=== PATIENT | female | born 1980 | race Caucasian/White ===

== ENCOUNTER 2018-07-13 12:00 | Outpatient (CLI) | payer BC, SELFPAY ==
[2018-07-13 13:45] LABS: ALT 19 U/L (12-78); AST 10 U/L (15-37); Albumin 3.5 g/dL (3.4-5.0); Alkaline Phosphatase 123 U/L (46-116); Anion Gap 9.1 mmol/L (3-11); BUN 11 mg/dL (7-18); Bilirubin, Total 0.2 mg/dL (0.2-1.0); CO2 29.9 mmol/L (21.0-32.0); CREATININE 0.74 mg/dL (0.55-1.02); Calcium 9.4 mg/dL (8.5-10.1); Chloride 100 mmol/L (98-107); Cholesterol 244 mg/dL (50-200); Glucose 80 mg/dL (70-100); HDL Cholesterol 55 mg/dL (40-60); LDL CHOLESTEROL 154 mg/dL (<100); Potassium 4.4 mmol/L (3.5-5.1); Sodium 139 mmol/L (136-145); TSH (W/Ref FT4) 0.97 uIU/mL (0.358-3.74); Total Protein 7.2 g/dL (6.4-8.2); Triglyceride 210 mg/dL (30-150)
[2018-07-13 18:47] LABS: C-Reactive Protein 2.32 mg/dL (0.0-0.3)
[2018-07-16 13:22] LABS: Albumin 54.8 % (55.8-66.1); Total Protein 6.9 g/dl (6.3-8.2)
[2018-07-16 13:46] LABS: C3 Complement 207 mg/dL (81-157); C4 Complement 32 mg/dL (13-39)
[2018-07-16 14:04] LABS: ANA Interpretation Positive (NEGAT); ANA Titer Pattern 1:80 Speckled
[2018-07-17 12:35] LABS: dsDNA Ab, IgG <12.3 IU/mL (<30)
== END 2018-07-13 12:20 ==
PROVIDERS: PCP Student in an Organized Health Care Education/Training Program; Visit Provider Student in an Organized Health Care Education/Training Program
DX: M32.9 Systemic lupus erythematosus, unspecified (principal); E78.5 Hyperlipidemia, unspecified; F32.9 Major depressive disorder, single episode, unspecified; F41.9 Anxiety disorder, unspecified
CPT/HCPCS: 36415; 80053; 80061; 83721; 84165; 84443; 86038; 86140; 86160; 86225

== ENCOUNTER 2019-10-17 14:03 | Emergency (ER) | payer MEDICAID, SELFPAY ==
[2019-10-17 14:12] VITALS: PULSE 88; RESP 16; TEMP 36.1; O2SAT 96
--- NOTE | 2019-10-17 14:23 | ED.GENADUL_ITS ---
Discharge Plan Disposition Patient Disposition: HOME Condition: Stable Discharge Details Chief Complaint: Urinary Clinical Impression: Pyelonephritis Primary Care Provider: Rebecca Lewis ED Provider: Staci Taylor Home Meds and New Rx's Prescriptions: No Action fluticasone propionate 50 mcg/actuation spray,suspension 2 spray ZACHERY DAILY Qty: 16 RF: 0 doxycycline hyclate 100 mg capsule 100 mg PO BID Qty: 20 RF: 0 hydroxychloroquine [Plaquenil] 200 mg tablet 200 mg PO DAILY Qty: 30 RF: 1 cevimeline [Evoxac] 30 MG capsule 30 mg PO BID RF: 0 loratadine [Claritin] 10 MG tablet 10 mg PO DAILY RF: 0 multivitamin [Daily Multi-Vitamin] 1 EACH tablet 1 ea PO DAILY RF: 0 (DME) Space Chamber Plus 1 EACH spacer 1 ea Miscellaneous PRN Qty: 1 RF: 0 epinephrine 0.3 MG/0.3 ML auto-injector 0.3 mg IM ONCE Qty: 2 RF: 0 ondansetron HCl [Zofran] 4 mg tablet 4 mg PO Q6H PRNRF: 0 pantoprazole 40 mg tablet,delayed release (DR/EC) 40 mg PO BID Qty: 180 RF: 3 bupropion HCl [Wellbutrin XL] 150 mg tablet extended release 24 hr 150 mg PO DAILY Qty: 90 RF: 3 escitalopram oxalate 10 mg tablet 10 mg PO DAILY Qty: 90 RF: 3 albuterol sulfate [ProAir HFA] 90 mcg/actuation HFA aerosol inhaler 2 puff Inhalation Q4-6H PRN Qty: 2 RF: 1 pregabalin [Lyrica] 150 mg capsule 150 mg PO DAILY Qty: 90 RF: 1 paroxetine HCl 40 mg tablet 40 mg PO DAILY Qty: 90 RF: 3 prednisone 20 mg tablet 40 mg PO DAILY 5 Days Qty: 10 RF: 0 ciprofloxacin HCl 500 mg tablet 500 mg PO BID Qty: 14 RF: 0 diclofenac sodium 75 MG tablet,delayed release (DR/EC) 1 tab DAILY PRNRF: 0 cholecalciferol (vitamin D3) [Vitamin D3] 2,000 UNIT capsule 1 tab DAILY RF: 0 Discharge Instructions Instructions: Urinary Tract Infection in Women (ED) Additional Instructions: Please continue your Cipro as previously prescribed Please drink plenty of fluids as discussed. Rest activities as tolerated. Expect improvement in the next 1 to 2 days with use of antibiotics as discussed. If not improving in the next 1 to 2 days please have prompt reevaluation with PCP or in the emergency room. Return to the emergency room for any worsening, concerns or alarming symptoms. Specifically observe for any fevers, difficulty eating or drinking, inability to hold down your medication. Urine culture pending. Please have Covid testing in the tent tomorrow as scheduled Recheck with PCP this week. Discharge Data Discharge Date/Time-TO BE ENTERED AT DEPARTURE: 10/17/19 17:50 Medical Decision Making <ERICA Workman - Last Filed: 10/18/19 08:07> 39-year-old female presents to the ER at the request of her primary care provider having not had any improvements of her symptoms after being treated with Cipro presumptively for UTI over the past 24 hours. She currently appears well, nontoxic. She is afebrile. She does have right-sided back-CVA discomfort. Will obtain routine laboratory values including urinalysis. Differential includes but not excluded to UTI, pyelonephritis, renal stone, infected renal stone, URI, COVID. At this time her lungs are clear to auscultation O2 sats are 96%, no clear indication for emergent chest x-ray. She can have COVID testing through the tent system tomorrow. Patient given 1 L IV fluid. Initial laboratory values reveal a WBC of 11.99 hemoglobin 13.3 hematocrit 41.9 platelet count 520. Absolute neutrophils 7.75. Sodium 135, chloride 97, creatinine 0.79. Urinalysis reveals large blood, trace leukoesterase. 20-50 red cells, 5-10 white cells. She is partially treated for potential UTI over the past 24 hours with 2 doses of Cipro. The hematuria could certainly be related to a hemorrhagic cystitis or pyelonephritis however certainly cannot rule out the potential for renal stone or infected renal stone. Will obtain a CT of abdomen pelvis without contrast for renal colic. This plan was made aware to patient. She has no additional questions or concerns. She is resting comfortably. <ERICA Zambrano - Last Filed: 10/19/19 08:13> Is a 39-year-old patient presenting to the emergency room for right flank pain complaining of mild dysuria began on Cipro yesterday. Has been compliant with 1 day of Cipro presenting to the emergency room for complaints of increase in ill feeling today described as malaise. Patient denies nausea, vomiting or abdominal pain. Patient is urinating normal amounts. Patient is also complaining of mild chest discomfort and cough. Was to have a Covid test in the drive-through today but missed her appointment. PCP was concerned requesting Covid testing. Patient spoke with PCP today who recommended ER evaluation. Patient reports no difficulty breathing. Patient does have an inhaler which she has been using with relief. Patient denies headache or dizziness. Patient signed out by previous provider pending CT imaging to rule out complicated UTI or pyelonephritis specifically renal stone, infected renal stone or hydroneph rosis to indicate obstruction. Also having chest x-ray to be sure there is no sign of pneumonia. Patient is nontoxic-appearing, speaking in full sentences, resting comfortably at the bedside. Patients CT FINDINGS: ABDOMEN: Lung Bases: Normal where visualized. Liver: Normal density. No measurable mass. Gallbladder and biliary tract: Status post cholecystectomy. No biliary dilation. Pancreas: Normal density, no abnormal calcifications or inflammatory process. Spleen: Normal. Kidneys: Normal size and location. No radiodense stones or obstructive uropathy. No masses seen. No perinephric collection or edema. Adrenal glands: No masses seen. Abdominal Aorta: Abdominal portion non-dilated. PELVIS: Bladder: Nearly empty. No gross wall thickening. Bowel: No obstruction or bowel wall thickening. Normal appendix. Moderate quantity of stool. Peritoneal cavity: No ascites, collection or mesenteric inflammatory response. Bones: Within normal limits. Reproductive: Unremarkable uterus and ovaries. IMPRESSION: No evidence of urinary tract calculi, hydronephrosis or other acute abnormality.. Patient's checks x-ray reveals no acute abnormality. Review of patient's labs Patient has a mild leukocytosis. Patient's urinalysis reveals large blood, nitrate negative, trace leukocyte esterase, red cells 20- 50. White cells 5-10, moderate bacteria negative for casts, few epithelial cells. Urine culture is pending. Patient is partially treated with 24 hours of Cipro which may have somewhat altered urinalysis results. Patient does have complaints of persistent flank pain but again appears nontoxic, vital signs are stable, leukocytosis is likely associated to urinary tract infection. Patient did receive 1 L of IV fluid in the ER today. These results were discussed with the patient. She feels comfortable discharge home at this time. We did discuss her chest pain which she reports is very vague she does not have concern with cardiac etiology at this time. Patient does have a history of Sjogren's as well as lupus and reports her flares are typically associated with joint pain, this would be atypical of a lupus flare for her. She is not concerned and is very familiar with her symptoms. Patient encouraged to continue her Cipro orally and we discussed very strict expectations of improvement in the next 1 to 2 days if not improving recommended prompt reevaluation with PCP or return to the ER for any alarming symptoms. Patient agrees with this plan of care. Plan of care does include [place] testing in the time tomorrow as scheduled HPI <ERICA Workman - Last Filed: 10/18/19 08:07> General Mode of arrival: ambulatory . Date/Time Provider Initiated Documentation: 10/17/19 14:21 . Limitations to Documentation: no limitations . Information obtained by: patient . HPI Narrative: This is a 39-year-old female with history of anxiety, hypertension, lupus, depression, Sjogren's syndrome, sleep apnea, vitamin D deficiency, migraines, GERD, fibromyalgia, history of pyelonephritis, presenting with right flank pain, subjective fevers and dysuria over the past 4 or 5 days. She discussed the case with her primary care provider yesterday and was placed on Cipro, symptoms not improving, sent to the ER for further evaluation. Patient has taken a total of 2 doses of Cipro. She reports a headache earlier in the week but none now. Denies neck pain, abdominal pain, vomiting, diarrhea, constipation. Of note she reports dealing with a viral respiratory infection intermittently over the past month, improving, and is scheduled as an outpatient for COVID testing. Related Data Home Medications Medication Instructions Recorded Confirmed cholecalciferol (vitamin D3) 1 tab DAILY 01/21/15 10/17/19 [Vitamin D] diclofenac sodium 1 tab DAILY PRN 01/21/15 10/17/19 cevimeline [Evoxac] 30 mg PO BID tab-cap 03/30/15 10/17/19 loratadine [Claritin] 10 mg PO DAILY tab-cap 10/26/15 10/17/19 multivitamin [Multi-Vitamin Daily] 1 ea PO DAILY 02/25/16 10/17/19 inhalational spacing device [Space #1 09/26/16 10/17/19 Chamber Plus] epinephrine 0.3 mg IM ONCE #2 pen 01/15/18 10/17/19 fluticasone propionate 50 2 spray ZACHERY DAILY #16 gm 06/27/18 10/17/19 mcg/actuation nasal spray,suspension hydroxychloroquine 200 mg tablet 200 mg PO DAILY #30 tab 07/13/18 10/17/19 ondansetron HCl 4 mg tablet 4 mg PO Q6H PRN tab 07/27/18 10/17/19 pantoprazole 40 mg tablet,delayed 40 mg PO BID #180 tab-cap 11/21/18 10/17/19 release bupropion HCl 150 mg 24 hr tablet, 150 mg PO DAILY #90 tab-cap 11/22/18 10/17/19 extended release escitalopram oxalate 10 mg tablet 10 mg PO DAILY #90 tab-cap 01/15/19 10/17/19 doxycycline hyclate 100 mg capsule 100 mg PO BID #20 cap 03/04/19 10/17/19 albuterol sulfate 90 mcg/actuation 2 puff INHALATION Q4-6H PRN #2 inh 09/12/19 10/17/19 aerosol inhaler pregabalin 150 mg capsule 150 mg PO DAILY #90 cap 09/27/19 10/17/19 paroxetine HCl 40 mg tablet 40 mg PO DAILY #90 tab 10/08/19 10/17/19 prednisone 20 mg tablet 40 mg PO DAILY 5 Days #10 tab 10/15/19 10/17/19 ciprofloxacin HCl 500 mg tablet 500 mg PO BID #14 tab 10/16/19 10/17/19 Previous Rx's Medication Instructions Recorded epinephrine 0.3 mg IM ONCE #2 pen 01/15/18 fluticasone propionate 50 2 spray ZACHERY DAILY #16 gm 06/27/18 mcg/actuation nasal spray,suspension hydroxychloroquine 200 mg tablet 200 mg PO DAILY #30 tab 07/13/18 pantoprazole 40 mg tablet,delayed 40 mg PO BID #180 tab-cap 11/21/18 release bupropion HCl 150 mg 24 hr tablet, 150 mg PO DAILY #90 tab-cap 11/22/18 extended release escitalopram oxalate 10 mg tablet 10 mg PO DAILY #90 tab-cap 01/15/19 doxycycline hyclate 100 mg capsule 100 mg PO BID #20 cap 03/04/19 albuterol sulfate 90 mcg/actuation 2 puff INHALATION Q4-6H PRN #2 inh 09/12/19 aerosol inhaler pregabalin 150 mg capsule 150 mg PO DAILY #90 cap 09/27/19 paroxetine HCl 40 mg tablet 40 mg PO DAILY #90 tab 10/08/19 prednisone 20 mg tablet 40 mg PO DAILY 5 Days #10 tab 10/15/19 ciprofloxacin HCl 500 mg tablet 500 mg PO BID #14 tab 10/16/19 Allergies Allergy/AdvReac Type Severity Reaction Status Date / Time latex Allergy Severe Verified 10/17/19 14:22 aspirin Allergy Mild Verified 10/17/19 14:22 amoxicillin Allergy Verified 10/17/19 14:22 bee venom protein (honey bee) Allergy Verified 10/17/19 14:22 gluten Allergy Verified 10/17/19 14:22 pertussis vaccine,adsorbed Allergy Verified 10/17/19 14:22 walnut Allergy Verified 10/17/19 14:22 egg AdvReac Intermediate stomach Verified 10/17/19 14:22 upset when eating eggs. Flu vaccine not problematic General Stated Complaint: Urinary LIU: 2 Review of Systems <ERICA Workman - Last Filed: 10/18/19 08:07> Constitutional Constitutional: Reports fatigue, Reports fever(s) and Reports headache(s) Eyes Eyes: Denies change in vision ENT Ears, Nose, Mouth, and Throat: Reports headache(s) and Denies sore throat Cardiovascular Cardiovascular: Denies chest pain and Denies dyspnea Respiratory Respiratory: Reports cough and Denies dyspnea Gastrointestinal Gastrointestinal: Reports abdominal pain, Denies diarrhea, Reports nausea and Denies vomiting Genitourinary Genitourinary: Reports hematuria and Reports dysuria Musculoskeletal Musculoskeletal: Reports back pain and Denies myalgias Integumentary/Breasts Skin/Breast: Reports rash (She reports a faint rash to both of her hands, resolved) Neurologic Neurologic: Reports headache(s) Psychiatric Psychiatric: Reports anxiety Endocrine Endocrine: Reports fatigue PFSH <ERICA Workman - Last Filed: 10/18/19 08:07> Medical History Abnormal uterine bleeding (AUB) 12/2017. Heavy flow, eval at [facility]. Anxiety and depression BMI 39.0-39.9,adult Fibromyalgia gerd lupus Migraine Nodule of esophagus Found on 2009 EGD -- negative/benign biopsy -- no f/u EGD recommended Respiratory illness (Acute) Resp illness, asthma exacerbation x 2+ weeks since home from [place]. Possible COVID19 exposure 2' travel, but did not feel testing needed as completely isolating and I agreed until 10/17/19 ED recommendation for possible Pyelo. sjordjens syndrome Surgical History Cholecystectomy (06/12/12) [place] tooth extraction Family History Mother Essential hypertension Spinal stenosis Asthma Father , CT, stroke at age 73. Prostate cancer Diabetes Essential hypertension Heart disease Stroke Brother No problems noted. Brother No problems noted. Grandmother , Colon CA at age 60. Ovarian cancer Personal history of malignant neoplasm Colon CA Social History Smoking/Tobacco Use Status: Never Alcohol Intake: current Alcohol Intake frequency: holidays/special occasions only Drug use: Never Do you feel safe at home: Yes Do you feel safe in your relationship?: Yes Exam <ERICA Workman - Last Filed: 10/18/19 08:07> Const General: cooperative, healthy appearing, comfortable and no acute distress Orientation: alert, awake and oriented x3 HENMT Head: normal to inspection, normocephalic and atraumatic General nose exam: external nose normal Face and sinus: normal facial exam Mouth: moist mucous membranes Throat: posterior oropharynx normal Eyes Conjunctivae: conjunctivae normal Neck Neck: normal visual inspection, full ROM, no meningeal signs, trachea midline and supple Resp Effort & Inspection: normal respiratory effort and able to speak in complete sentences Auscultation: clear to auscultation bilaterally Cardio Rate: regular rate Rhythm: regular rhythm GI Inspection: normal to inspection Palpation: soft, not firm, no guarding, not rigid and nontender Auscultation: normal bowel sounds Back/Spine/Pelvis Back: CVA tenderness (Right-sided), No erythema, No warmth, No ecchymosis and back tenderness Skin General skin exam: no rashes or lesions noted Neuro General: patient alert, patient awake, patient oriented x3, moves all extremities and no focal motor deficits Motor: muscle tone normal throughout Sensory Exam: no sensory deficits noted Extrem General: normal to inspection and full ROM Psych Appearance: grossly normal Mental Status: mental status grossly normal Course <ERICA Workman - Last Filed: 10/18/19 08:07> Vital Signs Vital signs: Vital Signs Temperature 36.1 C L 10/17/19 14:12 Pulse 88 10/17/19 14:12 Respiratory Rate 16 10/17/19 14:12 Pulse Oximetry 96 10/17/19 14:12 Temperature 36.1 C L 10/17/19 14:12 Temperature Source Temporal Artery Scan 10/17/19 14:12 Pulse 88 10/17/19 14:12 Respiratory Rate 16 10/17/19 14:12 Respiratory Effort Non-Labored 10/17/19 14:21 Blood Pressure Position Sitting 10/17/19 14:12 Pulse Oximetry 96 10/17/19 14:12 Oxygen Delivery Method Room Air 10/17/19 14:12 Oxygen Flow Rate 0 10/17/19 14:12 Pain Level 8 10/17/19 14:12 Comment 10/17/19 14:12 Sign Out <ERICA Workman - Last Filed: 10/18/19 08:07> Sign Out Data: Sign Out Comment: At signout awaiting CT abdomen and pelvis. Will add on 2 view chest x-ray given her URI-like symptoms over the past month and that she will be tested for COVID tomorrow. As my note states, patient has been on Cipro for the past 24 hours, a total of 2 doses. Last updated by Nate Bhakta PA at 10/17/19 16:10
[2019-10-17] MEDS: Normal Saline 1,000 ML 1000 ML IV (14:45)
[2019-10-17 15:02] LABS: Abs Immature Grans 0.02 k/cumm (0.0-0.09); Absolute Basophil Count 0.06 k/cumm (0.0-0.2); Absolute Eosinophil Count 0.28 k/cumm (0.0-0.7); Absolute Monocyte Count 0.84 k/cumm (0.11-0.7); Absolute Neutrophil Count 7.75 k/cumm (1.2-6.7); Basophils % 0.5; Eosinophils % 2.3; HCT 41.9 % (36.0-46.0); HGB 13.3 g/dL (12.0-15.5); Immature Grans % 0.2 %; Lymphocytes % 25.4; Mean Corp. HGB Concentration 31.7 g/dL (32.0-36.0); Mean Corpuscular Volume 78.9 fL (80-95); Mean Platelet Volume 9.2 fL (8.0-11.0); Neutrophils % 64.6; Platelet Count 520 x1000/uL (130-400); RBC 5.31 m/cumm (4.00-5.20); RBC Distribution Width 17.8 % (11.7-14.6); White Blood Cell Count 11.99 k/cumm (4.4-10.8)
[2019-10-17 15:04] LABS: Absolute Lymphocyte Count 3.05 k/cumm (1.2-3.4)
[2019-10-17 15:06] LABS: ALT 24 U/L (14-59); AST 8 U/L (15-37); Albumin 3.7 g/dL (3.4-5.0); Alkaline Phosphatase 118 U/L (46-116); Anion Gap 6.1 mmol/L (3-11); BUN 11 mg/dL (7-18); Bilirubin, Total 0.2 mg/dL (0.2-1.0); CO2 31.9 mmol/L (21.0-32.0); CREATININE 0.79 mg/dL (0.55-1.02); Calcium 9.2 mg/dL (8.5-10.1); Chloride 97 mmol/L (98-107); Glucose 79 mg/dL (74-106); Potassium 3.5 mmol/L (3.5-5.1); Sodium 135 mmol/L (136-145)
[2019-10-17 15:21] LABS: Bilirubin Negative (Negative); Blood Large (Negative); Clarity Sl Cloudy (Clear); Glucose Negative (Negative); Ketones Negative (Negative); Leukocyte Esterase Trace (Negative); Nitrite Negative (Negative); Urobilinogen 0.2 EU/dL (Up TO 0.2)
[2019-10-17 15:25] VITALS: BP 141/70; PULSE 77; RESP 16; O2SAT 98
[2019-10-17 15:30] LABS: Bacteria Moderate HPF (Negative); C & S Indicated? Yes; Casts Negative LPF (Negative); Crystals Negative HPF (Negative); Epithelial Cells Few HPF (Negative); Mucus Moderate (Negative); Other Cells Negative (Negative); RBC 20-50 HPF (0-2)
--- NOTE | 2019-10-17 16:00 | DI.RAD_ITS ---
EXAM: XR CHEST 2V PA LATERAL CLINICAL HISTORY: Cough, to be tested for COVID tomorrow TECHNIQUE: 2D digital imaging was performed. COMPARISON: No exams were available for comparison FINDINGS: MEDIASTINUM: Normal. HEART: Normal. PULMONARY VASCULATURE: Normal. LUNGS: Clear. PLEURAL SPACE: No pleural effusion or pneumothorax. BONE:No compression fracture of the thoracic spine. Question mild scoliosis.. IMPRESSION: No acute pulmonary findings. DATA REPOSITORY: RADIATION DOSE DELIVERED:
--- NOTE | 2019-10-17 16:18 | DI.CT_ITS ---
EXAM: CT RENAL COLIC WO CLINICAL HISTORY: Right flank pain, hematuria, 5-10 WBCs in urine. TECHNIQUE: Imaging Protocol: Axial computed tomography images with coronal and sagittal reformatted images were created and reviewed. CONTRAST MATERIAL: Without IV contrast. Without oral contrast. COMPARISON: No exams were available for comparison FINDINGS: ABDOMEN: Lung Bases: Normal where visualized. Liver: Normal density. No measurable mass. Gallbladder and biliary tract: Status post cholecystectomy. No biliary dilation. Pancreas: Normal density, no abnormal calcifications or inflammatory process. Spleen: Normal. Kidneys: Normal size and location. No radiodense stones or obstructive uropathy. No masses seen. No perinephric collection or edema. Adrenal glands: No masses seen. Abdominal Aorta: Abdominal portion non-dilated. PELVIS: Bladder: Nearly empty. No gross wall thickening. Bowel: No obstruction or bowel wall thickening. Normal appendix. Moderate quantity of stool. Peritoneal cavity: No ascites, collection or mesenteric inflammatory response. Bones: Within normal limits. Reproductive: Unremarkable uterus and ovaries. IMPRESSION: No evidence of urinary tract calculi, hydronephrosis or other acute abnormality.. RADIATION DOSE DELIVERED: Total DLP DATA REPOSITORY: All CT scans at this facility are submitted to the National Radiology Data Registry (NRDR) Dose Index Registry (DIR) with the [employer] (ACR). RADIATION OPTIMIZATION: All CT scans at this facility use at least one of these dose optimization te chniques: automated exposure control; mA and/or kV adjustment per patient size (includes targeted exa ms where dose is matched to clinical indication); or iterative reconstruction.
[2019-10-17 16:30] VITALS: BP 137/63; PULSE 87; RESP 16; O2SAT 100
--- NOTE | 2019-10-17 16:34 | DI.VRAD_ITS ---
PROCEDURE INFORMATION: Exam: CT Abdomen And Pelvis Without Contrast Exam date and time: 10/17/2019 4:16 PM Age: 39 years old Clinical indication: Abdominal pain; Right; Patient HX: RT flank pain, hematuria TECHNIQUE: Imaging protocol: Computed tomography of the abdomen and pelvis without contrast. Radiation optimization: All CT scans at this facility use at least one of these dose optimization techniques: automated exposure control; mA and/or kV adjustment per patient size (includes targeted exams where dose is matched to clinical indication); or iterative reconstruction. COMPARISON: No relevant prior studies available. FINDINGS: Liver: Normal. No mass. Gallbladder and bile ducts: Status post cholecystectomy . Pancreas: Normal. No ductal dilation. Spleen: Normal. No splenomegaly. Adrenals: Normal. No mass. Kidneys and ureters: Normal. No hydronephrosis. Stomach and bowel: The upper abdomen was not entirely imaged. The portions of the liver spleen stomach and colon or located cephalad to the uppermost image submitted. The visualized portion of the stomach shows no abnormality. No dilatation of the small bowel. Large fecal burden throughout the visualized colon without surrounding inflammation. Appendix: No evidence of appendicitis. Intraperitoneal space: Unremarkable. No free air. No significant fluid collection. Vasculature: Multiple phleboliths in the pelvis. Lymph nodes: Unremarkable. No enlarged lymph nodes. Bladder: Urinary bladder is fairly collapsed. Reproductive: Unremarkable as visualized. Bones/joints: Unremarkable. No acute fracture. Soft tissues: Unremarkable. IMPRESSION: 1. No evidence of urinary tract calculi nor acute appendicitis. The urinary bladder is somewhat collapsed. 2. Note uppermost portion of the abdomen was not included on the study Dictated and Authenticated by: Vincent Partida MD. Ordering:ANDRAE Sullivan MD
--- NOTE | 2019-10-17 16:46 | DI.VRAD_ITS ---
PROCEDURE INFORMATION: Exam: XR Chest, 2 Views Exam date and time: 10/17/2019 4:19 PM Age: 39 years old Clinical indication: Other: Cough, testing tomorrow for covid TECHNIQUE: Imaging protocol: XR of the chest Views: 2 views. COMPARISON: No relevant prior studies available. FINDINGS: Lungs: Unremarkable. No consolidation. Pleural space: Unremarkable. No pleural effusion. No pneumothorax. Heart/Mediastinum: Unremarkable. No cardiomegaly. Bones/joints: Mild the rotary scoliosis of the mid and upper thoracic spine. The IMPRESSION: No acute cardiopulmonary process. Dictated and Authenticated by: Vincent Partida MD. Ordering:ANDRAE Sullivan MD
[2019-10-17 17:49] VITALS: BP 137/63; PULSE 87; RESP 16; O2SAT 100
== END 2019-10-17 17:50 | disposition home or self-care (01) ==
PROVIDERS: Physician Assistant; Emergency Provider Physician Assistant; PCP Student in an Organized Health Care Education/Training Program
DX: N12 Tubulo-interstitial nephritis, not specified as acute or chronic (principal); I10 Essential (primary) hypertension
CPT/HCPCS: 80053; 99284; 71046; 74176; 81003; 81015; 85025; 87086

== ENCOUNTER 2019-10-18 08:39 | Outpatient (CLI) | payer MEDICAID, SELFPAY ==
[2019-10-19 14:05] LABS: COVID-19 RT-PCR UVMMC Result Negative (Negative)
== END 2019-10-18 08:59 ==
PROVIDERS: PCP Student in an Organized Health Care Education/Training Program; Visit Provider Student in an Organized Health Care Education/Training Program
DX: J98.9 Respiratory disorder, unspecified (principal)
CPT/HCPCS: U0003

== ENCOUNTER 2020-03-18 01:09 | Outpatient (CLI) | payer MEDICAID, SELFPAY ==
--- NOTE | 2020-03-18 07:00 | DI.US_ITS ---
EXAM: US RENAL CLINICAL HISTORY: LT FLANK PAIN,CHRONIC,HYDRONEPHROSIS,H/O PYELONEPHRITIS. TECHNIQUE: Quintanilla scale, color and spectral Doppler were used. COMPARISON: CT CT RENAL COLIC WO from 10/17/2019 FINDINGS: Renal size in cm: Right: 11.2. Left: 13.6. Echogenicity: Normal. Hydronephrosis: No. Cyst or mass: No. Nephrolithiasis: 0.6 cm echogenic focus in the lower pole of the left kidney which may represent a no nobstructing stone. Other findings: There are findings suggestive of a duplex left renal collecting system. Bladder:Normal. Ureteral jets: Right: Visualized and unremarkable. Left: Visualized and unremarkable. Prevoid vol:165 cc Postvoid vol:0 cc Renal color flow: Symmetric and within normal limits. IMPRESSION: 1. 0.6 cm echogenic focus in the lower pole of the left kidney which may represent a nonobstructing s tone. 2. No evidence of hydronephrosis. 3. 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 DATA REPOSITORY:
== END 2020-03-18 01:29 ==
PROVIDERS: PCP Student in an Organized Health Care Education/Training Program; Visit Provider Student in an Organized Health Care Education/Training Program
DX: G89.29 Other chronic pain (principal); R10.9 Unspecified abdominal pain; Z87.448 Personal history of other diseases of urinary system
CPT/HCPCS: 76770

== ENCOUNTER 2020-05-14 00:43 | Outpatient (CLI) | payer MEDICAID, SELFPAY ==
--- NOTE | 2020-05-14 06:45 | DI.RAD_ITS ---
EXAM: XR CHEST 2V PA LATERAL CLINICAL HISTORY: r/o pathology of RT lower chest wall,CHEST PAIN,R07.9 TECHNIQUE: 2D digital imaging was performed. COMPARISON: CR,XR XR CHEST 2V PA LATERAL from 10/17/2019 FINDINGS: MEDIASTINUM: Normal. HEART: Normal. PULMONARY VASCULATURE: Normal. LUNGS: Clear. PLEURAL SPACE: No pleural effusion or pneumothorax. BONE:Within normal limits for the patient's age. OTHER FINDINGS:Normal. IMPRESSION: No acute pulmonary findings. DATA REPOSITORY: RADIATION DOSE DELIVERED:
== END 2020-05-14 01:03 ==
PROVIDERS: PCP Student in an Organized Health Care Education/Training Program; Visit Provider Student in an Organized Health Care Education/Training Program
DX: R07.9 Chest pain, unspecified (principal); R10.9 Unspecified abdominal pain
CPT/HCPCS: 71046

== ENCOUNTER 2021-02-03 16:44 | Outpatient (REF) | payer MEDICAID, SELFPAY ==
--- NOTE | 2021-02-03 14:00 | PAPFT_PTH ---
PATIENT: Dilia Martinez LOC: [facility] U#:[id number] AGE/SX: 41/F ROOM: RE02/03/[address]: Flora Hudson : 1980 BED: DIS: 02/03/2021 SPEC #: [id number] RECD: 02/03/21 17:55 STATUS: ASYA RESon #: [id number] VONNIE: 02/03/21 14:[address]: Flora Hudson DEPT: [facility] Cytology RECD BY: Amy Arambula ENTERED: 02/03/21 17:55 SP TYPE: PAPFT JOEL DR: Rebecca Lewis DO Tissues: 1 - CX/ENDOCX FOR PAP SMEARS Procedures: PAP THIN PREP/UVM Screening HPV DNA PROBE Comments: [id number]
== END 2021-02-03 16:45 | disposition home or self-care (01) ==
LOC: LBN 16:44
PROVIDERS: PCP Student in an Organized Health Care Education/Training Program; Visit Provider Obstetrics & Gynecology Gynecology
DX: Z12.4 Encounter for screening for malignant neoplasm of cervix (principal); Z87.42 Personal history of other diseases of the female genital tract; Z11.51 Encounter for screening for human papillomavirus (HPV)
CPT/HCPCS: 88142; 87624

== ENCOUNTER 2021-03-08 14:31 | Outpatient (REF) | payer MEDICAID, SELFPAY ==
[2021-03-08 20:47] LABS: Bilirubin Negative (Negative); Blood Negative (Negative); Clarity Clear (Clear); Glucose Negative (Negative); Ketones Negative (Negative); Leukocyte Esterase Negative (Negative); Nitrite Negative (Negative); Urobilinogen 0.2 EU/dL (Up TO 0.2)
== END 2021-03-08 14:32 | disposition home or self-care (01) ==
LOC: LBN 14:31
PROVIDERS: PCP Student in an Organized Health Care Education/Training Program; Visit Provider Nurse Practitioner Adult Health
DX: R10.9 Unspecified abdominal pain (principal); R35.0 Frequency of micturition
CPT/HCPCS: 81003

== ENCOUNTER 2021-03-09 01:08 | Outpatient (CLI) | payer MEDICAID, SELFPAY ==
[2021-03-09 12:29] LABS: HCT 40.6 % (36.0-46.0); HGB 12.5 g/dL (11.2-15.7); MCH 24.5 pg (27.0-33.0); MCHC 30.8 % (32.0-36.0); MCV 79.5 fL (80-95); MPV 9.3 fL (8.0-11.0); Platelet Count 464 10^3/uL (130-400); RBC 5.11 10^6/uL (3.93-5.22); RDW-SD 45.7 fL; WBC 8.23 10^3/uL (4.4-10.8)
[2021-03-09 12:41] LABS: Magnesium 1.9 mg/dL (1.8-2.4)
[2021-03-09 12:44] LABS: ALT 22 U/L (14-59); AST 7 U/L (15-37); Albumin 3.7 g/dL (3.4-5.0); Alkaline Phosphatase 128 U/L (46-116); Anion Gap 8.9 mmol/L (3-11); BUN 10 mg/dL (7-18); Bilirubin, Total 0.2 mg/dL (0.2-1.0); CO2 29.1 mmol/L (21.0-32.0); CREATININE 0.8 mg/dL (0.55-1.02); Calcium 9.1 mg/dL (8.5-10.1); Calculated LDL 144 mg/dL (<100); Chloride 105 mmol/L (98-107); Cholesterol 240 mg/dL (<200); Glucose 103 mg/dL (74-106); HDL Cholesterol 60 mg/dL (40-60); Potassium 4.8 mmol/L (3.5-5.1); Sodium 143 mmol/L (136-145); Total Protein 7.2 g/dL (6.4-8.2); Triglyceride 181 mg/dL (<150)
[2021-03-11 00:57] LABS: Vitamin D 25 Total 24.4 ng/mL (30-100)
== END 2021-03-09 01:09 | disposition home or self-care (01) ==
LOC: LOS 01:09
PROVIDERS: PCP Student in an Organized Health Care Education/Training Program; Visit Provider Student in an Organized Health Care Education/Training Program
DX: I10 Essential (primary) hypertension (principal); K21.9 Gastro-esophageal reflux disease without esophagitis; E86.0 Dehydration; R10.9 Unspecified abdominal pain; E55.9 Vitamin D deficiency, unspecified; M32.9 Systemic lupus erythematosus, unspecified; M79.7 Fibromyalgia; N93.9 Abnormal uterine and vaginal bleeding, unspecified
CPT/HCPCS: 36415; 80053; 80061; 82306; 85027; 83735; 86140

== ENCOUNTER 2023-09-13 05:19 | Outpatient (CLI) | payer BC, SELFPAY ==
[2023-09-13 10:28] LABS: Anion Gap 8.1 mmol/L (3-11); BUN 8 mg/dL (7-18); CO2 30.9 mmol/L (21.0-32.0); CREATININE 0.7 mg/dL (0.55-1.02); Calcium 8.6 mg/dL (8.5-10.1); Calculated LDL 110 mg/dL (<100); Chloride 104 mmol/L (98-107); Cholesterol 208 mg/dL (<200); Estimated GFR 108.62 (mL/min/1.73m2); Glucose 98 mg/dL (74-106); HDL Cholesterol 62 mg/dL (40-60); Potassium 3.8 mmol/L (3.5-5.1); Sodium 143 mmol/L (136-145); TSH (W/Ref FT4) 1.31 uIU/mL (0.36-3.74); Triglyceride 180 mg/dL (<150); Vitamin B12 1537 pg/mL (193-986)
[2023-09-13 10:47] LABS: Folate 11.2 ng/mL (8.6-20.0)
== END 2023-09-13 05:20 | disposition home or self-care (01) ==
PROVIDERS: PCP Student in an Organized Health Care Education/Training Program; Visit Provider Student in an Organized Health Care Education/Training Program
DX: I10 Essential (primary) hypertension (principal); E78.5 Hyperlipidemia, unspecified; E34.8 Other specified endocrine disorders; K90.9 Intestinal malabsorption, unspecified; E55.9 Vitamin D deficiency, unspecified; K21.9 Gastro-esophageal reflux disease without esophagitis; Z79.899 Other long term (current) drug therapy
CPT/HCPCS: 36415; 80048; 80061; 82306; 82607; 82746; 84443

== ENCOUNTER → 2024-01-30 15:53 | Outpatient (CLI) | payer BC, SELFPAY ==
--- NOTE | 2024-01-30 12:15 | DI.RAD_ITS ---
Exam(s) XR ANKLE RT COMPLETE EXAM: XR ANKLE RT COMPLETE CLINICAL HISTORY: M84.371A Possible stress fracture, talus and 5th metatarsal. TECHNIQUE: 2D digital imaging was performed. COMPARISON: No exams were available for comparison FINDINGS: 3 views No evidence of fracture nor widening the ankle mortise. Talar dome unremarkable. Bone density moises l. No osseous lesions. No erosions. No osseous tarsal coalition evident. Mild soft tissue swellin g medially noted. No radiopaque foreign body. IMPRESSION: No acute osseous findings in the ankle. DATA REPOSITORY: RADIATION DOSE DELIVERED:
--- OUTSIDE RECORDS SUMMARY | 2024-01-30 15:58 | XMS_ITS | Continuity of Care Document ---
Author Organization [facility] Address [address] [address] Assessment No assessment recorded. Plan of Treatment Reminders Order Date Submit Date Provider Last Modified By Organization Details Last Modified Time Details Appointments None recorded. Lab None recorded. Referral None recorded. Procedures None recorded. Surgeries None recorded. Imaging None recorded. Medication Orders doxycycline hyclate 100 mg capsule 2023 024 [facility], [address] [facility] [facility], [address], [place], [address], 4 10:28:09 benzonatate 100 mg capsule 2023 024 [facility], [address], [address], [place], [address], 4 10:28:40 Patient TargetsNo targets recorded. Patient InstructionsNo instructions recorded. Reason for Referral None Reported. Medical Equipment None Reported. Allergies Allergen ID Allergen Name Allergen Category Reaction Reaction Severity Criticality Documentation Date Start Date Code Code System Note Provider Name and Address Organization Details Recorded Time 28892 amoxicill in medicatio n angioedem a mild low 12/07/2023 723 RxNorm Dilia Ness null, [facility] 4 10:05:52 33080 pertussis vaccine medicatio n seizure severe high 12/07/2023 8080 RxNorm Dilia Ness null, [facility] 4 10:06:20 Medications Name Sig Start Date Stop Date Status Note LastModified by Organization Details LastModified Time doxycycline hyclate 100 mg capsule Take 1 capsule twice a day by oral route for 10 days. active Not Available Not Available Not Avai lable Plaquenil 200 mg tablet Take 1 tablet twice a day by oral route. active Not Available Not Available No t Available Protonix 20 mg tablet,delaye d release Take 1 tablet every day by oral route. active Not Available Not Available No t Available Wellbutrin SR 150 mg tablet, 12 hr sustained-rel ease Take 1 tablet every day by oral route. active Not Available Not Available No t Available Evoxac 30 mg capsule Take 1 capsule twice a day by oral route. active Not Available Not Available No t Available Paxil 40 mg tablet Take 1 tablet every day by oral route. active Not Available Not Available No t Available benzonatate 100 mg capsule Take 1 capsule 3 times a day by oral route for 7 days. active Not Available Not Available Not Avai lable Lexapro 10 mg tablet Take 1 tablet every day by oral route. active Not Available Not Available No t Available Lyrica 150 mg capsule Take 1 capsule every day by oral route. active Not Available Not Available No t Available amlodipine 1 twice a day active Not Available Not Available No t Available Vitals Date Recorded Body height Body mass index (BMI) Body weight Body temperature Oxygen saturation Oxygen saturation in Arterial blood by Pulse oximetry Heart rate Respiratory rate Systolic blood pressure Diastolic blood pressure Provider Name and Address Organization Details Last Updated DateTime 4 177.8 cm 38.5 kg/m2 527179. 76 g 97.4 [degF] 97 % 97 % 86 /min 17 /min 142 mm[Hg] 78 mm[Hg] Dilia Ness [facility] 10:04:51 Social History Question Answer Notes LastModified by Organizat ion Details LastModified Time Tobacco Smoking Status Never Smoker Dilia Ness null, [facility] 12/07/2023 10:10:06 What Was The Date Of Your Most Recent Tobacco Screening? 12/07/2023 Information not available 12/07/2023 Has Tobacco Cessation Counseling Been Provided? No Information not available 12/07/2023 Do You Or Have You Ever Used Any Other Forms Of Tobacco Or Nicotine? No Information not available 12/07/2023 Sex: Unknown Functional Status None recorded. Mental Status None recorded. Family History Nothing Reported. Medical History No medical history recorded. Gynecological HistoryNo gynecological history recorded. Obstetrics History GPAL:G 0 P 0 0 0 0 Past Encounters Encounter ID Performer Location Encounter Start Date Encounter Closed Date Diagnosis/Indication Diagnosis SNOMED-CT Code [id number] Padmini Romano PA-C [facility] [address] [address] 12/07/2023 09:15:16 12/07/2023 10:27:58 Bronchitis [id number] Health Concerns Section Related Observation LastModified by Organization Detai ls LastModified Time None Recorded Concern Status LastModified by Organization Details LastModified Time None Recorded Payers Encounter Date Sequence Insurance Name Policy Number Policy Eddy Covered Member ID Eddy Member ID Guarantor Name 12/07/2023 1 [place]: [facility] Dilia Carrolluch [id number] Dilia Martinez Notes Date Note Type Note Provider Name and Address Organization Details Recorded Time 12/07/2023 text/html HPI Notes: Pt is a 43 y/o F with hx of SLE here for worsening cough, SOB, purulent sputum, low grade fever ,LAD for 7-8 days. She states she had sore throat and runny nose but hs worsened with cough + fever, chills, myalgia and SOB when walking up stairs. She has tried APAP, ibuprofen, mucinex, albuterol w/o relief. pt is immuno suppressed. She denies chest pain, hemoptysis, ear pain, headache, dizziness. [address], [place], [address], [facility]. 12/07/2023 12:09:01 OBGyn Episode No OBEpisode recorded.
--- OUTSIDE RECORDS SUMMARY | 2024-01-30 15:58 | XMS_ITS | Data Portability ---
Author Organization [facility] Address [place] [address] Assessment No assessment recorded. Plan of Treatment Reminders Order Date Submit Date Provider Last Modified By Organization Details Last Modified Time Details Appointments None recorded. Lab None recorded. Referral None recorded. Procedures None recorded. Surgeries None recorded. Imaging None recorded. Medication Orders doxycycline hyclate 100 mg capsule 2023 024 [facility], [address] [facility], [address], [place], [address], 4 10:28:09 benzonatate 100 mg capsule 2023 024 [facility], [address] [facility], [address], [place], [address], 4 10:28:40 Patient TargetsNo targets recorded. Patient InstructionsNo instructions recorded. Reason for Referral None Reported. Medical Equipment None Reported. Allergies Allergen ID Allergen Name Allergen Category Reaction Reaction Severity Criticality Documentation Date Start Date Code Code System Note Provider Name and Address Organization Details Recorded Time 09055 amoxicill in medicatio n angioedem a mild low 12/07/2023 723 RxNorm Dilia whitman, [facility] 4 10:05:52 93815 pertussis vaccine medicatio n seizure severe high 12/07/2023 8080 RxNorm Dilia Ness [facility], [facility] 4 10:06:20 Medications Name Sig Start Date [...] Updated DateTime 4 177.8 cm 38.5 kg/m2 427454. 76 g 97.4 [degF] 97 % 97 % 86 /min 17 /min 142 mm[Hg] 78 mm[Hg] Dilia Ness [facility] 10:04:51 Social History Question Answer Notes LastModified by Organizat ion Details LastModified Time Tobacco Smoking Status Never Smoker Dilia Ness null, [facility] 12/07/2023 10:10:06 What Was The Date Of [...] Encounter Closed Date Diagnosis/Indication Diagnosis SNOMED-CT Code [id number] Padmini Romano PA-C [facility] [address] [address] 12/07/2023 09:15:16 12/07/2023 10:27:58 Bronchitis [id number] Health Concerns Section Related Observation LastModified by Organization Detai ls LastModified Time None Recorded Concern Status LastModified by Organization Details LastModified Time None Recorded Advance Directives Directive None Recorded Payers Encounter Date Sequence Insurance Name Policy Number Policy Eddy Covered Member ID Eddy Member ID Guarantor Name 12/07/2023 1 [facility] Dilia Carrolluch [id number] Dilia Martinez Notes Date Note Type Note [...] ear pain, headache, dizziness. [address], [place], [address], [facility]. 12/07/2023 12:09:01 OBGyn Episode No OBEpisode recorded.
--- OUTSIDE RECORDS SUMMARY | 2024-01-30 15:58 | XMS_ITS | Clinical Summary ---
Author Organization [facility] Address [facility] [place] [address] Care Team Providers Care As400 Analyst Name Role Phone Debbie Rbeeccabreanna Carranza DO Primary Care Provider [phone] Allergies Active Allergy Reactions Criticality Noted Date Comments Amoxicillin 08/18/2011 Bee Venom Protein (Honey Bee) 2019 Lactose-Reduced Food 08/18/2011 Pertussis Vaccines 05/12/2020 [place] 03/06/2020 Medications Medication Sig Dispensed Refills Start Date End Date Status PARoxetine (PAXIL) 30 mg tablet Take 30 mg by mouth nightly. Active loratadine (CLARITIN) 10 mg tablet Take 10 mg by mouth daily as needed. Active PROAIR HFA 90 mcg/actuation HFA Aerosol Inhaler as needed. 10/03/2014 Active buPROPion (WELLBUTRIN XL) 150 mg Tablet Extended Release 24 hr Take 150 mg by mouth every morning. Active escitalopram (LEXAPRO) 10 mg Tablet Take 10 mg by mouth daily. 10/25/2017 Active fluticasone (FLONASE) 50 mcg/actuation [place], Suspension Daily 08/21/2015 Active ondansetron (ZOFRAN) 4 mg Tablet Every 6 hours, as needed 10/18/2016 Active pantoprazole (PROTONIX) 40 mg Tablet, Delayed Release (E.C.) Take 40 mg by mouth daily. 03/30/2015 Active econazole nitrate 1 % Cream Apply topically to the right foot twice daily until skin appears clear, then an additional 2 weeks. 85 g 04/13/2020 Active amLODIPine (Norvasc) 2.5 mg Tablet TAKE 1 TABLET BY MOUTH ONCE DAILY 03/08/2020 Active multivitamin (THERAGRAN) Tablet Take 1 tablet by mouth daily. HAS VITAMIN D3 2000 IU Active cholecalciferol, Vitamin D3, 1,250 mcg (50,000 unit) Capsule TAKE 1 CAPSULE BY MOUTH ONCE A WEEK FOR 10 WEEKS 03/31/2021 Active EPINEPHrine 0.3 mg/0.3 mL Auto-Injector Inject into the muscle. 01/15/2018 Active TURMERIC ORAL Take by mouth. Active MILK THISTLE ORAL Take by mouth. Act elizabeth UNABLE TO FIND Gallbladder enzymes Active UNABLE TO FIND Cbd gummies Active acetaminophen (Tylenol) 500 mg tablet Take 2 tablets by mouth every 6 hours as needed for Pain. 06/09/2023 Active ibuprofen (Advil) 600 mg tablet Take 1 tablet by mouth every 6 hours as needed for Pain. 06/09/2023 Active cevimeline (Evoxac) 30 mg capsuleIndications: Lupus,Sjogren syndrome, unspecified Take 1 capsule by mouth 3 times daily. 90 capsule 4 10/04/2023 Active hydrOXYchloroQUINE (Plaquenil) 200 mg tabletIndications:L upus TAKE TWO TABLETS BY MOUTH EVERY DAY 60 tablet 5 01/19/2024 Active pregabalin (Lyrica) 150 mg capsuleIndications: Lupus TAKE ONE CAPSULE BY MOUTH EVERY DAY 90 capsule 01/26/2024 Active Active Problems Problem Noted Date Diagnosed Date Microscopic hematuria 05/13/2020 Right flank pain 05/13/2020 Urinary frequency 05/13/2020 Hypertension 01/23/2018 Overview (01/23/2018): Patient reports while on Amira in past. Avoid ESTROGEN containing SAMMIE's Body mass index (BMI) of 39.0 to 39.9 in adult 1 Migraine without status migrainosus, not intract able 04/13/2016 Insomnia 09/18/2015 Obstructive sleep apnea syndrome 04/30/2015 Anxiety 03/30/2015 Fibromyalgia 03/30/2015 Gastroesophageal reflux disease 03/30/2015 Sjogren's syndrome 03/30/2015 Systemic lupus erythematosus 03/30/2015 Encounters Date Type Department Care Team Description 01/26/2024 [place] [address] Candace Vance MD Lupus 01/18/2024 [place] [address] Candace Vance MD Lupus 11/06/2023 [place] [address] Candcae Vance MD Lupus from Last 3 Months Immunizations Name Administration Dates Next Due Influenza Quadrivalent, Pres ervative Free 02/14/2020,05/06/2019,03/04/2018,2015 Moderna Covid-19 Monovalent 12Yr+ (Rn Acls 100mcg) 10/13/2020,09/15/2020 Td Adult, Absorbed, Preservative Free 11/10/2013 Family History Medical History Relation Comments Crohn Disease Brother Cerebrovascular Accident Father Diabetes Father type 2 diet cont rolled Hyperlipidemia Father Hypertension Father Myocardial Infarction Father Myocardial Infarction Maternal Grandfather Colorectal Cancer Maternal Grandmother Ovarian Cancer Maternal Grandmother Asthma Mother Hypertension Mother Myocardial Infarction Paternal Grandfather Breast Cancer Neg Hx Uterine Cancer Neg Hx Relation Status Comments Brother Alive Father Maternal Grandfather Maternal Grandmother Mother Alive Paternal Grandfather Paternal Grandmother Social History Tobacco Use Types Packs/Day Years Used Date Smoking Tobacco: Never Smokeless Tobacco: Never Tobacco Cessation:Counseling Given: Not Answered Alcohol Use Standard Drinks/Week Comments Yes 0 (1 standard drink = 0.6 oz pur e alcohol) very rarely IPV Inpatient Questions Answer Date Recorded Does Anyone Try to Keep You From Having Contact with Others or Doing Things Outside Your Home? no 06/09/2023 Feels Threatened by Someone no 05/26 Feels Unsafe at Home or Work/School no 06/09/2023 Physical Signs of Abuse Present no 06/09/2023 Sex and Gender Information Value Date Recorded Sex Assigned at Not on file Gender Identity Not on file Sexual Orientation Not on file Last Filed Vital Signs Vital Sign Reading Time Taken Comments Blood Pressure 127/82 08/15/2023 3:37 PM EST Pulse 88 08/15/2023 3:37 PM EST Temperature 36.9 ??C (98.5 ??F) 08/15/2023 3:37 PM ES T Respiratory Rate 18 06/09/2023 1:50 PM EST Oxygen Saturation 98% 08/15/2023 3:37 PM EST Inhaled Oxygen Concentration - - Weight 121.6 kg (268 lb) 08/15/2023 3:37 PM EST Height 177.8 cm (5' 10) 07/17/2023 3:33 PM EST reported Body Mass Index 38.45 07/17/2023 3:33 PM EST Plan of Treatment Upcoming Encounters Date Type Department Care Team (Late st Contact Info) Description 02/13/2024 3:30 PM EDT Office Visit Rheumatology at [facility] [place] [address] Candace Vance MD [facility] [place] [address] Health Maintenance Due Date Last Done Comments CT Colonography 1978 Colonoscopy 1978 Colorectal Cancer Screening 1978 FIT DNA 1978 FIT 1978 Sigmoidoscopy (10 year) with FIT yearly 1978 Sigmoidoscopy 1978 HIV screen 01/07/1996 Hepatitis C Screening 01/07/1996 Lipid Screening 01/07/1996 Hepatitis B vaccine (0-59 yrs) (1) 1997 Tdap adult 1997 HPV test 01/07/2008 PAP Smear 01/07/2008 Breast Cancer Share Decision Needed 2018 Breast Cancer screening 08/01/2020 08/01/2018 Covid-19 Vaccine (3 - 2022-2 4 season) 2023 10/13/2020, 09/15/2020 Tetanus vaccine 11/11/2023 11/10/2013 Influenza (Flu) vaccine (1 o f 1 - Influenza standard series) 02/25/2024 02/14/2020, 05/06/2019, 03/04/2018, Additional history exists Diabetes Screening (HgbA1C o r Glucose) 08/15/2026 08/15/2023, 04/04/2023, 03/06/2023, Additional history exists Procedures Procedure Name Priority Date/Time Associated Diagnosis Comments COMPREHENSIVE METABOLIC PANEL Routine 08/15/2023 4:14 PM EST Sjogren syndrome, unspecified MAMMO DIAGNOSTIC CAD AND YANIV BILATERAL Routine 08/01/2018 8:28 AM EST Pain in axilla, left from Last 3 Months or Most Recently Relevant to Health Maintenance Results * (ABNORMAL) Comprehensive metabolic panel (non-fasting) (08/15/2023 4:14 PM EST) Glucose 91 65 - 199 mg/dL [facility] Comment:Diabetes: >=200 mg/d L plus symptoms Blood Urea Nitrogen 14 8 - 18 mg/dL [facility] Creatinine 0.66(L) 0.70 - 1.20 mg/dL [facility] Sodium 139 135 - 145 mmol/L [facility] Potassium 3.9 3.5 - 5.0 mmol/L [facility] Comment: Please note: ??Patients with WBC >100,000 may have falsely elevated Potassium levels. ??For accurate Potassium quantification in these patients send serum separator tube (gold top) for subsequent determinations. ??Contact the Clinical Chemistry Laboratory if there are any questions. Chloride 103 98 - 107 mmol/L [facility] Carbon Dioxide 29 22 - 31 mmol/L [facility] Anion Gap 7 5 - 15 mmol/L [facility] Calcium 9.5 8.5 - 10.5 mg/dL [facility] Protein, Total 6.9 6.1 - 8.0 g/dL [facility] Albumin 4.2 3.2 - 5.2 g/dL [facility] Aspartate Aminotransferase 9 0 - 30 unit/L [facility] Alanine Aminotransferase 12 0 - 30 unit/L [facility] Alkaline Phosphatase 97 35 - 105 unit/L [facility] Bilirubin, Total <0.2(L) 0.2 - 1.3 mg/dL [facility] Est Glomerular Filtration Rate 110 >=60 mL/min/1. 73 m?? [facility] Comment: This patient's estimated GFR was calculated using the 2020 CKD-EPI equation. The estimated GFR can vary from the measured GFR by up to 30% in the absence of rapidly changing kidney function. Assessment of the estimated GFR is not appropriate when creatinine concentrations are rapidly changing. For clinical situations in which a more precise estimate of GFR is necessary, consider alternative methods of GFR estimation such as a 24-hour urine creatinine clearance. Assignment of CKD stage 1-5 for patients with an eGFR near the transition point between stages may be based on clinical assessment of muscle mass and symptoms in addition to eGFR. Blood 08/15/2023 4:14 PM EST 08/15/2023 4:34 PM EST Narrative Resulting Agency Comment Spec In Lab Candace Vance MD CHEMISTRY ORDERABLE S [facility] [place] [address] * Mammo Diagnostic CAD and Yaniv Bilateral (08/01/2018 8:28 AM EST) Anatomical Region Laterality Modality Breast Bilateral Mammography Impressions 08/01/2018 9:07 AM EST No mammographic or directed ultrasound evidence of malignancy with physiologic lymph node identified in the left axilla at area of tenderness. Advise clinical follow-up. Recommend annual mammographic screening. BI-RADS Category 1: Negative * ??Medical organizations agree that annual screening mammography beginning at age 40 saves the most lives. * ??The risks of screening are negligible compared to dying from breast cancer or suffering from more aggressive treatment required when detected at a later stage. * ??No woman is at low risk for breast cancer. * ??Some women, because of their family history, a genetic tendency, or certain other factors, should be screened with breast MRI along with mammograms. (The number of women who fall into this category is very small). The patient and health care provider should discuss the patient history and decide if earlier screening and breast MRI are appropriate. * ??Screening should continue as long as a woman is in good health and is expected to live 10 years or longer. * ??Screening mammography may not detect 10-15% of breast cancers. * ??Women should report any breast changes to a health care provider right away. Thank you for letting us participate in the care of this patient. For questions regarding this report, please contact the number below. ? Narrative 08/01/2018 9:07 AM EST EXAMINATION: MAMMO US AXILLA LEFT, MAMMO DIAGNOSTIC CAD AND YANIV BILATERAL CLINICAL HISTORY: Patient with pain in left axilla, tender to palpate- Evaluate for mass. cyst/ LN. TECHNIQUE: 2-D direct digital capture, 3-D tomosynthesis and computer aided detection (CAD) were used. Directed ultrasound was performed of the left axilla COMPARISON: None, baseline FINDINGS: There are scattered areas of fibroglandular density. There are no suspicious masses, suspicious microcalcifications, or areas of architectural distortion. Left axillary ultrasound: Ultrasound of the left axilla was performed. There is no evidence of axillary adenopathy, suspicious solid mass or cyst. At the area of tenderness there is a sonographically morphologically benign axillary lymph node with a thin smooth cortex. This lymph node is oval and measures 2.3 cm in length. Claire Gordillo MD IMG MAMMO ORDERABLES from Last 3 Months or Most Recently Relevant to Health Maintenance Advance Directives * Attempt Cardiopulmonary Resuscitation - Inpatient (Latest Code Status on File) Date Activated Date Inactivated Comments 06/09/2023 11:51 AM 06/09/2023 5:10 PM Question Answer Comments Code Status decision made by: Patient Care Teams As400 Analyst Relationship Specialty Start Date End Date Rebecca Lewis DO [address] [place] [address] PCP - General Family Medicine 06/02/21
--- OUTSIDE RECORDS SUMMARY | 2024-01-30 15:59 | XMS_ITS | Encounter Summary ---
Author Organization [facility] [place] [address] Care Team Providers Care Air Quality Consultant Name Role Phone NatyRebecca weinberg Dillon DURAN Primary Care Provider [phone]- [phone] Reason for Visit * Auth/Cert (Routine) Specialty Diagnoses / Procedures Referred By Lay t Referred To Contact Diagnoses Symptomatic Varicose Veins Procedures PRO ENDOVENOUS RF, 1ST VEIN PRO PHLEB VEINS - EXTREM 20+ ENDOVENOUS ABLATION THERAPY OF INCOMPETENT VEIN, EXTREMITY, FIRST VEIN (WRVU 5.3) STAB PHLEBECTOMY ADORE VEINS 1 EXTREMITY MORE 20 INCISIONS (WRVU 6) Catherine Quesada MD [facility] [place] [address] [facility] Referral ID Status Reason Start Date Expiration Date Visits Re quested Visits Authorized [id number] 1 1 Encounter Details Date Type Department Care Team (Late st Contact Info) Description 06/09/2023 11:57 AM EST Anesthesia Event [place] [id number] Ismael Phillips MD [facility] [place] [address] Anesthesia Record Procedure Summary Procedure Name Responsible Anesthesiologist Anesthesia Start Time Anesthesia Stop Time ENDOVENOUS ABLATION THERAPY OF INCOMPETENT VEIN, EXTREMITY, FIRST VEIN (WRVU 5.3) (Right) Sites, Ismael Crawford MD 06/09/23 1157 06/09/23 1348 Events Date Time Event Comment 06/09/2023 1123 1157 AN Verify 1157 Start 1157 An Start Data 1203 An Induction 1205 An Intubation 1207 Anesthesia Ready 1220 Procedure Start 1339 Procedure Stop 1341 Extubation/LMA Out 1342 an stop data 1348 Recovery or ICU Handoff Roznia ent care was transferred to the destination unit staff after review of the patient's medical history, current anesthetic/surgical status and plan, according to the Provider Handoff Checklist. 1348 Stop Meds Name Total Midazolam 2 mg fentaNYL 50 mcg IV Lidocaine 100 mg Propofol 230 mg Propofol INF 494.87 mg Dexmedetomidine 12 mcg Dexamethasone 8 mg Ondansetron 8 mg Ketorolac 30 mg clindamycin (Cleocin) 900 mg in dextrose 5% 50 mL infusion 900 mg lactated ringers 700 mL * Agents Name O2 Sevoflurane (et) * Blood No blood administrations on file. Lines, Drains, and Airways Type Details Placement Removal Incision 06/09/23; 1224; Righ t, medial; leg; s/p saphenous ablation, small incision x 1 06/09/23 1224 by Meri Hoskins RN Incision 06/09/23; 1224; Righ t, lower; leg; s/p stab ligations, 21 stab sites 06/09/23 1224 by Meri Hoskins RN PIV 06/09/23; 1049; kecn-oic-yusgfe catheter system; 20 gauge; metacarpal vein (top of hand), left; E CE Perales; 06/09/23; 1508 06/09/23 1049 by Shaila Perales RN 06/09/23 1508 by Negrita Parker RN Supraglottic Mask Ventilation: No t Attempted (0); LMA Type: iGel; LMA Size: 4; Inserted by: Krystin Coleman CRNA; Removal Date: 06/09/23; Removal Time: 1341 06/09/23 1205 by Krystin Coleman CRNA 06/09/23 1341 by Krystin Coleman CRNA documented in this encounter Social History Tobacco Use Types Packs/Day Years Used Date Smoking Tobacco: Never Smokeless Tobacco: Never Alcohol Use Standard Drinks/Week Comments Yes 0 (1 standard drink = 0.6 oz pur e alcohol) very rarely DH IPV Inpatient Questions Answer Date Recorded Does [...] on file Sexual Orientation Not on file documented as of this encounter OR Notes * Anesthesia Postprocedure Evaluation - Ismael Phillips MD - 06/09/2023 1:51 PM EST Department of Anesthesiology Post-procedure Note Patient: Dilia Martinez Procedure Summary Date: 06/09/23 Room / Location: [facility] [address] [place] [address] Anesthesia Start: 1157 Anesthesia Stop: 1348 Procedures: ENDOVENOUS ABLATION THERAPY OF INCOMPETENT VEIN, EXTREMITY, FIRST VEIN (WRVU 5.3) (Right) STAB PHLEBECTOMY ADORE VEINS 1 EXTREMITY MORE 20 INCISIONS (WRVU 6) (Right) Diagnosis: Varicose veins of both lower extremities with pain Pre-op testing (Symptomatic Varicose Veins) Surgeons: Catherine Quesada MD Responsible Provider: Ismael Phillips MD Anesthesia Type: general ASA Status: 3 All Anesthesia Providers: Anesthesiologist: Ismael Phillips MD PYROTECHNIC ASSEMBLER: Krystin Coleman CRNA Vitals Value Taken Time BP Temp 36.6 ??C (97.9 ??F) 06/09/23 1350 Pulse 80 06/09/23 1350 Resp SpO2 100 % 06/09/23 1350 Pain Level Vitals shown include unfiled device data. Patient Location: PACU/[facility] Level of Consciousness: Awake and Alert Pain Management: PONV: None Cardiovascular Status: At Baseline Respiratory Status: Supplemental O2 (NC or FM) Postoperative Fluid Status: Intravascular EUvolemia Possible Anesthetic Complications: NONE apparent at time of evaluation Final Primary Anesthesia Type: General (The anesthetic type performed was the same as planned.) Comments: * Anesthesia Preprocedure Evaluation - Ismael Phillips MD - 06/09/2023 11:22 AM EST Pre-Anesthesia Evaluation for: Dilia Martinez a 43 y.o. female. Procedure(s): ENDOVENOUS ABLATION THERAPY OF INCOMPETENT VEIN, EXTREMITY, FIRST VEIN (WRVU 5.3) STAB PHLEBECTOMY ADORE VEINS 1 EXTREMITY MORE 20 INCISIONS (WRVU 6) Patient Active Problem List Diagnosis Date Noted ??? Microscopic hematuria 05/13/2020 ??? Right flank pain 05/13/2020 ??? Urinary frequency 05/13/2020 ??? Hypertension 01/23/2018 ??? Body mass index (BMI) of 39.0 to 39.9 in adult 04/13/2016 ??? Migraine without status migrainosus, not intractable 04/13/2016 ??? Insomnia 09/18/2015 ??? Obstructive sleep apnea syndrome 04/30/2015 ??? Anxiety 03/30/2015 ??? Fibromyalgia 03/30/2015 ??? Gastroesophageal reflux disease 03/30/2015 ??? Sjogren's syndrome 03/30/2015 ??? Systemic lupus erythematosus 03/30/2015 Past Medical History: Diagnosis Date ??? Hypertension 01/23/2018 ??? Sjogren's syndrome 03/30/2015 Past Surgical History: Procedure Laterality Date ??? GALLBLADDER SURGERY 2011 ??? WISDOM TOOTH EXTRACTION 06/25/1996 Social History Tobacco Use ??? Smoking status: Never ??? Smokeless tobacco: Never Substance Use Topics ??? Alcohol use: Yes Comment: very rarely Social History Substance and Sexual Activity Drug Use No Allergies Allergen Reactions ??? Amoxicillin ??? Bee Venom Protein (Honey Bee) ??? Lactose-Reduced Food ??? Pertussis Vaccines ??? Buckeye Medications: MAR and/or home medications have been reviewed. Physical Exam: Preprocedure Vitals Current as of 06/09/23 1122 BP: 129/81 Pulse: 82 Resp: 16 SpO2: 96 Temp: 36.4 ??C (97.5 ??F) Height: 177.8 cm (5' 10) (06/09/23) Weight: 120.7 kg (266 lb) (06/09/23) BMI: 38.16 IBW: 68.5 kg (151 lb 0.2 oz) Last edited 06/09/23 1028 by EC Airway Assessment: Mallampati: II TM distance: >3 FB Neck ROM: full Cardiovascular Assessment: Rhythm: regular Rate: normal Pulmonary Assessment: breath sounds clear to auscultation Dental Assessment: Misc Assessment: IV access: Peripheral line Last Filed Perioperative Cognitive Screening None Anesthesia Plan: ASA 3 general, with a(n) intravenous induction I have seen and examined the patient. I have reviewed the medical record and pertinent laboratory information. I have noted the major medical issues as outlined in the problem list. Patient is appropriately NPO and denies active GERD. She denies any cardiac or pulmonary pathology. I have reviewed risks from minor to major as outlined in the anesthesia consent form. I have highlighted risks related to airway management and perioperative opioid therapy. She is aware that our care model is based on a team and I will be working with either a PYROTECHNIC ASSEMBLER or resident physician. A resident physician means a physician who is in training to be an anesthesiologist. The patient acknowledged these risks and would like to proceed with the anesthesia plan. Balanced GA. Informed Consent: Anesthetic plan and risks discussed with patient. Plan discussed with PYROTECHNIC ASSEMBLER. Anesthesia Screening documented in this encounter Plan of Treatment Upcoming Encounters Date Type Department Care Team (Late st Contact Info) Description 02/13/2024 3:30 PM EDT Office [place] [address] Candace Vance MD [facility] [place] [address] documented as of this encounter Visit Diagnoses Not on filedocumented in this encounter Administered Medications Inactive Administered Medications - up to 3 most recent administrations Medication Order MAR Action Action Date Dose Rate Site clindamycin (Cleocin) 900 mg in dextrose 5% 50 mL infusion 900 mg, Intravenous, AIR BRAKE MAN TO O.R., 1 dose, On Mon06/09/23 at 1045, Administer over 30 Minutes, Do not exceed 30 mg/minute. Redose after 4 hours., Day of Surgery (Day of Procedure), Indication for (Active or Suspected): Prophylaxis Given 06/09/2023 12:07 PM EST 900 mg dexAMETHasone (Decadron) injection Intravenous, PRN, Starting on Mon06/09/23 at 1207, Until Mon06/09/23 at 1348, Anesthesia Intra-op, Routine Given 06/09/2023 12:07 PM EST 8 mg dexmedeTOMIDine (Precedex) (4 mcg/mL) bolus injection (Anesthsia) Intravenous, PRN, Starting on Mon06/09/23 at 1307, Until Mon06/09/23 at 1348, Anesthesia Intra-op, Routine Given 06/09/2023 1:44 PM EST 8 mcg Given 06/09/2023 1:07 PM EST 4 mcg fentaNYL (pf) (50 mcg/mL) multi-dose injection Intravenous, PRN, Starting on Mon06/09/23 at 1216, Until Mon06/09/23 at 1348, Anesthesia Intra-op, Routine Given 06/09/2023 12:54 PM EST 25 mcg Given 06/09/2023 12:16 PM EST 25 mcg ketorolac (Toradol) (30 mg/mL) injection Intravenous, PRN, Starting on Mon06/09/23 at 1339, Until Mon06/09/23 at 1348, Anesthesia Intra-op, Routine Given 06/09/2023 1:39 PM EST 30 mg lactated ringers infusion Intravenous, CONTINUOUS PRN, Starting on Mon06/09/23 at 1157, Until Mon06/09/23 at 1348, Anesthesia Intra-op New Bag 06/09/2023 11:57 AM EST lidocaine (pf) (Xylocaine) (20 mg/mL) 2% injection syringe Intravenous, PRN, Starting on Mon06/09/23 at 1203, Until Mon06/09/23 at 1348, Anesthesia Intra-op, Routine Given 06/09/2023 12:03 PM EST 100 mg midazolam (pf) (Versed) (1 mg/mL) multi-dose injection Intravenous, PRN, Starting on Mon06/09/23 at 1157, Until Mon06/09/23 at 1348, Anesthesia Intra-op, Routine Given 06/09/2023 11:57 AM EST 2 mg ondansetron (pf) (Zofran) (2 mg/mL) injection Intravenous, PRN, Starting on Mon06/09/23 at 1207, Until Mon06/09/23 at 1348, Anesthesia Intra-op, Routine Given 06/09/2023 1:26 PM EST 4 mg Given 06/09/2023 12:07 PM EST 4 mg propofoL (Diprivan) (10 mg/mL) infusion Intravenous, CONTINUOUS PRN, Starting on Mon06/09/23 at 1204, Until Mon06/09/23 at 1348, Anesthesia Intra-op, Routine New Bag 06/09/2023 12:04 PM EST 50 mcg/kg/min 36.21 mL/hr propofoL (Diprivan) 10 mg/mL bolus injection (Anesthesia) Intravenous, PRN, Starting on Mon06/09/23 at 1203, Until Mon06/09/23 at 1348, Anesthesia Intra-op Given 06/09/2023 1:07 PM EST 30 mg Given 06/09/2023 12:03 PM EST 200 mg documented in this encounter Care Teams Air Quality Consultant Relationship Specialty Start Date End Date Rebecca Lewis DO [address] [place] [address] PCP - General Family Medicine 06/02/21 documented as of this encounter
--- OUTSIDE RECORDS SUMMARY | 2024-01-30 15:59 | XMS_ITS | Encounter Summary ---
Author Organization [facility] [place] [address] Care Team Providers Care Special Ed Assistant Name Role Phone Rebecca Lewis DO Primary Care Provider [phone]- [phone] Reason for Visit * Diagnostic Test (Routine) - Closed Specialty Diagnoses / Procedures Referred By Lay jose Referred To Contact Diagnoses Varicose veins of both lower extremities with pain Procedures Venous Valvular Incomp, Bilat Legs Stacie Garza, [facility] [place] [address] [facility] [address] [address] Referral ID Status Reason Start Date Expiration Date V isits Requested Visits Authorized [id number] Closed Specialty Service Requested 02/20/2023 02/20/2024 1 1 Encounter Details Date Type Department Care Team (Late st Contact Info) Description 04/27/2023 9:30 AM EDT Tech Visit [place] [address] Clayton Garrett Varicose veins of both lower extremities with pain Social History Tobacco Use Types Packs/Day Years Used Date Smoking Tobacco: Never Smokeless Tobacco: Never Alcohol Use Standard Drinks/Week Comments Yes 0 (1 standard drink = 0.6 oz pur e alcohol) very rarely Sex and Gender Information Value Date Recorded Sex Assigned at Not on file Gender Identity Not on file Sexual Orientation Not on file documented as of this encounter Plan of Treatment Upcoming Encounters Date Type Department Care Team (Late st Contact Info) Description 02/13/2024 3:30 PM EDT [facility] [place] [address] [facility] [place] [address] documented as of this encounter Procedures Procedure Name Priority Date/Time Associated Diagnosis Comments VENOUS VALVULAR INCOMP, BILAT LEGS Routine 04/27/2023 9:34 AM EDT Varicose veins of both lower extremities with pain documented in this encounter Results * Venous Valvular Incomp, Bilat Legs (04/27/2023 9:34 AM EDT) VB Text Report Department: Vascular Surgery Lab Patient: [id number] (DILIA MARTINEZ) CPT: 86528 Referring Physician: STACIE GARZA ?? Phone: Indications: Varicose vein, symptomatic ? Venous insufficiency Patient Positioning: ??Reverse Trendelenburg Findings: Right ?Reflux?Diameter (mm) ??Depth (mm) ?? Common Femoral Vein ??Reflux ? Femoral Vein ? Competent ? Popliteal ?Competent ? GSV, Near SFJ ?Reflux ? 6.1 ?25.2 ?? GSV, Proximal Thigh ??Reflux ? 5.8 ?14.4 ?? GSV, Mid Thigh ? Reflux ? 3.6 ?19.2 ?? GSV, Distal Thigh ?Reflux ? 4.9 ?17.5 ?? GSV, ??Knee ? Competent ?3.6 ?13.3 ?? GSV Prox Calf ?Competent ?2.4 ? 6.0 ?? GSV, Mid Calf ?Competent ?1.9 ?11.5 ?? GSV, Distal Calf ? Competent ?2.7 ?10.0 ?? SSV ?Competent ? Prox ASV ? Competent ?5.6 ?16.5 ?? Mid ASV ?Competent ?4.8 ? 8.8 ?? Left ? Reflux?Diameter (mm) ??Depth (mm) ?? Common Femoral Vein ??Reflux ? Femoral Vein ? Competent ? Popliteal ?Competent ? GSV, Near SFJ ?Competent ?7.8 ?26.8 ?? GSV, Proximal Thigh ??Competent ?4.1 ?20.2 ?? GSV, Mid Thigh ? Competent ?4.6 ?21.2 ?? GSV, Distal Thigh ?Competent ?3.4 ?26.6 ?? GSV, ??Knee ? Competent ?3.4 ?18.5 ?? GSV Prox Calf ?Competent ?2.6 ?15.6 ?? GSV, Mid Calf ?Competent ?2.9 ?10.8 ?? GSV, Distal Calf ? Competent ?3.1 ? 9.8 ?? SSV ?Competent ? Prox ASV ? Reflux ? 3.1 ?20.2 ?? Mid ASV ?Reflux ? 4.8 ?17.8 ?? Interpretation: Right: Findings consistent with superficial venous valvular incompetence at the saphenofemoral junction and great saphenous vein from the proximal thigh to distal thigh (reflux time >4.5 seconds). The great saphenous vein is continuous from the saphenofemoral junction to the proximal calf. In the mid to distal thigh the great saphenous vein leaves the fascia. Varicosities arise from the great saphenous vein in the distal thigh and course medial towards the calf. Findings consistent with deep venous valvular incompetence at the common femoral vein (reflux time >1.5 seconds). No significant reflux noted in the femoral vein in the thigh, popliteal or the small saphenous vein. No evidence of common femoral, femoral, popliteal deep vein thrombus. No evidence of great saphenous or small saphenous superficial venous thrombus. Left: Findings consistent with superficial venous valvular incompetence isolated at the anterior accessory saphenous vein from the proximal thigh to mid thigh (reflux time >0.5 seconds). At mid thigh level the anterior accessory vein leaves the fascia and becomes several smaller tributary veins. Findings consistent with deep venous valvular incompetence at the common femoral vein (reflux time >1.5 seconds). No significant reflux noted in the femoral vein in the thigh, popliteal, great saphenous vein or the small saphenous vein. No evidence of common femoral, femoral, popliteal deep vein thrombus. No evidence of great saphenous or small saphenous superficial venous thrombus. Comparison: ??No previous study in our vascular lab database from comparison. Electronically Signed by: ASH LITTLE MD on 2023-05-03 06:53:50 AM [facility] VB Text Report End of Report [facility] 04/27/2023 9:34 AM EDT Stacie Garza APRN VASCULAR ORDERABLES [facility] documented in this encounter Visit Diagnoses Diagnosis Varicose veins of both lower extremities with pain Varicose veins of lower extremities with other complications documented in this encounter Care Teams Special Ed Assistant Relationship Specialty Start Date End Date Rebecca Lewis DO [address] [place] [address] PCP - General Family Medicine 06/02/21 documented as of this encounter
--- OUTSIDE RECORDS SUMMARY | 2024-01-30 15:59 | XMS_ITS | Encounter Summary ---
Author Organization Formerly [facility] [place] [address] Care Team Providers Care Sketch Liner Name Role Phone OctaviaRebecca navarro Dillon DURAN Primary Care Provider +1- [phone] Encounter Details Date Type Department Care Team (Late st Contact Info) Description 04/04/2023 11:30 AM EDT Office [place] [address] Candace Vance MD [facility] [place] [address] Sjogren syndrome, unspecified Social History Tobacco Use Types Packs/Day Years Used Date Smoking Tobacco: Never Smokeless Tobacco: Never Alcohol Use Standard Drinks/Week Comments Yes 0 (1 standard drink = 0.6 oz pur e alcohol) very rarely Sex and Gender Information Value Date Recorded Sex Assigned at Not on file Gender Identity Not on file Sexual Orientation Not on file documented as of this encounter Last Filed Vital Signs Vital Sign Reading Time Taken Comments Blood Pressure 143/88 04/04/2023 11:43 AM EDT Pulse 87 04/04/2023 11:43 AM EDT Temperature 36.3 ??C (97.3 ??F) 04/04/2023 11:43 AM E DT Respiratory Rate 18 04/04/2023 11:43 AM EDT Oxygen Saturation 98% 04/04/2023 11:43 AM EDT Inhaled Oxygen Concentration - - Weight 123.8 kg (273 lb) 04/04/2023 11:43 AM EDT Height 177.8 cm (5' 10) 04/04/2023 11:43 AM EDT Body Mass Index 39.17 04/04/2023 11:43 AM EDT documented in this encounter Progress Notes * Candace Vance MD - 04/04/2023 11:30 AM EDT Rheumatology Outpatient Urgent Follow Up Note PCP: DO Dilia Alonso Agnes Martinez is a 43 y.o. female who we are seeing for the continuing management of lupus. Rheum History: #Sjogren's disease and Lupus - diagnosed 2011 at [place] w/ Sicca, joint pain, peripheral neuropathy - TYRONE 1:640 speckled, negative Ro and La - No lip biopsy done - Well controlled on plaquenil, lyrica, diclofenac and evoxac - Per notes, weaned off HCQ in August 2018, given very well controlled symptoms and mild GI side effects - May 2019, b/l MCP pain/swelling and worsening fatigue - Resumed on HCQ by PCP given elevated inflammatory markers last fall - Using cevimeline for dry mouth, Biotene mouthwash, and daily eyedrops - September 2019: UA showed blood in urine but no protein, did not show UTI (she had received two dosesof Antibiotics by then), and per report Renal CT did not show Renal stones. #Fibromyalgia -Controlled on Lyrica 150 mg daily Interval History: Patient reports not feeling well. She had onset of a rash on her upper chest area a few weeks ago and she has been feeling very tired. She reports rash to be not itchy and she does not recall having any bug bites or using any chemicals. She has tried to reach out to dermatology but has not heard from them yet. She does not report any prolonged morning stiffness, oral/mucosal ulcerations, shortness of breath, fever or muscle weakness. ROS (positives in bold): Gen: No fevers, no chills, no night sweats Pulm: No SOB and no cough CV: No chest pain Abd: No abd pain, no nausea, no vomiting, no diarrhea MSK: See HPI Physical exam: BP 143/88 Pulse 87 Temp 36.3 ??C (97.3 ??F) (Temporal) Resp 18 Ht 177.8 cm (5' 10) Wt 123.8 kg (273 lb) SpO2 98% BMI 39.17 kg/m?? Gen: Well appearing, alert and oriented x 3, NAD Heart: Regular rate, no murmurs, rubs or gallops Lungs: Clear to auscultation b/l Abd: Soft, NT/ND, bowel sounds + Skin: Warm and dry, scattered nonblanchable erythematous papules and plaques on the upper chest andthe neck area. Joints: Shoulders: FROM, non-tender to palpation Elbows:FROM Wrists: FROM, no swelling, non-tender Hands: No synovitis, no MCP compression tenderness, full claw and fist Hips: No tenderness Labs/Studies: Previous labs reviewed Current Immunizations Name Date INFLUENZA 02/14/2020 , 05/06/2019 , 03/04/2018 , 04/06/2016 Moderna Shoe Ironer 10/13/2020 , 09/15/2020 TD 11/10/2013 Assessment: Dilia Martinez is a 43 y.o. female with the PMH of Sjogren's (on evoxac, biotene and eye drops) andlupus on HCQ 400 mg/d who is presenting for follow-up. Patient reports not feeling well. She had onset of a rash on her upper chest area a few weeks ago and she has been feeling very tired. She reports rash to be not itchy and she does not recall having any bug bites or using any chemicals. She has tried to reach out to dermatology but has not heard from them yet. She does not report any prolonged morning stiffness, oral/mucosal ulcerations, shortness of breath, fever or muscle weakness. Sicca symptoms are better on the 3 times daily dosing of cevimeline. Physical examination today shows erythematous and nonblanchable papules and plaques on the upper chest and the neck areas. No synovitis or skin thickness noted. No clear etiology for her rash. This does not look vasculitic or urticarial. Her ESR and CRP have been mildly elevated chronically but this seems higher than usual on this visit. Her UA shows large number of leukocytes but she reports having any UTI symptoms. Ideally it would have been better if you saw dermatology but if she were not able to get him, I offered to give her a brief prednisone taper.however, patient would wait to see dermatology first and if her symptoms were to get worse, she would contact me. Plan: -Check CBC, CMP, ESR, CRP, complements -Continue hydroxychloroquine 200 mg twice daily. -Continue cevimeline 3 times daily. -Await appointment with dermatology. -Await sleep study. -Annual follow-up with ophthalmology for hydroxychloroquine toxicity monitoring and dry eyes issue. Follow-up in 3 months. Total time spent on counseling and coordination of care was 40 minutes. Candace Vance MD documented in this encounter Plan of Treatment Upcoming Encounters Date Type Department Care Team (Late st Contact Info) Description 02/13/2024 3:30 PM EDT Office [place] [address] Candace Vance MD [facility] [place] [address] documented as of this encounter Procedures Procedure Name Priority Date/Time Associated Diagnosis Comments URINALYSIS MICROSCOPIC EXAM Routine 04/04/2023 12:32 PM EDT PROTEIN/CREATININE RATIO, URINE Routine 04/04/2023 12:32 PM EDT Sjogren syndrome, unspecified URINALYSIS WITH REFLEX CULTURE Routine 04/04/2023 12:32 PM EDT Sjogren syndrome, unspecified URINE CULTURE Routine 04/04/2023 12:32 PM EDT CRP, ACUTE INFLAMMATION Routine 04/04/2023 12:29 PM EDT Sjogren syndrome, unspecified HEMOGRAM Routine 04/04/2023 12:29 PM EDT Sjogren syndrome, unspecified DIFFERENTIAL, AUTOMATED Routine 04/04/2023 12:29 PM EDT Sjogren syndrome, unspecified SEDIMENTATION RATE Routine 04/04/2023 12 :29 PM EDT Sjogren syndrome, unspecified CBC (WITH DIFF) Routine 04/04/2023 12:29 PM EDT Sjogren syndrome, unspecified C3 COMPLEMENT Routine 04/04/2023 12:29 PM EDT Sjogren syndrome, unspecified C4 COMPLEMENT Routine 04/04/2023 12:29 PM EDT Sjogren syndrome, unspecified CK Routine 04/04/2023 12:29 PM EDT COMPREHENSIVE METABOLIC PANEL Routine 04/04/2023 12:29 PM EDT Sjogren syndrome, unspecified documented in this encounter Results * (ABNORMAL) Urine culture (04/04/2023 12:32 PM EDT) Urine Culture Greater than 100,000 cfu/ml Beta Hemolytic Streptococci, Group B Susceptibilit y testing not routinely performed for Coagulase Negative Staphylococcu s species and other Gram Positive organisms from urine. (A) [facility] Organism Beta Hemolytic Streptococci, Group B(A) [facility] Urine NS 04/04/2023 12:3 2 PM EDT 04/04/2023 1:15 PM EDT Narrative Resulting Agency Comment Spec In Lab Candace Vance MD MICROBIOLOGY - [facility] ORDERABLES [facility] [place] [address] * (ABNORMAL) Urinalysis Microscopic Exam (04/04/2023 12:32 PM EDT) RBC, Urine 11(H) 0 - 4 /HPF [facility] WBC, Urine 34(H) 0 - 5 /HPF [facility] Squamous Epithelial Cells Raw Data, Urine 5(H) <=4 /HPF [facility] Urine NS 04/04/2023 12:3 2 PM EDT 04/04/2023 12:46 PM EDT Narrative Resulting Agency Comment Spec In Lab Candace Vance MD URINE ORDERABLES Performing Organization Address City/[facility]/ZIP Co de Phone Number [facility] [place] [address] * Protein/Creatinine Ratio, urine (04/04/2023 12:32 PM EDT) Creatinine, Urine 88 mg/dL [facility] Protein, Urine 9 0 - 12 mg/dL [facility] Protein / Creatinine Ratio, Urine 0.1 ratio [facility] Urine 04/04/2023 12:3 2 PM EDT 04/04/2023 12:46 PM EDT Narrative Resulting Agency Comment Spec In Lab Candace Vance MD URINE ORDERABLES Performing Organization Address [facility] Co de Phone Number [facility] [place] [address] * (ABNORMAL) Urinalysis with reflex Culture (04/04/2023 12:32 PM EDT) Glucose, Urine Dipstick Negative Negative mg/dL [facility] Protein, Urine Dipstick Negative Negative mg/dL [facility] Bilirubin, Urine Dipstick Negative Negative mg/dL [facility] Comment: Clinical correlation required for positive Urine Bilirubin results as false positive may occur with some drugs and drug related products. If a false positive is suspected a serum total bilirubin should be considered if clinically indicated. Urobilinogen, Urine Dipstick Normal Normal mg/dL [facility] pH, Urn (dipstick) 6.0 5.0 - 8.0 [facility] Blood, Urine Dipstick Trace(A) Negative mg/dL [facility] Ketone, Urine Dipstick Negative Negative mg/dL [facility] Nitrite, Urine Dipstick Negative Negative [facility] Leukocytes, Urine Dipstick Large(A) Negative [facility] Appearance, Urine Dipstick Cloudy(A) Clear [facility] Specific [place] Urine Automated 1.019 1.005 - 1.030 [facility] Color, Urine Dipstick Yellow Yellow [facility] Reflex to Culture Yes [facility] Urine NS 04/04/2023 12:3 2 PM EDT 04/04/2023 12:46 PM EDT Narrative Resulting Agency Comment Spec In Lab Candace Vance MD URINE ORDERABLES Performing Organization Address City/[facility] Co de Phone Number [facility] [place] [address] * CK (04/04/2023 12:29 PM EDT) Creatine Kinase 49 0 - 160 unit/L [facility] Blood Venous Draw / Unknown 04/04/2023 12:29 PM EDT 04/04/2023 12:52 PM EDT Narrative Resulting Agency Comment Spec In Lab Candace Vance MD CHEMISTRY ORDERABLE S Performing Organization Address [facility] de Phone Number [facility] [place] [address] * (ABNORMAL) Differential, Automated (04/04/2023 12:29 PM EDT) Neutrophil % 61.3 % [facility] Neutrophil Absolute 5.09 1.70 - 6.10 x10(3)/mc L [facility] Lymph % 24.2 % [facility] Lymphocytes Abs 2.0 0.9 - 3.2 x10(3)/mc L [facility] Monocyte % 6.4 % [facility] Monocyte Abs 0.5 0.3 - 0.9 x10(3)/mc L [facility] Eos % 6.9 % [facility] Eosinophils Abs 0.6(H) 0.0 - 0.4 x10(3)/mc L [facility] Basophil % 1.0 % [facility] Baso Absolute 0.1 0.0 - 0.1 x10(3)/mc L [facility] Immature Gran % 0.20 % [facility] Comment: Immature granulocytes(IG's)percentage and absolute count will include metamyelocytes, myelocytes, and promyelocytes. Blood smears from CBCs yielding IG's will be scanned manually for concordance. If this scan disagrees with the automated IG or if promyelocytes are noted, a manual differential will be performed. Immature Gran Absolute 0.02 0.00 - 0.04 x10(3)/mc L [facility] Blood 04/04/2023 12:2 9 PM EDT 04/04/2023 12:38 PM EDT Narrative Resulting Agency Comment Spec In Lab Candace Vance MD HEMATOLOGY ORDERABL ES [facility] [place] [address] * (ABNORMAL) Hemogram (04/04/2023 12:29 PM EDT) White Blood Cell 8.3 4.0 - 9.5 x10(3)/mc L [facility] Red Blood Cell 5.29(H) 4.00 - 5.21 x10(6)/mc L [facility] Hemoglobin 13.7 11.7 - 15.5 g/dL [facility] Hematocrit 43.3 35.7 - 45.8 % [facility] Mean Cell Volume 81.9(L) 82.6 - 94.4 fL [facility] Mean Cell Hemoglobin 25.9(L) 27.1 - 32.0 pg [facility] Mean Cell Hemoglobin Concentration 31.6(L) 31.7 - 35.0 g/dL [facility] Platelet 352 145 - 357 x10(3)/mc L [facility] RDW Standard Deviation 40.8 37.0 - 46.0 fL [facility] RDW coefficient of variation 13.8 11.5 - 14.1 % [facility] Mean Platelet Volume 9.5 7.6 - 12.9 fL [facility] NRBC% auto 0.0 % [facility] NRBC Absolute 0.000 0.000 - 0.000 x10(3)/mc L [facility] Blood 04/04/2023 12:2 9 PM EDT 04/04/2023 12:38 PM EDT Narrative Resulting Agency Comment Spec In Lab Candace Vance MD HEMATOLOGY ORDERABL ES [facility] [place] [address] * C4 Complement (04/04/2023 12:29 PM EDT) Complement C4 23 10 - 40 mg/dL [facility] Blood 04/04/2023 12:2 9 PM EDT 04/04/2023 12:37 PM EDT Narrative Resulting Agency Comment Spec In Lab Candace Vance MD CHEMISTRY ORDERABLE S Performing Organization Address City/[facility]/ZIP Co de Phone Number [facility] [place] [address] * C3 Complement (04/04/2023 12:29 PM EDT) Complement C3 159 90 - 180 mg/dL [facility] Blood 04/04/2023 12:2 9 PM EDT 04/04/2023 12:37 PM EDT Narrative Resulting Agency Comment Spec In Lab Cadnace Vance MD CHEMISTRY ORDERABLE S Performing Organization Address City/[facility]/ZIP Co de Phone Number [facility] [place] [address] * (ABNORMAL) CRP, acute inflammation (04/04/2023 12:29 PM EDT) C-Reactive Protein 20.0(H) <=4.9 mg/L [facility] Blood 04/04/2023 12:2 9 PM EDT 04/04/2023 12:38 PM EDT Narrative Resulting Agency Comment Spec In Lab Candace Vance MD CHEMISTRY ORDERABLE S Performing Organization Address City/[facility]/ZIP Co de Phone Number [facility] [place] [address] * (ABNORMAL) Sedimentation rate (04/04/2023 12:29 PM EDT) Sedimentation Rate Automated 63(H) 2 - 37 mm/hr [facility] Comment: Effective June 05, 2019 new capillary photometric technology has resulted in a change in reference ranges. It is recommended that each ESR result be reviewed with its own age appropriate reference range. Blood 04/04/2023 12:2 9 PM EDT 04/04/2023 12:38 PM EDT Narrative Resulting Agency Comment Spec In Lab Candace Vance MD HEMATOLOGY ORDERABL ES [facility] [place] [address] * (ABNORMAL) Comprehensive metabolic panel (non-fasting) (04/04/2023 12:29 PM EDT) Glucose 116 65 - 199 mg/dL [facility] Comment:Diabetes: >=200 mg/d L plus symptoms Blood Urea Nitrogen 12 8 - 18 mg/dL [facility] Creatinine 0.60(L) 0.70 - 1.20 mg/dL [facility] Sodium 139 135 - 145 mmol/L [facility] Potassium 4.1 3.5 - 5.0 mmol/L [facility] Comment: Please note: ??Patients with WBC >100,000 may have falsely elevated Potassium levels. ??For accurate Potassium quantification in these patients send serum separator tube (gold top) for subsequent determinations. ??Contact the Clinical Chemistry Laboratory if there are any questions. Chloride 101 98 - 107 mmol/L [facility] Carbon Dioxide 28 22 - 31 mmol/L [facility] Anion Gap 10 5 - 15 mmol/L [facility] Calcium 9.1 8.5 - 10.5 mg/dL [facility] Protein, Total 7.0 6.1 - 8.0 g/dL [facility] Albumin 4.1 3.2 - 5.2 g/dL [facility] Aspartate Aminotransferase 9 0 - 30 unit/L [facility] Alanine Aminotransferase 14 0 - 30 unit/L [facility] Alkaline Phosphatase 101 35 - 105 unit/L [facility] Bilirubin, Total <0.2(L) 0.2 - 1.3 mg/dL [facility] Est Glomerular Filtration Rate 113 >=60 mL/min/1. 73 m?? [facility] Comment: This patient's estimated GFR was [...] and symptoms in addition to eGFR. Blood 04/04/2023 12:2 9 PM EDT 04/04/2023 12:38 PM EDT Narrative Resulting Agency Comment Spec In Lab Candace Vance MD CHEMISTRY ORDERABLE S [facility] [place] [address] documented in this encounter Visit Diagnoses Diagnosis Sjogren syndrome, unspecified documented in this encounter Care Teams Sketch Liner Relationship Specialty Start Date End Date Rebecca Lewis DO [address] [place] [address] PCP - General Family Medicine 06/02/21 documented as of this encounter
--- OUTSIDE RECORDS SUMMARY | 2024-01-30 15:59 | XMS_ITS | Encounter Summary ---
Author Organization [facility] [place] [address] Care Team Providers Care Vehicle Assembler Name Role Phone DebbieRebecca Dillon DURAN Primary Care Provider +1- [phone] Encounter Details Date Type Department Care Team (Late st Contact Info) Description 08/12/2022 [place] [address] Kayla Charlton OD [facility] [place] [address] Social History Tobacco Use Types Packs/Day Years Used Date Smoking Tobacco: Never Smokeless Tobacco: Never Alcohol Use Standard Drinks/Week Comments Yes 0 (1 standard drink = 0.6 oz pur e alcohol) very rarely Sex and Gender Information Value Date Recorded Sex Assigned at Not on file Gender Identity Not on file Sexual Orientation Not on file documented as of this encounter Miscellaneous Notes * Telephone Encounter - Alejandro Gracia - 08/12/2022 11:10 AM EST Confirmed per DB * Telephone Encounter - Moris Mancilla - 08/12/2022 11:01 AM EST Made 1st call to patient. Left Message. Will contact in one week. RTC 8/14/23 for HVF 10-2 (stand alone). Same day as other appt at documented in this encounter Plan of Treatment Upcoming Encounters Date Type Department Care Team (Late st Contact Info) Description 02/13/2024 3:30 PM EDT [place] [address] Candace Vance MD [facility] [place] [address] documented as of this encounter Visit Diagnoses Not on filedocumented in this encounter Care Teams Vehicle Assembler Relationship Specialty Start Date End Date Rebecca Lewis DO [address] [place] [address] PCP - General Family Medicine 06/02/21 documented as of this encounter
--- OUTSIDE RECORDS SUMMARY | 2024-01-30 15:59 | XMS_ITS | Encounter Summary ---
Author Organization [facility] [place] [address] Care Team Providers Care Quality Assurance Name Role Phone Rebecca Lewis Primary Care Provider +1- [phone] Reason for Visit * Reason Comments Procedure Stand alone HVF OU f or SS Encounter Details Date Type Department Care Team (Latest Contact Info) Description 08/09/2022 4:00 PM EST Procedure visit [place] [address] Kayla Charlton OD [facility] [place] [address] Encounter for eye exam due to high risk medication Social History Tobacco Use Types Packs/Day Years Used Date Smoking Tobacco: Never Smokeless Tobacco: Never Alcohol Use Standard Drinks/Week Comments Yes 0 (1 standard drink = 0.6 oz pur e alcohol) very rarely Sex and Gender Information Value Date Recorded Sex Assigned at Not on file Gender Identity Not on file Sexual Orientation Not on file documented as of this encounter Progress Notes * Kayla Charlton OD - 08/09/2022 4:00 PM EST Encounter Diagnosis Name Primary? Encounter for eye exam due to high risk medication Dilia Martinez is a 42 y.o. with the following ophthalmic problems: Assessment and Plan: 07/2022: VF 24-2 done instead of 10-2 Plaquenil use x since 2012. No maculopathy OU on dilated ocular assessment, confirmed with OCT-macula & documented with fundus photos. - RTC 4 weeks for HVF 10-2 (stand alone). - RTC for CEE and OCT Macula in 1 year. - Pt ed to self monitor vision with [employer] & RTC STAT w/ abrupt vision changes. - Findings and concerns discussed with Dilia and she expressed understanding. -Upon Return - RTC 4 weeks for HVF 10-2 (stand alone). - RTC for CEE and OCT Macula in 1 year. documented in this encounter Miscellaneous Notes * Addendum Note - Kayla Charlton, OD - 08/09/2022 4:00 PM ESTAddended by: KAYLA CHARLTON on: 08/11/2022 01:41 PM Modules accepted: Level of Service documented in this encounter Plan of Treatment Upcoming Encounters Date Type Department Care Team (Late st Contact Info) Description 02/13/2024 3:30 PM EDT Office Visit [place] [address] Candace Vance MD [facility] [place] [address] documented as of this encounter Procedures Procedure Name Priority Date/Time Associated Diagnosis Comments AUTOMATED VISUAL FIELD - EXTENDED - OU- BOTH EYES Routine 08/11/2022 11:41 AM EST Encounter for eye exam due to high risk medication documented in this encounter Results * Automated Visual Field - Extended - OU - Both Eyes (08/11/2022 11:41 AM EST) Anatomical Region Laterality Modality Other Narrative 08/11/2022 11:41 AM EST Right Eye Threshold was 24-2. Reliability was good. Foveal threshold was normal. Findings include normal observations. Left Eye Threshold was 24-2. Reliability was good. Foveal threshold was normal. Findings include normal observations. Kayla Charlton OD O[facility]THALMOLOGY SERVIC [facility] ORDERABLES documented in this encounter Visit Diagnoses Diagnosis Encounter for eye exam due to high risk medication Examination of eyes and vision documented in this encounter Care Teams Quality Assurance Relationship Specialty Start Date End Date Rebecca Lewis DO [address] [place] [address] PCP - General Family Medicine 06/02/21 documented as of this encounter
--- OUTSIDE RECORDS SUMMARY | 2024-01-30 15:59 | XMS_ITS | Encounter Summary ---
Author Organization [facility] [place] [address] Care Team Providers Care Manager Cardiovascular Name Role Phone Rebecca Lewis DO Primary Care Provider +1- [phone] Encounter Details Date Type Department Care Team (Latest Contact Info) Description 02/27/2023 Travel Social History Tobacco Use Types Packs/Day Years [...] 3:30 PM EDT Office [place] [address] Candace Vance MD [facility] [address] documented as of this encounter Visit Diagnoses Not on filedocumented in this encounter Care Teams Manager Cardiovascular Relationship Specialty Start Date End Date Rebecca Lewis DO [address] [place] [address] PCP - General Family Medicine 06/02/21 documented as of this encounter
--- OUTSIDE RECORDS SUMMARY | 2024-01-30 15:59 | XMS_ITS | Encounter Summary ---
Author Organization Formerly [facility] [place] [address] Care Team Providers Care Evaluator Transfer Students Name Role Phone Rebecca Lewis Primary Care Provider +1- [phone] Reason for Visit * Reason Onset Date Comments Medication Refill 01/26/2024 Encounter Details Date Type Department Care Team (Late st Contact Info) Description 01/26/2024 [place] [address] Candace Vance MD [facility] [place] [address] Lupus Social History Tobacco Use Types Packs/Day Years Used Date Smoking Tobacco: Never Smokeless Tobacco: Never Alcohol Use Standard Drinks/Week Comments Yes 0 (1 standard drink = 0.6 oz pur e alcohol) very rarely [facility] Inpatient Questions Answer Date Recorded Does Anyone [...] 3:30 PM EDT Office [place] [address] Candace Vance MD [facility] [place] [address] documented as of this encounter Visit Diagnoses Diagnosis Lupus Systemic lupus erythematosus documented in this encounter Care Teams Evaluator Transfer Students Relationship Specialty Start Date End Date Rebecca Lewis DO [address] [place] [address] PCP - General Family Medicine 06/02/21 documented as of this encounter
--- OUTSIDE RECORDS SUMMARY | 2024-01-30 15:59 | XMS_ITS | Encounter Summary ---
Author Organization [facility] [place] [address] Care Team Providers Care Sales Support Manager Name Role Phone Rebecca Lewis [place] Primary Care Provider +1- [phone] Encounter Details Date Type Department Care Team (Latest Contact Info) Description 08/11/2023 Travel Social History Tobacco Use Types Packs/Day [...] 3:30 PM EDT Office [place] [address] Candace Vance MD [facility] [place] [address] documented as of this encounter Visit Diagnoses Not on filedocumented in this encounter Care Teams Sales Support Manager Relationship Specialty Start Date End Date Rebecca Lewis DO [address] [address] PCP - General Family Medicine 06/02/21 documented as of this encounter
--- OUTSIDE RECORDS SUMMARY | 2024-01-30 15:59 | XMS_ITS | Encounter Summary ---
Author Organization [facility] [place] [address] Care Team Providers Care Strap Making Machine Operator Name Role Phone Rebecca Lewis Primary Care Provider +1- [phone] Reason for Visit * Reason Onset Date Comments Medication Refill 11/06/2023 Encounter Details Date Type Department Care Team (Late st Contact Info) Description 11/06/2023 [place] [address] Candace Vance MD [facility] [place] [address] Lupus Social History Tobacco Use Types Packs/Day Years Used Date Smoking Tobacco: Never Smokeless Tobacco: Never Alcohol Use Standard Drinks/Week Comments Yes 0 (1 standard drink = 0.6 oz pur e alcohol) very rarely [facility] Inpatient Questions Answer Date Recorded Does Anyone [...] 3:30 PM EDT Office [place] [address] Candace Vance MD [facility] [place] [address] documented as of this encounter Visit Diagnoses Diagnosis Lupus Systemic lupus erythematosus documented in this encounter Care Teams Strap Making Machine Operator Relationship Specialty Start Date End Date Rebecca Lewis DO [address] [place] [address] PCP - General Family Medicine 06/02/21 documented as of this encounter
--- OUTSIDE RECORDS SUMMARY | 2024-01-30 15:59 | XMS_ITS | Encounter Summary ---
Author Organization [facility] [place] [address] Care Team Providers Care Power Sweeper Operator Name Role Phone OctaviaRebecca navarro [place] Primary Care Provider +1- [phone] Reason for Visit * Reason Comments Medication Refill Encounter Details Date Type Department Care Team (Late st Contact Info) Description 11/25/2022 Ref[place] [address] Candace Vance MD [facility] [place] [address] Lupus; Sjogren syndrome, unspecified Social History Tobacco Use [...] 3:30 PM EDT Office [place] [address] [facility] [place] [address] documented as of this encounter Visit Diagnoses Diagnosis Lupus Systemic lupus erythematosus Sjogren syndrome, unspecified documented in this encounter Care Teams Power Sweeper Operator Relationship Specialty Start Date End Date Rebecca Lewis DO [address] [place] [address] PCP - General Family Medicine 06/02/21 documented as of this encounter
--- OUTSIDE RECORDS SUMMARY | 2024-01-30 15:59 | XMS_ITS | Encounter Summary ---
Author Organization [facility] [place] [address] Care Team Providers Care Entry Driver Operator Name Role Phone OctaviaRebecca navarro [place] Primary Care Provider +1- [phone] Reason for Visit * Reason Comments Medication Refill Encounter Details Date Type Department Care Team (Late st Contact Info) Description 04/25/2023 Ref[place] [address] Candace Vance MD [facility] [place] [address] Lupus; Sjogren syndrome, unspecified Social History Tobacco [...] 3:30 PM EDT Office [place] [address] Candace Vance MD [facility] [address] documented as of this encounter Visit Diagnoses Diagnosis Lupus Systemic lupus erythematosus Sjogren syndrome, unspecified documented in this encounter Care Teams Entry Driver Operator Relationship Specialty Start Date End Date Rebecca Lewis DO [address] [place] [address] PCP - General Family Medicine 06/02/21 documented as of this encounter
--- OUTSIDE RECORDS SUMMARY | 2024-01-30 15:59 | XMS_ITS | Encounter Summary ---
Author Organization [facility] [place] [address] Care Team Providers Care Hand Sander Name Role Phone Rebecca Lewis Primary Care Provider +1- [phone] Reason for Visit * Reason Comments Medication Refill Encounter Details Date Type Department Care Team (Late st Contact Info) Description 10/03/2023 [place] [address] Candace Vance MD [facility] [place] [address] Lupus; Sjogren syndrome, unspecified Social History Tobacco Use Types Packs/Day Years Used Date Smoking Tobacco: Never Smokeless Tobacco: Never Alcohol Use Standard Drinks/Week Comments Yes 0 (1 standard drink = 0.6 oz pur e alcohol) very rarely [facility] Inpatient Questions Answer Date Recorded Does Anyone [...] 3:30 PM EDT [place] [address] Candace Vance MD [facility] [place] [address] documented as of this encounter Visit Diagnoses Diagnosis Lupus Systemic lupus erythematosus Sjogren syndrome, unspecified documented in this encounter Care Teams Hand Sander Relationship Specialty Start Date End Date Rebecca Lewis DO [address] [place] [address] PCP - General Family Medicine 06/02/21 documented as of this encounter
--- OUTSIDE RECORDS SUMMARY | 2024-01-30 15:59 | XMS_ITS | Encounter Summary ---
Author Organization [facility] [address] Care Team Providers Care Mold Filler And Drainer Name Role Phone Rebecca Lewis Primary Care Provider +1- [phone] Encounter Details Date Type Department Care Team (Late st Contact Info) Description 05/23/2023 Orders Only [place] [phone] Maegan Lopez RN Varicose veins of both lower extremities with pain; Pre-op testing Social History Tobacco Use Types Packs/Day Years [...] 3:30 PM EDT Office [place] [address] Candace Vance MD [facility] [place] [address] documented as of this encounter Visit Diagnoses Diagnosis Varicose veins of both lower extremities with pain Varicose veins of lower extremities with other complications Pre-op testing Preoperative examination, unspecified documented in this encounter Care Teams Mold Filler And Drainer Relationship Specialty Start Date End Date Rebecca Lewis DO [address] [place] [address] PCP - General Family Medicine 06/02/21 documented as of this encounter
--- OUTSIDE RECORDS SUMMARY | 2024-01-30 15:59 | XMS_ITS | Encounter Summary ---
Author Organization [facility] [place] [address] Care Team Providers Care Auto Dealership Porter Name Role Phone OctaviaRebecca navarro Primary Care Provider +1- [phone] Encounter Details Date Type Department Care Team (Late st Contact Info) Description 08/15/2022 [place] [address] Kayla Charlton OD [facility] [place] [place] [address] Social History Tobacco Use Types Packs/Day Years [...] * Telephone Encounter - Alejandro Gracia - 08/15/2022 9:09 AM EST Scheduled stand alone HVF 02/06 to coincide w/other appt at . Called pt. Left vm. Asked for callback to confirm. documented in this encounter Plan of Treatment Upcoming Encounters Date Type Department Care Team (Late st Contact Info) Description 02/13/2024 3:30 PM EDT [place] [address] Candace Vance MD [facility] [place] [address] documented as of this encounter Visit Diagnoses Not on filedocumented in this encounter Care Teams Auto Dealership Porter Relationship Specialty Start Date End Date Rebecca Lewis DO [address] [place] [address] PCP - General Family Medicine 06/02/21 documented as of this encounter
--- OUTSIDE RECORDS SUMMARY | 2024-01-30 15:59 | XMS_ITS | Encounter Summary ---
Author Organization [facility] [place] [address] Care Team Providers Care Vacuum Caster Name Role Phone OctaviaRebecca navarro [place] Primary Care Provider +1- [phone] Reason for Visit * Reason Comments Medication Refill Encounter Details Date Type Department Care Team (Late st Contact Info) Description 01/24/2023 [place] [address] Candace Vance MD [facility] [place] [address] Lupus Social History Tobacco Use Types Packs/Day [...] 3:30 PM EDT Office [place] [address] Candace Vance MD [facility] [place] [address] documented as of this encounter Visit Diagnoses Diagnosis Lupus Systemic lupus erythematosus documented in this encounter Care Teams Vacuum Caster Relationship Specialty Start Date End Date Rebecca Lewis DO [address] [place] [address] PCP - General Family Medicine 06/02/21 documented as of this encounter
--- OUTSIDE RECORDS SUMMARY | 2024-01-30 15:59 | XMS_ITS | Encounter Summary ---
Author Organization [facility]ly [facility] [place] [address] Care Team Providers Care Cnc Milling Machinist Name Role Phone Rebecca Lewis Primary Care Provider +1- [phone] Reason for Visit * Reason Onset Date Comments Medication Refill 08/11/2023 Encounter Details Date Type Department Care Team (Late st Contact Info) Description 08/11/2023 Refill [place] [address] Candace Vance MD [facility] [place] [address] Lupus Social History Tobacco Use Types Packs/Day Years Used Date Smoking Tobacco: Never Smokeless Tobacco: Never Alcohol Use Standard Drinks/Week Comments Yes 0 (1 standard drink = 0.6 oz pur e alcohol) very rarely [facility] Inpatient Questions Answer Date Recorded Does [...] 3:30 PM EDT Office [place] [address] Candace Vance MD [facility] [place] [address] documented as of this encounter Visit Diagnoses Diagnosis Lupus Systemic lupus erythematosus documented in this encounter Care Teams Cnc Milling Machinist Relationship Specialty Start Date End Date Rebecca Lewis DO [address] [place] [address] PCP - General Family Medicine 06/02/21 documented as of this encounter
--- OUTSIDE RECORDS SUMMARY | 2024-01-30 15:59 | XMS_ITS | Encounter Summary ---
Author Organization [facility] [place] [address] Care Team Providers Care Air Valve Repairer Name Role Phone Rebecca Lewis DO Primary Care Provider +1- [phone] Reason for Visit * Consultation (Routine) - Closed Specialty Diagnoses / Procedures Referred By Lay jose Referred To Contact Vascular Surgery Diagnoses Asymptomatic varicose veins of lower extremity, unspecified laterality Varicose veins of lower extremity with inflammation, unspecified laterality ROUTINE, TANSKI, BLE Rebecca Lewis, DO [address] [place] [address] [facility] Vascular Surg [address] [place] [address] Referral ID Status Reason Start Date Expiration Date V isits Requested Visits Authorized [id number] Closed Consult, Test & Treat PCP Updated and/or Approved 02/20/2023 02/20/2024 6 6 Encounter Details Date Type Department Care Team (Late st Contact Info) Description 04/27/2023 11:30 AM EDT Office [place] [address] Catherine Quesada MD [facility] [place] [address] Varicose veins of both lower extremities with [...] Sign Reading Time Taken Comments Blood Pressure 149/88 04/27/2023 11:24 AM EDT Pulse 79 04/27/2023 11:24 AM EDT Temperature - - Respiratory Rate - - Oxygen Saturation - - Inhaled Oxygen Concentration - - Weight 120.7 kg (266 lb) 04/27/2023 11:24 AM EDT reported Height 177.8 cm (5' 10) 04/27/2023 11:24 AM EDT Body Mass Index 38.17 04/27/2023 11:24 AM EDT documented in this encounter Progress Notes * Rosio Brady PA - 04/27/2023 11:30 AM EDT Vascular Surgery Consultation Consult requested by Rebecca Lewis DO for evaluation of painful varicose veins. History: Dilia Martinez is a 43 y.o. female who has noted to have varicose veins of their right lower extremity for several years. The patient has noted the following symptoms below for several months. The patient has used compression stockings and leg elevation since December 2022. The symptoms below are affecting the patient's quality of life. Y N SYMPTOM X Leg aching X Leg swelling X Leg elevation greater than 20 minutes/3x per day X Daily use of compression stockings 20-30mmHg (6-8 weeks) X Family history of varicose veins X History of more than two episodes of phlebitis X Refractory edema X Stasis dermatitis X History of DVT X Prior venous surgery X Prior ulceration X Current ulceration X History of two more episodes of bleeding varicosities X Chronic cellulitis Review of Systems: Prior cardiac history: no Prior pulmonary history: no Prior issues with general anesthesia: no Family history of malignant hyperthermia: no Issues with snoring or sleep apnea: no PE: Patient Vitals for the past 24 hrs: Pulse BP 04/27/23 1124 79 149/88 Body mass index is Body mass index is 38.17 kg/m??. Heart: RRR, no murmurs, no S3 or S4 Chest: CTA, no wheeze Location of the varicosities: R thigh and R calf behind knee. Size of the varicosities (greater than 3mm): Behind thigh. Carotid pulses equal and bilateral No palpable pulsatile abdominal masses, no abdominal bruits Palpable bilateral femoral, popliteal and tibial pulses Y N PHYSICAL FINDINGS X Radial pulses bilaterally X DP and PT pulses bilaterally X Evidence of healed ulceration X Stasis dermatitis X Cellulitis X Palpable Thrills Vascular Studies Venous Valvular Incomp, Bilat Legs Findings: Right Reflux? Diameter (mm) Depth (mm) Common Femoral Vein Reflux Femoral Vein Competent Popliteal Competent GSV, Near SFJ Reflux 6.1 25.2 GSV, Proximal Thigh Reflux 5.8 14.4 GSV, Mid Thigh Reflux 3.6 19.2 GSV, Distal Thigh Reflux 4.9 17.5 GSV, Knee Competent 3.6 13.3 GSV Prox Calf Competent 2.4 6.0 GSV, Mid Calf Competent 1.9 11.5 GSV, Distal Calf Competent 2.7 10.0 SSV Competent Prox ASV Competent 5.6 16.5 Mid ASV Competent 4.8 8.8 Left Reflux? Diameter (mm) Depth (mm) Common Femoral Vein Reflux Femoral Vein Competent Popliteal Competent GSV, Near SFJ Competent 7.8 26.8 GSV, Proximal Thigh Competent 4.1 20.2 GSV, Mid Thigh Competent 4.6 21.2 GSV, Distal Thigh Competent 3.4 26.6 GSV, Knee Competent 3.4 18.5 GSV Prox Calf Competent 2.6 15.6 GSV, Mid Calf Competent 2.9 10.8 GSV, Distal Calf Competent 3.1 9.8 SSV Competent Prox ASV Reflux 3.1 20.2 Mid ASV Reflux 4.8 17.8 Interpretation: Right: Findings consistent with superficial venous [...] or small saphenous superficial venous thrombus. Comparison: No previous study in our vascular lab database from comparison. Plan for Intervention: Dilia Martinez is a 43 y.o. female with a hx of varicose veins for several years. Recommend patientcontinue wearing 20-30 mmHg compression stockings throughout the day. Elevate LE for at least 20 minutes 3 x per day. Studies today showed reflux in the R GSV in the R thigh. Plan will be for pt to undergo R VNUS and stab phlebectomy of the varicose veins in her R calf with Dr. Quesada. Pt is amendable to plan. Rosio Brady PA-C Department of Vascular Surgery Vascular surgery attending addendum I have seen the patient in person and reviewed the resident's above history and I agree with the details as written. The assessment and plan were formulated in discussion with me and I agree with them as documented. Personally reviewed duplex Symptomatic right lower extremity varicose veins with associated GSV reflux. Discussed proceeding with a GSV ablation and stab phlebectomies. She also has reflux and symptoms on her left lower extremity, which is predominantly secondary to her anterior saphenous vein. Discussed could treat this with anterior saphenous vein ligation and stab phlebectomies. Risk and benefits were discussed with the patient and she wishes to proceed. Catherine Quesada MD documented in this encounter Plan of Treatment Upcoming Encounters Date Type Department Care Team (Late st Contact Info) Description 02/13/2024 3:30 PM EDT [place] [address] Candace Vance MD [facility] [place] [address] Scheduled Referrals Name Type Priority Associated Diagnoses Orde r Schedule Referral to Vascular Surgery Outpatient Referral Routine Asymptomatic varicose veins of lower extremity, unspecified laterality Varicose veins of lower extremity with inflammation, unspecified laterality Ordered: 02/20/2023 documented as of this encounter Visit Diagnoses Diagnosis Varicose veins of both lower extremities with pain Varicose veins of lower extremities with other complications documented in this encounter Care Teams Air Valve Repairer Relationship Specialty Start Date End Date Rebecca Lewis DO [address] [place] [address] PCP - General Family Medicine 06/02/21 documented as of this encounter
--- OUTSIDE RECORDS SUMMARY | 2024-01-30 15:59 | XMS_ITS | Encounter Summary ---
Author Organization [facility] [place] [address] Care Team Providers Care Powder Blender Name Role Phone Rebecca Lewis Primary Care Provider +1- [phone] Reason for Visit * Reason Comments Medication Refill Encounter Details Date Type Department Care Team (Late st Contact Info) Description 01/18/2024 [place] [address] Candace Vance MD [facility] [place] [address] Lupus Social History Tobacco Use Types Packs/Day Years Used Date Smoking Tobacco: Never Smokeless Tobacco: Never Alcohol Use Standard Drinks/Week Comments Yes 0 (1 standard drink = 0.6 oz pur e alcohol) very rarely [facility] Inpatient Questions Answer Date Recorded Does [...] 3:30 PM EDT Office [place] [address] Candace Vance MD [facility] [place] [address] documented as of this encounter Visit Diagnoses Diagnosis Lupus Systemic lupus erythematosus documented in this encounter Care Teams Powder Blender Relationship Specialty Start Date End Date Rebecca Lewis DO [address] [place] [address] PCP - General Family Medicine 06/02/21 documented as of this encounter
--- OUTSIDE RECORDS SUMMARY | 2024-01-30 15:59 | XMS_ITS | Encounter Summary ---
Author Organization [facility]ly [facility] [place] [address] Care Team Providers Care Java J2Ee Technical Lead Name Role Phone Rebecca Lewis Primary Care Provider +1- [phone] Reason for Visit * Reason Comments Medication Refill Encounter Details Date Type Department Care Team (Late st Contact Info) Description 08/11/2023 [place] [address] Candace Vance MD [facility] [place] [address] Lupus Social History Tobacco Use Types Packs/Day Years Used Date Smoking Tobacco: Never Smokeless Tobacco: Never Alcohol Use Standard Drinks/Week Comments Yes 0 (1 standard drink = 0.6 oz pur e alcohol) very rarely [facility] Inpatient Questions Answer Date Recorded Does Anyone [...] 3:30 PM EDT Office [place] [address] Candace Vance MD [facility] [place] [address] documented as of this encounter Visit Diagnoses Diagnosis Lupus Systemic lupus erythematosus documented in this encounter Care Teams Java J2Ee Technical Lead Relationship Specialty Start Date End Date Rebecca Lewis DO [address] [place] [address] PCP - General Family Medicine 06/02/21 documented as of this encounter
--- OUTSIDE RECORDS SUMMARY | 2024-01-30 15:59 | XMS_ITS | Encounter Summary ---
Author Organization [facility] [place] [address] Care Team Providers Care Head Start Director Name Role Phone Debbie Rebeccabreanna Carranza DO Primary Care Provider +1- [phone] Reason for Referral * Consultation (Routine) - Pending Review Specialty Diagnoses / Procedures Referred By Lay jose Referred To Contact Sleep Center Diagnoses Sjogren syndrome, unspecified Candace Vance MD [facility] [place] [address] [facility] Sleep Medicine [address] [place] [address] Referral ID Status Reason Start Date Expiration Date Visits Requested Visits Authorized [id number] Pending Review Consult, Test & Treat 03/06/2023 03/05/2024 1 1 Encounter Details Date Type Department Care Team (Late st Contact Info) Description 03/06/2023 4:00 PM EDT [place] [address] Candace Vance MD [facility] [place] [place] [address] Lupus; Sjogren syndrome, unspecified Social History Tobacco [...] Sign Reading Time Taken Comments Blood Pressure 121/90 03/06/2023 3:33 PM EDT Pulse 87 03/06/2023 3:33 PM EDT Temperature 36.6 ??C (97.8 ??F) 03/06/2023 3 :33 PM EDT Respiratory Rate 20 03/06/2023 3:33 PM EDT Oxygen Saturation 98% 03/06/2023 3:3 3 PM EDT Inhaled Oxygen Concentration - - Weight 123.2 kg (271 lb 9.6 oz) 03/06/2023 3:33 PM EDT With shoes on Height 177.8 cm (5' 10) 03/06/2023 3:3 3 PM EDT Body Mass Index 38.97 03/06/2023 3:33 PM EDT documented in this encounter Progress Notes * Candace Vance MD - 03/06/2023 4:00 PM EDT Rheumatology Outpatient Follow Up Note PCP: DO Dilia Alonso Agnes Martinez is a 43 y.o. female who we are seeing for the continuing management of lupus. Rheum History: #Sjogren's disease and Lupus - diagnosed 2011 at [place] w/ Sicca, joint pain, peripheral neuropathy - [...] 150 mg daily Interval History: Patient reports overwhelming fatigue for last few weeks. She also has worsening sicca symptoms. Shetakes cevimeline twice daily and also uses artificial tears. She denies any prolonged morning stiffness, rash or mucosal ulcerations. ROS (positives in bold): Gen: No fevers, no chills, no night sweats Pulm: No SOB and no cough CV: No chest pain Abd: No abd pain, no nausea, no vomiting, no diarrhea MSK: See HPI Physical exam: BP 121/90 (BP Location (NBP): Right arm, Patient Position: Sitting, BP Cuff Sizes: Large Adult (32-43 cm)) Pulse 87 Temp 36.6 ??C (97.8 ??F) (Temporal) Resp 20 Ht 177.8 cm (5' 10) Wt 123.2kg (271 lb 9.6 oz) Comment: With shoes on SpO2 98% BMI 38.97 kg/m?? Gen: Well appearing, alert and oriented x 3, NAD Heart: Regular rate, no murmurs, rubs or gallops Lungs: Clear to auscultation b/l Abd: Soft, NT/ND, bowel sounds + Skin: Warm and dry, no rashes Joints: Shoulders: FROM, non-tender to palpation Elbows:FROM Wrists: FROM, no swelling, non-tender Hands: Mild fullness around right third MCP with tenderness but joint line can be felt, no MCP compression tenderness, full claw and fist Hips: FROM, no tenderness Knees: FROM, no effusion, no tenderness Ankles: FROM, non-tender, no effusion Feet: no MTP compression tenderness Labs/Studies: Previous labs reviewed Current Immunizations Name Date INFLUENZA 02/14/2020 , 05/06/2019 , 03/04/2018 , 04/06/2016 Moderna Plant Guard 10/13/2020 , 09/15/2020 TD 11/10/2013 Assessment: Dilia Martinez is a 43 y.o. female with the PMH of Sjogren's (on evoxac, biotene and eye drops) andlupus on HCQ 400 mg/d who is presenting for follow-up. Patient reports overwhelming fatigue for last few weeks. She also has worsening sicca symptoms. Shetakes cevimeline twice daily and also uses artificial tears. She denies any prolonged morning stiffness, rash or mucosal ulcerations. Physical examination today does not show any evidence of synovitis, rash or skin thickening. Her ESR and CRP have been mildly elevated chronically. Not sure about the etiology. Could be due tometainflammation from obesity. We will continue HCQ at 400 mg daily and increase cevimeline to TID.She had a her eye checkup a few months ago. We discussed about doing a sleep study for possible underlying sleep apnea due to the overwhelming fatigue and feeling of not feeling refreshed in the morning. Plan: -Check CBC, CMP, ESR, CRP, complements, cryoglobulins and SPEP. -Continue hydroxychloroquine 200 mg twice daily. -Increase cevimeline to 3 times daily. -Referral to sleep study center. -Annual follow-up with ophthalmology for hydroxychloroquine toxicity monitoring and dry eyes issue. Follow-up in 3 months. Total time spent on counseling and coordination of care was 40 minutes. Candace Vance MD documented in this encounter Plan of Treatment Upcoming Encounters Date Type Department Care Team (Late st Contact Info) Description 02/13/2024 3:30 PM EDT [place] [address] Candace Vance MD [facility] [place] [address] Scheduled Referrals Name Type Priority Associated Diagnoses Orde r Schedule Referral to Sleep Disorders Center Outpatient Referral Routine Sjogren syndrome, unspecified Ordered: 03/06/2023 documented as of this encounter Procedures Procedure Name Priority Date/Time Associated Diagnosis Comments CRP, ACUTE INFLAMMATION Routine 03/06/2023 4:39 PM EDT Sjogren syndrome, unspecified HEMOGRAM Routine 03/06/2023 4:39 PM EDT Sjogren syndrome, unspecified DIFFERENTIAL, AUTOMATED Routine 03/06/2023 4:39 PM EDT Sjogren syndrome, unspecified CRYOGLOBULIN Routine 03/06/2023 4:39 PM EDT Sjogren syndrome, unspecified SEDIMENTATION RATE Routine 03/06/2023 4: 39 PM EDT Sjogren syndrome, unspecified CBC (WITH DIFF) Routine 03/06/2023 4:39 PM EDT Sjogren syndrome, unspecified C3 COMPLEMENT Routine 03/06/2023 4:39 PM EDT Sjogren syndrome, unspecified C4 COMPLEMENT Routine 03/06/2023 4:39 PM EDT Sjogren syndrome, unspecified PROTEIN ELECTROPHORESIS, SERUM Routine 03/06/2023 4:39 PM EDT Sjogren syndrome, unspecified COMPREHENSIVE METABOLIC PANEL Routine 03/06/2023 4:39 PM EDT Sjogren syndrome, unspecified documented in this encounter Results * Differential, Automated (03/06/2023 4:39 PM EDT) Neutrophil % 56.8 % [facility] Neutrophil Absolute 5.17 1.70 - 6.10 x10(3)/[facility] Lymph % 31.9 % [facility] Lymphocytes Abs 2.9 0.9 - 3.2 x10(3)/[facility] Monocyte % 6.7 % [facility] Monocyte Abs 0.6 0.3 - 0.9 x10(3)/[facility] Eos % 3.5 % [facility] Eosinophils Abs 0.3 0.0 - 0.4 x10(3)/[facility] Basophil % 0.9 % [facility] Baso Absolute 0.1 0.0 - 0.1 x10(3)/[facility] Immature Gran % 0.20 % [facility] Comment: Immature granulocytes(IG's)percentage and absolute count will include metamyelocytes, myelocytes, and promyelocytes. Blood smears from CBCs yielding IG's will be scanned manually for concordance. If this scan disagrees with the automated IG or if promyelocytes are noted, a manual differential will be performed. Immature Gran Absolute 0.02 0.00 - 0.04 x10(3)/mcL [facility] Blood 03/06/2023 4:39 PM EDT 03/06/2023 4:43 PM EDT Narrative Resulting Agency Comment Spec In Lab Candace Vance MD HEMATOLOGY ORDERABL ES [facility] [place] [address] * (ABNORMAL) Hemogram (03/06/2023 4:39 PM EDT) White Blood Cell 9.1 4.0 - 9.5 x10(3)/mc L [facility] Red Blood Cell 5.31(H) 4.00 - 5.21 x10(6)/mc L [facility] Hemoglobin 14.1 11.7 - 15.5 g/dL [facility] Hematocrit 43.9 35.7 - 45.8 % [facility] Mean Cell Volume 82.7 82.6 - 94.4 fL [facility] Mean Cell Hemoglobin 26.6(L) 27.1 - 32.0 pg [facility] Mean Cell Hemoglobin Concentration 32.1 31.7 - 35.0 g/dL [facility] Platelet 393(H) 145 - 357 x10(3)/mc L [facility] RDW Standard Deviation 41.1 37.0 - 46.0 fL [facility] RDW coefficient of variation 13.6 11.5 - 14.1 % [facility] Mean Platelet Volume 9.2 7.6 - 12.9 fL [facility] NRBC% auto 0.2 % [facility] NRBC Absolute 0.020(H) 0.000 - 0.000 x10(3)/mc L [facility] Blood 03/06/2023 4:39 PM EDT 03/06/2023 4:43 PM EDT Narrative Resulting Agency Comment Spec In Lab Candace Vance MD HEMATOLOGY ORDERABL ES Performing Organization Address City/[facility]/ZIP Co de Phone Number [facility] [place] [address] * Protein Electrophoresis, serum (03/06/2023 4:39 PM EDT) Total Prot Electrophoresis 7.0 6.1 - 8.0 g/dL [facility] Albumin Electrophoresis 4.38 3.20 - 5.20 g/dL [facility] Alpha 1 Globulin 0.19 0.10 - 0.30 g/dL [facility] Alpha 2 Globulin 0.76 0.40 - 0.90 g/dL [facility] Beta Globulin 0.78 0.50 - 1.00 g/dL [facility] Gamma Globulin 0.88 0.50 - 1.30 g/dL [facility] M1 Band None Detected None Detected [facility] Blood 03/06/2023 4:39 PM EDT 03/06/2023 4:43 PM EDT Narrative Resulting Agency Comment Spec In Lab Candace Vance MD CHEMISTRY ORDERABLE S Performing Organization Address [facility] Co de Phone Number [facility] [place] [address] * Cryoglobulin (03/06/2023 4:39 PM EDT) Pathologist [facility] Cryoglobulin See Note [facility] Comment: Cryoglobulins negative at 24 and 72 hours. Identification of cryoglobulins is dependent upon appropriate sample handling. False negative results may occur if the proper sample handling steps are not followed. This test has not been cleared by the [place] FDA. Performance characteristics of this test were determined by [facility] in accordance with CLIA requirements. This laboratory is qualified under CLIA to perform high-complexity testing. Blood 03/06/2023 4:39 PM EDT 03/06/2023 4:42 PM EDT Narrative Resulting Agency Comment Spec In Lab Candace Vance MD CHEMISTRY ORDERABLE S Performing Organization Address City/[facility]/ZIP Co de Phone Number [facility] [place] [address] * C4 Complement (03/06/2023 4:39 PM EDT) Complement C4 25 10 - 40 mg/dL [facility] Blood 03/06/2023 4:39 PM EDT 03/06/2023 4:43 PM EDT Narrative Resulting Agency Comment Spec In Lab Candace Vance MD CHEMISTRY ORDERABLE S Performing Organization Address City/[facility] Co de Phone Number [facility] [place] [address] * C3 Complement (03/06/2023 4:39 PM EDT) Complement C3 165 90 - 180 mg/dL [facility] Blood 03/06/2023 4:39 PM EDT 03/06/2023 4:43 PM EDT Narrative Resulting Agency Comment Spec In Lab Candace Vance MD CHEMISTRY ORDERABLE S Performing Organization Address [facility] Co de Phone Number [facility] [place] [address] * Sedimentation rate (03/06/2023 4:39 PM EDT) [facility] Sedimentation Rate Automated 33 2 - 37 mm/hr [facility] Comment: Effective June 05, 2019 new capillary photometric technology has resulted in a change in reference ranges. It is recommended that each ESR result be reviewed with its own age appropriate reference range. Blood 03/06/2023 4:39 PM EDT 03/06/2023 4:43 PM EDT Narrative Resulting Agency Comment Spec In Lab Candace Vance MD HEMATOLOGY ORDERABL ES Performing Organization Address [facility] Co de Phone Number [facility] [place] [address] * (ABNORMAL) CRP, acute inflammation (03/06/2023 4:39 PM EDT) C-Reactive Protein 12.2(H) <=4.9 mg/L [facility] Blood 03/06/2023 4:39 PM EDT 03/06/2023 4:43 PM EDT Narrative Resulting Agency Comment Spec In Lab Candace Vance MD CHEMISTRY ORDERABLE S [facility] [address] [place] [address] * (ABNORMAL) Comprehensive metabolic panel (non-fasting) (03/06/2023 4:39 PM EDT) Glucose 103 65 - 199 mg/dL [facility] Comment:Diabetes: >=200 mg/d L plus symptoms Blood Urea Nitrogen 11 8 - 18 mg/dL [facility] Creatinine 0.74 0.70 - 1.20 mg/dL [facility] Sodium 138 135 - 145 mmol/L [facility] Potassium 4.0 3.5 - 5.0 mmol/L [facility] Comment: Please note: ??Patients with WBC >100,000 may have falsely elevated Potassium levels. ??For accurate Potassium quantification in these patients send serum separator tube (gold top) for subsequent determinations. ??Contact the Clinical Chemistry Laboratory if there are any questions. Chloride 100 98 - 107 mmol/L [facility] Carbon Dioxide 26 22 - 31 mmol/L [facility] Anion Gap 12 5 - 15 mmol/L [facility] Calcium 9.2 8.5 - 10.5 mg/dL [facility] Protein, Total 7.2 6.1 - 8.0 g/dL [facility] Albumin 4.3 3.2 - 5.2 g/dL [facility] Aspartate Aminotransferase 12 0 - 30 unit/L [facility] Alanine Aminotransferase 17 0 - 30 unit/L [facility] Alkaline Phosphatase 108(H) 35 - 105 unit/L [facility] Bilirubin, Total <0.2(L) 0.2 - 1.3 mg/dL [facility] Est Glomerular Filtration Rate 102 >=60 mL/min/1. 73 m?? [facility] Comment: This patient's estimated GFR [...] and symptoms in addition to eGFR. Blood 03/06/2023 4:39 PM EDT 03/06/2023 4:43 PM EDT Narrative Resulting Agency Comment Spec In Lab Candace Vance MD CHEMISTRY ORDERABLE S Performing Organization Address City/State/[facility] [place] [address] documented in this encounter Visit Diagnoses Diagnosis Lupus Systemic lupus erythematosus Sjogren syndrome, unspecified documented in this encounter Care Teams Head Start Director Relationship Specialty Start Date End Date Rebecca Lewis DO [address] [place] [address] PCP - General Family Medicine 06/02/21 documented as of this encounter
--- OUTSIDE RECORDS SUMMARY | 2024-01-30 15:59 | XMS_ITS | Encounter Summary ---
Author Organization [facility] [place] [address] Care Team Providers Care Sow Farm Manager Name Role Phone Rebecca Lewis Dillon DURAN Primary Care Provider +1- [phone] Encounter Details Date Type Department Care Team (Latest Contact Info) Description 07/17/2023 Travel Social History Tobacco Use Types Packs/Day [...] 3:30 PM EDT Office Visit [place] [address] Candace Vance MD [facility] [place] [address] documented as of this encounter Visit Diagnoses Not on filedocumented in this encounter Care Teams Sow Farm Manager Relationship Specialty Start Date End Date Rebecca Lewis DO [address] [place] [address] PCP - General Family Medicine 06/02/21 documented as of this encounter
--- OUTSIDE RECORDS SUMMARY | 2024-01-30 15:59 | XMS_ITS | Encounter Summary ---
Author Organization [facility] [place] [address] Care Team Providers Care Senior Accounts Payable Clerk Name Role Phone Debbie Rebeccabreanna Carranza DO Primary Care Provider +1- [phone] Reason for Referral * Diagnostic Test (Routine) - Closed Specialty Diagnoses / Procedures Referred By Lay jose Referred To Contact Diagnoses Varicose veins of both lower extremities with pain Procedures Venous Valvular Incomp, Bilat Legs Stacie Garza APRN [facility] [place] [address] [facility] Vascular Lab [address] [place] [address] Referral ID Status Reason Start Date Expiration Date V isits Requested Visits Authorized [id number] Closed Specialty Service Requested 02/20/2023 02/20/2024 1 1 Encounter Details Date Type Department Care Team (Late st Contact Info) Description 02/20/2023 Orders [place] [address] Stacie Garza APRN [facility] [place] [address] Varicose veins of both lower extremities with [...] 3:30 PM EDT Office [place] [address] Candace Vance MD [facility] [place] [address] documented as of this encounter Results * Venous Valvular Incomp, Bilat Legs (04/27/2023 9:34 AM EDT) VB Text Report Department: Vascular Surgery Lab Patient: [id number] (DILIA MARTINEZ) CPT: 14176 Referring Physician: STACIE GARZA ?? Phone: Indications: [...] complications documented in this encounter Care Teams Senior Accounts Payable Clerk Relationship Specialty Start Date End Date Rebecca Lewis DO [address] [place] [address] PCP - General Family Medicine 06/02/21 documented as of this encounter
--- OUTSIDE RECORDS SUMMARY | 2024-01-30 15:59 | XMS_ITS | Encounter Summary ---
Author Organization [facility] [place] [address] Care Team Providers Care Gate Services Supervisor Name Role Phone OctaviaRebecca navarro Dillon DURAN Primary Care Provider +1- [phone] Reason for Visit * Reason Comments Medication Refill Encounter Details Date Type Department Care Team (Late st Contact Info) Description 10/21/2022 [place] [id number] Candace Vance MD [facility] [place] [address] Lupus Social History Tobacco Use Types Packs/Day [...] 3:30 PM EDT [place] [phone] Candace Vance MD [facility] [place] [address] documented as of this encounter Visit Diagnoses Diagnosis Lupus Systemic lupus erythematosus documented in this encounter Care Teams Gate Services Supervisor Relationship Specialty Start Date End Date Rebecca Lewis DO [address] [place] [address] PCP - General Family Medicine 06/02/21 documented as of this encounter
--- OUTSIDE RECORDS SUMMARY | 2024-01-30 15:59 | XMS_ITS | Encounter Summary ---
Author Organization [facility] [place] [address] Care Team Providers Care Repairer Art Objects Name Role Phone DebbieRebecca Dillon DURAN Primary Care Provider [phone] Reason for Referral * Diagnostic Test (Routine) - Closed Specialty Diagnoses / Procedures Referred By Lay jose Referred To Contact Diagnoses Status post endovenous radiofrequency ablation (RFA) of saphenous vein Procedures Duplex for DVT, Leg, UnilHarvinder Art MD [facility] [place] [address] [facility] [address] [place] [address] Referral ID Status Reason Start Date Expiration Date V isits Requested Visits Authorized [id number] Closed Specialty Service Requested 06/09/2023 06/08/2024 1 1 Reason for Visit * Auth/Cert (Routine) Specialty Diagnoses / Procedures Referred By Lay jose Referred To Contact Diagnoses Symptomatic Varicose Veins Procedures PRO ENDOVENOUS RF, 1ST VEIN PRO PHLEB VEINS - EXTREM 20+ ENDOVENOUS ABLATION THERAPY OF INCOMPETENT VEIN, EXTREMITY, FIRST VEIN (WRVU 5.3) STAB PHLEBECTOMY ADORE VEINS 1 EXTREMITY MORE 20 INCISIONS (WRVU 6) Ash Quesada MD [facility] [place] [address] [facility] Referral ID Status Reason Start Date Expiration Date Visits Re quested Visits Authorized [id number] 1 1 Encounter Details Date Type Department Care Team (Latest Contact Info) Description 06/09/2023 10:11 AM EST - 06/09/2023 3:05 PM EST Hospital Encounter Outpatient [place] [address] Ash Quesada MD [facility] [place] [address] Status post endovenous radiofrequency ablation (RFA) of saphenous vein (Primary Dx); Varicose veins of both lower extremities with pain; Pre-op testing Discharge Disposition: Home Social History Tobacco Use Types Packs/Day Years [...] Sign Reading Time Taken Comments Blood Pressure 129/79 06/09/2023 2:30 PM EST Pulse 81 06/09/2023 2:45 PM EST Temperature 36.6 ??C (97.9 ??F) 06/09/2023 1:50 PM ES T Respiratory Rate 18 06/09/2023 1:50 PM EST Oxygen Saturation 97% 06/09/2023 2:45 PM EST Inhaled Oxygen Concentration - - Weight 120.7 kg (266 lb) 06/09/2023 10:28 AM EST Height 177.8 cm (5' 10) 06/09/2023 10:28 AM EST Body Mass Index 38.17 06/09/2023 10:28 AM EST documented in this encounter Discharge Instructions * Discharge Instructions* MacPhail, Negrita, RN - 06/09/2023 10:50 AM EST General Anesthesia Discharge Instructions Go home and rest. You may be sleepy for several hours. Take it easy as sudden position changes may cause nausea and/or dizziness. Use caution on stairs. Do not smoke if you are alone. Follow a light to regular diet as tolerated today. If nausea occurs, start with clear liquids, and progress slowly to a regular diet. Do not drive, operate machinery, drink alcoholic beverages or make any legal decisions after havinggeneral anesthesia. The medications given change your reaction time and alter your judgement. IV site -- slight redness is normal, you can use warm compresses. If tenderness and redness increases or foul drainage occurs, please contact your M.D. Patients who have had endotracheal tubes/LMA (tubes used by the anesthesia staff to ensure a safe airway during your operation) may have a sore throat. This is normal and cold liquids or soothing lozenges will help ease this discomfort. Narcotic pain medications can cause constipation, please ask the surgeons office what they recommend for prevention of this. Some non-pharmaceutical means of constipation prevention include increasing intake of fluids, eating more fruits and vegetables as well as fruit juices. If you are uncomfortable and/or unable to urinate within 8 hours of discharge and it is before 5 pm, call your physician. If it is after 5pm go to the closest emergency room or call the hospital scale tank operator at [phone] and ask for physician curbstone setter covering for your physician. Questions or problems after 5pm or on a weekend: Call [facility] scale tank operator at and ask for the physician curbstone setter covering for your doctor. At 11:30am you received 975 mg of acetaminophen- Your next dose should not be taken before 8 hours have passed or as advised by your provider. Next dose not before 7:30pm You should not take more than a total of 3000 mg of acetaminophen in a 24 hour period. You received Ibuprofen/or other nsaid medication at 1:30 pm. Your next dose should not be taken before 7:30 pm today. * Patient Instructions* Harvinder Gomez MD - 06/09/2023 11:52 AM EST Activity: You should start walking the day after surgery. When sitting, try to elevate and prop your leg up on pillows as much as possible. No vigorous activity (such as jogging, running, biking) forat least 1 week or until cleared to do so at your follow-up visit. Wound care: Keep NARINDER and Kerlix wraps on your leg for the next 48 hours. At that point you can remove all dressings and shower. Do not take a bath or swim for at least 2 weeks. You have steri-strips (pieces of tape) on your skin. Keep them on until they fall off on their own. If you notice the steri-strips begin to peel off, you may trim them. Bruising around the incisions can be normal and will f donn over time. Pain Medication: You may take acetaminophen (Tylenol) 1000mg every 6 hours and ibuprofen (Advil, Motrin) 600mg every 6 hours for pain. We have prescribed oxycodone for you, take tylenol and ibuprofenfirst before taking oxycodone. You should not drive for 8 hours after taking oxycodone. Please takesenna and colace as prescribed if you take oxycodone and drink water to prevent constipation.. Call Doctor for: Please call if you notice worsening redness or foul-smelling drainage from incision(s), if your pain is not controlled by pain medication or for fevers greater than 101.3F. Follow-up: You will have an ultrasound in 1-3 days after your procedure. If you do not receive the ultrasound appointment at the time of discharge, you will be called with a date and time. You will be seen by your surgeon (or associate provider) in the Vascular Clinic in approximately [address] Quesada. This clinic appointment will be mailed to you. Please call our office ([phone]) if you do not receive the ultrasound appointment within 2 days or the clinic appointment within 10 days. For any questions or concerns please call [phone] documented in this encounter Medications at Time of Discharge Medication Sig Dispensed Refills Start Date End Date acetaminophen (Tylenol) 500 mg tablet Take 2 tablets by mouth every 6 hours as needed for Pain. 06/09/2023 ibuprofen (Advil) 600 mg tablet Take 1 tablet by mouth every 6 hours as needed for Pain. 06/09/2023 EPINEPHrine 0.3 mg/0.3 mL Auto-Injector Inject into the muscle. 01/15/2018 TURMERIC ORAL Take by mouth. MILK THISTLE ORAL Take by mouth. UNABLE TO FIND Gallbladder enzymes UNABLE TO FIND Cbd gummies cholecalciferol, Vitamin D3, 1,250 mcg (50,000 unit) Capsule TAKE 1 CAPSULE BY MOUTH ONCE A WEEK FOR 10 WEEKS 03/31/2021 multivitamin (THERAGRAN) Tablet Take 1 tablet by mouth daily. HAS VITAMIN D3 2000 IU amLODIPine (Norvasc) 2.5 mg Tablet TAKE 1 TABLET BY MOUTH ONCE DAILY 03/08/2020 escitalopram (LEXAPRO) 10 mg Tablet Take 10 mg by mouth daily. 10/25/2017 fluticasone (FLONASE) 50 mcg/actuation [place], Suspension Daily 08/21/2015 ondansetron (ZOFRAN) 4 mg Tablet Every 6 hours, as needed 10/18/2016 pantoprazole (PROTONIX) 40 mg Tablet, Delayed Release (E.C.) Take 40 mg by mouth daily. 03/30/2015 buPROPion (WELLBUTRIN XL) 150 mg Tablet Extended Release 24 hr Take 150 mg by mouth every morning. PROAIR HFA 90 mcg/actuation HFA Aerosol Inhaler as needed. 10/03/2014 PARoxetine (PAXIL) 30 mg tablet Take 30 mg by mouth nightly. loratadine (CLARITIN) 10 mg tablet Take 10 mg by mouth daily as needed. econazole nitrate 1 % Cream Apply topically to the right foot twice daily until skin appears clear, then an additional 2 weeks. 85 g 04/13/2020 pregabalin (Lyrica) 150 mg capsuleIndications:Candace pus TAKE ONE CAPSULE BY MOUTH EVERY DAY 90 capsule 05/12/2023 08/11/2023 cevimeline (Evoxac) 30 mg capsuleIndications:Candace pus,Sjogren syndrome, unspecified TAKE ONE CAPSULE BY MOUTH THREE TIMES A DAY NEEDED 90 capsule 4 04/26/2023 10/04/2023 hydrOXYchloroQUINE (Plaquenil) 200 mg tabletIndications:Lup us Take 2 tablets by mouth daily. 60 tablet 5 01/25/2023 07/26/2023 docusate sodium (Colace) 100 mg capsule Take 1 capsule by mouth 2 times daily for 10 days. 20 capsule 06/09/2023 06/19/2023 oxyCODONE (Roxicodone) 5 mg tablet Take 1 tablet by mouth every 8 hours as needed for Pain. 10 tablet 06/09/2023 07/17/2023 senna (Senokot) 8.6 mg tablet Take 2 tablets by mouth 2 times daily. 60 tablet 11 06/09/2023 07/17/2023 polyethylene glycoL (Miralax) 17 gram oral powder packet Take 17 g by mouth daily. 14 each 06/09/2023 07/17/2023 OneTouch Ultra Test Strip as needed. 09/09/2021 07/17/2023 OneTouch Delica Plus Lancet 30 gauge Misc as needed. 09/09/2021 024 documented as of this encounter H&P Notes * Harvinder Gomez MD - 06/09/2023 11:44 AM EST Vascular Surgery History and Physical HPI: Per patient's last office visit with Rosio Brady PA-C and Dr. Quesada on 04/27/23: Dilia Martinez is a 43 y.o. female who has noted to have varicose veins of their right lower extremity for several years. The patient has noted the following symptoms below for several months. The patient has used compression stockings and leg elevation since December 2022. The symptoms below are affecting the patient's quality of life. She reports not taking any anticoagulation or antiplatelets. She last ate last night. Y N SYMPTOM X Leg aching X [...] episodes of bleeding varicosities X Chronic cellulitis Patient denies changes to medical history, recent illnesses, chest pain, dyspnea, fevers, chills, nausea, vomiting. There are no hospital problems to display for this patient. Active Non-Hospital Problems Diagnosis Microscopic hematuria Right flank pain Urinary frequency Hypertension Body mass index (BMI) of 39.0 to 39.9 in adult Migraine without status migrainosus, not intractable Insomnia Obstructive sleep apnea syndrome Anxiety Fibromyalgia Gastroesophageal reflux disease Sjogren's syndrome Systemic lupus erythematosus Past Medical History: Past Medical History: Diagnosis Date Hypertension 01/23/2018 Sjogren's syndrome 03/30/2015 Past Surgical History: Past Surgical History: Procedure Laterality Date GALLBLADDER SURGERY 2012 WISDOM TOOTH EXTRACTION 06/25/1996 Social Hx: Social History Socioeconomic History Marital status: Spouse name: Not on file Number of children: Not on file Years of education: Not on file Highest education level: Not on file Occupational History Not on file Tobacco Use Smoking status: Never Smokeless tobacco: Never Vaping Use Vaping Use: Never used Substance and Sexual Activity Alcohol use: Yes Comment: very rarely Drug use: No Sexual activity: Not Currently Partners: Male Other Topics Concern Do You live alone? Not Asked Tobacco in Home Not Asked Social History Narrative Works [employer] via the [employer] part Social Determinants of Health Financial Resource Strain: Not on file Food Insecurity: Not on file Transportation Needs: Not on file Physical Activity: Not on file Intimate Partner Violence: Not on file Housing Stability: Not on file Family Hx: Negative for Thrombosis, Bleeding Disorders Family History Problem Relation Age of Onset Hypertension Mother Asthma Mother Myocardial Infarction Father Cerebrovascular Accident Father Hypertension Father Hyperlipidemia Father Diabetes Father type 2 diet controlled Crohn Disease Brother Ovarian Cancer Maternal Grandmother 52 Colorectal Cancer Maternal Grandmother Myocardial Infarction Maternal Grandfather Myocardial Infarction Paternal Grandfather Breast Cancer Neg Hx Uterine Cancer Neg Hx Medications: No current facility-administered medications on file prior to encounter. Current Outpatient Medications on File Prior to Encounter Medication Sig Dispense Refill pregabalin (Lyrica) 150 mg capsule TAKE ONE CAPSULE BY MOUTH EVERY DAY 90 capsule 0 cevimeline (Evoxac) 30 mg capsule TAKE ONE CAPSULE BY MOUTH THREE TIMES A DAY NEEDED 90 capsule 4 hydrOXYchloroQUINE (Plaquenil) 200 mg tablet Take 2 tablets by mouth daily. 60 tablet 5 TURMERIC ORAL Take by mouth. MILK THISTLE ORAL Take by mouth. UNABLE TO FIND Gallbladder enzymes UNABLE TO FIND Cbd gummies cholecalciferol, Vitamin D3, 1,250 mcg (50,000 unit) Capsule TAKE 1 CAPSULE BY MOUTH ONCE A WEEK FOR 10 WEEKS multivitamin (THERAGRAN) Tablet Take 1 tablet by mouth daily. HAS VITAMIN D3 2000 IU amLODIPine (Norvasc) 2.5 mg Tablet TAKE 1 TABLET BY MOUTH ONCE DAILY escitalopram (LEXAPRO) 10 mg Tablet Take 10 mg by mouth daily. pantoprazole (PROTONIX) 40 mg Tablet, Delayed Release (E.C.) Take 40 mg by mouth daily. buPROPion (WELLBUTRIN XL) 150 mg Tablet Extended Release 24 hr Take 150 mg by mouth every morning. PROAIR HFA 90 mcg/actuation HFA Aerosol Inhaler as needed. PARoxetine (PAXIL) 30 mg tablet Take 30 mg by mouth nightly. loratadine (CLARITIN) 10 mg tablet Take 10 mg by mouth daily as needed. EPINEPHrine 0.3 mg/0.3 mL Auto-Injector Inject into the muscle. OneTouch Ultra Test Strip as needed. OneTouch Delica Plus Lancet 30 gauge Misc as needed. acetaminophen (Tylenol) 500 mg Tablet Take 1,000 mg by mouth every 6 hours as needed for Pain. econazole nitrate 1 % Cream Apply topically to the right foot twice daily until skin appears clear,then an additional 2 weeks. 85 g 0 fluticasone (FLONASE) 50 mcg/actuation [place], Suspension Daily ondansetron (ZOFRAN) 4 mg Tablet Every 6 hours, as needed Allergies: Allergies Allergen Reactions Amoxicillin Bee Venom Protein (Honey Bee) Lactose-Reduced Food Pertussis Vaccines [place] Physical Exam: Vital Signs: Temp: [36.4 ??C (97.5 ??F)] Heart Rate: [82] Resp: [16] BP: (129)/(81) SpO2: [96 %] Heart Rate from SpO2: -- BMI: Weight: 120.7 kg (266 lb) BMI (Calculated): 38.16 BMI Classification: Obese General: NAD, resting comfortably HEENT: PERRL, anicteric sclerae CVS: Regular rate, no murmurs rubs or gallops Pulm: Clear bilaterally Abd: soft, non tender, non distended Ext: RLE: No edema. Skin warm and pink. No tissue loss. Brisk capillary refill. LLE: No edema. Skin warm and pink. No tissue loss. Brisk capillary refill. RLE: Varicosities appreciated in calf and thigh in GSV distribution. Neuro: Grossly nonfocal, moving all extremities. Vascular Exam: Palpable right DP and PT pulse Labs: No results for input(s): WBC, HGB, HCT, PLATELET in the last 72 hours. No results for input(s): NA, K, CL, CO2, BUN, CREATININE, PHOS, CALCIUM in the last72 hours. Studies/Imagin04/27/23 Venous Valve Incomp Study: Findings: Right Reflux? Diameter (mm) Depth (mm) [...] in our vascular lab database from comparison. Assessment and Plan: Per patient's last office visit with Rosio Brady PA-C and Dr. Quesada on 04/27/23: Dilia Martinez is a 43 y.o. female with a hx of varicose veins for several years. Recommend patient continue wearing 20-30 mmHg compression stockings throughout the day. Elevate LE for at least 20 minutes 3 x per day. Studies today showed reflux in the R GSV in the R thigh. Plan will be for pt to undergo R VNUS and stab phlebectomy of the varicose veins in her R calf with Dr. Quesada. Pt is amendable to plan. Patient has been consented and is agreeable to proceed as planned with R GSV RFA and RLE stab phlebectomies. Harvinder Gomez MD 06/09/2023 Pager: [phone] documented in this encounter Miscellaneous Notes * Op Note - Ash Quesada MD - 06/09/2023 12:23 PM EST [facility] [place] Operative Note Patient Name: Dilia Martinez : [id number] MR#: [id number] Case Date: 06/09/2023 Surgeon: Surgeon(s) and Role: * Ash Quesada MD - Primary * Hravinder Gomez MD - Resident - Assisting Preoperative diagnosis: Symptomatic Varicose Veins with reflux in the R GSV Postoperative diagnosis: Same Procedure(s) (LRB): Endovenous ablation of right greater saphenous vein (VNUS) Right lower extremity stab phlebectomies (21 stabs) Ligation of cluster of large RLE varicose vein clusters Findings: Patent GSV with multiple varicosities branching at the distal thigh, posterior knee, and calf/carlisle. Successful GSV ablation, with patent saphenofemoral junction, epigastric vein and common femoral vein without evidence of DVT or E HIT. Anesthesia: General Estimated Blood Loss: 2 mL Specimens removed during surgery: None Drains: None Surgical Closure: Primary Closure - skin incision is completely closed without any wires, jasmina, drains or other devices Disposition: awakened from anesthesia, extubated and taken to the recovery room in a stable condition, having suffered no apparent untoward event. Condition: doing well without problems (Please see the Surgical Encounter Summary for any Implant and Specimen details pertinent to this patient.) HPI/Surgical Indications: Dilia Martinez is a 43 y.o. female with a hx of varicose veins for several years. Recommend patient continue wearing 20-30 mmHg compression stockings throughout the day. Elevate LE for at least 20 minutes 3 x per day. Studies today showed reflux in the R GSV in the R thigh. Plan will be for pt to undergo R VNUS and stab phlebectomy of the varicose veins in her R calf with Dr. Quesada. Pt is amendable to plan. Risks, benefits, and alternatives were discussed with the patient and the patient elected to proceed with the previously stated procedure. Informed consent was obtained and documented. Procedure Description: The patient was properly identified in the pre-operative holding area. Afterdiscussions of the risks and benefits, operative consent was obtained. The patient was brought to the operating room. The patient was prepped and draped in the usual sterile fashion. A time-out was performed by the attending surgeon confirming the patient, the intended procedure, the side of intervention and equipment needed. Attention was brought to the patient's right groin. The course of the right greater saphenous vein (GSV) was mapped out under US guidance from the saphenofemoral junction to the distal thigh. Percutaneous access was secured to the distal GSV at the midthigh via micropuncture technique under ultrasound guidance as the remainder of the GSV was diminutive in size. This was then up- sized to a 7F sheath over a .025 glide wire using seldinger technique. The VNUS catheter advanced to the level of 3 cmbelow the saphenofemoral junction within the great saphenous vein. A total of 200 cc of tumescent solution comprised of lidocaine/epinephrine 1% (1:100,000) in sterile saline was instilled along the c ourse of the GSV from the midthigh the proximally. Under ultrasound guidance, it was noted that thesolution was tracking along the fascial layer and adequately compressed the GSV and that the GSV was to be at least 1 cm below the skin. At this point the GSV was sequentially ablated utilizing the [employer] RFA system. Two pulses were delivered at the level 3 cm below the saphenofemoral junction and the catheter was withdrawn every6 cm along the course of the GSV towards the sheath before a single pulse was delivered. Completionultrasound revealed no flow in the GSV, and a compressible CFV with normal augmentation along with patent SFJ and common femoral vein without thrombus. The GSV sheath access was removed and pressure was held. Hemostasis was achieved. We then turned our attention to the previously marked venous varicosites. 21 incisions were made intotal on the right thigh, posterior knee, calf, and carlisle. An 11 blade was used to incise the skin and the varicosities were dissected out with vein hook and mosquito snaps/hemostatic clamps then avulsed. Two large clusters of varicosities were excised with larger branches ligated with 3-0 vicryl suture (one at the thigh and one at the distal calf). Hemostasis was achieved with local pressure as needed. The leg was then cleaned and dried. All incisions were than closed with Mastisol and steri strips. Two posterior knee incisions were closed with simple interrupted 4-0 monocryl. The thigh and calf incision sites that required ligation were then dressed with gauze prior to the leg being wrapped from the toes to the groin with Kerlix and NARINDER wraps. Dr. Quesada was scrubbed and present for all portions of the case. There were no complications. Surgical Infection Prevention Bundle Used? N/A Vascular Surgery Attending Staff Attestation: Case Date: 06/09/2023 I was present and I participated during the entire procedure (does not need to include opening and closing). Ash Queasda MD 06/23/2023 documented in this encounter Plan of Treatment Upcoming Encounters Date Type Department Care Team (Late st Contact Info) Description 02/13/2024 3:30 PM EDT Office [place] [address] Candace Vance MD [facility] [place] [address] documented as of this encounter Procedures Procedure Name Priority Date/Time Associated Diagnosis Comments Phleb Veins - Extrem 20+ (83510) Yes 06/09/2023 11:56 AM EST Varicose veins of both lower extremities with pain Pre-op testing Endovenous Ablation Incompetent Vein Radiofrequency 1St Vein (76435) Yes 06/09/2023 11:56 AM EST Varicose veins of both lower extremities with pain Pre-op testing STAB PHLEBECTOMY ADORE VEINS 1 EXTREMITY MORE 20 INCISIONS Routine 06/09/2023 10:22 AM EST Varicose veins of both lower extremities with pain Pre-op testing ENDOVENOUS ABLATION THERAPY OF INCOMPETENT VEIN, EXTREMITY, FIRST VEIN Routine 06/09/2023 10:22 AM EST Varicose veins of both lower extremities with pain Pre-op testing documented in this encounter Results * Duplex for DVT, Leg, Unilat (06/12/2023 11:32 AM EST) VB Text Report Department: Vascular Surgery Lab Patient: [id number] (DILIA MARTINEZ) CPT: [id number] Referring Physician: ASH QUESADA MD ?? Phone: Indications: s/p RIGHT VNUS Findings: RIGHT: The great saphenous vein is ablated to the inferior epigastric vein. Patent common femoral vein with spontaneous, respirophasic Doppler waveforms that respond normally to augmentation maneuvers. The common femoral vein, saphenofemoral junction and femoral vein through the proximal thigh are fully compressible. Interpretation: RIGHT: Successful ablation of the great saphenous vein. No evidence of lower extremity deep venous thrombosis through the proximal thigh. No postoperative study in our vascular lab database for comparison. Electronically Signed by: TANNA AGUDELO on 2023-06-12 12:19:02 PM [facility] VB Text Report End of Report [facility] 06/12/2023 11:3 2 AM EST Ash Quesada MD VASCULAR ORDERABLES [facility] documented in this encounter Visit Diagnoses Diagnosis Status post endovenous radiofrequency ablation (RFA) of saphenous vein- Primary Varicose veins of both lower extremities with pain Varicose veins of lower extremities with other complications Pre-op testing Preoperative examination, unspecified documented in this encounter Administered Medications Inactive Administered Medications - up to 3 most recent administrations Medication Order MAR Action Action Date Dose Rate Site acetaminophen (Tylenol) 325 mg tablet 1 dose, Starting on Mon06/09/23 at 1123, Until Mon06/09/23 at 1123, Melissa Wong: cabinet override acetaminophen (Tylenol) tablet 975 mg 975 mg (rounded from 1,000 mg), Oral, ONCE, 1 dose, On Mon06/09/23 at 1145, Maximum dose of acetaminophen is 4000 mg from all sources in 24 hours. When ordered for pain, acetaminophen should be given even when other ordered pain medications are indicated. , Routine Given 06/09/2023 11:23 AM EST 975 mg fentaNYL (pf) (50 mcg/mL) multi-dose injection 25 mcg 25 mcg, Intravenous, EVERY 5 MIN PRN, Starting on Mon06/09/23 at 1342, Until Mon06/09/23 at 1509, Pain, Mild to moderate pain (1-5 out of 10), Hold for respiratory rate less than 10 per minute. Maximum dose 200 mcg over one hour, including OR administration. If ordered with HYDROmorphone or morphine, give HYDROmorphone or morphine first and use fentaNYL for breakthrough pain., PACU Recovery, Routine Given 06/09/2023 2:34 PM EST 25 mcg oxyCODONE (Roxicodone) tablet 5 mg 5 mg, Oral, ONCE, 1 dose, On Mon06/09/23 at 1430, Routine Given 06/09/2023 2:14 PM EST 5 mg documented in this encounter Active and Recently Administered Medications Times are shown in EST. Scheduled Medication Order 06/07/2023 06/08/2023 06/09/2023 acetaminophen (Tylenol) tablet 975 mg (COMPLETED) 975 mg (rounded from 1,000 mg), Oral, ONCE, 1 dose, On Mon06/09/23 at 1145, Maximum dose of acetaminophen is 4000 mg from all sources in 24 hours. When ordered for pain, acetaminophen should be given even when other ordered pain medications are indicated. , Routine 1123 (Given - Provid er: Melissa Wogn RN) clindamycin (Cleocin) 900 mg in dextrose 5% 50 mL infusion (COMPLETED) 900 mg, Intravenous, COOK COLD MEAT TO O.R., 1 dose, On Mon06/09/23 at 1045, Administer over 30 Minutes, Do not exceed 30 mg/minute. Redose after 4 hours., Day of Surgery (Day of Procedure), Indication for (Active or Suspected): Prophylaxis 1207 (Given - Provid er: Krystin Coleman CRNA) oxyCODONE (Roxicodone) tablet 5 mg (COMPLETED) 5 mg, Oral, ONCE, 1 dose, On Mon06/09/23 at 1430, Routine 1414 (Given - Provid er: Negrita [place] RN) PRN Medication Order 06/07/2023 06/08/2023 06/09/2023 fentaNYL (pf) (50 mcg/mL) multi-dose injection 25 mcg (CANCELED)(Linked Group 1) 25 mcg, Intravenous, EVERY 5 MIN PRN, Starting on Mon06/09/23 at 1342, Until Mon06/09/23 at 1509, Pain, Mild to moderate pain (1-5 out of 10), Hold for respiratory rate less than 10 per minute. Maximum dose 200 mcg over one hour, including OR administration. If ordered with HYDROmorphone or morphine, give HYDROmorphone or morphine first and use fentaNYL for breakthrough pain., PACU Recovery, Routine 1434 (Given - Provid er: Negrita [place] RN) lidocaine-EPINEPHrine (1% - 1:100,000) injection (CANCELED) PRN, Starting on Mon06/09/23 at 1242, Until Mon06/09/23 at 1710, Intra-Operative (Intra-Procedure), Routine 1242 (Given - Provid er: Ash Quesada MD - Comment: tumescent) Linked Groups Order Group 1: fentaNYL (pf) (50 mcg/mL) multi-dose injection 25 mcg (CANCELED)Jump to med 25 mcg, Intravenous, EVERY 5 MIN PRN, Starting on Mon06/09/23 at 1342, Until Mon06/09/23 at 1509, Pain, Mild to moderate pain (1-5 out of 10), Hold for respiratory rate less than 10 per minute. Maximum dose 200 mcg over one hour, including OR administration. If ordered with HYDROmorphone or morphine, give HYDROmorphone or morphine first and use fentaNYL for breakthrough pain., PACU Recovery, Routine Or fentaNYL (pf) (50 mcg/mL) multi-dose injection 50 mcg (CANCELED) 50 mcg, Intravenous, EVERY 5 MIN PRN, Starting on Mon06/09/23 at 1342, Until Mon06/09/23 at 1509, Pain, Moderate to severe pain (6-10 out of 10), Hold for respiratory rate less than 10 per minute. Maximum dose 200 mcg over one hour, including OR administration. If ordered with HYDROmorphone or morphine, give HYDROmorphone or morphine first and use fentaNYL for breakthrough pain., PACU Recovery, Routine documented in this encounter Care Teams Repairer Art Objects Relationship Specialty Start Date End Date Rebecca Lewis DO [address] [place] [address] PCP - General Family Medicine 06/02/21 documented as of this encounter
--- OUTSIDE RECORDS SUMMARY | 2024-01-30 15:59 | XMS_ITS | Encounter Summary ---
Author Organization [facility] [place] [address] Care Team Providers Care Learning Specialist Name Role Phone Rebecca Lewis DO Primary Care Provider +1- [phone] Encounter Details Date Type Department Care Team (Latest Contact Info) Description 04/27/2023 Travel Social History Tobacco Use Types Packs/Day [...] 3:30 PM EDT [place] [address] Candace Vance MD [facility] [place] [address] documented as of this encounter Visit Diagnoses Not on filedocumented in this encounter Care Teams Learning Specialist Relationship Specialty Start Date End Date Rebecca Lewis DO [address] [place] [address] PCP - General Family Medicine 06/02/21 documented as of this encounter
--- OUTSIDE RECORDS SUMMARY | 2024-01-30 15:59 | XMS_ITS | Encounter Summary ---
Author Organization [facility] [place] [address] Care Team Providers Care Tosser Name Role Phone DebbieArianabreanna Carranza DO Primary Care Provider +1- [phone] Reason for Visit * Diagnostic Test (Routine) - Closed Specialty Diagnoses / Procedures Referred By Lay jose Referred To Contact Diagnoses Status post endovenous radiofrequency ablation (RFA) of saphenous vein Procedures Duplex for DVT, Leg, Unilat Harvinder Gomez MD [facility] [place] [address] [facility] [address] [place] [address] Referral ID Status Reason Start Date Expiration Date V isits Requested Visits Authorized [id number] Closed Specialty Service Requested 06/09/2023 06/08/2024 1 1 Encounter Details Date Type Department Care Team (Late st Contact Info) Description 06/12/2023 11:30 AM [facility] Tech Visit [place] [address] Jay Wong RVT Status post endovenous radiofrequency ablation (RFA) of saphenous vein Social History Tobacco Use Types Packs/Day Years Used Date Smoking Tobacco: Never Smokeless Tobacco: Never Alcohol Use Standard Drinks/Week Comments Yes 0 (1 standard drink = 0.6 oz pur e alcohol) very rarely [facility] Inpatient Questions Answer Date Recorded Does Anyone [...] 3:30 PM EDT Office [place] [address] Candace Vance MD [facility] [place] [address] documented as of this encounter Procedures Procedure Name Priority Date/Time Associated Diagnosis Comments DUPLEX FOR DVT, LEG, UNILAT Routine 06/12/2023 11:32 AM EST Status post endovenous radiofrequency ablation (RFA) of saphenous vein documented in this encounter Results * Duplex for DVT, Leg, Unilat (06/12/2023 11:32 AM EST) VB Text Report Department: Vascular Surgery Lab Patient: [id number] (DILIA MARTINEZ) CPT: 06082 Referring Physician: ASH LITTLE MD ?? Phone: Indications: s/p RIGHT VNUS [...] VASCUBASE 06/12/2023 11:3 2 AM EST Ash Little MD VASCULAR ORDERABLES VASCUBASE documented in this encounter Visit Diagnoses Diagnosis Status post endovenous radiofrequency ablation (RFA) of saphenous vein documented in this encounter Care Teams Tosser Relationship Specialty Start Date End Date Rebecca Lewis DO [address] [facility] [place] [address] PCP - General Family Medicine 06/02/21 documented as of this encounter
--- OUTSIDE RECORDS SUMMARY | 2024-01-30 15:59 | XMS_ITS | Encounter Summary ---
Author Organization [facility] [place] [address] Care Team Providers Care Belt Maker Helper Name Role Phone Rebecca Lewis Dillon DURAN Primary Care Provider +1- [phone] Encounter Details Date Type Department Care Team (Latest Contact Info) Description 08/15/2023 Travel Social History Tobacco Use Types Packs/Day [...] 3:30 PM EDT Office [place] [address] Candace Vance MD [facility] [place] [address] documented as of this encounter Visit Diagnoses Not on filedocumented in this encounter Care Teams Belt Maker Helper Relationship Specialty Start Date End Date Rebecca Lewis DO [address] [place] [address] PCP - General Family Medicine 06/02/21 documented as of this encounter
--- OUTSIDE RECORDS SUMMARY | 2024-01-30 15:59 | XMS_ITS | Encounter Summary ---
Author Organization [facility] [place] [address] Care Team Providers Care Lockstitch Collar Setter Name Role Phone Rebecca Lewis Primary Care Provider +1- [phone] Reason for Visit * Reason Comments Medication Refill Encounter Details Date Type Department Care Team (Late st Contact Info) Description 07/25/2023 [place] [address] Candace Vance MD [facility] [place] [address] Lupus Social History Tobacco Use Types Packs/Day Years Used Date Smoking Tobacco: Never Smokeless Tobacco: Never Alcohol Use Standard Drinks/Week Comments Yes 0 (1 standard drink = 0.6 oz pur e alcohol) very rarely [facility] Inpatient Questions Answer Date Recorded Does [...] 3:30 PM EDT [place] [address] Candace Vance MD [facility] [place] [address] documented as of this encounter Visit Diagnoses Diagnosis Lupus Systemic lupus erythematosus documented in this encounter Care Teams Lockstitch Collar Setter Relationship Specialty Start Date End Date Rebecca Lewis DO [address] [place] [address] PCP - General Family Medicine 06/02/21 documented as of this encounter
--- OUTSIDE RECORDS SUMMARY | 2024-01-30 15:59 | XMS_ITS | Encounter Summary ---
Author Organization [facility] [place] [address] Care Team Providers Care Neon Light Installer Name Role Phone NatyRebecca weinberg Dillon DURAN Primary Care Provider +1- [phone] Reason for Visit * Reason Onset Date Comments Medication Refill 01/26/2023 Encounter Details Date Type Department Care Team (Late st Contact Info) Description 01/26/2023 [place] [address] Candace Vance MD [facility] [place] [address] Lupus Social History Tobacco Use Types Packs/Day [...] encounter Miscellaneous Notes * Telephone Encounter - Geraldine Cai I - 01/26/2023 3:08 PM EDT Patient is out of Lyrica NAME OF MEDICATION AND DOSE: pregabalin (Lyrica) 150 mg capsule [[id number]] Take 1 capsule by mouthonce daily - dose and frequency as stated in medication list. NAME OF MEDICATION AND DOSE: hydrOXYchloroQUINE (Plaquenil) 200 mg tablet [[id number]] Take 2 tablets by mouth daily. - dose and frequency as stated in medication list. PHARMACY NAME: [id number] - [place], [place] - [address] [phone] PHARMACY PHONE: Would patient like script sent directly to pharmacy? (Yes or no) yes Would patient like to pharmacy picking technician paper script here at our office (Please put yes or no) no Would patient like paper script mailed to home address (Please put yes or no) no Caller/Patient aware of 1-2 business day process. documented in this encounter Plan of Treatment Upcoming Encounters Date Type Department Care Team ([facility] st Contact Info) Description 02/13/2024 3:30 PM EDT Office [place] [address] Candace Vance MD [facility] [place] [address] documented as of this encounter Visit Diagnoses Diagnosis Lupus Systemic lupus erythematosus documented in this encounter Care Teams Neon Light Installer Relationship Specialty Start Date End Date Rebecca Lewis DO [address] [place] [address] PCP - General Family Medicine 06/02/21 documented as of this encounter
--- OUTSIDE RECORDS SUMMARY | 2024-01-30 15:59 | XMS_ITS | Encounter Summary ---
Author Organization [facility] [place] [address] Care Team Providers Care Animal Damage Control Agent Name Role Phone Rebecca [place] Primary Care Provider +1- [phone] Reason for Visit * Reason Onset Date Comments Triage 03/27/2023 Encounter Details Date Type Department Care Team (Late st Contact Info) Description 03/27/2023 [place] [phone] Michelle Velez, jury consultant Social History Tobacco Use Types Packs/Day Years [...] encounter Miscellaneous Notes * Telephone Encounter - Michelle Velez RN - 03/27/2023 2:36 PM EDT Call returned to pt to inform her that per Dr. Vance, I would advise that she should get in to see Dermatology as soon as possible for the evaluation of rash. I would be happy to see her sooner. Please have her scheduled with me in 2-3 weeks, after she has seen Dermatology. Pt verbalized understanding. * Telephone Encounter - Michelle Velez, RN - 03/27/2023 1:49 PM EDT Call returned to pt regarding message left with the call center. Pt reported that she is currently experiencing symptoms identical to the symptoms that she was experiencing when she was diagnosed with her rheum conditions approximately 10 years ago. Pt reported that she has a rash on her legs, chest, chin and neck. Pt reported that the rash on her legs is widespread from her mid-calf to her ankles bilaterally. Pt reported that this rash looks like little, red pinpricks. Pt reported that the rash on her chest starts in the center of her breastbone and spreads to under her breasts. Pt reported that the rash on her neck and chin is about the side of a quarter and the rash on her chin sometimeshas dry skin on it that will go away with moisturizer (but the redness remains). Pt reported that the rash is itchy but not painful. Pt reported that her left hip is painful and hot. Pt reported that the pain feels like an internal burning in her joint. Pt reported that she can feel the heat of her hip through her jeans. Pt deniedthat the left hip is red. Pt reported that walking makes the pain/burning a little better. Pt reported that she is taking all of her medications as prescribed. Pt denied having recent illness, fever,and chills. Pt reported that these symptoms started shortly after her 03/[address] Vance and the symptoms came to a head over the weekend. Pt was afraid that a flare might be starting as she has had a progressive increase in her fatigue. Pt reported that prior this flare her rheum symptoms seemed to be on autopilot and she was doing well. Pt reported that over the years she has even been able to decrease her dose of Plaquenil. Pt reported that about 10 years ago she got a cortisone shot in her hip from her hatchery helper in [place] and that eliminated the internal burning sensation. Pt reported that the last time that she had the rash, it had to run its course but she used an ointment from dermatology to help. Her hatchery helper also increased her Plaquenil at that time d/t the symptoms. Pt reported that when she first started receiving care from [facility] rheumatology, she brought in records from her hatchery helper from [place] and those should have been uploaded to her chart. Pt reported that she had labs done following her appt with Dr. Vance. Pt reported that if Dr. Vance needs more labs she would like to get them done closer to home at [facility]. Pt is wondering if she needs to see Dr. Vance sooner than her scheduled FUV on 06/05? Pt reported that she has an appt in another department on 04/27 if that date works. Pt was informed that their report will be forwarded to Dr. Vance for review and input. When this is available pt will be called back. Pt is agreeable to plan. * Telephone Encounter - Michelle Velez RN - 03/27/2023 1:46 PM EDT Copied from [facility] #[id number]. Topic: Specialty Dept CRMs - Triage >> Mar 27, 2023 12:13 PM Amy Donald wrote: Triage Message Specialist: Rheumatology - Candace Vance MD Relationship (if other than patient-full name): Self Symptom: Rash on legs, neck, chest and chin. Severe pain in left hip and heat and burning in joint in left hip. Has patient experienced symptom before: Yes If patient has experienced symptom before, when was the last time this occurred: Patient stated when she was first diagnosed with Lupus many years ago Is patient currently having symptom : Yes When did symptom begin: About 2 weeks ago Additional Comments: Patient is hoping to come in to see Dr. Vance because of her current symptoms. Patient also stated she is having a lot of trouble sleeping because of the pain. documented in this encounter Plan of Treatment Upcoming Encounters Date Type Department Care Team (Late st Contact Info) Description 02/13/2024 3:30 PM EDT Office [place] [address] Candace Vance MD [facility] [place] [place] [address] documented as of this encounter Visit Diagnoses Not on filedocumented in this encounter Care Teams Animal Damage Control Agent Relationship Specialty Start Date End Date Rebecca [place] DO [address] [place] [address] PCP - General Family Medicine 06/02/21 documented as of this encounter
--- OUTSIDE RECORDS SUMMARY | 2024-01-30 15:59 | XMS_ITS | Encounter Summary ---
Author Organization [facility] [place] [address] Care Team Providers Care Kaiwhakahaere Name Role Phone Rebecca [place] DO Primary Care Provider +1- [phone] Encounter Details Date Type Department Care Team (Late st Contact Info) Description 04/03/2023 [place] [address] [place] Social History Tobacco Use Types Packs/Day Years [...] 3:30 PM EDT [place] [address] Candace Vance MD [facility] [place] [address] documented as of this encounter Visit Diagnoses Not on filedocumented in this encounter Care Teams Kaiwhakahaere Relationship Specialty Start Date End Date Rebecca [place] DO [address] [place] [address] PCP - General Family Medicine 06/02/21 documented as of this encounter
--- OUTSIDE RECORDS SUMMARY | 2024-01-30 15:59 | XMS_ITS | Encounter Summary ---
Author Organization [facility] [place] [address] Care Team Providers Care Printing Press Machinist Name Role Phone Debbie Rebeccabreanna Carranza DO Primary Care Provider +1- [phone] Reason for Visit * Auth/Cert (Routine) Specialty Diagnoses / Procedures Referred By Lay t Referred To Contact Diagnoses Symptomatic Varicose Veins Procedures PRO ENDOVENOUS RF, 1ST VEIN PRO PHLEB VEINS - EXTREM 20+ ENDOVENOUS ABLATION THERAPY OF INCOMPETENT VEIN, EXTREMITY, FIRST VEIN (WRVU 5.3) STAB PHLEBECTOMY ADORE VEINS 1 EXTREMITY MORE 20 INCISIONS (WRVU 6) Ash Quesada MD [facility] [place] [address] [facility] Referral ID Status Reason Start Date Expiration Date Visits Re quested Visits Authorized [id number] 1 1 Encounter Details Date Type Department Care Team (Late st Contact Info) Description 06/09/2023 1:14 PM EST - 06/09/2023 3:36 PM EST Surgery [place] [address] Ash Quesada MD [facility] [place] [address] ENDOVENOUS ABLATION THERAPY OF INCOMPETENT VEIN, EXTREMITY, FIRST VEIN (WRVU 5.3) Social History Tobacco Use Types Packs/Day Years [...] this encounter Discharge Instructions * Discharge Instructions* Negrita [place] RN - 06/09/2023 10:50 AM EST General [...] closest emergency room or call the hospital stabilizer operator at [phone] and ask for physician diamond sander covering for your physician. Questions or problems after 5pm or on a weekend: Call the [facility] stabilizer operator at and ask for the physician diamond sander covering for your doctor. At 11:30am you [...] mailed to you. Please call our office ([phone]) if you do not receive the ultrasound appointment within 2 days or the clinic appointment within 10 days. For any questions or concerns please call [phone] documented in this encounter Medications at Time [...] mouth daily. 10/25/2017 fluticasone (FLONASE) 50 mcg/actuation [place], Suspension Daily 08/21/2015 ondansetron (ZOFRAN) 4 mg [...] Ultra Test Strip as needed. 09/09/2021 07/17/2023 Reddy Alejandro Plus Lancet 30 gauge Misc as needed. [...] Home Not Asked Social History Narrative Works [employer] via the [employer] part Social Determinants of Health Financial Resource [...] 85 g 0 fluticasone (FLONASE) 50 mcg/actuation [place], Suspension Daily ondansetron (ZOFRAN) 4 mg Tablet Every 6 hours, as needed Allergies: Allergies Allergen Reactions Amoxicillin Bee Venom Protein (Honey Bee) Lactose-Reduced Food Pertussis Vaccines [place] Physical Exam: Vital Signs: Temp: [36.4 ??C [...] visit with Rosio Brady PA-C and Dr. Queasda on 04/27/23: Dilia Martinez is a 43 [...] stab phlebectomies. Harvinder Gomez MD 06/09/2023 Pager: [phone] documented in this encounter Miscellaneous Notes * Op Note - Ash Quesada MD - 06/09/2023 12:23 PM EST [facility] Operative Note Patient Name: Dilia [place] : [id number] MR#: [id number] Case Date: 06/09/2023 Surgeon: Surgeon(s) and Role: * sAh Quesada MD - Primary * Harvinder Gomez MD - Resident - Assisting Preoperative [...] the GSV was sequentially ablated utilizing the KVK TEAM RFA system. Two pulses were delivered at [...] need to include opening and closing). Ash Quesada MD 06/23/2023 documented in this encounter Plan of Treatment Upcoming Encounters Date Type Department Care Team (Late st Contact Info) Description 02/13/2024 3:30 PM EDT Office [place] [address] Candace Vance MD [facility] [place] [address] documented as of this encounter Procedures Procedure Name Priority Date/Time Associated Diagnosis Comments Phleb Veins - Extrem 20+ (00164) Yes 06/09/2023 11:56 AM EST Varicose veins of both lower extremities with pain Pre-op testing Endovenous Ablation Incompetent Vein Radiofrequency 1St Vein (08708) Yes 06/09/2023 11:56 AM EST Varicose veins [...] Text Report Department: Vascular Surgery Lab Patient: [id number] (DILIA MARTINEZ) CPT: 77546 Referring Physician: ASH QUESADA MD ?? Phone: [...] other complications Pre-op testing Preoperative examination, unspecified Varicose veins of both lower extremities with [...] Given 06/09/2023 2:34 PM EST 25 mcg lidocaine-EPINEPHrine (1% - 1:100,000) injection PRN, Starting on Mon06/09/23 at 1242, Until Mon06/09/23 at 1710, Intra-Operative (Intra-Procedure), Routine Given 06/09/2023 12:42 PM EST 12.5 mLs 19- Surgical Site oxyCODONE (Roxicodone) tablet 5 mg 5 mg, [...] Routine 1123 (Given - Provid er: Melissa Wong RN) clindamycin (Cleocin) 900 mg in dextrose 5% 50 mL infusion (COMPLETED) 900 mg, Intravenous, RETAIL TEAM MEMBER TO O.R., 1 dose, On Mon06/09/23 at [...] Routine documented in this encounter Care Teams Printing Press Machinist Relationship Specialty Start Date End Date Rebecca [place] DO [address] [place] [address] PCP - General Family Medicine 06/02/21 documented as of this encounter
--- OUTSIDE RECORDS SUMMARY | 2024-01-30 15:59 | XMS_ITS | Encounter Summary ---
Author Organization [facility] Address [facility] [place] [address] Care Team Providers Care Salt Operator Name Role Phone NatyRebecca weinberg Dillon DURAN Primary Care Provider +1- [phone] Encounter Details Date Type Department Care Team (Latest Contact Info) Description 07/17/2023 3:30 PM EST Office [place] [address] Catherine Quesada MD [facility] [place] [address] Varicose veins of both lower extremities with pain; Status post endovenous radiofrequency ablation (RFA) of saphenous vein Social History Tobacco Use Types Packs/Day Years Used Date Smoking Tobacco: Never Smokeless Tobacco: Never Alcohol Use Standard Drinks/Week Comments Yes 0 (1 standard drink = 0.6 oz pur e alcohol) very rarely [facility] Inpatient Questions Answer Date Recorded Does [...] Sign Reading Time Taken Comments Blood Pressure 135/92 07/17/2023 3:33 PM EST Pulse 88 07/17/2023 3:33 PM EST Temperature - - Respiratory Rate - - Oxygen Saturation - - Inhaled Oxygen Concentration - - Weight 120.2 kg (265 lb) 07/17/2023 3:33 PM EST reported Height 177.8 cm (5' 10) 07/17/2023 3:33 PM EST reported Body Mass Index 38.02 07/17/2023 3:33 PM EST documented in this encounter Progress Notes * Catherine Quesada MD - 07/17/2023 3:30 PM EST 07/17/2023 Vascular surgery postoperative check 06/09/2023 -Endovenous ablation of right greater saphenous vein (VNUS), Right lower extremity stab phlebectomies (21 stabs), ligation of cluster of large RLE varicose vein clusters Since surgery she has been doing very well. She has significant improvement in the heaviness, and discomfort of her lower extremity. She has been satisfied with results. Her incisions are all very well-healed. She does have 1 small area of likely residual phlebitis from a thrombosed varicosity. She reports this is decreased in size. It continues to bother her, she can reach out for further evaluation Her DVT duplex on 06/12/2023 was notable for successful ablation of the GSV without any evidence ofDVT. Overall she is very satisfied with her results following right lower extremity ablation and stab phlebectomies. Recommend continue compression stockings as tolerated. She can otherwise follow-up withme as needed. Catherine Quesada MD documented in this encounter Plan of Treatment Upcoming Encounters Date Type Department Care Team (Late st Contact Info) Description 02/13/2024 3:30 PM EDT Office [place] [address] Candace Vance MD [facility] [place] [address] documented as of this encounter Visit Diagnoses Diagnosis Varicose veins of both lower extremities with pain Varicose veins of lower extremities with other complications Status post endovenous radiofrequency ablation (RFA) of saphenous vein documented in this encounter Care Teams Salt Operator Relationship Specialty Start Date End Date Rebecca Lewis DO [address] [place] [address] PCP - General Family Medicine 06/02/21 documented as of this encounter
--- OUTSIDE RECORDS SUMMARY | 2024-01-30 15:59 | XMS_ITS | Encounter Summary ---
Author Organization [facility] [place] [address] Care Team Providers Care Distribution Dispatcher Name Role Phone Rebecca Lewis Dillon DURAN Primary Care Provider +1- [phone] Encounter Details Date Type Department Care Team (Latest Contact Info) Description 06/12/2023 Travel Social History Tobacco Use Types Packs/Day [...] 3:30 PM EDT Office [place] [address] Candace Vance MD [facility] [place] [address] documented as of this encounter Visit Diagnoses Not on filedocumented in this encounter Care Teams Distribution Dispatcher Relationship Specialty Start Date End Date Rebecca Lewis DO [address] [place] [address] PCP - General Family Medicine 06/02/21 documented as of this encounter
--- OUTSIDE RECORDS SUMMARY | 2024-01-30 15:59 | XMS_ITS | Encounter Summary ---
Author Organization [facility] [place] [address] Care Team Providers Care Veneer Patcher Name Role Phone Rebecca Lewis DO Primary Care Provider +1- [phone] Encounter Details Date Type Department Care Team (Latest Contact Info) Description 08/09/2022 Travel Social History Tobacco Use Types Packs/Day [...] 3:30 PM EDT Office [place] [address] Candace Vance MD [facility] [place] [address] documented as of this encounter Visit Diagnoses Not on filedocumented in this encounter Care Teams Veneer Patcher Relationship Specialty Start Date End Date Rebecca Lewis DO [address] [place] [address] PCP - General Family Medicine 06/02/21 documented as of this encounter
--- OUTSIDE RECORDS SUMMARY | 2024-01-30 15:59 | XMS_ITS | Encounter Summary ---
Author Organization [facility] [place] [address] Care Team Providers Care Au Pair Name Role Phone OctaviaRebecca navarro Dillon DURAN Primary Care Provider +1- [phone] Reason for Visit * Reason Comments Medication Refill Encounter Details Date Type Department Care Team (Late st Contact Info) Description 05/10/2023 Ref[place] [address] Candace Vance MD [facility] [place] [address] Lupus Social History Tobacco Use Types Packs/Day [...] 3:30 PM EDT Office [place] [address] Candace Vance MD [facility] [place] [place] [address] documented as of this encounter Visit Diagnoses Diagnosis Lupus Systemic lupus erythematosus documented in this encounter Care Teams Au Pair Relationship Specialty Start Date End Date Rebecac Lewis DO [address] [place] [address] PCP - General Family Medicine 06/02/21 documented as of this encounter
--- OUTSIDE RECORDS SUMMARY | 2024-01-30 15:59 | XMS_ITS | Encounter Summary ---
Author Organization [facility] [place] [address] Care Team Providers Care Wall Cleaner Name Role Phone Rebecca Lewis DO Primary Care Provider +1- [phone] Encounter Details Date Type Department Care Team (Latest Contact Info) Description 04/04/2023 Travel Social History Tobacco Use Types Packs/Day [...] 3:30 PM EDT Office [place] [address] Candace Vance MD [facility] [place] [address] documented as of this encounter Visit Diagnoses Not on filedocumented in this encounter Care Teams Wall Cleaner Relationship Specialty Start Date End Date Rebecca Lewis DO [address] [place] [address] PCP - General Family Medicine 06/02/21 documented as of this encounter
--- OUTSIDE RECORDS SUMMARY | 2024-01-30 15:59 | XMS_ITS | Encounter Summary ---
Author Organization [facility] Address [facility] [place] [address] Care Team Providers Care Automotive Brake Adjuster Name Role Phone OctaviaRebecca navarro Dillon DURAN Primary Care Provider +1- [phone] Encounter Details Date Type Department Care Team (Late st Contact Info) Description 08/15/2023 4:00 PM EST Office [place] [address] Candace Vance MD [facility] [place] [address] Sjogren syndrome, unspecified Social History Tobacco Use [...] 08/15/2023 3:37 PM ES T Respiratory Rate - - Oxygen Saturation 98% 08/15/2023 3:37 PM EST Inhaled Oxygen Concentration - - Weight 121.6 kg (268 lb) 08/15/2023 3:37 PM EST Height - - Body Mass Index 38.45 07/17/2023 3:33 PM EST documented in this encounter Progress Notes * Candace Vance MD - 08/15/2023 4:00 PM EST Rheumatology Outpatient Follow Up Note PCP: DO Dilia Alonso Agnes Martinez is a 43 y.o. female who we are seeing for the continuing management of lupus. Rheum History: #Sjogren's disease and Lupus - diagnosed 2011 at [place] w/ Sicca, joint pain, peripheral neuropathy - [...] 150 mg daily Interval History: Patient reports feeling well nowadays. Her rash resolved on its own without any intervention. She thinks that it might have been related to some chemicals she was using. The sicca symptoms are stableand she denies prolonged morning stiffness, fever or night sweats. ROS (positives in bold): Gen: No fevers, no chills, no night sweats Pulm: No SOB and no cough CV: No chest pain Abd: No abd pain, no nausea, no vomiting, no diarrhea MSK: See HPI Physical exam: BP 127/82 Pulse 88 Temp 36.9 ??C (98.5 ??F) (Temporal) Wt 121.6 kg (268 lb) SpO2 98% BMI 38.45 kg/m?? Gen: Well appearing, alert and oriented x 3, NAD Skin: Warm and dry, no rash. Joints: Shoulders: FROM, non-tender to palpation Elbows:FROM Wrists: FROM, no swelling, non-tender Hands: No synovitis, no MCP compression tenderness, full claw and fist Hips: No tenderness Labs/Studies: Previous labs reviewed Current Immunizations Name Date INFLUENZA 02/14/2020 , 05/06/2019 , 03/04/2018 , 04/06/2016 [employer] 10/13/2020 , 09/15/2020 TD 11/10/2013 Assessment: Dilia Martinez is a 43 y.o. female with the PMH of Sjogren's (on evoxac, biotene and eye drops) andlupus on HCQ 400 mg/d who is presenting for follow-up. Patient reports feeling well nowadays. Her rash resolved on its own without any intervention. She thinks that it might have been related to some chemicals she was using. The sicca symptoms are stableand she denies prolonged morning stiffness, fever or night sweats. Physical examination today showsno synovitis, rash or skin thickening. Labs last time showed more than normal elevated inflammatorymarkers and replayed with the idea of using steroids. Plan: -Check CBC, CMP, ESR, and CRP. -Continue hydroxychloroquine 200 mg twice daily. -Continue cevimeline 3 times daily. -Await sleep study. -Annual follow-up with ophthalmology for hydroxychloroquine toxicity monitoring and dry eyes issue. Follow-up in 3 months. Total time spent on counseling and coordination of care was 30 minutes. Candace Vance MD documented in this encounter Plan of Treatment Upcoming Encounters Date Type Department Care Team (Late st Contact Info) Description 02/13/2024 3:30 PM EDT Office [place] [address] Candace Vance MD [facility] [place] [address] documented as of this encounter Procedures Procedure Name Priority Date/Time Associated Diagnosis Comments CRP, ACUTE INFLAMMATION Routine 08/15/2023 4:14 PM EST Sjogren syndrome, unspecified HEMOGRAM Routine 08/15/2023 4:14 PM EST Sjogren syndrome, unspecified DIFFERENTIAL, AUTOMATED Routine 08/15/2023 4:14 PM EST Sjogren syndrome, unspecified SEDIMENTATION RATE Routine 08/15/2023 4: 14 PM EST Sjogren syndrome, unspecified CBC (WITH DIFF) Routine 08/15/2023 4:14 PM EST Sjogren syndrome, unspecified COMPREHENSIVE METABOLIC PANEL Routine 08/15/2023 4:14 PM EST Sjogren syndrome, unspecified documented in this encounter Results * (ABNORMAL) Differential, Automated (08/15/2023 4:14 PM EST) Neutrophil % 62.1 % [facility] Neutrophil Absolute 6.99(H) 1.70 - 6.10 x10(3)/mc L [facility] Lymph % 25.7 % [facility] Lymphocytes Abs 2.9 0.9 - 3.2 x10(3)/mc L [facility] Monocyte % 6.7 % [facility] Monocyte Abs 0.8 0.3 - 0.9 x10(3)/mc L [facility] Eos % 4.5 % [facility] Eosinophils Abs 0.5(H) 0.0 - 0.4 x10(3)/mc L [facility] Basophil % 0.7 % [facility] Baso Absolute 0.1 0.0 - 0.1 x10(3)/mc L [facility] Immature Gran % 0.30 % [facility] Comment: Immature granulocytes(IG's)percentage and absolute count will include metamyelocytes, myelocytes, and promyelocytes. Blood smears from CBCs yielding IG's will be scanned manually for concordance. If this scan disagrees with the automated IG or if promyelocytes are noted, a manual differential will be performed. Immature Gran Absolute 0.03 0.00 - 0.04 x10(3)/mc L [facility] Blood 08/15/2023 4:14 PM EST 08/15/2023 4:34 PM EST Narrative Resulting Agency Comment Spec In Lab Candace Vance MD HEMATOLOGY ORDERABL ES [facility] [address] * (ABNORMAL) Hemogram (08/15/2023 4:14 PM EST) White Blood Cell 11.3(H) 4.0 - 9.5 x10(3)/mc L [facility] Red Blood Cell 5.08 4.00 - 5.21 x10(6)/mc L [facility] Hemoglobin 13.6 11.7 - 15.5 g/dL [facility] Hematocrit 41.8 35.7 - 45.8 % [facility] Mean Cell Volume 82.3(L) 82.6 - 94.4 fL [facility] Mean Cell Hemoglobin 26.8(L) 27.1 - 32.0 pg [facility] Mean Cell Hemoglobin Concentration 32.5 31.7 - 35.0 g/dL [facility] Platelet 361(H) 145 - 357 x10(3)/mc L [facility] RDW Standard Deviation 41.3 37.0 - 46.0 fL [facility] RDW coefficient of variation 13.9 11.5 - 14.1 % [facility] Mean Platelet Volume 9.4 7.6 - 12.9 fL [facility] NRBC% auto 0.3 % [facility] NRBC Absolute 0.030(H) 0.000 - 0.000 x10(3)/mc L [facility] Blood 08/15/2023 4:14 PM EST 08/15/2023 4:34 PM EST Narrative Resulting Agency Comment Spec In Lab Candace Vance MD HEMATOLOGY ORDERABL ES [facility] [place] [address] * (ABNORMAL) Comprehensive metabolic panel (non-fasting) (08/15/2023 4:14 PM EST) Glucose 91 65 - 199 mg/dL [facility] Comment:Diabetes: >=200 mg/d L plus symptoms Blood Urea Nitrogen 14 8 - 18 mg/dL [facility] Creatinine 0.66(L) 0.70 - 1.20 mg/dL [facility] Sodium 139 135 - 145 mmol/L [facility] Potassium 3.9 3.5 - 5.0 mmol/L [facility] Comment: Please note: ??Patients with WBC >100,000 may have falsely elevated Potassium levels. ??For accurate Potassium quantification in these patients send serum separator tube (gold top) for subsequent determinations. ??Contact the Clinical Chemistry Laboratory if there are any questions. Chloride 103 98 - 107 mmol/L [facility] Carbon Dioxide 29 22 - 31 mmol/L [facility] Anion Gap 7 5 - 15 mmol/L [facility] Calcium 9.5 8.5 - 10.5 mg/dL [facility] Protein, Total 6.9 6.1 - 8.0 g/dL [facility] Albumin 4.2 3.2 - 5.2 g/dL [facility] Aspartate Aminotransferase 9 0 - 30 unit/L [facility] Alanine Aminotransferase 12 0 - 30 unit/L [facility] Alkaline Phosphatase 97 35 - 105 unit/L [facility] Bilirubin, Total <0.2(L) 0.2 - 1.3 mg/dL [facility] Est Glomerular Filtration Rate 110 >=60 mL/min/1. 73 m?? [facility] Comment: This patient's estimated GFR was [...] MD CHEMISTRY ORDERABLE S Performing Organization Address [facility] [[email or web address]] Co de Phone Number [facility] [address] * Sedimentation rate (08/15/2023 4:14 PM EST) Sedimentation Rate Automated 24 2 - 37 mm/hr [facility] Comment: Effective June 05, 2019 new capillary photometric technology has resulted in a change in reference ranges. It is recommended that each ESR result be reviewed with its own age appropriate reference range. Blood 08/15/2023 4:14 PM EST 08/15/2023 4:34 PM EST Narrative Resulting Agency Comment Spec In Lab Candace Vance MD HEMATOLOGY ORDERABL ES Performing Organization Address [facility] [[email or web address]] Co de Phone Number [facility] [address] * (ABNORMAL) CRP, acute inflammation (08/15/2023 4:14 PM EST) C-Reactive Protein 10.8(H) <=4.9 mg/L [facility] Blood 08/15/2023 4:14 PM EST 08/15/2023 4:34 PM EST Narrative Resulting Agency Comment Spec In Lab Candace Vance MD CHEMISTRY ORDERABLE S Performing Organization Address [facility] [[email or web address]] Co de Phone Number [facility] [address] documented in this encounter Visit Diagnoses Diagnosis Sjogren syndrome, unspecified documented in this encounter Care Teams Automotive Brake Adjuster Relationship Specialty Start Date End Date Rebecca Lewis DO [address] [place] [address] PCP - General Family Medicine 06/02/21 documented as of this encounter
--- OUTSIDE RECORDS SUMMARY | 2024-01-30 15:59 | XMS_ITS | Encounter Summary ---
Author Organization [facility] [place] [address] Care Team Providers Care Practical Nurse Clinical Coordinator Name Role Phone Rebecca Lewis DO Primary Care Provider +1- [phone] Encounter Details Date Type Department Care Team (Latest Contact Info) Description 03/06/2023 Travel Social History Tobacco Use Types Packs/Day [...] 3:30 PM EDT Office [place] [address] Candace Vance MD [facility] [address] documented as of this encounter Visit Diagnoses Not on filedocumented in this encounter Care Teams Practical Nurse Clinical Coordinator Relationship Specialty Start Date End Date Rebecca Lewis DO [address] [place] [address] PCP - General Family Medicine 06/02/21 documented as of this encounter
--- OUTSIDE RECORDS SUMMARY | 2024-01-30 15:59 | XMS_ITS | Encounter Summary ---
[place] [address] Care Team Providers Care Signaling Project Engineer Name Role Phone Rebecca Lewis DO Primary Care Provider +1- [phone] Reason for Referral * Consultation (Routine) - Closed Specialty Diagnoses / Procedures Referred By Lay jose Referred To Contact Vascular Surgery Diagnoses Asymptomatic varicose veins of lower extremity, unspecified laterality Varicose veins of lower extremity with inflammation, unspecified laterality ROUTINE, TANSKI, BLE Rebecca Lewis DO [address] [place] [address] [facility] V[facility] Surg [address] [place] [address] Referral ID Status Reason Start Date Expiration Date V isits Requested Visits Authorized [id number] Closed Consult, Test & Treat PCP Updated and/or Approved 02/20/2023 02/20/2024 6 6 Encounter Details Date Type Department Care Team (Latest Contact Info) Description 02/20/2023 Transcribe Orders eDH Incoming Referrals [phone] Rebecca Lewis DO [address] [place] [address] Asymptomatic varicose veins of lower extremity, unspecified laterality; Varicose veins of lower extremity with inflammation, unspecified laterality Social History Tobacco Use Types Packs/Day Years [...] 3:30 PM EDT [place] [address] Candace Vance MD [facility] [place] [place] [address] Scheduled Referrals Name Type Priority Associated Diagnoses Orde r Schedule Referral to Vascular Surgery Outpatient Referral Routine Asymptomatic varicose veins of lower extremity, unspecified laterality Varicose veins of lower extremity with inflammation, unspecified laterality Ordered: 02/20/2023 documented as of this encounter Visit Diagnoses Diagnosis Asymptomatic varicose veins of lower extremity, unspecified laterality Varicose veins of lower extremity with inflammation, unspecified laterality documented in this encounter Care Teams Signaling Project Engineer Relationship Specialty Start Date End Date Rebecca Lewis DO [address] [place] [address] PCP - General Family Medicine 06/02/21 documented as of this encounter
--- OUTSIDE RECORDS SUMMARY | 2024-01-30 16:00 | XMS_ITS | Encounter Summary ---
Author Organization [facility] [place] [address] Care Team Providers Care Autism Specialist Name Role Phone Rebecca Lewis Primary Care Provider +1- [phone] Reason for Visit * Reason Comments Medication Refill Encounter Details Date Type Department Care Team (Late st Contact Info) Description 11/30/2019 Ref[place] [address] Cyndie Osei MD [facility] [place] [address] Social History Tobacco Use Types Packs/Day Years [...] encounter Miscellaneous Notes * Telephone Encounter - Cyndie Osei - 12/02/2019 8:40 AM EDT Sending Prescription for Hydroxycholroquine. Please send a letter to the patient to contact us to make appointment if not getting through Phone. Cyndie Bergeron documented in this encounter Plan of Treatment Upcoming Encounters Date Type Department Care Team (Late st Contact Info) Description 02/13/2024 3:30 PM EDT Office [place] [address] Candace Vance MD [facility] [place] [address] documented as of this encounter Visit Diagnoses Not on filedocumented in this encounter Care Teams Autism Specialist Relationship Specialty Start Date End Date Rebecca Lewis DO [address] [place] [address] PCP - General Family Medicine 01/18/18 07/06/20 documented as of this encounter
--- OUTSIDE RECORDS SUMMARY | 2024-01-30 16:00 | XMS_ITS | Encounter Summary ---
Author [facility] [place] [address] Care Team Providers Care Advertising Analyst Name Role Phone Cara Lopez [place] Primary Care Provider [phone] Reason for Visit * Reason Onset Date Comments Medication Refill 04/29/2021 Encounter Details Date Type Department Care Team (Late st Contact Info) Description 04/29/2021 Refill [place] [address] Osvaldo Asencio RN Lupus Social History Tobacco Use Types Packs/Day [...] encounter Miscellaneous Notes * Telephone Encounter - Osvaldo Asencio RN - 04/29/2021 4:03 PM EDT Dilia calls to advise HCQ increased to 400 mg daily and she needs a new Rx as pharmacy will not fill unless corrected. documented in this encounter Plan of Treatment Upcoming Encounters Date Type Department Care Team (Late st Contact Info) Description 02/13/2024 3:30 PM EDT Office Visit [place] [address] Candace Vance MD [facility] [place] [address] documented as of this encounter Visit Diagnoses Diagnosis Lupus Systemic lupus erythematosus documented in this encounter Care Teams Advertising Analyst Relationship Specialty Start Date End Date Cara Lopez APRN [address] [place] [address] PCP - General Internal Medicine 07/07/20 06/01/21 documented as of this encounter
--- OUTSIDE RECORDS SUMMARY | 2024-01-30 16:00 | XMS_ITS | Encounter Summary ---
Author Organization [facility] [place] [address] Care Team Providers Care Tile Shader Name Role Phone OctaviaRebecca navarro Dillon DURAN Primary Care Provider [phone] Reason for Visit * Reason Onset Date Comments Triage 04/20/2020 Encounter Details Date Type Department Care Team (Late st Contact Info) Description 04/20/2020 Telephone [place] [id number] Edgar Henriquez, director water and waste services Social History Tobacco Use Types Packs/Day Years [...] encounter Miscellaneous Notes * Telephone Encounter - Edgar Henriquez, RN - 04/20/2020 4:23 PM EDT TRIAGE CALL Caller: patient Reason for Call: flare Symptom Review: Has been having a lot of kidney problems, right side. U/s about 1 month ago wnl, completed with PCP. Was advised to follow up with rheum and follow up for lupus nephritis. Swelling tohands and feet. Night sweats. Foamy urine in am. Questions if any labs should be done before then. Voltaren,tylenol not working. Slightly better today, but increasing fatigue. Has had issues with BP,started BP medication d/t elevated BP. Continues with 200 mg hcq. Onset: started in September, but has since become constant kidney pain Location: right side flank pain Duration: constant, dull ache to sharp What makes it better: Heat pad seems to help with flank pain, rest. What makes it worse: nothing Timing of symptoms: tired and brain for by afternoon Review of Systems related to Reason for Call: Integumentary: Neg Head (ENT/Neuro): Pos intermittent h/a (on immitrex) better now Respiratory: Neg was tested for Covid in August, no current symptoms, no fever Cardiac: Neg no c/p. BP has normalized since starting amlodipine, decreased caffeine intake GI: Neg : Pos Right flank pain. Foamy urine in am. No hematuria. Increased frequency during night. Musculoskeletal: Pos Hands and feet are swollen, no redness. Generalized body aches. Pertinent Positive and Negative findings: No fever or chills Select specific Decision Support Tool used: Telephone Triage Protocols for Nurses, 5th Edition, Elyse Atkins, 2016 Disposition: Other - see comment remained home Plan of Care: update provider Per Decision Support Tool (note specific protocol from text selected above): --- Patient/responsible caregiver able to read back instructions/plan of care? yes Recommendations for worsening condition given to patient/responsible caregiver? Pcp/uc/ed Patient/responsible caregiver able to read back actions for worsening condition? yes Patient/responsible caregiver intends to comply with action/disposition? yes Follow up needed? yes If yes, outline: provider instructions Patient calls to report that she has been having worsening right side flank pain, particularly the last month. She has seen her PCP, had an u/s completed and has an appointment for May and is onthe cancellation list. Her PCP questions Lupus Nephritis per patient. She also mentions that her feet and hands are swollen and in addition to the right flank pain, has had foamy urine in am and increased frequency at night and night sweats. Questions if any labs should be done prior to appointment. States flexible regarding appointment times, lives about 1 hour away, if needs to be seen. Currently scheduled for 06/[address] Vance, previously seen by Dr. Osei who has since left [facility]. * Telephone Encounter - Edgar Henriquez RN - 04/20/2020 12:38 PM EDT Patient leaves message on nurse triage line having kidney issues, questions lupus nephritis. Returned call to patient, unavailable. Left vm with call back number provided. documented in this encounter Plan of Treatment Upcoming Encounters Date Type Department Care Team (Late st Contact Info) Description 02/13/2024 3:30 PM EDT Office Visit [place] [address] Candace Vance MD [facility] [place] [address] documented as of this encounter Visit Diagnoses Not on filedocumented in this encounter Care Teams Tile Shader Relationship Specialty Start Date End Date Rebecca Lewis DO [address] [place] [address] PCP - General Family Medicine 01/18/18 07/06/20 documented as of this encounter
--- OUTSIDE RECORDS SUMMARY | 2024-01-30 16:00 | XMS_ITS | Encounter Summary ---
Author Organization [facility] [address] Care Team Providers Care Harvest Field Ticketer Name Role Phone Rebecca Lewis DO Primary Care Provider [phone] Encounter Details Date Type Department Care Team (Latest Contact Info) Description 07/11/2022 Travel Social History Tobacco Use Types Packs/Day [...] EDT Office [place] [address] Candace Vance MD [facility] [place] [address] documented as of this encounter Visit Diagnoses Not on filedocumented in this encounter Care Teams Harvest Field Ticketer Relationship Specialty Start Date End Date Rebecca Lewis DO [address] [place] [address] PCP - General Family Medicine 06/02/21 documented as of this encounter
--- OUTSIDE RECORDS SUMMARY | 2024-01-30 16:00 | XMS_ITS | Encounter Summary ---
Author Organization [facility] [place] [address] Care Team Providers Care Coin Machine Operator Name Role Phone Cara Lopez Vernon WALDEN Primary Care Provider [phone] Reason for Visit * Reason Onset Date Comments Prior Authorization 10/20/2020 econazole ni trate 1 % Cream Encounter Details Date Type Department Care Team (Late st Contact Info) Description 10/20/2020 Telephone Dermatology at [facility] [address] [place] [address] Sheba Bashir LNA Prior Authorization (econazole nitrate 1 % Cream ) Social History Tobacco Use Types Packs/Day Years [...] encounter Miscellaneous Notes * Telephone Encounter - Xiao Mackenzie CMA - 10/20/2020 11:20 AM EDT Images from the original note were not included. Medication Prior Authorization for Primary [place] [address] DENIED: Econazole Cream 1% Case/Reference #: [id number] Additional Information from Insurance: * Telephone Encounter - Sheba Bashir LNA - 10/20/2020 9:55 AM EDT Medication Prior Authorization for Primary [place] [address] Request received via: cmm Patient: Dilia Martinez Patient : 1980 Insurance Company: [place] Medicaid Sent via: cmCortex [phone] Chou: [id number] Physician: Corinna Le MD Medication Requested: econazole nitrate 1 % Cream Frequency/Sig: Apply topically to the right foot twice daily until skin appears clear, then an additional 2 weeks. Disp: 85 g Refills: 0 Currently taking: no Diagnosis for this medication: Tinea pedis of right foot B35.3 Prior medications trialed in this patient: Additional Notes: ASSESSMENT/PLAN Office visit Corinna Le MD 04/13/2020 B. 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 - Noted strong likelihood of recurrence. - Start Rx: ketoconazole 2% cream: Apply topically to the right foot twice daily until skin appearsclear, then an additional 2 weeks. Reoccurrence needing another treatment round, Ketoconazole did not resolve infection. documented in this encounter Plan of Treatment Upcoming Encounters Date Type Department Care Team (Late st Contact Info) Description 02/13/2024 3:30 PM EDT Office [place] [address] Candace Vance MD [facility] [place] [address] documented as of this encounter Visit Diagnoses Not on filedocumented in this encounter Care Teams Coin Machine Operator Relationship Specialty Start Date End Date Cara Lopez APRN [address] [place] [id number] PCP - General Internal Medicine 07/07/20 06/01/21 documented as of this encounter
--- OUTSIDE RECORDS SUMMARY | 2024-01-30 16:00 | XMS_ITS | Encounter Summary ---
Author Organization [facility] [place] [address] Care Team Providers Care Information Security Systems Instructor Name Role Phone Cara Lopez Vernon WALDEN Primary Care Provider [phone] Encounter Details Date Type Department Care Team (Late st Contact Info) Description 04/08/2021 Telephone [place] [phone] Candace Vance MD [facility] [place] [address] Social History Tobacco Use Types Packs/Day Years [...] 3:30 PM EDT Office Visit [place] [address] Candace Vance MD [facility] [place] [address] documented as of this encounter Visit Diagnoses Not on filedocumented in this encounter Care Teams Information Security Systems Instructor Relationship Specialty Start Date End Date Cara Lopez APRN [address] [place] [address] PCP - General Internal Medicine 07/07/20 06/01/21 documented as of this encounter
--- OUTSIDE RECORDS SUMMARY | 2024-01-30 16:00 | XMS_ITS | Encounter Summary ---
Author Organization [facility] [place] [address] Care Team Providers Care Back End Web Developer Name Role Phone NatyRebecca weinberg Dillon DURAN Primary Care Provider [phone] Reason for Referral * Consultation (Routine) - Closed Specialty Diagnoses / Procedures Referred By Lay jose Referred To Contact Nephrology Diagnoses Lupus Madhav Ingram MD [facility] [place] [address] [facility] Nephrology [address] [place] [id number] Referral ID Status Reason Start Date Expiration Date V isits Requested Visits Authorized [id number] Closed Consult, Test & Treat 04/24/2020 04/24/2021 1 1 Encounter Details Date Type Department Care Team (Late st Contact Info) Description 04/24/2020 9:30 AM EDT Office [place] [address] Madhav Ingram MD [facility] [place] [address] Lupus Social History Tobacco Use Types Packs/Day [...] Sign Reading Time Taken Comments Blood Pressure 142/85 04/24/2020 9:32 AM EDT Pulse 95 04/24/2020 9:32 AM EDT Temperature 36.4 ??C (97.6 ??F) 04/24/2020 9 :32 AM EDT Respiratory Rate 18 04/24/2020 9:32 AM EDT Oxygen Saturation 98% 04/24/2020 9:3 2 AM EDT Inhaled Oxygen Concentration - - Weight 131.1 kg (289 lb) 04/24/2020 9:3 2 AM EDT pt weighed with shoes Height 177.8 cm (5' 10) 04/24/2020 9:3 2 AM EDT Body Mass Index 41.47 04/24/2020 9:32 AM EDT documented in this encounter Progress Notes * Madhav Ingram MD - 04/24/2020 9:30 AM EDT Rheumatology Urgent Care Clinic Note Reason for Consult: Dilia Martinez is a 40 y.o. female who we are seeing at the request of Rebecca Lewis for evaluation of Sjogren's disease. HPI: Ms. Martinez is a 35 y/o woman with PMHx well controlled HTN, depression and anxiety who was diagnosed with Sjogren's in 2011. Diagnosed with sleep apnea, using CIPAP. On progesterone pill per GYNfor heavy menses. #Sjogren's disease and Lupus - diagnosed 2011 at [facility] w/ Sicca, joint pain, peripheral neuropathy - [...] #Fibromyalgia -Controlled on Lyrica 150 mg daily #Interval History -Last seen in Jun [address] Osei. On HCQ 200 mg daily. -Called on 04/20 complaining of R-sided kidney problems since September 2019, and a question of Lupus nephritis. -[facility] visit in September reports having IV Abx and IVFs for kidney infection. -R flank pain, 09/02 today, ongoing Since September 2019. Hypersensitive to touch in this area, but not elsewhere. -Reports up 4-6 times at night for increased urinary frequency, ongoing since September -No burning with urination. Feels she has some blood when she wipes in September and now, but none in toilet bowl. -Reports having gained weight by 20 lbs since September, primarily in Abdomen. -Tylenol helpful for pain [500 mg-1000 mg nightly]. Avoiding NSAIDs. -Started on amlodipine 2.5 mg for HTN recently per PCP visit, BP 03/06 = 147/113 -Planning to see a urologist at [facility] in [place] second week of Apr -Had renal US at [facility] recently, which patient feels was normal -Feels she is having swelling in hands/feet. Occurs 3 PM and onwards she feet swelling occurs and improves with elevation. Does not wear compression stocking. -No red/hot/warm swelling -Topical voltaren gel not needed. -No fevers or chills. No unintentional weight loss. Chronic night sweats, she feels worse over pastfew months. -[place] hair thinning in summer which has stabilized. No alopecia. -No oral ulcers. No chest pain or SOB. No pleurisy. -Has sun photosensitivity that is chronic. No rashes. -No Raynaud's phenomenon -Excessive fatigue -Using cevimeline for dry mouth, Biotene mouthwash, and daily Systane eyedrops. ROS: No fevers, chills, chest pain, SOB. Rest as above in HPI. Medical History: Past Medical History: Diagnosis Date ??? Hypertension 01/23/2018 ??? Sjogren's syndrome 03/30/2015 Surgical History: Past Surgical History: Procedure Laterality Date ??? GALLBLADDER SURGERY 2011 ??? WISDOM TOOTH EXTRACTION 06/25/1996 ?? Family hx: Father had DMII and of MD at 72. Mother: asthma and osteoarthritis No rheum conditions in family otherwise. Brother has Crohn's disease. ?? Social hx: No smoking, drinks occasionally at special events. Denies IVDU. Medications: Current Outpatient Medications on File Prior to Visit Medication Sig Dispense Refill ??? amLODIPine (Norvasc) 2.5 mg Tablet TAKE 1 TABLET BY MOUTH ONCE DAILY ??? lisinopriL (Prinivil;Zestril) 5 mg Tablet TAKE 1 TABLET (5MG) BY MOUTH TWICE DAILY MONITOR BLOOD PRESSURE CLOSELY ??? ketoconazole (NIZORAL) 2 % Cream Apply topically to the right foot twice daily until skin appears clear, then an additional 2 weeks. 60 g 1 ??? econazole nitrate 1 % Cream Apply topically to the right foot twice daily until skin appears clear, then an additional 2 weeks. 85 g 0 ??? hydroxychloroquine (Plaquenil) 200 mg Tablet Take 1 tablet by mouth once daily 60 tablet 0 ??? diclofenac (VOLTAREN) 75 mg Tablet, Delayed Release (E.C.) TAKE 1 TABLET BY MOUTH TWICE DAILY 60 tablet 5 ??? cevimeline (EVOXAC) 30 mg Capsule Take one capsule by mouth three times a day as needed. 90 capsule 5 ??? escitalopram (LEXAPRO) 10 mg Tablet Daily ??? fluticasone (FLONASE) 50 mcg/actuation [place], Suspension Daily ??? ondansetron (ZOFRAN) 4 mg Tablet Every 6 hours, as needed ??? pantoprazole (PROTONIX) 40 mg Tablet, Delayed Release (E.C.) Twice a day ??? cholecalciferol, Vitamin D3, 2,000 unit Capsule Daily ??? pregabalin (LYRICA) 150 mg Capsule Daily ??? buPROPion (WELLBUTRIN XL) 150 mg Tablet Extended Release 24 hr Take 150 mg by mouth every morning. ??? PROAIR HFA 90 mcg/actuation HFA Aerosol Inhaler as needed. ??? PARoxetine (PAXIL) 30 mg tablet Take 30 mg by mouth every morning. ??? loratadine (CLARITIN) 10 mg tablet Take 10 mg by mouth daily as needed. ??? norethindrone (AYGESTIN) 5 mg Tablet 1 tab by mouth every 6 hours for 2 days then 1 tab every 8hours for 2 days then 1 tab every 12 hours for 2 days then daily thereafter. (Patient not taking: Reported on 04/24/2020) 90 tablet 1 ??? norethindrone (MICRONOR) 0.35 mg Tablet Take 1 tablet by mouth daily. (Patient not taking: Reported on 04/24/2020) 84 tablet 3 ??? traZODone (DESYREL) 50 mg Tablet TAKE ONE TABLET BY MOUTH AT BEDTIME NEEDED 3 No current facility-administered medications on file prior to visit. Allergies: gets hives with amoxicillin, TD shot gave her a seizure Physical Examination: BP 142/85 Pulse 95 Temp 36.4 ??C (97.6 ??F) Resp 18 Ht 177.8 cm (5' 10) Wt 131.1 kg (289lb) Comment: pt weighed with shoes SpO2 98% BMI 41.47 kg/m?? General: Well appearing F, NAD HEENT: Wearing mask, EOMs intact Neck: Supple Cardiovascular: RRR, no m/r/g Lungs: CTA b/l Abdomen: Soft, nontender, nondistended Back: Nontender over the spine. No CVA tenderness. Neuro: Alert and oriented x3. Cranial nerves II through XII grossly intact. Strength 5/5 throughout, Sensation to light touch is grossly normal throughout. Skin: no rashes or lesions noted Extremities: + tender points at bilateral upper back and R lumbar back Shoulders: FROM, non-tender to palpation Elbows:FROM Wrists: FROM, no swelling, non-tender Hands: No synovitis, no MCP compression tenderness, full claw and fist Hips: FROM, no tenderness Knees: FROM, no effusion, no tenderness Ankles: FROM, non-tender, no effusion Feet: no MTP compression tenderness Laboratory Data: September 2019 -WBC 11.9, Hgb 13.3, Plt 520 -Cr 0.79 -Albumin 3.7 -AST and ALT wnl -UA: neg nitrite, trace LE, large blood, moderate bacteria, 20-50 RBCs, no casts or crystals Jun 2019 -WBC 12, Hgb 12.7, Plt 464 -ESR 23 -CMP wnl -SPEP and UPEP negative -C3 193, C4 27 -dsDNA neg -CRP 12.5 -UA: large blood, neg nitrite or leukocytes, 13 WBC, > 182 RBC -culture: 50,000-99,000 cfu/ml mixed mucosal saeed Studies: 07/2018 Mammogram BI-RADS Category 1: Negative Renal US at [facility] 03/18/20 0.6 cm echogenic focus in lower pole of L kidney which may represent a nonobstructing stone. No hydronephrosis. 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 No cyst or mass. Assessment: Dilia Martinez is a 38 y.o. female here for follow up of Sjogren's[ on evoxac, biotene and eye drops] and Lupus [on HCQ 200 mg/d]. She presents for an acute visit for today for concern for Lupus nephritis. Her symptoms are not concerning for a Lupus flare-up. Her September labs do not show evidence of glomerulonpehriits. We will continue HCQ 200 mg daily and check Lupus disease activity markers as below. ?? PLAN - Check labs today: CBC, CMP, ESR, CRP, C3, C4, LDH, SPEP, UPEP, UA with microscopy, dsDNA - Continue Hydroxychloroquine 200 mg daily, needs yearly eye exam - Follow-up with Urology for hematuria, may need a cystoscopy - Will refer to Nephrology, though low suspicion for Lupus nephritis - Advised to go to ED if any worsening flank pain or hematuria - Diclofenac prn for pain - Continue Lyrica for fibromyalgia - Follow-up with Dr. Vance in May The patient was seen and discussed with Dr. Rancho Ingram MD Rheumatology Fellow CC: Rebecca Lewis DO * Jose Vickers MD - 04/24/2020 9:30 AM EDT I have seen and examined the patient, reviewed the above history, exam, and assessment. I agree with the details as written. The assessment and plan was formulated with the fellow, Madhav Ingram MD in discussion with me and I agree with the details as written except revision below. Pertinent History: *Dilia Martinez is a 40 y.o. female Sjogren's lupus TYRONE 1-6 38 on hydroxychloroquine chronic hematuria No proteinuria, c attending within normal limits has a referral to urology inthe setting of normal complements ESR Pertinent Exam: There is no evidence of active lupus on exam today reviewed with fellow patient seen. Major issues addressed and Plan: SLE/SS TYRONE 1: 640 in the setting of normal complement ESR mildly elevated CRP agree with urology, likely secondary to stone seen in February 2020 there is no evidence of glomerulonephritis no casts can continue Nephrology referral can be considered in this case if urology evaluation does not offer etiology Jose Vickers MD documented in this encounter Miscellaneous Notes * Addendum Note - Barbra Nixon - 04/24/2020 9:30 AM EDTAddended by: BARBRA NIXON on: 04/24/2020 10:50 AM Modules accepted: Orders documented in this encounter Plan of Treatment Upcoming Encounters Date Type Department Care Team (Late st Contact Info) Description 02/13/2024 3:30 PM EDT Office [place] [address] Candace Vance MD [facility] [place] [address] Scheduled Referrals Name Type Priority Associated Diagnoses Order Schedule Referral to Nephrology Outpatient Referral Routine Lupus Ordered: 04/24/2020 documented as of this encounter Procedures Procedure Name Priority Date/Time Associated Diagnosis Comments URINALYSIS MICROSCOPIC EXAM Routine 04/24/2020 11:26 AM EDT HC CREATININE - NON BLOOD Routine 04/24/2020 11:26 AM EDT Lupus HC RANDOM URINE PEP Routine 04/24/2020 1 1:26 AM EDT Lupus URINALYSIS WITH REFLEX CULTURE Routine 04/24/2020 11:26 AM EDT Lupus HC C-REACTIVE PROTEIN Routine 04/24/2020 11:03 AM EDT Lupus HC DNA AB DS (JENA) Routine 04/24/2020 11:03 AM EDT Lupus HEMOGRAM Routine 04/24/2020 11:03 AM EDT Lupus DIFFERENTIAL, AUTOMATED Routine 04/24/2020 11:03 AM EDT Lupus HC ESR-SEDIMENTATION RATE, BLOOD Routine 04/24/2020 11:03 AM EDT Lupus HC CBC,PLT & AUTO DIFF Routine 0 11:03 AM EDT Lupus HC COMPLEMENT,C3 SERUM Routine 0 11:03 AM EDT Lupus HC COMPLEMENT C4, PLASMA Routine 04/24/2020 11:03 AM EDT Lupus HC VENIPUNCTURE Routine 04/24/2020 11:03 AM EDT Lupus HC LACTIC DEHYDROGENASE Routine 04/24/2020 11:03 AM EDT Lupus COMPREHENSIVE METABOLIC PANEL Routine 04/24/2020 11:03 AM EDT Lupus documented in this encounter Results * (ABNORMAL) Urinalysis Microscopic Exam (04/24/2020 11:26 AM EDT) RBC, Urine 2 0 - 4 /HPF [facility] WBC, Urine 3 0 - 5 /HPF [facility] Bacteria, Urine Rare(A) None /HPF [facility] Squamous Epithelial Cells Raw Data, Urine 3 <=4 /HPF [facility] Hyaline Casts, Urine 3(H) 0 - 2 /LPF [facility] Urine specimen obtained by clean catch procedure (specimen) 04/24/2020 11:26 AM EDT 04/24/2020 11:32 AM EDT Narrative Resulting Agency Comment Spec In Lab Madhav Ingram MD URINE ORDERABLES Performing Organization Address [facility]/ZIP Co de Phone Number [facility] [place] [address] * Protein/Creatinine Ratio, urine (04/24/2020 11:26 AM EDT) Creatinine, Urine 79 mg/dL [facility] Protein, Urine 9 0 - 12 mg/dL [facility] Protein / Creatinine Ratio, Urine 0.1 ratio [facility] Urine specimen (specimen) 04/24/2020 11:26 AM EDT 04/24/2020 11:31 AM EDT Narrative Resulting Agency Comment Spec In Lab Jose Vickers MD URINE ORDERABLES Performing Organization Address [facility] de Phone Number [facility] [place] [address] * (ABNORMAL) Urinalysis with reflex Culture (04/24/2020 11:26 AM EDT) Glucose, Urine Dipstick Negative Negative mg/dL [facility] Protein, Urine Dipstick Negative Negative mg/dL [facility] Bilirubin, Urine Dipstick Negative Negative mg/dL [facility] Comment: Clinical correlation required for positive Urine Bilirubin results as false positive may occur with some drugs and drug related products. If a false positive is suspected a serum total bilirubin should be considered if clinically indicated. Urobilinogen, Urine Dipstick Normal Normal mg/dL [facility] pH, Urn (dipstick) 6.5 5.0 - 8.0 [facility] Blood, Urine Dipstick Moderate(A) Negative mg/dL [facility] Ketone, Urine Dipstick Negative Negative mg/dL [facility] Nitrite, Urine Dipstick Negative Negative [facility] Leukocytes, Urine Dipstick Small(A) Negative [facility] Appearance, Urine Dipstick Clear Clear [facility] Specific [place] Urine Automated 1.016 1.006 - 1.030 [facility] Color, Urine Dipstick Yellow Yellow [facility] Reflex to Culture No [facility] Urine specimen obtained by clean catch procedure (specimen) 04/24/2020 11:26 AM EDT 04/24/2020 11:32 AM EDT Narrative Resulting Agency Comment Spec In Lab Jose Vickers MD URINE ORDERABLES Performing Organization Address [facility] de Phone Number [facility] [place] [address] * Protein Electrophoresis, urine, random (04/24/2020 11:26 AM EDT) [facility] Protein, Urine 9 0 - 12 mg/dL [facility] U Albumin 61 % total [facility] Globulin, Urine 39 % total [facility] M1 Band, Urine None Detected [facility] UPEP Comments See Note [facility] Comment: There is no evidence of clonal free light chains in this patient's urine sample. Urine specimen (specimen) 04/24/2020 11:26 AM EDT 04/24/2020 11:31 AM EDT Narrative Resulting Agency Comment Spec In Lab Jose Vickers MD URINE ORDERABLES Performing Organization Address [facility] de Phone Number [facility] [place] [address] * Differential, Automated (04/24/2020 11:03 AM EDT) Neutrophil % 62.7 % [facility] Neutrophil Absolute 5.80 1.70 - 6.10 x10(3)/[facility] Lymph % 24.5 % [facility] Lymphocytes Abs 2.3 0.9 - 3.2 x10(3)/[facility] Monocyte % 6.7 % [facility] Monocyte Abs 0.6 0.3 - 0.9 x10(3)/[facility] Eos % 4.9 % [facility] Eosinophils Abs 0.4 0.0 - 0.4 x10(3)/[facility] Basophil % 1.0 % [facility] Baso Absolute 0.1 0.0 - 0.1 x10(3)/[facility] Immature Gran % 0.20 % [facility] Comment: Immature granulocytes(IG's)percentage and absolute count will include metamyelocytes, myelocytes, and promyelocytes. Blood smears from CBCs yielding IG's will be scanned manually for concordance. If this scan disagrees with the automated IG or if promyelocytes are noted, a manual differential will be performed. Immature Gran Absolute 0.02 0.00 - 0.04 x10(3)/[facility] Blood specimen (specimen) 04/24/2020 11:03 AM EDT 04/24/2020 11:22 AM EDT Narrative Resulting Agency Comment Spec In Lab Madhav Ingram MD HEMATOLOGY ORDERABL ES [facility] [place] [address] * (ABNORMAL) Hemogram (04/24/2020 11:03 AM EDT) White Blood Cell 9.2 4.0 - 9.5 x10(3)/mc L [facility] Red Blood Cell 4.96 4.00 - 5.21 x10(6)/mc L [facility] Hemoglobin 12.1 11.7 - 15.5 gm/dL [facility] Hematocrit 40.2 35.7 - 45.8 % [facility] Mean Cell Volume 81.0(L) 82.6 - 94.4 fL [facility] Mean Cell Hemoglobin 24.4(L) 27.1 - 32.0 pg [facility] Mean Cell Hemoglobin Concentration 30.1(L) 31.7 - 35.0 gm/dL [facility] Platelet 415(H) 145 - 357 x10(3)/mc L [facility] RDW Standard Deviation 45.5 37.0 - 46.0 fL [facility] RDW coefficient of variation 15.6(H) 11.5 - 14.1 % [facility] Mean Platelet Volume 9.2 7.6 - 12.9 fL [facility] NRBC% auto 0.0 % [facility] NRBC Absolute 0.000 0.000 - 0.000 x10(3)/mc L [facility] Blood specimen (specimen) 04/24/2020 11:03 AM EDT 04/24/2020 11:22 AM EDT Narrative Resulting Agency Comment Spec In Lab Madhav Ingram MD HEMATOLOGY ORDERABL ES Performing Organization Address [facility] de Phone Number [facility] [place] [address] * Protein Electrophoresis, serum (04/24/2020 11:03 AM EDT) Total Prot Electrophoresis 6.8 6.1 - 8.0 gm/dL [facility] Albumin Electrophoresis 4.35 3.60 - 6.00 gm/dL [facility] Alpha 1 Globulin 0.20 0.10 - 0.30 gm/dL [facility] Alpha 2 Globulin 0.73 0.40 - 0.90 gm/dL [facility] Beta Globulin 0.78 0.50 - 1.00 gm/dL [facility] Gamma Globulin 0.75 0.50 - 1.30 gm/dL [facility] M1 Band None Detected None Detected [facility] Blood specimen (specimen) 04/24/2020 11:03 AM EDT 04/24/2020 11:22 AM EDT Narrative Resulting Agency Comment Spec In Lab Jose Vickers MD CHEMISTRY ORDERABLES [facility] [place] [address] * Lactate Dehydrogenase (04/24/2020 11:03 AM EDT) Lactate Dehydrogenase 187 110 - 220 unit/L [facility] Blood specimen (specimen) 04/24/2020 11:03 AM EDT 04/24/2020 11:22 AM EDT Narrative Resulting Agency Comment Spec In Lab Jose Vickers MD CHEMISTRY ORDERABLES Performing Organization Address [facility] Co de Phone Number [facility] [place] [address] * DNA Antibody (Double-Stranded) (04/24/2020 11:03 AM EDT) DNA Ab (DS) Neg Neg [facility] Blood specimen (specimen) 04/24/2020 11:03 AM EDT 04/24/2020 1:38 PM EDT Narrative Resulting Agency Comment Spec In Lab Jose Vickers MD LAB SEND OUT ORDERAB LES Performing Organization Address [facility] Co de Phone Number [facility] [place] [address] * C4 Complement (04/24/2020 11:03 AM EDT) Complement C4 24 10 - 40 mg/dL [facility] Blood specimen (specimen) 04/24/2020 11:03 AM EDT 04/24/2020 11:22 AM EDT Narrative Resulting Agency Comment Spec In Lab Jose Vickers MD CHEMISTRY ORDERABLES Performing Organization Address [facility] Co de Phone Number [facility] [place] [address] * C3 Complement (04/24/2020 11:03 AM EDT) Complement C3 146 90 - 180 mg/dL [facility] Blood specimen (specimen) 04/24/2020 11:03 AM EDT 04/24/2020 11:22 AM EDT Narrative Resulting Agency Comment Spec In Lab Jose Vickers MD CHEMISTRY ORDERABLES Performing Organization Address [facility]/ZIP Co de Phone Number [facility] [place] [address] * (ABNORMAL) CRP, acute inflammation (04/24/2020 11:03 AM EDT) C-Reactive Protein 13.8(H) <=4.9 mg/L [facility] Blood specimen (specimen) 04/24/2020 11:03 AM EDT 04/24/2020 11:22 AM EDT Narrative Resulting Agency Comment Spec In Lab Jose Vickers MD CHEMISTRY ORDERABLES Performing Organization Address [facility] Co de Phone Number [facility] [place] [address] * Sedimentation rate (04/24/2020 11:03 AM EDT) Sedimentation Rate Automated 27 2 - 37 mm/hr [facility] Comment: Effective June 05, 2019 new capillary photometric technology has resulted in a change in reference ranges. It is recommended that each ESR result be reviewed with its own age appropriate reference range. Blood specimen (specimen) 04/24/2020 11:03 AM EDT 04/24/2020 11:22 AM EDT Narrative Resulting Agency Comment Spec In Lab Jose Vickers MD HEMATOLOGY ORDERABLE S Performing Organization Address [facility] Co de Phone Number [facility] [place] [address] * (ABNORMAL) Comprehensive metabolic panel (non-fasting) (04/24/2020 11:03 AM EDT) Glucose 100 65 - 199 mg/dL [facility] Comment:Diabetes: >=200 mg/d L plus symptoms Blood Urea Nitrogen 8 8 - 18 mg/dL [facility] Creatinine 0.58(L) 0.70 - 1.20 mg/dL [facility] Sodium 137 135 - 145 mmol/L [facility] Potassium 4.2 3.5 - 5.0 mmol/L [facility] Comment: Please note: ??Patients with WBC >100,000 may have falsely elevated Potassium levels. ??For accurate Potassium quantification in these patients send serum separator tube (gold top) for subsequent determinations. ??Contact the Clinical Chemistry Laboratory if there are any questions. Chloride 101 98 - 107 mmol/L [facility] Carbon Dioxide 26 22 - 31 mmol/L [facility] Anion Gap 10 5 - 15 mmol/L [facility] [facility] Calcium 9.2 8.5 - 10.5 mg/dL [facility] Protein, Total 7.1 6.1 - 8.0 gm/dL [facility] Albumin 4.3 3.2 - 5.2 gm/dL [facility] Aspartate Aminotransferase 13 0 - 30 unit/L [facility] Alanine Aminotransferase 16 0 - 30 unit/L [facility] Alkaline Phosphatase 102 35 - 105 unit/L [facility] Bilirubin, Total <0.2(L) 0.2 - 1.3 mg/dL [facility] Est Glomerular Filtration Rate 114 >=60 mL/min/1. 73 m?? [facility] Comment: The eGFR was calculated using the CKD-EPI equation. As with all creatinine based estimates of kidney function, eGFR values calculated with the CKD-EPI equation are not accurate in patients with acute kidney failure, extremes of body mass or the acutely ill. [email or web address] eGFR 132 >=60 mL/min/1. 73 m?? [facility] Comment: The eGFR was calculated using the CKD-EPI equation. As with all creatinine based estimates of kidney function, eGFR values calculated with the CKD-EPI equation are not accurate in patients with acute kidney failure, extremes of body mass or the acutely ill. [email or web address] Blood specimen (specimen) 04/24/2020 11:03 AM EDT 04/24/2020 11:22 AM EDT Narrative Resulting Agency Comment Spec In Lab Jose Vickers MD CHEMISTRY ORDERABLES Performing Organization Address City/State/[facility] Co de Phone Number [facility] [place] [address] documented in this encounter Visit Diagnoses Diagnosis Lupus Systemic lupus erythematosus documented in this encounter Care Teams Back End Web Developer Relationship Specialty Start Date End Date Rebecca Lewis DO [address] [place] [address] PCP - General Family Medicine 01/18/18 07/06/20 documented as of this encounter
--- OUTSIDE RECORDS SUMMARY | 2024-01-30 16:00 | XMS_ITS | Encounter Summary ---
Author Organization [facility] [place] [address] Care Team Providers Care Gas Meter Checker Name Role Phone Cara Lopez Vernon WALDEN Primary Care Provider [phone] Reason for Visit * Reason Onset Date Comments Medication Refill 04/29/2021 Encounter Details Date Type Department Care Team (Late st Contact Info) Description 04/29/2021 [place] [phone] Candace Vance MD [facility] [place] [address] Lupus Social History Tobacco Use Types Packs/Day [...] 3:30 PM EDT Office [place] [phone] Candace Vance MD [facility] [place] [address] documented as of this encounter Results * (ABNORMAL) CRP, acute inflammation (06/02/2021 10:57 AM EST) C-Reactive Protein 8.3(H) <=4.9 mg/L [facility] Blood 06/02/2021 10:5 7 AM EST 06/02/2021 11:06 AM EST Narrative Resulting Agency Comment Spec In Lab Amando Maurer MD CHEMISTRY ORDERABLES [facility] [place] [address] * (ABNORMAL) Sedimentation rate (06/02/2021 10:57 AM EST) Sedimentation Rate Automated 51(H) 2 - 37 mm/hr [facility] Comment: Effective June 05, 2019 new capillary photometric technology has resulted in a change in reference ranges. It is recommended that each ESR result be reviewed with its own age appropriate reference range. Blood 06/02/2021 10:5 7 AM EST 06/02/2021 11:06 AM EST Narrative Resulting Agency Comment Spec In Lab Amando Maurer MD HEMATOLOGY ORDERABLE S Performing Organization Address City/[facility]/ZIP Co de Phone Number [facility] [place] [address] documented in this encounter Visit Diagnoses Diagnosis Lupus Systemic lupus erythematosus documented in this encounter Care Teams Gas Meter Checker Relationship Specialty Start Date End Date Cara Lpoez, DEPLOYMENT SPECIALIST [address] [place] [address] PCP - General Internal Medicine 07/07/20 06/01/21 documented as of this encounter
--- OUTSIDE RECORDS SUMMARY | 2024-01-30 16:00 | XMS_ITS | Encounter Summary ---
Author Organization [facility] [place] [address] Care Team Providers Care Car Distributor Name Role Phone OctaviaRebecca navarro Primary Care Provider [phone]- [phone] Reason for Visit * Reason Onset Date Comments Medication Refill 03/29/2022 Encounter Details Date Type Department Care Team (Late st Contact Info) Description 03/29/2022 Ref[place] [phone] Candace Vance MD [facility] [place] [address] Lupus Social History Tobacco Use Types Packs/Day [...] 3:30 PM EDT Office [place] [phone] Candace Vance MD [facility] [place] [address] documented as of this encounter Visit Diagnoses Diagnosis Lupus Systemic lupus erythematosus documented in this encounter Care Teams Car Distributor Relationship Specialty Start Date End Date Rebecca Lewis DO [address] [place] [address] PCP - General Family Medicine 06/02/21 documented as of this encounter
--- OUTSIDE RECORDS SUMMARY | 2024-01-30 16:00 | XMS_ITS | Encounter Summary ---
Author Organization [facility] [place] [address] Care Team Providers Care Aircraft Structural Design Engineer Name Role Phone Rebecca Lewis Primary Care Provider [phone] Reason for Visit * Reason Comments Medication Refill Encounter Details Date Type Department Care Team (Late st Contact Info) Description 12/09/2019 [place] [phone] Cyndie Osei MD [facility] [place] [address] Social History Tobacco Use Types Packs/Day Years [...] 3:30 PM EDT [place] [phone] Candace Vance MD [facility] [place] [address] documented as of this encounter Visit Diagnoses Not on filedocumented in this encounter Care Teams Aircraft Structural Design Engineer Relationship Specialty Start Date End Date Rebecca Lewis DO [address] [place] [address] PCP - General Family Medicine 06/02/21 documented as of this encounter
--- OUTSIDE RECORDS SUMMARY | 2024-01-30 16:00 | XMS_ITS | Encounter Summary ---
[facility] [address] Care Team Providers Care Magnet Maker Name Role Phone OctaviaRebecca navarro Dillon DURAN Primary Care Provider [phone]- [phone] Encounter Details Date Type Department Care Team (Late st Contact Info) Description 10/30/2019 [place] [phone] Michelle Guevara Social History Tobacco Use Types Packs/Day Years [...] Miscellaneous Notes * Telephone Encounter - Michelle Guevara - 10/30/2019 1:06 PM EDT Tried home number, but no answer and no vm * Telephone Encounter - Michelle Guevara - 10/30/2019 1:02 PM EDT Called pt to schedule appt, but no answer and vm full on mobile documented in this encounter Plan of Treatment Upcoming Encounters Date Type Department Care Team (Late st Contact Info) Description 02/13/2024 3:30 PM EDT Office [place] [phone] Candace Vance MD [facility] [place] [address] documented as of this encounter Visit Diagnoses Not on filedocumented in this encounter Care Teams Magnet Maker Relationship Specialty Start Date End Date Rebecca Lewis DO [address] [place] [address] PCP - General Family Medicine 01/18/18 07/06/20 documented as of this encounter
--- OUTSIDE RECORDS SUMMARY | 2024-01-30 16:00 | XMS_ITS | Encounter Summary ---
Author Organization [facility] [place] [address] Care Team Providers Care Chronic Disease Epidemiologist Name Role Phone Rebecca Lewis Dillon DURAN Primary Care Provider [phone]- [phone] Encounter Details Date Type Department Care Team (Late st Contact Info) Description 08/19/2021 2:10 PM EST Laboratory Appointment Lab [address] [place] [address] Lupus Social History Tobacco Use Types Packs/Day [...] 3:30 PM EDT Office [place] [address] Candace Vance MD [facility] [place] [address] documented as of this encounter Procedures Procedure Name Priority Date/Time Associated Diagnosis Comments URINALYSIS MICROSCOPIC EXAM Routine 08/19/2021 2:28 PM EST HC CREATININE - NON BLOOD Routine 08/19/2021 2:28 PM EST Lupus URINALYSIS WITH REFLEX CULTURE Routine 08/19/2021 2:28 PM EST Lupus HC C-REACTIVE PROTEIN Routine 08/19/2021 2:20 PM EST Lupus HEMOGRAM Routine 08/19/2021 2:20 PM EST Lupus DIFFERENTIAL, AUTOMATED Routine 08/19/2021 2:20 PM EST Lupus HC ESR-SEDIMENTATION RATE, BLOOD Routine 08/19/2021 2:20 PM EST Lupus HC CBC,PLT & AUTO DIFF Routine 2 2:20 PM EST Lupus HC COMPLEMENT,C3 SERUM Routine 2:20 PM EST Lupus HC COMPLEMENT C4, PLASMA Routine 08/19/2021 2:20 PM EST Lupus COMPREHENSIVE METABOLIC PANEL Routine 08/19/2021 2:20 PM EST Lupus documented in this encounter Results * (ABNORMAL) Urinalysis Microscopic Exam (08/19/2021 2:28 PM EST) RBC, Urine 1 0 - 4 /HPF [facility] WBC, Urine 0 0 - 5 /HPF [facility] Bacteria, Urine Occasiona l(A) None /HPF [facility] Comment: Interpret results with caution, microscopic results are from suboptimal specimen volume Squamous Epithelial Cells Raw Data, Urine 2 <=4 /HPF [facility] Urine NS 08/19/2021 2:28 PM EST 08/19/2021 2:35 PM EST Narrative Resulting Agency Comment Spec In Lab Candace Vance MD URINE ORDERABLES [facility] [place] [address] * (ABNORMAL) Urinalysis with reflex Culture (08/19/2021 2:28 PM EST) Glucose, Urine Dipstick Negative Negative mg/dL [facility] Blood, Urine Dipstick Trace(A) Negative mg/dL [facility] Ketone, Urine Dipstick Negative Negative mg/dL [facility] Nitrite, Urine Dipstick Negative Negative [facility] Leukocytes, Urine Dipstick Negative Negative [facility] Appearance, Urine Dipstick Clear Clear [facility] Specific Cullen Urine Automated 1.027 1.005 - 1.030 [facility] Color, Urine Dipstick Yellow Yellow [facility] Reflex to Culture No [facility] Urine NS 08/19/2021 2:28 PM EST 08/19/2021 2:35 PM EST Narrative Resulting Agency Comment Spec In Lab Amando Maurer MD URINE ORDERABLES [facility] [place] [address] * Protein/Creatinine Ratio, urine (08/19/2021 2:28 PM EST) Creatinine, Urine 92 mg/dL [facility] Protein, Urine 8 0 - 12 mg/dL [facility] Protein / Creatinine Ratio, Urine <0.1 ratio [facility] Urine 08/19/2021 2:28 PM EST 08/19/2021 2:37 PM EST Narrative Resulting Agency Comment Spec In Lab Amando Maurer MD URINE ORDERABLES [facility] [place] [address] * Differential, Automated (08/19/2021 2:20 PM EST) Neutrophil % 61.0 % [facility] Neutrophil Absolute 5.38 1.70 - 6.10 x10(3)/[facility] Lymph % 27.1 % [facility] Lymphocytes Abs 2.4 0.9 - 3.2 x10(3)/[facility] Monocyte % 6.8 % [facility] Monocyte Abs 0.6 0.3 - 0.9 x10(3)/[facility] Eos % 4.0 % [facility] Eosinophils Abs 0.4 0.0 - 0.4 x10(3)/[facility] Basophil % 0.9 % [facility] Baso Absolute 0.1 0.0 - 0.1 x10(3)/[facility] Immature Gran % 0.20 % [facility] Comment: Immature granulocytes(IG's)percentage and absolute count will include metamyelocytes, myelocytes, and promyelocytes. Blood smears from CBCs yielding IG's will be scanned manually for concordance. If this scan disagrees with the automated IG or if promyelocytes are noted, a manual differential will be performed. Immature Gran Absolute 0.02 0.00 - 0.04 x10(3)/[facility] Blood 08/19/2021 2:20 PM EST 08/19/2021 2:28 PM EST Narrative Resulting Agency Comment Spec In Lab Candace Vance MD HEMATOLOGY ORDERABL ES [facility] [place] [address] * (ABNORMAL) Hemogram (08/19/2021 2:20 PM EST) White Blood Cell 8.8 4.0 - 9.5 x10(3)/mc L [facility] Red Blood Cell 5.00 4.00 - 5.21 x10(6)/mc L [facility] Hemoglobin 12.9 11.7 - 15.5 g/dL [facility] Hematocrit 40.9 35.7 - 45.8 % [facility] Mean Cell Volume 81.8(L) 82.6 - 94.4 fL [facility] Mean Cell Hemoglobin 25.8(L) 27.1 - 32.0 pg [facility] Mean Cell Hemoglobin Concentration 31.5(L) 31.7 - 35.0 g/dL [facility] Platelet 385(H) 145 - 357 x10(3)/mc L [facility] RDW Standard Deviation 47.1(H) 37.0 - 46.0 fL [facility] RDW coefficient of variation 16.0(H) 11.5 - 14.1 % [facility] Mean Platelet Volume 9.1 7.6 - 12.9 fL [facility] NRBC% auto 0.0 % [facility] NRBC Absolute 0.000 0.000 - 0.000 x10(3)/ L [facility] Blood 08/19/2021 2:20 PM EST 08/19/2021 2:28 PM EST Narrative Resulting Agency Comment Spec In Lab Candace Vance MD HEMATOLOGY ORDERABL ES [facility] [place] [address] * (ABNORMAL) Comprehensive metabolic panel (non-fasting) (08/19/2021 2:20 PM EST) Glucose 89 65 - 199 mg/dL [facility] Comment:Diabetes: >=200 mg/d L plus symptoms Blood Urea Nitrogen 12 8 - 18 mg/dL [facility] Creatinine 0.70 0.70 - 1.20 mg/dL [facility] Sodium 141 135 - 145 mmol/L [facility] Potassium 4.1 3.5 - 5.0 mmol/L [facility] Comment: Please note: ??Patients with WBC >100,000 may have falsely elevated Potassium levels. ??For accurate Potassium quantification in these patients send serum separator tube (gold top) for subsequent determinations. ??Contact the Clinical Chemistry Laboratory if there are any questions. Chloride 101 98 - 107 mmol/L [facility] Carbon Dioxide 29 22 - 31 mmol/L [facility] Anion Gap 11 5 - 15 mmol/L [facility] Calcium 9.4 8.5 - 10.5 mg/dL [facility] Protein, Total 7.2 6.1 - 8.0 g/dL [facility] Albumin 4.4 3.2 - 5.2 g/dL [facility] Aspartate Aminotransferase 11 0 - 30 unit/L [facility] Alanine Aminotransferase 13 0 - 30 unit/L [facility] Alkaline Phosphatase 111(H) 35 - 105 unit/L [facility] Bilirubin, Total <0.2(L) 0.2 - 1.3 mg/dL [facility] Est Glomerular Filtration Rate 106 >=60 mL/min/1. 73 m?? [facility] Comment: This patient? s estimated glomerular filtration rate (eGFR) is between 106 mL/min/1.73 m2 (patients with less muscle mass) and 123 mL/min/1.73 m2 (patients with more muscle mass) as determined by the CKD-EPI equation. Assessment of eGFR is not appropriate when creatinine concentrations are rapidly changing. For clinical decisions where creatinine clearance will affect therapy, a 24-hour urine creatinine clearance may be advised. Assignment of CKD stage 1 - 5 for patients with an eGFR near the transition point between stages may be based on clinical assessment of muscle mass and symptoms in addition to eGFR. Blood 08/19/2021 2:20 PM EST 08/19/2021 2:28 PM EST Narrative Resulting Agency Comment Spec In Lab Amando Maurer MD CHEMISTRY ORDERABLES Performing Organization Address [facility] de Phone Number [facility] [place] [address] * C3 Complement (08/19/2021 2:20 PM EST) Complement C3 164 90 - 180 mg/dL [facility] Blood 08/19/2021 2:20 PM EST 08/19/2021 2:28 PM EST Narrative Resulting Agency Comment Spec In Lab Amando Maurer MD CHEMISTRY ORDERABLES Performing Organization Address [facility] de Phone Number [facility] [place] [address] * C4 Complement (08/19/2021 2:20 PM EST) Complement C4 24 10 - 40 mg/dL [facility] Blood 08/19/2021 2:20 PM EST 08/19/2021 2:28 PM EST Narrative Resulting Agency Comment Spec In Lab Amando Maurer MD CHEMISTRY ORDERABLES Performing Organization Address [facility] de Phone Number [facility] [place] [address] * (ABNORMAL) Sedimentation rate (08/19/2021 2:20 PM EST) Sedimentation Rate Automated 49(H) 2 - 37 mm/hr [facility] Comment: Effective June 05, 2019 new capillary photometric technology has resulted in a change in reference ranges. It is recommended that each ESR result be reviewed with its own age appropriate reference range. Blood 08/19/2021 2:20 PM EST 08/19/2021 2:28 PM EST Narrative Resulting Agency Comment Spec In Lab Amando Maurer MD HEMATOLOGY ORDERABLE S Performing Organization Address City/[facility]/ZIP Co de Phone Number [facility] [place] [address] * (ABNORMAL) CRP, acute inflammation (08/19/2021 2:20 PM EST) C-Reactive Protein 13.0(H) <=4.9 mg/L [facility] Blood 08/19/2021 2:20 PM EST 08/19/2021 2:28 PM EST Narrative Resulting Agency Comment Spec In Lab Amando Maurer MD CHEMISTRY ORDERABLES Performing Organization Address [facility] Co de Phone Number [facility] [place] [address] documented in this encounter Visit Diagnoses Diagnosis Lupus Systemic lupus erythematosus documented in this encounter Care Teams Chronic Disease Epidemiologist Relationship Specialty Start Date End Date Rebecca Lewis DO [address] [place] [address] PCP - General Family Medicine 06/02/21 documented as of this encounter
--- OUTSIDE RECORDS SUMMARY | 2024-01-30 16:00 | XMS_ITS | Encounter Summary ---
Author Organization [facility] Address [facility] [place] [address] Care Team Providers Care School Secretary Name Role Phone Debbie Rebeccabreanna Carranza DO Primary Care Provider [phone] Reason for Visit * Consultation (Routine) - Closed Specialty Diagnoses / Procedures Referred By Lay jose Referred To Contact Nephrology Diagnoses Lupus Madhav Ingram MD [facility] [place] [address] [facility] [address] [place] [id number] Referral ID Status Reason Start Date Expiration Date V isits Requested Visits Authorized [id number] Closed Consult, Test & Treat 04/24/2020 04/24/2021 1 1 Encounter Details Date Type Department Care Team (Late st Contact Info) Description 05/12/2020 9:00 AM EST Office Visit Neph[place] [address] Monet Menchaca MD [facility] [place] [address] Other forms of systemic lupus erythematosus, unspecified organ involvement status; Microscopic hematuria; Hypertension, unspecified type; Right flank pain; Urinary frequency Social History Tobacco Use Types Packs/Day Years [...] Sign Reading Time Taken Comments Blood Pressure 129/82 05/12/2020 8:43 AM EST Pulse 93 05/12/2020 8:43 AM EST Temperature - - Respiratory Rate - - Oxygen Saturation - - Inhaled Oxygen Concentration - - Weight 131.5 kg (290 lb) 05/12/2020 8:43 AM EST Height 177.8 cm (5' 10) 05/12/2020 8:43 AM EST Body Mass Index 41.61 05/12/2020 8:43 AM EST documented in this encounter Progress Notes * Monet Menchaca MD - 05/12/2020 9:00 AM EST [facility] 05/12/2020 PRIMARY CARE PROVIDER: Rebecca Lewis DO PROFESSOR OF PHYSICS/REFERRING PHYSICIAN: REASON FOR CONSULT: Hematuria in patient with history of SLE. HISTORY OF PRESENT ILLNESS: Dilia Martinez is a 40 y.o. woman with a history of SLE (diagnosed 2011, [place], based on symptoms and serologies). She is seen in consultation for persistent/recurrent hematuria absent known history of lupus nephritis. At the time of initial diagnosis, Dilia had inflammation in her right shoulder and left hip, for which she got steroid injections. The last of these was ~2013. She now manages with stretching and walking. She made significant lifestyle changes, including work, diet, activity, and almost entire elimination of alcohol (although didn't drink to excess prior to that). She had what was thought to be COVID-19 in early August. Diagnosis was based on symptoms (chest tightening, significant difficulty breathing, lost of taste sensation, low-grade fever, head fog). Shecontinues to have altered taste sensation and some fatigue, but she otherwise is feeling well. The hematuria noted on urinalysis has been present each of several times urinalysis has been performed. She still has her period, no perimenopausal symptoms. She is currently having her period and thinks that may have been the case at times of other urinalyses. PAST MEDICAL HISTORY: Past Medical History: Diagnosis Date ??? Hypertension 01/23/2018 ??? Sjogren's syndrome 03/30/2015 SLE COVID-19 (presumptive diagnosis) PAST SURGICAL HISTORY: Past Surgical History: Procedure Laterality Date ??? GALLBLADDER SURGERY 2011 ??? WISDOM TOOTH EXTRACTION 06/25/1996 MEDICATIONS: Current Outpatient Medications Medication Sig Dispense Refill ??? lactobacillus rhamnosus, GG, (CULTURELLE) 10 billion cell Capsule Take 1 capsule by mouth daily. ??? acetaminophen (Tylenol) 500 mg Tablet Take 1,000 mg by mouth every 6 hours as needed for Pain. ??? multivitamin (THERAGRAN) Tablet Take 1 tablet by mouth daily. HAS VITAMIN D3 2000 IU ??? amLODIPine (Norvasc) 2.5 mg Tablet TAKE 1 TABLET BY MOUTH ONCE DAILY ??? hydrOXYchloroQUINE (Plaquenil) 200 mg Tablet Take 1 tablet by mouth daily. Indications: systemic lupus erythematosus, an autoimmune disease 60 tablet 2 ??? ketoconazole (NIZORAL) 2 % Cream Apply topically to the right foot twice daily until skin appears clear, then an additional 2 weeks. 60 g 1 ??? econazole nitrate 1 % Cream Apply topically to the right foot twice daily until skin appears clear, then an additional 2 weeks. 85 g 0 ??? diclofenac (VOLTAREN) 75 mg Tablet, Delayed Release (E.C.) TAKE 1 TABLET BY MOUTH TWICE DAILY 60 tablet 5 ??? cevimeline (EVOXAC) 30 mg Capsule Take one capsule by mouth three times a day as needed. 90 capsule 5 ??? escitalopram (LEXAPRO) 10 mg Tablet Daily ??? fluticasone (FLONASE) 50 mcg/actuation [place], Suspension Daily ??? ondansetron (ZOFRAN) 4 mg Tablet Every 6 hours, as needed ??? pantoprazole (PROTONIX) 40 mg Tablet, Delayed Release (E.C.) Twice a day ??? pregabalin (LYRICA) 150 mg Capsule Daily ??? buPROPion (WELLBUTRIN XL) 150 mg Tablet Extended Release 24 hr Take 150 mg by mouth every morning. ??? PROAIR HFA 90 mcg/actuation HFA Aerosol Inhaler as needed. ??? PARoxetine (PAXIL) 30 mg tablet Take 30 mg by mouth every morning. ??? loratadine (CLARITIN) 10 mg tablet Take 10 mg by mouth daily as needed. ??? Ibuprofen 200 mg Capsule Take by mouth. No current facility-administered medications for this visit. ALLERGIES/ADVERSE REACTIONS: Allergies Allergen Reactions ??? Amoxicillin ??? Gluten ??? Lactose-Reduced Food ??? Pertussis Vaccines FAMILY HISTORY: Family History Relation Problem Age of Onset ??? Brother Crohn Disease ??? Father Cerebrovascular Accident Diabetes type 2 diet controlled Hyperlipidemia Hypertension Myocardial Infarction ??? Maternal Grandfather Myocardial Infarction ??? Maternal Grandmother Colorectal Cancer Ovarian Cancer 52 ??? Mother Asthma Hypertension ??? Neg Hx Breast Cancer Uterine Cancer ??? Paternal Grandfather Myocardial Infarction SOCIAL HISTORY: her long-term partner in February. 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 Has an adopted labrador retriever, Milagros. No tobacco, EtOH, or recreational drugs. REVIEW OF SYSTEMS: Ten systems reviewed and negative except as noted in the HPI and PMHx. PHYSICAL EXAMINATION: Vitals: 05/12/20 0843 BP: 129/82 Pulse: 93 Weight: 131.5 kg (290 lb) Height: 177.8 cm (5' 10) Body mass index is 41.61 kg/m??. General - Obese but otherwise well-appearing woman. Appears her stated age. Neatly and appropriately groomed. Pleasant and cooperative. Seated comfortably in a chair. HEENT - No icterus or conjunctival injection. Neck - Supple. No lymphadenopathy. Respiratory - Lungs are clear to auscultation bilaterally. Cardiovascular - S1 and S2 are present. Regular rate and rhythm. No murmurs, rubs, or gallops. Abdomen - Benign. Extremities - No edema. Musculoskeletal - Right flank is tender to palpation. Skin/Integument - No rashes, ecchymoses, or petechiae on limited examination. Psychiatric - Appropriate mood and affect. Neurological - No focal deficits. LABORATORY STUDIES: Urine sediment - Numerous isomorphic RBCs. No casts. No bacteria. Urinalysis - SG 1.015, pH 6, 1+ leukocytes, ?trace protein, 250 blood. No results found for this or any previous visit (from the past 170 hour(s)). Creatinine (mg/dL) Date Value 04/24/2020 0.58 (L) 07/24/2018 0.80 01/18/2018 0.50 (L) 09/13/2017 0.74 ASSESSMENT AND PLAN: 40 y.o. woman with SLE/Sjogren's syndrome, presenting for evaluation of hematuria. 1) Hematuria - Given that the hematuria is isomorphic, and she is having her period, suspect the hematuria is not renal/glomerular in origin. Suggested that she obtain urine dipsticks and check her urine periodically when she is not having her period to see if the hematuria resolves. I don't believe this reflects lupus nephritis. She reportedly has a kidney stone noted on recent imaging, so that could be the cause of the hematuria if it proves to be persistent. That being said, her CRP is elevated, and she has a thrombocytosis, both of which suggest inflammation of some source. This may require further consideration. 2) Right flank/back pain - Tender to palpation. No obvious deformity. This is unlikely to be kidneyrelated based on location and tenderness to palpation. It seems possible that it follows a dermatome. She denies history of shingles, but am wondering if this could be neurological in origin. 3) Urinary frequency - No evidence of infection. Suggested she may want to consider referral to uro-gynecology, as this may be functional/anatomical in origin. 4) HTN - NSAIDs (diclofenac and ibuprofen) could be contributing. Would generally favor ACEi in thesetting of a patient at high risk for development of kidney disease. 5) Return to clinic - We did not schedule a follow-up appointment. She prefers to follow recommendations of Rheumatology as to when she needs to be seen again. Provided her with my contact information, and encouraged her to let me know if she has any questions or concerns. Monet Menchaca MD [facility] [place] [address] E-mail: documented in this encounter Plan of Treatment Upcoming Encounters Date Type Department Care Team (Late st Contact Info) Description 02/13/2024 3:30 PM EDT Office [place] [address] Candace Vance MD [facility] [place] [address] documented as of this encounter Visit Diagnoses Diagnosis Other forms of systemic lupus erythematosus, unspecified organ involvement status Microscopic hematuria Hypertension, unspecified type Right flank pain Abdominal pain, unspecified site Urinary frequency documented in this encounter Care Teams School Secretary Relationship Specialty Start Date End Date Rebecca Lewis DO [address] [place] [address] PCP - General Family Medicine 01/18/18 07/06/20 documented as of this encounter
--- OUTSIDE RECORDS SUMMARY | 2024-01-30 16:00 | XMS_ITS | Encounter Summary ---
Author Organization [facility] [place] [address] Care Team Providers Care Food Service Worker Hospital Name Role Phone DebbieRebecca Dillon DURAN Primary Care Provider [phone]- [phone] Reason for Visit * Reason Comments Eye Exam * Consultation (Routine) - Closed Specialty Diagnoses / Procedures Referred By Lay jose Referred To Contact Ophthalmology Diagnoses Lupus Candace Vance MD [facility] [place] [address] Kayla Charlton OD [facility] [place] [address] Referral ID Status Reason Start Date Expiration Date V isits Requested Visits Authorized [id number] Closed Consult, Test & Treat 10/04/2021 10/04/2022 1 1 Encounter Details Date Type Department Care Team (Late st Contact Info) Description 07/11/2022 12:20 PM EST Office [place] [address] Kayla Charlton OD [facility] [place] [address] [place] [address] Encounter for eye exam due to high risk medication; 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 Warm compresses with a clean washcloth followed by lid scrubs with either Lid Care or similar pre-medicate guaze pads or justdilute Gagan's Baby Shampoo should help. As this is a chronic condition that took a long time to get, it won't go away overnight. Keep up with the treatment daily!! Blepharitis is a common condition where the glands of the eyelids become blocked or inflamed. Theseglands secrete oils that are necessary for maintaining a healthy tear film over the eye. If the glands become clogged and inflamed, your eyes may feel dry, irritated, scratchy or burning. Other symptoms are redness, stickiness, grittiness, tearing and a ???film?? over the vision. If the condition is not treated, you may develop styes, chalazions (hard bumps on the lids) or lid scarring and loss of eyelashes. Blepharitis is often found in people that have rosacea which is a skin condition that consists of redness of the cheeks, forehead and nose. Fortunately, blepharitis is a very treatable condition. The mainstay of treatment is good daily cleansing of the eyelids/lashes and warm compresses. Here are the instructions: Wash your hands and fingertips well. Use a clean wash cloth soaked in hot (but not burning) water. Hold the cloth gently against your closed eyes and reheat the cloth every 2-3 minutes. Massage above the eyelids with your eyes closed. After 10 minutes of application, with your eyes closed, take your fingers and gently rub across thelashes, freeing up any accumulated debris. Do this for 15- 30 seconds. Avoid touching the eyeball directly. Rinse the lashes with water and pat dry. You should do the above cleaning at least twice a day. ANOTHER OPTION FOR WARM COMPRESSES - PURCHASE links below: https://[employer]/eye-care/products/kveziw-sjmvn-mkzf-eye-comp ress. https://[employer]/eye-care/products/tpvvey-illjlhwx-bouuqt-car k-fcx-zjkcy-uwe-kevz-qyfdoki - can order such items individually. https://[employer]/foubq-ivnf-zbf-compress KlickThru Moist Heat Eye Compress opens oil glands and allows natural oils to flow back into the eye relieving discomfort from aging, contact lenses, use of digital devices and more. The easy-to-use compress delivers an effective moist heat treatment. Simply microwave for 20-25 seconds and apply for 10 minutes or as prescribed by your doctor. The compress helps stabilize the tear film, improves oil gland function and slows tear evaporation.Properly hydrated and lubricated eyes can expel bacteria and debris more efficiently so your eyes will feel refreshed and rejuvenated. Safe for frequent use. Self-hydrating - no need to add water. Anti-bacterial and non-allergenic. Washable and reusable. optimum conformance and comfort. Unique pod design provides improved fit and performance. Also available in a single eye model. The following are other things you can do for blepharitis. All products are sold over the counter. Cleaning EYELASHES with dilute Gagan's Baby Shampoo should help. Consider a dietary capsule supplement of [place] 3 Fatty Acids Please take 2000- 3000 mg of omega 3 fatty acids per day. These products can be bought in a health food store or there is a capsule called ???TheraTears Nutrition?? containing these ingredients. (If you have medical conditions, you shouldcheck with your primary care physician to make sure it is safe for you to use this product). For dry eye, use AM and PM PRESERVATIVE FREE drops noted below 4 to 6 times per day. Do NOT use ???Visine or anything that says ???gets the red out?? . AM Drops (Use 4-6 times per day) - DAYTIME DROPS TheraTears Refresh GenTeal Systane PM Drops (Use once at night in both eyes before you go to bed) - NIGHT-TIME DROPS Refresh PM Systane Gel GenTeal Gel Usually your eye comfort will improve after 4-6 weeks of treatment. If not, your eye doctor will discuss the situation with you. This is a chronic condition that took a long time to get, it won't go away overnight. Keep up with the treatment daily! documented in this encounter Progress Notes * Kayla Charlton, OD - 07/11/2022 12:20 PM EST Encounter Diagnoses Name Primary? Encounter for eye exam due to high risk medication ??? 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 Astigmatism of both eyes with presbyopia Dilia Martinez is a 42 y.o. with the following ophthalmic problems: Assessment and Plan: Plaquenil use x since 2012. No maculopathy OU on dilated ocular assessment, confirmed with OCT-macula & documented with fundus photos. - RTC 4 weeks for HVF 10-2 (stand alone). - RTC for CEE and OCT Macula in 1 year. - Pt ed to self monitor vision with Amsler Grid & RTC STAT w/ abrupt vision changes. Anterior & MGD-related Posterior Blepharitis OU contributing to Dry Eye OU - Advised lid hygiene with dilute baby shampoo or OcuSoft wipes & warm compress BID 5-10 min OUwith lid massage - Advised PF AT's Refresh, Systane or Thera Tears QID-PRN OU & Refesh PM ulises QHS OU. - Pt ed re chronicity of condition and need for continued lid maintenance. RTC w/ worsening sx. Refractive Error OU - Rx given today - Findings and concerns discussed with Dilia and she expressed understanding. -Upon Return - RTC 4 weeks for HVF 10-2 (stand alone). - RTC for CEE and OCT Macula in 1 year. Eyeglass Final Rx Eyeglass Final Rx Sphere Cylinder [place] Dist VA Add Near VA Right -8.25 +0.25 125 20/20 +1.50 20/20 Left -8.75 +0.25 075 20/20 +1.50 20/20 Expiration Date: 07/11/2024 Pupillary Distance: 62 documented in this encounter Plan of Treatment Upcoming Encounters Date Type Department Care Team (Late st Contact Info) Description 02/13/2024 3:30 PM EDT Office [place] [address] Candace Vance MD [facility] [place] [address] documented as of this encounter Procedures Procedure Name Priority Date/Time Associated Diagnosis Comments FUNDUS PHOTOS - OU- BOTH EYES Routine 07/11/2022 1:05 PM EST Encounter for eye exam due to high risk medication OCT RETINA - OU - BOTH EYES Routine 07/11/2022 1:05 PM EST Encounter for eye exam due to high risk medication documented in this encounter Results * Fundus Photos - OU - Both Eyes (07/11/2022 1:05 PM EST) Anatomical Region Laterality Modality Other Narrative 07/11/2022 1:05 PM EST Posterior pole: nerves & macula as clinically described OD/OS. Kayla Charlton OD OPHTHALMOLOGY SERVIC ES ORDERABLES * OCT Retina - OU - Both Eyes (07/11/2022 1:05 PM EST) Anatomical Region Laterality Modality Other Narrative 07/11/2022 1:05 PM EST OCT ?? Macula OD: Reliable, normal foveal pit. OS: Reliable, normal foveal pit. 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
--- OUTSIDE RECORDS SUMMARY | 2024-01-30 16:00 | XMS_ITS | Encounter Summary ---
Author Organization [facility] Address [facility] [place] [address] Care Team Providers Care Director Credit Risk Name Role Phone Rebecca Lewis DO Primary Care Provider [phone]- [phone] Reason for Visit * Reason Comments Skin Cancer Examination * Consultation (Routine) - Specialty Diagnoses / Procedures Referred By Lay jose Referred To Contact Dermatology Diagnoses Disorder of the skin and subcutaneous tissue, unspecified Encounter for screening for malignant neoplasm of skin SKIN LESION, SKIN CANCER SCREEN Rebecca Lewis DO [address] [place] [address] [facility] Dermatology [address] [place] [address] Referral ID Status Reason Start Date Expiration Date V isits Requested Visits Authorized [id number] Consult, Test & [facility] Connection [facility] PCP Updated and/or Approved 03/17/2020 03/17/2021 6 6 Encounter Details Date Type Department Care Team (Late st Contact Info) Description 04/13/2020 11:15 AM EDT Office Visit Dermatology at [facility] [address] [place] [address] Corinna Le MD [facility] [address] CHARLA [facility] [address] Multiple benign nevi; Tinea pedis of right foot; Sebaceous hyperplasia Social History Tobacco Use Types Packs/Day Years [...] as of this encounter Progress Notes * Corinna Le MD - 04/13/2020 11:15 AM EDT DERMATOLOGY CONSULT PATIENT CLINIC NOTE Date of Service: 04/13/2020 Dilia Martinez : 1980 Provider: Corinna Le MD Chief Complaint Patient presents with ??? 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 Paternal aunt - unknown type of skin cancer Other Yes Brother - Crohn's Patient Preferences Preferred name Dilia Preferred contact method [] Home [x] Cell [] myD-H [] Other: Permission to leave detailed message including results [x] Yes [] No Permission to discuss care with No Preferred pharmacy [facility] in [place], [place] Procedure Screening Questions Y/N Allergies to lidocaine or epinephrine No Blood thinners No Pacemaker or defibrillator No HPI Dilia Martinez is a 40 y.o. female, new patient to me and to dermatology, seen at the request of Rebecca Lewis DO, who instructed the patient to be seen for a baseline full skin exam and skin cancer screening. Patient presents today with the following concerns: - Lesions on left cheek - Flaky lesions on left arm MEDS Current Outpatient Medications Medication Sig Dispense Refill ??? hydroxychloroquine (Plaquenil) 200 mg Tablet Take 1 tablet by mouth once daily 60 tablet 0 ??? diclofenac (VOLTAREN) 75 mg Tablet, Delayed Release (E.C.) TAKE 1 TABLET BY MOUTH TWICE DAILY 60 tablet 5 ??? cevimeline (EVOXAC) 30 mg Capsule Take one capsule by mouth three times a day as needed. 90 capsule 5 ??? norethindrone (AYGESTIN) 5 mg Tablet 1 tab by mouth every 6 hours for 2 days then 1 tab every 8hours for 2 days then 1 tab every 12 hours for 2 days then daily thereafter. 90 tablet 1 ??? norethindrone (MICRONOR) 0.35 mg Tablet Take 1 tablet by mouth daily. 84 tablet 3 ??? escitalopram (LEXAPRO) 10 mg Tablet Daily ??? fluticasone (FLONASE) 50 mcg/actuation [place], Suspension Daily ??? ondansetron (ZOFRAN) 4 mg Tablet Every 6 hours, as needed ??? pantoprazole (PROTONIX) 40 mg Tablet, Delayed Release (E.C.) Twice a day ??? cholecalciferol, Vitamin D3, 2,000 unit Capsule Daily ??? pregabalin (LYRICA) 150 mg Capsule Daily ??? buPROPion (WELLBUTRIN XL) 150 mg Tablet Extended Release 24 hr Take 150 mg by mouth every morning. ??? traZODone (DESYREL) 50 mg Tablet TAKE ONE TABLET BY MOUTH AT BEDTIME NEEDED 3 ??? PROAIR HFA 90 mcg/actuation HFA Aerosol Inhaler as needed. ??? PARoxetine (PAXIL) 30 mg tablet Take 30 mg by mouth every morning. ??? loratadine (CLARITIN) 10 mg tablet Take 10 mg by mouth daily as needed. No current facility-administered medications for this visit. ADR Allergies Allergen Reactions ??? Amoxicillin ??? Gluten ??? Lactose-Reduced Food ??? Pertussin Am [[id number]] [facility] Patient Active Problem List Diagnosis Code ??? Anxiety F41.9 ??? Body mass index (BMI) of 39.0 to 39.9 in adult Z68.39 ??? Fibromyalgia M79.7 ??? Gastroesophageal reflux disease K21.9 ??? Insomnia G47.00 ??? Migraine without status migrainosus, not intractable G43.909 ??? Obstructive sleep apnea syndrome G47.33 ??? Sjogren's syndrome M35.00 ??? Systemic lupus erythematosus M32.9 ??? Hypertension I10 ROS General: Feeling well Skin: Denies other skin complaints EXAM General: NAD, pleasant, cooperative Skin: Patient was asked to undress to the level of her comfort. Verbalized that the provider's preference is for the patient to remove all clothing and that the provider will not examine areas patient elects to keep covered. Patient's decision was to remove bra and keep underwear on and have the following examined: skin of the scalp, hair, face, ears, neck, chest, breasts, abdomen, back, axillae,upper and lower extremities, hands, and feet. Buttocks and genitalia were not examined. Areas of face under mask examined (COVID-19): [x] Yes [] No Significant Skin Findings: A. Trunk and extremities, including left arm: Multiple 0.3-0.5 cm medium-brown, evenly-pigmented macules and papules. All with regular pigment pattern on dermoscopy. No pigmented lesions suspicious for melanoma. B. Right plantar foot: Erythema and scale in moccasin distribution. C. Face, including left cheek: Scattered 0.2-0.3 cm yellowish papules with central umbilication. ASSESSMENT/PLAN A. Benign-Appearing Nevi - No atypical lesions or features worrisome for malignancy. - Advised patient to watch for anything new or changing. Discussed changes (bleeding, pain, change in color or shape) that should prompt re-evaluation.?? - Will continue to monitor. B. 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 - Noted strong likelihood of recurrence. - Start Rx: ketoconazole 2% cream: Apply topically to the right foot twice daily until skin appearsclear, then an additional 2 weeks. C. Sebaceous Hyperplasia - Discussed diagnosis and etiology (benign growths of sebaceous glands and hair follicle unit). - Provided reassurance. No treatment necessary at this time. Follow Up: RTC PRN Note initiated by: JONES Hernandez I am documenting this encounter acting as the scribe for and in the presence of Dr. Le: Melissa L Giovnai I performed the above scribed service and agree with the accuracy of the documentation in this encounter. Corinna Le MD Department of Dermatology [facility] cc: Rebecca Lewis DO documented in this encounter Plan of Treatment Upcoming Encounters Date Type Department Care Team (Late st Contact Info) Description 02/13/2024 3:30 PM EDT Office [place] [address] Candace Vance MD [facility] [place] [address] documented as of this encounter Visit Diagnoses Diagnosis Multiple benign nevi Benign neoplasm of skin, site unspecified Tinea pedis of right foot Dermatophytosis of foot Sebaceous hyperplasia Other specified disease of sebaceous glands documented in this encounter Care Teams Director Credit Risk Relationship Specialty Start Date End Date Rebecca Lewis DO [address] [place] [address] PCP - General Family Medicine 01/18/18 07/06/20 documented as of this encounter
--- OUTSIDE RECORDS SUMMARY | 2024-01-30 16:00 | XMS_ITS | Encounter Summary ---
Author Organization [facility] [place] [address] Care Team Providers Care Bottle Caser Name Role Phone OctaviaRebecca navarro Primary Care Provider [phone]- [phone] Reason for Visit * Reason Onset Date Comments Medication Refill 05/23/2022 Encounter Details Date Type Department Care Team (Late st Contact Info) Description 05/23/2022 Refill [place] [phone] Candace Vance MD [facility] [place] [address] Lupus Social History Tobacco Use Types Packs/Day [...] 3:30 PM EDT Office [place] [phone] Candace Vance MD [facility] [place] [address] documented as of this encounter Visit Diagnoses Diagnosis Lupus Systemic lupus erythematosus documented in this encounter Care Teams Bottle Caser Relationship Specialty Start Date End Date Rebecca Lewis DO [address] [place] [address] PCP - General Family Medicine 06/02/21 documented as of this encounter
--- OUTSIDE RECORDS SUMMARY | 2024-01-30 16:00 | XMS_ITS | Encounter Summary ---
Author Organization Formerly [facility] [place] [address] Care Team Providers Care Carpet Cleaner Name Role Phone Rebecca Lewis Primary Care Provider +1- [phone] Reason for Visit * Reason Comments Follow-up Encounter Details Date Type Department Care Team (Late st Contact Info) Description 08/09/2022 3:00 PM EST Office [place] [address] Candace Vance MD [facility] [place] [address] [place] [address] Sjogren syndrome, unspecified; Lupus Social History Tobacco Use Types Packs/Day [...] Sign Reading Time Taken Comments Blood Pressure 129/84 08/09/2022 2:46 PM EST Pulse 86 08/09/2022 2:46 PM EST Temperature 36.4 ??C (97.5 ??F) 08/09/2022 2:46 PM ES T Respiratory Rate 18 08/09/2022 2:46 PM EST Oxygen Saturation 99% 08/09/2022 2:46 PM EST Inhaled Oxygen Concentration - - Weight 126.6 kg (279 lb) 08/09/2022 2:46 PM EST reported Height 177.8 cm (5' 10) 08/09/2022 2:46 PM EST Body Mass Index 40.03 08/09/2022 2:46 PM EST documented in this encounter Progress Notes * Candace Vance MD - 08/09/2022 3:00 PM EST Rheumatology Outpatient Follow Up Note PCP: DO Dilia Alonso Agnes Martinez is a 42 y.o. female who we are seeing for the continuing management of lupus. Rheum History: #Sjogren's disease and Lupus - diagnosed 2011 at [facility] w/ Sicca, joint pain, peripheral neuropathy - TYRONE 1:640 speckled, negative Ro and La - No lip biopsy done - Well controlled on plaquenil, lyrica, diclofenac and evoxac - Per notes, weaned off HCQ in August 2018, given very well controlled symptoms and mild GI??side effects - May 2019, b/l MCP pain/swelling and worsening fatigue - Resumed on HCQ by PCP given elevated inflammatory markers last fall - Using cevimeline for dry mouth, Biotene mouthwash, and daily eyedrops - September 2019:??UA showed blood in urine but no protein, did not show UTI (she had received two doses of Antibiotics by then), and per report Renal CT did not show Renal stones. ?? #Fibromyalgia -Controlled on Lyrica 150 mg daily Interval History: Patient reports feeling well. No prolonged morning stiffness, joint swelling/redness, fever or rashreported. Her sicca symptoms are significantly better with cevimeline. ROS (positives in bold): Gen: No fevers, no chills, no night sweats Pulm: No SOB and no cough CV: No chest pain Abd: No abd pain, no nausea, no vomiting, no diarrhea MSK: See HPI Physical exam: BP 129/84 Pulse 86 Temp 36.4 ??C (97.5 ??F) (Temporal) Resp 18 Ht 177.8 cm (5' 10) Wt 126.6 kg (279 lb) Comment: reported SpO2 99% BMI 40.03 kg/m?? 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 female with the PMH of Sjogren's (on??evoxac, biotene and eye drops) and lupus on HCQ 400 mg/d who is presenting for follow-up.?? Patient reports feeling well. No prolonged morning stiffness, joint swelling/redness, fever or rashreported. Her sicca symptoms are significantly better with cevimeline. Physical examination today does not show any evidence of synovitis, rash or skin thickening.. Her ESR and CRP have been mildly elevated chronically. Not sure about the etiology. She does not seem to have any active lupus symptoms. Could be due to metainflammation from obesity. We will repeat labs today. We will continue HCQ at 400 mg daily and cevimeline TID. She uses artificial tears for dry eyes. Her last appointment was just couple of weeks ago and according to her it was normal. Plan: -Check CBC, CMP, ESR, CRP, complements, antidouble-stranded DNA antibody, UA and urine protein/creatinine ratio. -Continue hydroxychloroquine 200 mg twice daily. -Continue cevimeline 3 times daily. -Follow-up with ophthalmology for hydroxychloroquine toxicity monitoring and dry eyes issue. Follow-up in 6 months. Total time spent on counseling and coordination of care was 40 minutes. Candace Vance MD documented in this encounter Plan of Treatment Upcoming Encounters Date Type Department Care Team (Late st Contact Info) Description 02/13/2024 3:30 PM EDT Office Visit Rheumatology at [facility] [place] [address] Candace Vance MD [facility] [place] [address] documented as of this encounter Procedures Procedure Name Priority Date/Time Associated Diagnosis Comments URINALYSIS MICROSCOPIC EXAM Routine 08/09/2022 3:57 PM EST HC CREATININE - NON BLOOD Routine 08/09/2022 3:57 PM EST Sjogren syndrome, unspecified URINALYSIS WITH REFLEX CULTURE Routine 08/09/2022 3:57 PM EST Sjogren syndrome, unspecified HC C-REACTIVE PROTEIN Routine 08/09/2022 3:40 PM EST Sjogren syndrome, unspecified HC DNA AB DS (LITTLE SHELL TRIBE) Routine 08/09/2022 3:40 PM EST Sjogren syndrome, unspecified HEMOGRAM Routine 08/09/2022 3:40 PM EST Sjogren syndrome, unspecified DIFFERENTIAL, AUTOMATED Routine 08/09/2022 3:40 PM EST Sjogren syndrome, unspecified HC ESR-SEDIMENTATION RATE, BLOOD Routine 08/09/2022 3:40 PM EST Sjogren syndrome, unspecified HC CBC,PLT & AUTO DIFF Routine 3 3:40 PM EST Sjogren syndrome, unspecified HC COMPLEMENT,C3 SERUM Routine 3 3:40 PM EST Sjogren syndrome, unspecified HC COMPLEMENT C4, PLASMA Routine 08/09/2022 3:40 PM EST Sjogren syndrome, unspecified COMPREHENSIVE METABOLIC PANEL Routine 08/09/2022 3:40 PM EST Sjogren syndrome, unspecified documented in this encounter Results * (ABNORMAL) Urinalysis Microscopic Exam (08/09/2022 3:57 PM EST) RBC, Urine >100(H) 0 - 4 /HPF [facility] WBC, Urine 3 0 - 5 /HPF [facility] Bacteria, Urine Rare(A) None /HPF [facility] Squamous Epithelial Cells Raw Data, Urine 2 <=4 /HPF [facility] Hyaline Casts, Urine 2 0 - 2 /LPF [facility] Urine NS 08/09/2022 3:57 PM EST 08/09/2022 4:18 PM EST Narrative Resulting Agency Comment Spec In Lab Candace Vance MD URINE ORDERABLES Performing Organization Address City/[facility]/ZIP Co de Phone Number [facility] [place] [address] * Protein/Creatinine Ratio, urine (08/09/2022 3:57 PM EST) Creatinine, Urine 71 mg/dL [facility] Protein, Urine 10 0 - 12 mg/dL [facility] Protein / Creatinine Ratio, Urine 0.[address] [facility] Urine 08/09/2022 3:57 PM EST 08/09/2022 4:18 PM EST Narrative Resulting Agency Comment Spec In Lab Candace Vance MD URINE ORDERABLES [facility] [place] [address] * (ABNORMAL) Urinalysis with reflex Culture (08/09/2022 3:57 PM EST) Glucose, Urine Dipstick Negative Negative mg/dL [facility] Protein, Urine Dipstick Negative Negative mg/dL [facility] Bilirubin, Urine Dipstick Negative Negative mg/dL [facility] Comment: Clinical correlation required for positive Urine Bilirubin results as false positive may occur with some drugs and drug related products. If a false positive is suspected a serum total bilirubin should be considered if clinically indicated. Urobilinogen, Urine Dipstick Normal Normal mg/dL [facility] pH, Urn (dipstick) 5.5 5.0 - 8.[address] [facility] Blood, Urine Dipstick Large(A) Negative mg/dL [facility] Ketone, Urine Dipstick Negative Negative mg/dL [facility] Nitrite, Urine Dipstick Negative Negative [facility] Leukocytes, Urine Dipstick Trace(A) Negative mcL [facility] Appearance, Urine Dipstick Clear Clear [facility] Specific [place] Urine Automated 1.010 1.005 - 1.[address] [facility] Color, Urine Dipstick Yellow Yellow [facility] Reflex to Culture No [facility] Urine NS 08/09/2022 3:57 PM EST 08/09/2022 4:18 PM EST Narrative Resulting Agency Comment Spec In Lab Candace Vance MD URINE ORDERABLES Performing Organization Address City/State/[facility] Co de Phone Number [facility] [place] [address] * (ABNORMAL) Differential, Automated (08/09/2022 3:40 PM EST) Neutrophil % 63.9 % [facility] Neutrophil Absolute 6.85(H) 1.70 - 6.10 x10(3)/mc L [facility] Lymph % 26.0 % [facility] Lymphocytes Abs 2.8 0.9 - 3.2 x10(3)/mc L [facility] Monocyte % 7.0 % [facility] Monocyte Abs 0.8 0.3 - 0.9 x10(3)/mc L [facility] Eos % 2.1 % [facility] Eosinophils Abs 0.2 0.0 - 0.4 x10(3)/mc L [facility] Basophil % 0.7 % [facility] Baso Absolute 0.1 0.0 - 0.1 x10(3)/mc L [facility] Immature Gran % 0.30 % [facility] Comment: Immature granulocytes(IG's)percentage and absolute count will include metamyelocytes, myelocytes, and promyelocytes. Blood smears from CBCs yielding IG's will be scanned manually for concordance. If this scan disagrees with the automated IG or if promyelocytes are noted, a manual differential will be performed. Immature Gran Absolute 0.03 0.00 - 0.04 x10(3)/mc L [facility] Blood 08/09/2022 3:40 PM EST 08/09/2022 3:45 PM EST Narrative Resulting Agency Comment Spec In Lab Candace Vance MD HEMATOLOGY ORDERABL ES [facility] [place] [address] * (ABNORMAL) Hemogram (08/09/2022 3:40 PM EST) White Blood Cell 10.7(H) 4.0 - 9.5 x10(3)/mc L [facility] Red Blood Cell 5.05 4.00 - 5.21 x10(6)/mc L [facility] Hemoglobin 13.3 11.7 - 15.5 g/dL [facility] Hematocrit 40.9 35.7 - 45.8 % [facility] Mean Cell Volume 81.0(L) 82.6 - 94.[address] fL [facility] Mean Cell Hemoglobin 26.3(L) 27.1 - 32.[address] [facility] Mean Cell Hemoglobin Concentration 32.5 31.7 - 35.0 g/dL [facility] Platelet 372(H) 145 - 357 x10(3)/mc L [facility] RDW Standard Deviation 39.1 37.0 - 46.0 fL [facility] RDW coefficient of variation 13.3 11.5 - 14.1 % [facility] Mean Platelet Volume 9.1 7.6 - 12.9 fL [facility] NRBC% auto 0.0 % [facility] NRBC Absolute 0.000 0.000 - 0.000 x10(3)/mc L [facility] Blood 08/09/2022 3:40 PM EST 08/09/2022 3:45 PM EST Narrative Resulting Agency Comment Spec In Lab Candace Vance MD HEMATOLOGY ORDERABL ES Performing Organization Address [facility] Co de Phone Number [facility] [place] [address] * (ABNORMAL) CRP, acute inflammation (08/09/2022 3:40 PM EST) C-Reactive Protein 11.9(H) <=4.9 mg/L [facility] Blood 08/09/2022 3:40 PM EST 08/09/2022 3:45 PM EST Narrative Resulting Agency Comment Spec In Lab Candace Vance MD CHEMISTRY ORDERABLE S Performing Organization Address [facility] Co de Phone Number [facility] [place] [address] * Sedimentation rate (08/09/2022 3:40 PM EST) Sedimentation Rate Automated 33 2 - 37 mm/hr [facility] Comment: Effective June 05, 2019 new capillary photometric technology has resulted in a change in reference ranges. It is recommended that each ESR result be reviewed with its own age appropriate reference range. Blood 08/09/2022 3:40 PM EST 08/09/2022 3:45 PM EST Narrative Resulting Agency Comment Spec In Lab Candace Vance MD HEMATOLOGY ORDERABL ES Performing Organization Address [facility] Co de Phone Number [facility] [place] [address] * C4 Complement (08/09/2022 3:40 PM EST) Complement C4 22 10 - 40 mg/dL [facility] Blood 08/09/2022 3:40 PM EST 08/09/2022 3:45 PM EST Narrative Resulting Agency Comment Spec In Lab Candace Vance MD CHEMISTRY ORDERABLE S [facility] [place] [address] * C3 Complement (08/09/2022 3:40 PM EST) Complement C3 134 90 - 180 mg/dL [facility] Blood 08/09/2022 3:40 PM EST 08/09/2022 3:45 PM EST Narrative Resulting Agency Comment Spec In Lab Candace Vance MD CHEMISTRY ORDERABLE S Performing Organization Address [facility] Co de Phone Number [facility] [place] [address] * (ABNORMAL) Comprehensive metabolic panel (non-fasting) (08/09/2022 3:40 PM EST) Glucose 101 65 - 199 mg/dL [facility] Comment:Diabetes: >=200 mg/d L plus symptoms Blood Urea Nitrogen 10 8 - 18 mg/dL [facility] Creatinine 0.69(L) 0.70 - 1.20 mg/dL [facility] Sodium 139 135 - 145 mmol/L [facility] Potassium 4.0 3.5 - 5.0 mmol/L [facility] Comment: Please note: ??Patients with WBC >100,000 may have falsely elevated Potassium levels. ??For accurate Potassium quantification in these patients send serum separator tube (gold top) for subsequent determinations. ??Contact the Clinical Chemistry Laboratory if there are any questions. Chloride 101 98 - 107 mmol/L [facility] Carbon Dioxide 28 22 - 31 mmol/L [facility] Anion Gap 10 5 - 15 mmol/L [facility] Calcium 9.5 8.5 - 10.5 mg/dL [facility] Protein, Total 7.1 6.1 - 8.0 g/dL [facility] Albumin 4.2 3.2 - 5.2 g/dL [facility] Aspartate Aminotransferase 10 0 - 30 unit/L [facility] Alanine Aminotransferase 14 0 - 30 unit/L [facility] Alkaline Phosphatase 100 35 - 105 unit/L [facility] Bilirubin, Total <0.2(L) 0.2 - 1.3 mg/dL [facility] Est Glomerular Filtration Rate 110 >=60 mL/min/1. 73 m?? [facility] Comment: This patient's estimated GFR was [...] and symptoms in addition to eGFR. Blood 08/09/2022 3:40 PM EST 08/09/2022 3:45 PM EST Narrative Resulting Agency Comment Spec In Lab Candace Vance MD CHEMISTRY ORDERABLE S Performing Organization Address [facility]/[place] de Phone Number [facility] [place] [address] * DNA Antibody (Double-Stranded) (08/09/2022 3:40 PM EST) [facility] Signature dsDNA Ab 1.7 <=15.0 IU/mL [facility] Comment: <10 negative 10-15 equivocal >15 positive This dsDNA antibody result was generated using a fluoroenzyme immunoassay on the Dogsterdia 250 analyzer. This quantitative test is designed to detect IgG antibodies directed against double stranded DNA in human serum. The presence of antibodies that recognize dsDNA is a highly specific marker for systemic lupus erythematosus. Please note that as of 04/19/2022 that this testing is performed by the Special Chemistry Laboratory at [facility]. This change in testing location is associated with a change is testing method and reference intervals. Please review the results of this test in association with the posted reference intervals. Blood 08/09/2022 3:40 PM EST 08/10/2022 7:21 AM EST Narrative Resulting Agency Comment Spec In Lab Candace Vance MD LAB SEND OUT ORDERA BLES Performing Organization Address [facility] [place] [address] documented in this encounter Visit Diagnoses Diagnosis Sjogren syndrome, unspecified Lupus Systemic lupus erythematosus documented in this encounter Care Teams Carpet Cleaner Relationship Specialty Start Date End Date Rebecca Lewis DO [address] [place] [address] PCP - General Family Medicine 06/02/21 documented as of this encounter
--- OUTSIDE RECORDS SUMMARY | 2024-01-30 16:00 | XMS_ITS | Encounter Summary ---
Author Organization [facility] [place] [address] Care Team Providers Care Dry Goods Clerk Name Role Phone Rebecca Lewis [facility] Primary Care Provider +1- [phone] Encounter Details Date Type Department Care Team (Late st Contact Info) Description 06/02/2021 10:40 AM EST Laboratory Appointment Lab [address] [place] [address] Lupus Social History Tobacco Use Types Packs/Day [...] 3:30 PM EDT Office [place] [address] Candace Vance MD [facility] [place] [address] documented as of this encounter Procedures Procedure Name Priority Date/Time Associated Diagnosis Comments HC VENIPUNCTURE Routine 06/02/2021 10:57 AM EST Lupus HC ESR-SEDIMENTATION RATE, BLOOD Routine 06/02/2021 10:57 AM EST Lupus documented in this encounter Results * (ABNORMAL) Sedimentation rate (06/02/2021 10:57 AM EST) Sedimentation Rate Automated 51(H) 2 - 37 mm/hr [facility] Comment: Effective June 05, 2019 new capillary photometric technology has resulted in a change in reference ranges. It is recommended that each ESR result be reviewed with its own age appropriate reference range. Blood 06/02/2021 10:5 7 AM EST 06/02/2021 11:06 AM EST Narrative Resulting Agency Comment Spec In Lab Amando Maurer MD HEMATOLOGY ORDERABLE S Performing Organization Address City/[facility]/ZIP Co de Phone Number [facility] [place] [address] * (ABNORMAL) CRP, acute inflammation (06/02/2021 10:57 AM EST) C-Reactive Protein 8.3(H) <=4.9 mg/L [facility] Blood 06/02/2021 10:5 7 AM EST 06/02/2021 11:06 AM EST Narrative Resulting Agency Comment Spec In Lab Amando Maurer MD CHEMISTRY ORDERABLES Performing Organization Address City/[facility]/ZIP Co de Phone Number [facility] [place] [address] documented in this encounter Visit Diagnoses Diagnosis Lupus Systemic lupus erythematosus documented in this encounter Care Teams Dry Goods Clerk Relationship Specialty Start Date End Date Rebecca Lewis DO [address] [place] [id number] PCP - General Family Medicine 06/02/21 documented as of this encounter
--- OUTSIDE RECORDS SUMMARY | 2024-01-30 16:00 | XMS_ITS | Encounter Summary ---
Author Organization [facility] [place] [address] Care Team Providers Care Department Head Name Role Phone OctaviaRebecca navarro [facility] Primary Care Provider +1- [phone] Reason for Visit * Reason Comments Medication Refill Encounter Details Date Type Department Care Team (Late st Contact Info) Description 04/17/2022 [place] [phone] Candace Vance MD [facility] [place] [address] Lupus Social History Tobacco Use Types Packs/Day [...] 3:30 PM EDT Office [place] [phone] Candace Vance MD [facility] [place] [address] documented as of this encounter Visit Diagnoses Diagnosis Lupus Systemic lupus erythematosus documented in this encounter Care Teams Department Head Relationship Specialty Start Date End Date Rebecca Lewis DO [address] [place] [address] PCP - General Family Medicine 06/02/21 documented as of this encounter
--- OUTSIDE RECORDS SUMMARY | 2024-01-30 16:00 | XMS_ITS | Encounter Summary ---
Author Organization [facility] [place] [address] Care Team Providers Care Securities Underwriter Name Role Phone OctaviaRebecca navarro [facility] Primary Care Provider +1- [phone] Reason for Visit * Reason Comments Medication Refill Encounter Details Date Type Department Care Team (Late st Contact Info) Description 02/10/2022 [place] [phone] Candace Vance MD [facility] [place] [address] Lupus Social History Tobacco Use Types Packs/Day [...] 3:30 PM EDT Office [place] [phone] Candace Vance MD [facility] [place] [address] documented as of this encounter Visit Diagnoses Diagnosis Lupus Systemic lupus erythematosus documented in this encounter Care Teams Securities Underwriter Relationship Specialty Start Date End Date Rebecca Lewis DO [address] [place] [address] PCP - General Family Medicine 06/02/21 documented as of this encounter
--- OUTSIDE RECORDS SUMMARY | 2024-01-30 16:00 | XMS_ITS | Encounter Summary ---
Author Organization [facility] [place] [address] Care Team Providers Care Auto Technician Name Role Phone Rebecca Lewis Primary Care Provider +1- [phone] Reason for Visit * Reason Comments Medication Refill Encounter Details Date Type Department Care Team (Late st Contact Info) Description 12/07/2019 [place] [phone] Cyndie Osei MD [facility] [place] [address] Social History Tobacco Use Types Packs/Day Years [...] 3:30 PM EDT Office [place] [phone] Candace Vance MD [facility] [place] [address] documented as of this encounter Visit Diagnoses Not on filedocumented in this encounter Care Teams Auto Technician Relationship Specialty Start Date End Date Rebecca Lewis DO [address] [place] [address] PCP - General Family Medicine 06/02/21 documented as of this encounter
--- OUTSIDE RECORDS SUMMARY | 2024-01-30 16:00 | XMS_ITS | Encounter Summary ---
Author Organization [facility] [place] [address] Care Team Providers Care Director Of Hemophilia Name Role Phone Rebecca Lewis Dillon DURAN Primary Care Provider +1- [phone] Reason for Visit * Reason Comments Follow-up Encounter Details Date Type Department Care Team (Late st Contact Info) Description 02/16/2022 9:30 AM EDT Office Visit Rheumatology at [facility] [place] [address] Candace Vance MD [facility] [place] [address] Lupus; Sjogren syndrome, unspecified Social History Tobacco [...] Sign Reading Time Taken Comments Blood Pressure 137/78 02/16/2022 9:37 AM EDT Pulse 86 02/16/2022 9:37 AM EDT Temperature - - Respiratory Rate 18 02/16/2022 9:37 AM EDT Oxygen Saturation 99% 02/16/2022 9:3 7 AM EDT Inhaled Oxygen Concentration - - Weight 127.6 kg (281 lb 3.2 oz) 022 9:37 AM EDT with shoes Height 177.8 cm (5' 10) 02/16/2022 9:3 7 AM EDT Body Mass Index 40.35 02/16/2022 9:37 AM EDT documented in this encounter Progress Notes * Candace Vance MD - 02/16/2022 9:30 AM EDT Rheumatology Outpatient Follow Up Note PCP: DO Dilia Alonsowillie Martinez is a 42 y.o. female who we are seeing for the continuing management of lupus. Rheum History: #Sjogren's disease and Lupus - diagnosed 2011 at [place] w/ Sicca, joint pain, peripheral neuropathy - [...] #Fibromyalgia -Controlled on Lyrica 150 mg daily I have reviewed the patient's medical, family and social history in detail; there are no changes tothe history as noted in the electronic medical record. Meds and Allergies: Reviewed in eDH Interval History: Patient reports feeling well without any significant morning stiffness, worsening sicca symptoms orjoint swelling. She has not been taking any diclofenac and is only on hydroxychloroquine. ROS (positives in bold): Gen: No fevers, no chills, no night sweats Pulm: No SOB and no cough CV: No chest pain Abd: No abd pain, no nausea, no vomiting, no diarrhea MSK: See HPI Physical exam: BP 137/78 Pulse 86 Resp 18 Ht 177.8 cm (5' 10) Wt 127.6 kg (281 lb 3.2 oz) Comment: with shoes SpO2 99% BMI 40.35 kg/m?? Gen: Well appearing, alert and oriented [...] , 05/06/2019 , 03/04/2018 , 04/06/2016 [employer] 10/13/2020 , 09/15/2020 TD 11/10/2013 Assessment: Dilia Martinez is a 42 y.o. female with the PMH of Sjogren's (on??evoxac, biotene and eye drops) and lupus on HCQ 400 mg/d who is presenting for follow-up.?? Denies any rash, prolonged morning stiffness, joint pain/swelling, fever or shortness of breath. Physical examination today does not show any evidence of synovitis, rash or skin thickening. She has mild swelling around the right third MCP but the joint line can be felt. I did an ultrasound of the right third MCP and it did not show increased Doppler activity or any evidence of erosion. Her ESR and CRP have been mildly elevated chronically. Not sure about the etiology. She does not seem to have any active lupus symptoms. Could be due to metainflammation from obesity. We will repeat labs today. We will continue HCQ at 400 mg daily and cevimeline TID. She uses artificial tears for dry eyes. Plan: -Check CBC, CMP, ESR, CRP, complements, [...] 3:30 PM EDT Office [place] [address] Candace Vance MD [facility] [place] [address] documented as of this encounter Procedures Procedure Name Priority Date/Time Associated Diagnosis Comments HC CREATININE - NON BLOOD Routine 02/16/2022 10:21 AM EDT Sjogren syndrome, unspecified HC C-REACTIVE PROTEIN Routine 02/16/2022 10:18 AM EDT Sjogren syndrome, unspecified HC VENIPUNCTURE Routine 02/16/2022 10:18 AM EDT Lupus Sjogren syndrome, unspecified HEMOGRAM Routine 02/16/2022 10:18 AM EDT Sjogren syndrome, unspecified DIFFERENTIAL, AUTOMATED Routine 02/16/2022 10:18 AM EDT Sjogren syndrome, unspecified HC ESR-SEDIMENTATION RATE, BLOOD Routine 02/16/2022 10:18 AM EDT Sjogren syndrome, unspecified HC CBC,PLT & AUTO DIFF Routine 2 10:18 AM EDT Sjogren syndrome, unspecified HC COMPLEMENT,C3 SERUM Routine 2 10:18 AM EDT Sjogren syndrome, unspecified HC COMPLEMENT C4, PLASMA Routine 02/16/2022 10:18 AM EDT Sjogren syndrome, unspecified COMPREHENSIVE METABOLIC PANEL Routine 02/16/2022 10:18 AM EDT Sjogren syndrome, unspecified documented in this encounter Results * Protein/Creatinine Ratio, urine (02/16/2022 10:21 AM EDT) Creatinine, Urine 51 mg/dL [facility] Protein, Urine 7 0 - 12 mg/dL [facility] Protein / Creatinine Ratio, Urine 0.[address] [facility] Urine 02/16/2022 10:2 1 AM EDT 02/16/2022 10:53 AM EDT Narrative Resulting Agency Comment Spec In Lab Candace Vance MD URINE ORDERABLES [facility] [place] [address] * Differential, Automated (02/16/2022 10:18 AM EDT) Neutrophil % 61.6 % [facility] Neutrophil Absolute 4.97 1.70 - 6.10 x10(3)/[facility] Lymph % 27.5 % [facility] Lymphocytes Abs 2.2 0.9 - 3.2 x10(3)/[facility] Monocyte % 5.7 % [facility] Monocyte Abs 0.5 0.3 - 0.9 x10(3)/[facility] Eos % 4.0 % [facility] Eosinophils Abs 0.3 0.0 - 0.4 x10(3)/[facility] Basophil % 1.0 % [facility] Baso Absolute 0.1 0.0 - 0.1 x10(3)/[facility] Immature Gran % 0.20 % [facility] Comment: Immature granulocytes(IG's)percentage and absolute count will include metamyelocytes, myelocytes, and promyelocytes. Blood smears from CBCs yielding IG's will be scanned manually for concordance. If this scan disagrees with the automated IG or if promyelocytes are noted, a manual differential will be performed. Immature Gran Absolute 0.02 0.00 - 0.04 x10(3)/mcL [facility] Blood 02/16/2022 10:1 8 AM EDT 02/16/2022 10:44 AM EDT Narrative Resulting Agency Comment Spec In Lab Candace Vance MD HEMATOLOGY ORDERABL ES [facility] [place] [address] * (ABNORMAL) Hemogram (02/16/2022 10:18 AM EDT) White Blood Cell 8.1 4.0 - 9.5 x10(3)/mc L [facility] Red Blood Cell 5.29(H) 4.00 - 5.21 x10(6)/mc L [facility] Hemoglobin 13.8 11.7 - 15.5 g/dL [facility] Hematocrit 43.2 35.7 - 45.8 % [facility] Mean Cell Volume 81.7(L) 82.6 - 94.[address] [facility] Mean Cell Hemoglobin 26.1(L) 27.1 - 32.[address] [facility] Mean Cell Hemoglobin Concentration 31.9 31.7 - 35.0 g/dL [facility] Platelet 434(H) 145 - 357 x10(3)/mc L [facility] RDW Standard Deviation 41.1 37.0 - 46.0 [facility] RDW coefficient of variation 14.0 11.5 - 14.1 % [facility] Mean Platelet Volume 9.0 7.6 - 12.[address] [facility] NRBC% auto 0.0 % [facility] NRBC Absolute 0.000 0.000 - 0.000 x10(3)/mc L [facility] Blood 02/16/2022 10:1 8 AM EDT 02/16/2022 10:44 AM EDT Narrative Resulting Agency Comment Spec In Lab Candace Vance MD HEMATOLOGY ORDERABL ES Performing Organization Address [facility] Co de Phone Number [facility] [place] [address] * DNA Antibody (Double-Stranded) (02/16/2022 10:18 AM EDT) Pathologist [facility] dsDNA Ab <12.3 <30.0 (Negative) IU/mL [facility] Comment: Negative for dsDNA antibody by enzyme immunoassay. No further testing recommended. Test Performed by: [facility] [place] [address] [place] [address] [employer]: Hiro Edouard M.D. Ph.D.; CLIA# [id number] Blood 02/16/2022 10:1 8 AM EDT 02/16/2022 4:12 PM EDT Narrative Resulting Agency Comment Spec In Lab Candace Vance MD LAB SEND OUT ORDERA BLES Performing Organization Address [facility] de Phone Number [facility] [place] [address] * Sedimentation rate (02/16/2022 10:18 AM EDT) Pathologist [facility] Sedimentation Rate Automated 35 2 - 37 mm/hr [facility] Comment: Effective June 05, 2019 new capillary photometric technology has resulted in a change in reference ranges. It is recommended that each ESR result be reviewed with its own age appropriate reference range. Blood 02/16/2022 10:1 8 AM EDT 02/16/2022 10:44 AM EDT Narrative Resulting Agency Comment Spec In Lab Candace Vance MD HEMATOLOGY ORDERABL ES Performing Organization Address City/[facility]/ZIP Co de Phone Number [facility] [place] [address] * (ABNORMAL) CRP, acute inflammation (02/16/2022 10:18 AM EDT) C-Reactive Protein 9.7(H) <=4.9 mg/L [facility] Blood 02/16/2022 10:1 8 AM EDT 02/16/2022 10:44 AM EDT Narrative Resulting Agency Comment Spec In Lab Candace Vance MD CHEMISTRY ORDERABLE S Performing Organization Address City/[facility]/ZIP Co de Phone Number [facility] [place] [address] * C4 Complement (02/16/2022 10:18 AM EDT) Complement C4 25 10 - 40 mg/dL [facility] Blood 02/16/2022 10:1 8 AM EDT 02/16/2022 10:44 AM EDT Narrative Resulting Agency Comment Spec In Lab Candace Vance MD CHEMISTRY ORDERABLE S [facility] [place] [address] * C3 Complement (02/16/2022 10:18 AM EDT) Complement C3 148 90 - 180 mg/dL [facility] Blood 02/16/2022 10:1 8 AM EDT 02/16/2022 10:44 AM EDT Narrative Resulting Agency Comment Spec In Lab Candace Vance MD CHEMISTRY ORDERABLE S [facility] [place] [address] * (ABNORMAL) Comprehensive metabolic panel (non-fasting) (02/16/2022 10:18 AM EDT) Glucose 103 65 - 199 mg/dL [facility] Comment:Diabetes: >=200 mg/d L plus symptoms Blood Urea Nitrogen 10 8 - 18 mg/dL [facility] Creatinine 0.60(L) 0.70 - 1.20 mg/dL [facility] Sodium 140 135 - 145 mmol/L [facility] Potassium 4.2 3.5 - 5.0 mmol/L [facility] Comment: Please note: ??Patients with WBC >100,000 may have falsely elevated Potassium levels. ??For accurate Potassium quantification in these patients send serum separator tube (gold top) for subsequent determinations. ??Contact the Clinical Chemistry Laboratory if there are any questions. Chloride 102 98 - 107 mmol/L [facility] Carbon Dioxide 27 22 - 31 mmol/L [facility] Anion Gap 11 5 - 15 mmol/L [facility] Calcium 8.9 8.5 - 10.5 mg/dL [facility] Protein, Total 7.2 6.1 - 8.0 g/dL [facility] Albumin 4.4 3.2 - 5.2 g/dL [facility] Aspartate Aminotransferase 10 0 - 30 unit/L [facility] Alanine Aminotransferase 17 0 - 30 unit/L [facility] Alkaline Phosphatase 105 35 - 105 unit/L [facility] Bilirubin, Total <0.2(L) 0.2 - 1.3 mg/dL [facility] Est Glomerular Filtration Rate 113 >=60 mL/min/1. 73 m?? [facility] Comment: This patient's estimated GFR [...] and symptoms in addition to eGFR. Blood 02/16/2022 10:1 8 AM EDT 02/16/2022 10:44 AM EDT Narrative Resulting Agency Comment Spec In Lab Candace Vance [place] [address] documented in this encounter Visit Diagnoses Diagnosis Lupus Systemic lupus erythematosus Sjogren syndrome, unspecified documented in this encounter Care Teams Director Of Hemophilia Relationship Specialty Start Date End Date Rebecca Lewis DO [address] [facility] [place] [address] PCP - General Family Medicine 06/02/21 documented as of this encounter
--- OUTSIDE RECORDS SUMMARY | 2024-01-30 16:00 | XMS_ITS | Encounter Summary ---
Author Organization [facility] [place] [address] Care Team Providers Care Airplane Cabin Attendant Name Role Phone Rebecca Lewis Primary Care Provider +1- [phone] Encounter Details Date Type Department Care Team (Late st Contact Info) Description 04/23/2020 [place] [phone] Michelle Guevara Social History Tobacco Use Types [...] * Telephone Encounter - Michelle Guevara - 04/23/2020 10:30 AM EDT Lm for pt that we have booked 930am per dr irizarry for urg clinic on 04/24. Asked that pt call back to confirm or reschedule if needed. documented in this encounter Plan of Treatment Upcoming Encounters Date Type Department Care Team (Late st Contact Info) Description 02/13/2024 3:30 PM EDT Office [place] [phone] Candace Irizarry MD [facility] [address] [facility] [address] documented as of this encounter Visit Diagnoses Not on filedocumented in this encounter Care Teams Airplane Cabin Attendant Relationship Specialty Start Date End Date Rebecca Lewis DO [address] [place] [address] PCP - General Family Medicine 01/18/18 07/06/20 documented as of this encounter
--- OUTSIDE RECORDS SUMMARY | 2024-01-30 16:00 | XMS_ITS | Encounter Summary ---
Author Organization [facility] Address [facility] [place] [address] Care Team Providers Care Mark Up Designer Name Role Phone OctaviakeeganashliRebecca weinberg Dillon DURAN Primary Care Provider +1- [phone] Reason for Visit * Reason Onset Date Comments Prior Authorization 04/14/2020 Econazole Ni trate 1% cream Encounter Details Date Type Department Care Team (Late st Contact Info) Description 04/14/2020 Telephone Dermatology at [facility] [address] [place] [address] Rubia Jett CMA Prior Authorization (Econazole Nitrate 1% cream) Social History Tobacco Use Types Packs/Day Years [...] encounter Miscellaneous Notes * Telephone Encounter - Rubia Perez CCMA - 04/14/2020 2:54 PM EDT Medication Prior Authorization for Primary Care ? DENIED: Econazole Cream 1% ?? Case/Reference #: [id number] ?? Additional Information from Insurance: Patient my have tried and failed TWO different preferred generic antifungal agents - Ciclopirox - Clotrimazole - Ketoconazole - Miconazole - Nystatin - Tolnaftate * Telephone Encounter - Rubia Jett CMA - 04/14/2020 1:33 PM EDT Medication Prior Authorization for Primary [place] [address] Request received via: Pharmacy Patient: Dilia Martinez Patient : 1980 Insurance Company: [place] Medicaid Sent via: [employer] Phone: [phone] Chou: [id number] Physician: Corinna Le MD Medication Requested: Strength: econazole nitrate 1 % Cream Frequency/Sig: Apply topically to the right foot twice daily until skin appears clear, then an additional 2 weeks. Disp: 85 g Refills:0 Currently taking: No If yes, how long: Diagnosis for this medication: ICD-10 code: Tinea pedis [B35.3] Prior medications trialed in this patient: Medication: NA Approx Dates: NA Outcome/Adverse Reactions: NA Additional Notes: documented in this encounter Plan of Treatment Upcoming Encounters Date Type Department Care Team (Late st Contact Info) Description 02/13/2024 3:30 PM EDT Office [place] [address] Candace Vance MD [facility] [address] documented as of this encounter Visit Diagnoses Not on filedocumented in this encounter Care Teams Mark Up Designer Relationship Specialty Start Date End Date Rebecca Lewis DO [address] [place] [address] PCP - General Family Medicine 01/18/18 07/06/20 documented as of this encounter
--- OUTSIDE RECORDS SUMMARY | 2024-01-30 16:00 | XMS_ITS | Encounter Summary ---
Author Organization [facility] [place] [address] Care Team Providers Care Laminating Machine Operator Name Role Phone OctaviaRebecca navarro Primary Care Provider +1- [phone] Reason for Visit * Reason Onset Date Comments Medication Refill 07/04/2022 Encounter Details Date Type Department Care Team (Late st Contact Info) Description 07/04/2022 [place] [phone] Candace Vance MD [facility] [place] [address] Lupus Social History Tobacco Use Types Packs/Day [...] 3:30 PM EDT Office [place] [phone] Candace Vance MD [facility] [place] [address] documented as of this encounter Visit Diagnoses Diagnosis Lupus Systemic lupus erythematosus documented in this encounter Care Teams Laminating Machine Operator Relationship Specialty Start Date End Date Rebecca Lewis DO [address] [place] [address] PCP - General Family Medicine 06/02/21 documented as of this encounter
--- OUTSIDE RECORDS SUMMARY | 2024-01-30 16:00 | XMS_ITS | Encounter Summary ---
Author Organization [facility] [address] Care Team Providers Care Rand Tacker Name Role Phone OctaviaRebecca navarro Primary Care Provider +1- [phone] Reason for Visit * Reason Comments Medication Refill Encounter Details Date Type Department Care Team (Late st Contact Info) Description 08/14/2021 [place] [address] Candace Vance MD [facility] [place] [address] Lupus Social History Tobacco Use Types Packs/Day [...] 3:30 PM EDT Office [place] [phone] Candace Vance MD [facility] [place] [address] documented as of this encounter Visit Diagnoses Diagnosis Lupus Systemic lupus erythematosus documented in this encounter Care Teams Rand Tacker Relationship Specialty Start Date End Date Rebecca Lewis DO [address] [place] [address] PCP - General Family Medicine 06/02/21 documented as of this encounter
--- OUTSIDE RECORDS SUMMARY | 2024-01-30 16:00 | XMS_ITS | Encounter Summary ---
Author Organization [facility] [place] [address] Care Team Providers Care Manager Life Name Role Phone OctaviaeRbecca navarro Primary Care Provider +1- [phone] Reason for Visit * Reason Onset Date Comments Medication Refill 07/05/2022 Encounter Details Date Type Department Care Team (Late st Contact Info) Description 07/05/2022 Refill [place] [phone] Candace Vance MD [facility] [place] [address] Lupus Social History Tobacco Use Types Packs/Day [...] 3:30 PM EDT Office [place] [phone] Candace Vance MD [facility] [place] [address] documented as of this encounter Visit Diagnoses Diagnosis Lupus Systemic lupus erythematosus documented in this encounter Care Teams Manager Life Relationship Specialty Start Date End Date Rebecca Lewis DO [address] [place] [address] PCP - General Family Medicine 06/02/21 documented as of this encounter
--- OUTSIDE RECORDS SUMMARY | 2024-01-30 16:00 | XMS_ITS | Encounter Summary ---
Author Organization [facility] [place] [address] Care Team Providers Care Automobile Mechanic Supervisor Name Role Phone Rebecca Lewis Primary Care Provider +1- [phone] Reason for Visit * Reason Comments Medication Refill Encounter Details Date Type Department Care Team (Late st Contact Info) Description 12/18/2019 [place] [phone] Cyndie Osei MD [facility] [place] [address] Social History Tobacco Use Types Packs/Day Years [...] 3:30 PM EDT [place] [phone] Candace Vance MD [facility] [place] [address] documented as of this encounter Visit Diagnoses Not on filedocumented in this encounter Care Teams Automobile Mechanic Supervisor Relationship Specialty Start Date End Date Rebecca Lewis DO [address] [place] [address] PCP - General Family Medicine 06/02/21 documented as of this encounter
--- OUTSIDE RECORDS SUMMARY | 2024-01-30 16:00 | XMS_ITS | Encounter Summary ---
Author Organization [facility] [place] [address] Care Team Providers Care Engineer Intern Name Role Phone DebbieArianabreanna Carranza DO Primary Care Provider +1- [phone] Encounter Details Date Type Department Care Team (Late st Contact Info) Description 07/06/2022 [place] [address] Kayla Charlton OD [facility] [place] [address] Social History Tobacco Use Types Packs/Day Years [...] 3:30 PM EDT Office [place] [phone] Candace Vance MD [facility] [place] [address] documented as of this encounter Visit Diagnoses Not on filedocumented in this encounter Care Teams Engineer Intern Relationship Specialty Start Date End Date Rebecca Lewis DO [address] [place] [address] PCP - General Family Medicine 06/02/21 documented as of this encounter
--- OUTSIDE RECORDS SUMMARY | 2024-01-30 16:00 | XMS_ITS | Encounter Summary ---
Author Organization [facility] [place] [address] Care Team Providers Care Energy Project Manager Name Role Phone Cara Lopez Vernon WALDEN Primary Care Provider [phone] Reason for Visit * Reason Comments Follow-up Encounter Details Date Type Department Care Team (Late st Contact Info) Description 04/05/2021 2:00 PM EDT Office [place] [address] Candace Vance MD [facility] [place] [address] Lupus; Sjogren syndrome, unspecified Social History Tobacco [...] Sign Reading Time Taken Comments Blood Pressure 133/87 04/05/2021 1:51 PM EDT Pulse 80 04/05/2021 1:51 PM EDT Temperature 36.7 ??C (98 ??F) 04/05/2021 1:5 1 PM EDT Respiratory Rate 16 04/05/2021 1:51 PM EDT Oxygen Saturation 98% 04/05/2021 1:5 1 PM EDT Inhaled Oxygen Concentration - - Weight 121.6 kg (268 lb 1.6 oz) 021 1:51 PM EDT with shoes Height 177.8 cm (5' 10) 04/05/2021 1:5 1 PM EDT Body Mass Index 38.47 04/05/2021 1:51 PM EDT documented in this encounter Progress Notes * RajivBenedict [email or web address] - 04/05/2021 2:00 PM EDT Rheumatology Outpatient Follow Up Note PCP: IRAM Harris Agnes Martinez is a 41 y.o. female who we are seeing for the continuing management of lupus. Rheum History: #Sjogren's disease and Lupus - diagnosed 2011 at [place] w/ Sicca, joint pain, peripheral neuropathy - [...] eDH Interval History: Patient reports feeling well except for worsening dry mouth and dry eyes symptoms. She stopped taking hydroxychloroquine but resumed taking it after she got Covid infection a few months ago. She has been on cevimeline which she takes 2 times a day and has also been using Biotene. No joint pain, rash, prolonged morning stiffness or shortness of breath reported. ROS (positives in bold): Gen: No fevers, no chills, no night sweats Pulm: No SOB and no cough CV: No chest pain Abd: No abd pain, no nausea, no vomiting, no diarrhea MSK: See HPI Physical exam: BP 133/87 Pulse 80 Temp 36.7 ??C (98 ??F) (Temporal) Resp 16 Ht 177.8 cm (5' 10) Wt 121.6 kg (268 lb 1.6 oz) Comment: with shoes SpO2 98% BMI 38.47 kg/m?? Gen: Well appearing, alert and oriented [...] MTP compression tenderness Labs/Studies: Previous labs reviewed Assessment: Dilia Martinez is a 41 y.o. female with the PMH of Sjogren's (on??evoxac, biotene and eye drops) and lupus on HCQ 200 mg/d who is presenting for follow- up.?? Last seen in 03/2020. Denies any rash, prolonged morning stiffness, joint pain/swelling, fever or shortness of breath butreports worsening sicca symptoms. Physical examination today does not show any evidence of synovitis, rash or skin thickening. Takes cevimeline 2 times daily along with as needed Biotene. She uses artificial tears for dry eyes. Discussed the treatment options with the patient. Patient is agreeable to go up on the cevimeline dosing to 3 times daily and to also go up on the hydroxychloroquine to 200 mg twice daily dosing. She also uses diclofenac 75 mg daily and she has been using this for more than 8 years. Advised herto take this as needed only and educated her about the side effects related to chronic use of NSAIDs. Plan: -Check CBC, CMP, ESR, CRP, complements, antidouble-stranded DNA antibody, UA and urine protein/creatinine ratio. -Go up on hydroxychloroquine 200 mg twice daily. -Increase the dose of cevimeline to 3 times daily. -Follow-up with ophthalmology for hydroxychloroquine toxicity monitoring and dry eyes issue. -EKG today to monitor QTC while on hydroxychloroquine, citalopram and as needed Zofran. Follow-up in 6 months. Patient was discussed with Dr. Maurer. Candace Vance MD Rheumatology Fellow Pager: [phone] * Amando Maurer MD - 04/05/2021 2:00 PM EDT The patient's history was reviewed with Dr. Vance at the time of the visit. I agree with his summary, findings, and plan. Diagnosis: SLE/seronegative Sjogren's syndrome Plan: Continue hydroxychloroquine and cevimeline. Can increase the sialagogue to 3 times daily. Amando Maurer MD Staff Clinical Administrator documented in this encounter Plan of Treatment Upcoming Encounters Date Type Department Care Team (Late st Contact Info) Description 02/13/2024 3:30 PM EDT Office [place] [address] Candace Vance MD [facility] [address] documented as of this encounter Procedures Procedure Name Priority Date/Time Associated Diagnosis Comments HC PROTEIN, QUANTITATIVE, URINE Routine 04/05/2021 3:00 PM EDT Lupus URINALYSIS WITH REFLEX CULTURE Routine 04/05/2021 3:00 PM EDT Lupus HC C-REACTIVE PROTEIN Routine 04/05/2021 2:51 PM EDT Lupus HC PCH DNA AB DS ([place]) Routine 04/05/2021 2:51 PM EDT Lupus HEMOGRAM Routine 04/05/2021 2:51 PM EDT Lupus DIFFERENTIAL, AUTOMATED Routine 04/05/2021 2:51 PM EDT Lupus HC ESR-SEDIMENTATION RATE, BLOOD Routine 04/05/2021 2:51 PM EDT Lupus HC CBC,PLT & AUTO DIFF Routine 2:51 PM EDT Lupus HC COMPLEMENT,C3 SERUM Routine 2:51 PM EDT Lupus HC COMPLEMENT C4, PLASMA Routine 04/05/2021 2:51 PM EDT Lupus COMPREHENSIVE METABOLIC PANEL Routine 04/05/2021 2:51 PM EDT Lupus EKG 12-LEAD Routine 04/05/2021 2:28 PM EDT Lupus documented in this encounter Results * Urinalysis with reflex Culture (04/05/2021 3:00 PM EDT) Glucose, Urine Dipstick Negative Negative mg/dL [facility] Protein, Urine Dipstick Negative Negative mg/dL [facility] Bilirubin, Urine Dipstick Negative Negative mg/dL [facility] Comment: Clinical correlation required for positive Urine Bilirubin results as false positive may occur with some drugs and drug related products. If a false positive is suspected a serum total bilirubin should be considered if clinically indicated. Urobilinogen, Urine Dipstick Normal Normal mg/dL [facility] pH, Urn (dipstick) 5.5 5.0 - 8.0 [facility] Blood, Urine Dipstick Negative Negative mg/dL [facility] Ketone, Urine Dipstick Negative Negative mg/dL [facility] Nitrite, Urine Dipstick Negative Negative [facility] Leukocytes, Urine Dipstick Negative Negative [facility] Appearance, Urine Dipstick Clear Clear [facility] Specific [place] Urine Automated 1.019 1.005 - 1.030 [facility] Color, Urine Dipstick Yellow Yellow [facility] Reflex to Culture No [facility] Urine NS 04/05/2021 3:00 PM EDT 04/05/2021 3:07 PM EDT Narrative Resulting Agency Comment Spec In Lab Amando Maurer MD URINE ORDERABLES Performing Organization Address [facility] [place]/[facility] Co de Phone Number [facility] [place] [address] * Protein/Creatinine Ratio, urine (04/05/2021 3:00 PM EDT) Creatinine, Urine 75 mg/dL [facility] Protein, Urine <6 0 - 12 mg/dL [facility] Protein / Creatinine Ratio, Urine <0.1 ratio [facility] Urine 04/05/2021 3:00 PM EDT 04/05/2021 3:08 PM EDT Narrative Resulting Agency Comment Spec In Lab Amando Maurer MD URINE ORDERABLES Performing Organization Address [facility] [place]/[facility] Co de Phone Number [facility] [place] [address] * Differential, Automated (04/05/2021 2:51 PM EDT) Neutrophil % 58.7 % [facility] Neutrophil Absolute 4.65 1.70 - 6.10 x10(3)/[facility] Lymph % 31.4 % [facility] Lymphocytes Abs 2.5 0.9 - 3.2 x10(3)/[facility] Monocyte % 5.7 % [facility] Monocyte Abs 0.4 0.3 - 0.9 x10(3)/[facility] Eos % 3.2 % [facility] Eosinophils Abs 0.2 0.0 - 0.4 x10(3)/[facility] Basophil % 0.9 % [facility] Baso Absolute 0.1 0.0 - 0.1 x10(3)/[facility] Immature Gran % 0.10 % [facility] Comment: Immature granulocytes(IG's)percentage and absolute count will include metamyelocytes, myelocytes, and promyelocytes. Blood smears from CBCs yielding IG's will be scanned manually for concordance. If this scan disagrees with the automated IG or if promyelocytes are noted, a manual differential will be performed. Immature Gran Absolute 0.01 0.00 - 0.04 x10(3)/[facility] Blood 04/05/2021 2:51 PM EDT 04/05/2021 2:59 PM EDT Narrative Resulting Agency Comment Spec In Lab Candace Vance MD HEMATOLOGY ORDERABL ES [facility] [place] [address] * (ABNORMAL) Hemogram (04/05/2021 2:51 PM EDT) White Blood Cell 7.9 4.0 - 9.5 x10(3)/ L [facility] Red Blood Cell 5.39(H) 4.00 - 5.21 x10(6)/mc L [facility] Hemoglobin 13.1 11.7 - 15.5 g/dL [facility] Hematocrit 42.1 35.7 - 45.8 % [facility] Mean Cell Volume 78.1(L) 82.6 - 94.4 fL [facility] Mean Cell Hemoglobin 24.3(L) 27.1 - 32.0 pg [facility] Mean Cell Hemoglobin Concentration 31.1(L) 31.7 - 35.0 g/dL [facility] Platelet 478(H) 145 - 357 x10(3)/mc L [facility] RDW Standard Deviation 45.1 37.0 - 46.0 fL [facility] RDW coefficient of variation 15.9(H) 11.5 - 14.1 % [facility] Mean Platelet Volume 9.3 7.6 - 12.9 fL [facility] NRBC% auto 0.0 % [facility] NRBC Absolute 0.000 0.000 - 0.000 x10(3)/mc L [facility] Blood 04/05/2021 2:51 PM EDT 04/05/2021 2:59 PM EDT Narrative Resulting Agency Comment Spec In Lab Cadnace Vance MD HEMATOLOGY ORDERABL ES Performing Organization Address [facility] [place]/[facility] Co de Phone Number [facility] [place] [address] * DNA Antibody (Double-Stranded) (04/05/2021 2:51 PM EDT) dsDNA Ab <12.3 <30.0 (Negative) IU/mL [facility] Comment: Negative for dsDNA antibody by enzyme immunoassay. No further testing recommended. Test Performed by: [place] [address] Outreach Associate: Hiro Edouard M.D. Ph.D.; CLIA# [id number] Blood 04/05/2021 2:51 PM EDT 04/05/2021 4:11 PM EDT Narrative Resulting Agency Comment Spec In Lab Amando Maurer MD LAB SEND OUT ORDERAB LES Performing Organization Address City/[facility]/ZIP Co de Phone Number [facility] [place] [address] * (ABNORMAL) CRP, acute inflammation (04/05/2021 2:51 PM EDT) C-Reactive Protein 9.8(H) <=4.9 mg/L [facility] Blood 04/05/2021 2:51 PM EDT 04/05/2021 2:59 PM EDT Narrative Resulting Agency Comment Spec In Lab Amando Maurer MD CHEMISTRY ORDERABLES Performing Organization Address City/[facility]/ZIP Co de Phone Number [facility] [place] [address] * (ABNORMAL) Sedimentation rate (04/05/2021 2:51 PM EDT) Sedimentation Rate Automated 50(H) 2 - 37 mm/hr [facility] Comment: Effective June 05, 2019 new capillary photometric technology has resulted in a change in reference ranges. It is recommended that each ESR result be reviewed with its own age appropriate reference range. Blood 04/05/2021 2:51 PM EDT 04/05/2021 2:59 PM EDT Narrative Resulting Agency Comment Spec In Lab Amando Maurer MD HEMATOLOGY ORDERABLE S Performing Organization Address City/[facility]/ZIP Co de Phone Number [facility] [place] [address] * C4 Complement (04/05/2021 2:51 PM EDT) Complement C4 23 10 - 40 mg/dL [facility] Blood 04/05/2021 2:51 PM EDT 04/05/2021 2:59 PM EDT Narrative Resulting Agency Comment Spec In Lab Amando Maurer MD CHEMISTRY ORDERABLES Performing Organization Address City/[facility]/ZIP Co de Phone Number [facility] [place] [address] * C3 Complement (04/05/2021 2:51 PM EDT) Complement C3 158 90 - 180 mg/dL [facility] Blood 04/05/2021 2:51 PM EDT 04/05/2021 2:59 PM EDT Narrative Resulting Agency Comment Spec In Lab Amando Maurer MD CHEMISTRY ORDERABLES [facility] [place] [address] * (ABNORMAL) Comprehensive metabolic panel (non-fasting) (04/05/2021 2:51 PM EDT) Glucose 91 65 - 199 mg/dL [facility] Comment:Diabetes: >=200 mg/d L plus symptoms Blood Urea Nitrogen 14 8 - 18 mg/dL [facility] Creatinine 0.71 0.70 - 1.20 mg/dL [facility] Sodium 138 135 - 145 mmol/L [facility] Potassium 4.0 3.5 - 5.0 mmol/L [facility] Comment: Please note: ??Patients with WBC >100,000 may have falsely elevated Potassium levels. ??For accurate Potassium quantification in these patients send serum separator tube (gold top) for subsequent determinations. ??Contact the Clinical Chemistry Laboratory if there are any questions. Chloride 102 98 - 107 mmol/L [facility] Carbon Dioxide 27 22 - 31 mmol/L [facility] Anion Gap 9 5 - 15 mmol/L [facility] Calcium 9.2 8.5 - 10.5 mg/dL [facility] Protein, Total 7.4 6.1 - 8.0 g/dL [facility] Albumin 4.6 3.2 - 5.2 g/dL [facility] Aspartate Aminotransferase 9 0 - 30 unit/L [facility] Alanine Aminotransferase 14 0 - 30 unit/L [facility] Alkaline Phosphatase 122(H) 35 - 105 unit/L [facility] Bilirubin, Total 0.2 0.2 - 1.3 mg/dL [facility] Est Glomerular Filtration Rate 104 >=60 mL/min/1. 73 m?? [facility] Comment: This patient? s estimated glomerular filtration rate (eGFR) is between 104 mL/min/1.73 m2 (patients with less muscle mass) and 121 mL/min/1.73 m2 (patients with more muscle mass) [...] and symptoms in addition to eGFR. Blood 04/05/2021 2:51 PM EDT 04/05/2021 2:59 PM EDT Narrative Resulting Agency Comment Spec In Lab Amando Maurer MD CHEMISTRY ORDERABLES [facility] [place] [address] * EKG 12 Lead (04/05/2021 2:28 PM EDT) Ventricular rate 77 BPM MUSE SYSTEM Atrial Rate 77 BPM MUSE SYSTEM P-R Interval 148 ms MUSE SYSTEM QRS Duration 96 ms MUSE SYSTEM Q-T Interval 396 ms MUSE SYSTEM QTC Calculated (Bezet) 448 ms MUSE SYSTEM Calculated P [place] 60 degrees MUSE SYSTEM Calculated R [place] 65 degrees MUSE SYSTEM Calculated T [place] 38 degrees MUSE SYSTEM INTERPRETATION Normal sinus rhythm Normal ECG No previous ECGs available Confirmed by MD Shari, Ajith Daniels ([id number]) on 04/05/2021 8:37:32 PM MUSE SYSTEM 04/05/2021 2:28 PM EDT 04/05/2021 8:37 PM EDT Amando Maurer MD ECG ORDERABLES MUSE SYSTEM documented in this encounter Visit Diagnoses Diagnosis Lupus Systemic lupus erythematosus Sjogren syndrome, unspecified documented in this encounter Care Teams Energy Project Manager Relationship Specialty Start Date End Date Cara Lopez APRN [address] [place] [address] PCP - General Internal Medicine 07/07/20 06/01/21 documented as of this encounter
--- OUTSIDE RECORDS SUMMARY | 2024-01-30 16:00 | XMS_ITS | Encounter Summary ---
Author Organization [facility] Address [facility] [place] [address] Care Team Providers Care Environmental Compliance Technician Name Role Phone NatyRebecca weinberg Dillon DURAN Primary Care Provider [phone] Encounter Details Date Type Department Care Team (Late st Contact Info) Description 07/13/2022 [place] [address] Kayla Charlton OD [facility] [place] [address] Social History Tobacco Use Types Packs/Day Years [...] encounter Miscellaneous Notes * Telephone Encounter - Moris Mancilla - 07/22/2022 2:56 PM EST Made second call to patient. Left second message for patient to schedule. Will Send Letter. Return in about 1 year (around 07/11/2023) for CEE, OCT-macula/retina. ?? RTC 4 weeks for HVF 10-2 (stand alone). On day of rheum appt at [facility] * Telephone Encounter - Moris Mancilla - 07/13/2022 11:25 AM EST Made 1st call to patient. Left Message. Will contact in one week. Return in about 1 year (around 07/11/2023) for CEE, OCT-macula/retina. RTC 4 weeks for HVF 10-2 (stand alone). On day of rheum appt at [facility] documented in this encounter Plan of Treatment Upcoming Encounters Date Type Department Care Team (Late st Contact Info) Description 02/13/2024 3:30 PM EDT Office [place] [address] Candace Vance MD [facility] [place] [address] documented as of this encounter Visit Diagnoses Not on filedocumented in this encounter Care Teams Environmental Compliance Technician Relationship Specialty Start Date End Date Rebecca Lewis DO [address] [place] [address] PCP - General Family Medicine 06/02/21 documented as of this encounter
--- OUTSIDE RECORDS SUMMARY | 2024-01-30 16:00 | XMS_ITS | Encounter Summary ---
Author Organization [facility] [place] [address] Care Team Providers Care Chiropractic Physician Name Role Phone Rebecca Lewis DO Primary Care Provider [phone]- [phone] Reason for Referral * Consultation (Routine) - Closed Specialty Diagnoses / Procedures Referred By Lay jose Referred To Contact Ophthalmology Diagnoses Lupus Candace Vance MD [facility] [place] [address] Kayla Charlton OD [facility] [place] [address] Referral ID Status Reason Start Date Expiration Date V isits Requested Visits Authorized [id number] Closed Consult, Test & Treat 10/04/2021 10/04/2022 1 1 Encounter Details Date Type Department Care Team (Late st Contact Info) Description 10/04/2021 10:00 AM EDT [place] [address] Candace Vance MD [facility] [address] Lupus Social History Tobacco Use Types Packs/Day [...] Sign Reading Time Taken Comments Blood Pressure 124/74 10/04/2021 10:01 AM EDT Pulse 90 10/04/2021 10:01 AM EDT Temperature 36.2 ??C (97.1 ??F) 10/04/2021 10:01 AM E DT Respiratory Rate - - Oxygen Saturation 99% 10/04/2021 10:01 AM EDT Inhaled Oxygen Concentration - - Weight 123.4 kg (272 lb) 10/04/2021 10:01 AM EDT Height 177.8 cm (5' 10) 10/04/2021 10:01 AM EDT Body Mass Index 39.03 10/04/2021 10:01 AM EDT documented in this encounter Progress Notes * Candace Vance - 10/04/2021 10:00 AM EDT Rheumatology Outpatient Follow Up Note PCP: DO Dilia Alonsoy Juan is a 41 y.o. female who we are seeing for the continuing management of lupus. Rheum History: #Sjogren's disease and Lupus - diagnosed 2011 at [place] w/ Sicca, joint pain, peripheral neuropathy - [...] in eDH Interval History: Patient reports feeling well. She thinks her sicca symptoms are better after going up on the hydroxychloroquine dosing. She denies prolonged morning stiffness, joint redness/swelling, rash, hair loss, frequent oral/nasal ulceration, shortness of breath, chest pain or fever. ROS (positives in bold): Gen: No fevers, no chills, no night sweats Pulm: No SOB and no cough CV: No chest pain Abd: No abd pain, no nausea, no vomiting, no diarrhea MSK: See HPI Physical exam: BP 124/74 Pulse 90 Temp 36.2 ??C (97.1 ??F) (Temporal) Ht 177.8 cm (5' 10) Wt 123.4 kg (272 lb) SpO2 99% BMI 39.03 kg/m?? Gen: Well appearing, alert and oriented [...] effusion Feet: no MTP compression tenderness Labs/Studies: Recent Results (from the past 24 hour(s)) Hemogram Result Value Ref Range WBC 7.9 4.0 - 9.5 x10(3)/mcL RBC 5.36 (H) 4.00 - 5.21 x10(6)/mcL Hemoglobin 13.7 11.7 - 15.5 g/dL Hematocrit 43.9 35.7 - 45.8 % MCV 81.9 (L) 82.6 - 94.4 fL MCH 25.6 (L) 27.1 - 32.0 pg MCHC 31.2 (L) 31.7 - 35.0 g/dL Platelets 432 (H) 145 - 357 x10(3)/mcL RDWSD 44.8 37.0 - 46.0 fL RDWCV 14.9 (H) 11.5 - 14.1 % MPV 9.4 7.6 - 12.9 fL nRBC % Auto 0.0 % nRBC Abs Auto 0.000 0.000 - 0.000 x10(3)/mcL Differential, Automated Result Value Ref Range Neutrophils % 61.1 % Neutr Abs (ANC) 4.81 1.70 - 6.10 x10(3)/mcL Lymphocytes % 28.0 % Lymphocytes Abs 2.2 0.9 - 3.2 x10(3)/mcL Monocytes % 6.5 % Monocyte Abs 0.5 0.3 - 0.9 x10(3)/mcL Eosinophils % 3.0 % Eosinophils Abs 0.2 0.0 - 0.4 x10(3)/mcL Basophils % 1.1 % Basophils Abs 0.1 0.0 - 0.1 x10(3)/mcL Immature Gran % 0.30 % Disha Gran Abs 0.02 0.00 - 0.04 x10(3)/mcL Previous labs reviewed Current Immunizations Name Date Covid-19 100mcg 10/13/2020 , 09/15/2020 INFLUENZA 02/14/2020 , 05/06/2019 , 03/04/2018 , 04/06/2016 TD 11/10/2013 Assessment: Dilia Martinez is a 41 y.o. female with the PMH of Sjogren's (on??evoxac, biotene and eye drops) and lupus on HCQ 400 mg/d who is presenting for follow-up.?? Denies any rash, prolonged morning stiffness, joint pain/swelling, fever or shortness of breath. Physical examination today does not show any evidence of synovitis, rash or skin thickening. Last visit, we went up on HCQ to 400 mg daily and cevimeline to TID. She uses artificial tears for dry eyes. Her ESR and CRP have been elevated chronically. Not sure about the etiology. She does not seem to have any active lupus symptoms and physical examination is unremarkable as well. We will repeat labs today. Plan: -Check CBC, CMP, ESR, CRP, complements, antidouble-stranded DNA antibody, UA and urine protein/creatinine ratio. -Continue hydroxychloroquine 200 mg twice daily. -Continue cevimeline 3 times daily. -Follow-up with ophthalmology for hydroxychloroquine toxicity monitoring and dry eyes issue. Follow-up in 3 months. Patient was discussed with Dr. Elizabeth. Candace Vance MD Rheumatology Fellow Pager: [phone] documented in this encounter Plan of Treatment Upcoming Encounters Date Type Department Care Team (Late st Contact Info) Description 02/13/2024 3:30 PM EDT Office [place] [address] Candace Vance MD [facility] [place] [address] Scheduled Referrals Name Type Priority Associated Diagnoses Order Schedule Referral to Ophthalmology Outpatient Referral Routine Lupus Ordered: 10/04/2021 documented as of this encounter Procedures Procedure Name Priority Date/Time Associated Diagnosis Comments URINALYSIS MICROSCOPIC EXAM Routine 10/04/2021 11:00 AM EDT URINALYSIS WITH REFLEX CULTURE Routine 10/04/2021 11:00 AM EDT Lupus URINE CULTURE Routine 10/04/2021 11:00 AM EDT HC C-REACTIVE PROTEIN Routine 10/04/2021 10:56 AM EDT Lupus HC PCH DNA AB DS ([place]) Routine 10/04/2021 10:56 AM EDT Lupus HEMOGRAM Routine 10/04/2021 10:56 AM EDT Lupus DIFFERENTIAL, AUTOMATED Routine 10/04/2021 10:56 AM EDT Lupus HC ESR-SEDIMENTATION RATE, BLOOD Routine 10/04/2021 10:56 AM EDT Lupus HC CBC,PLT & AUTO DIFF Routine 10:56 AM EDT Lupus HC COMPLEMENT,C3 SERUM Routine 10:56 AM EDT Lupus HC COMPLEMENT C4, PLASMA Routine 10/04/2021 10:56 AM EDT Lupus COMPREHENSIVE METABOLIC PANEL Routine 10/04/2021 10:56 AM EDT Lupus documented in this encounter Results * (ABNORMAL) Urine culture (10/04/2021 11:00 AM EDT) Urine Culture 50,000-99,000 cfu/ml mixed mucosal saeed Note: Culture shows multiple bacterial species suggesting mucosal contamination. If symptoms continue to indicate urinary tract infection, submit a new specimen. (A) [facility] Urine NS 10/04/2021 11:0 0 AM EDT 10/04/2021 12:04 PM EDT Narrative Resulting Agency Comment Spec In Lab Candace Vance MD MICROBIOLOGY - GENE RAL ORDERABLES Performing Organization Address City/[facility]/ZIP Co de Phone Number [facility] [place] [address] * (ABNORMAL) Urinalysis Microscopic Exam (10/04/2021 11:00 AM EDT) Pathologist [facility] RBC, Urine 79(H) 0 - 4 /HPF [facility] WBC, Urine 20(H) 0 - 5 /HPF [facility] Bacteria, Urine Rare(A) None /HPF [facility] Squamous Epithelial Cells Raw Data, Urine 2 <=4 /HPF [facility] Hyaline Casts, Urine 2 0 - 2 /LPF [facility] Urine NS 10/04/2021 11:0 0 AM EDT 10/04/2021 11:15 AM EDT Narrative Resulting Agency Comment Spec In Lab Candace Vance MD URINE ORDERABLES Performing Organization Address City/[facility]/ZIP Co de Phone Number [facility] [place] [address] * (ABNORMAL) Urinalysis with reflex Culture (10/04/2021 11:00 AM EDT) Glucose, Urine Dipstick Negative Negative mg/dL [facility] Protein, Urine Dipstick Trace(A) Negative mg/dL [facility] Bilirubin, Urine Dipstick Negative Negative mg/dL [facility] Comment: Clinical correlation required for positive Urine Bilirubin results as false positive may occur with some drugs and drug related products. If a false positive is suspected a serum total bilirubin should be considered if clinically indicated. Urobilinogen, Urine Dipstick Normal Normal mg/dL [facility] pH, Urn (dipstick) 6.0 5.0 - 8.0 [facility] Blood, Urine Dipstick Large(A) Negative mg/dL [facility] Ketone, Urine Dipstick Negative Negative mg/dL [facility] Nitrite, Urine Dipstick Negative Negative [facility] Leukocytes, Urine Dipstick Moderate(A) Negative [facility] Appearance, Urine Dipstick Cloudy(A) Clear [facility] Specific [place] Urine Automated 1.020 1.005 - 1.030 [facility] Color, Urine Dipstick Yellow Yellow [facility] Reflex to Culture Yes [facility] Urine NS 10/04/2021 11:0 0 AM EDT 10/04/2021 11:15 AM EDT Narrative Resulting Agency Comment Spec In Lab Negrita Elizabeth DO URINE ORDERABLES [facility] [place] [address] * Differential, Automated (10/04/2021 10:56 AM EDT) Neutrophil % 61.1 % [facility] Neutrophil Absolute 4.81 1.70 - 6.10 x10(3)/[facility] Lymph % 28.0 % [facility] Lymphocytes Abs 2.2 0.9 - 3.2 x10(3)/[facility] Monocyte % 6.5 % [facility] Monocyte Abs 0.5 0.3 - 0.9 x10(3)/[facility] Eos % 3.0 % [facility] Eosinophils Abs 0.2 0.0 - 0.4 x10(3)/[facility] Basophil % 1.1 % [facility] Baso Absolute 0.1 0.0 - 0.1 x10(3)/[facility] Immature Gran % 0.30 % [facility] Comment: Immature granulocytes(IG's)percentage and absolute count will include metamyelocytes, myelocytes, and promyelocytes. Blood smears from CBCs yielding IG's will be scanned manually for concordance. If this scan disagrees with the automated IG or if promyelocytes are noted, a manual differential will be performed. Immature Gran Absolute 0.02 0.00 - 0.04 x10(3)/[facility] Blood 10/04/2021 10:5 6 AM EDT 10/04/2021 11:06 AM EDT Narrative Resulting Agency Comment Spec In Lab Candace Vance MD HEMATOLOGY ORDERABL ES [facility] [place] [address] * (ABNORMAL) Hemogram (10/04/2021 10:56 AM EDT) White Blood Cell 7.9 4.0 - 9.5 x10(3)/[facility] Red Blood Cell 5.36(H) 4.00 - 5.21 x10(6)/ L [facility] Hemoglobin 13.7 11.7 - 15.5 g/dL [facility] Hematocrit 43.9 35.7 - 45.8 % [facility] Mean Cell Volume 81.9(L) 82.6 - 94.4 fL [facility] Mean Cell Hemoglobin 25.6(L) 27.1 - 32.0 pg [facility] Mean Cell Hemoglobin Concentration 31.2(L) 31.7 - 35.0 g/dL [facility] Platelet 432(H) 145 - 357 x10(3)/mc L [facility] RDW Standard Deviation 44.8 37.0 - 46.0 fL [facility] RDW coefficient of variation 14.9(H) 11.5 - 14.1 % [facility] Mean Platelet Volume 9.4 7.6 - 12.9 fL [facility] NRBC% auto 0.0 % [facility] NRBC Absolute 0.000 0.000 - 0.000 x10(3)/mc L [facility] Blood 10/04/2021 10:5 6 AM EDT 10/04/2021 11:06 AM EDT Narrative Resulting Agency Comment Spec In Lab Candace Vance MD HEMATOLOGY ORDERABL ES [facility] [place] [address] * DNA Antibody (Double-Stranded) (10/04/2021 10:56 AM EDT) dsDNA Ab <12.3 <30.0 (Negative) IU/mL [facility] Comment: Negative for dsDNA antibody by enzyme immunoassay. No further testing recommended. Test Performed by: [facility] - [address] [address] Solar Sales Representative And Assessor: Hiro Edouard M.D. Ph.D.; CLIA# [id number] Blood 10/04/2021 10:5 6 AM EDT 10/04/2021 11:47 AM EDT Narrative Resulting Agency Comment Spec In Lab Negrita Elizabeth DO LAB SEND OUT ORDER TASNEEM Performing Organization Address [facility] Co de Phone Number [facility] [place] [address] * (ABNORMAL) CRP, acute inflammation (10/04/2021 10:56 AM EDT) C-Reactive Protein 8.7(H) <=4.9 mg/L [facility] Blood 10/04/2021 10:5 6 AM EDT 10/04/2021 11:06 AM EDT Narrative Resulting Agency Comment Spec In Lab Negrita Elizabeth DO CHEMISTRY ORDERABL ES Performing Organization Address [facility] de Phone Number [facility] [place] [address] * (ABNORMAL) Sedimentation rate (10/04/2021 10:56 AM EDT) Sedimentation Rate Automated 46(H) 2 - 37 mm/hr [facility] Comment: Effective June 05, 2019 new capillary photometric technology has resulted in a change in reference ranges. It is recommended that each ESR result be reviewed with its own age appropriate reference range. Blood 10/04/2021 10:5 6 AM EDT 10/04/2021 11:06 AM EDT Narrative Resulting Agency Comment Spec In Lab Negrita Elizabeth DO HEMATOLOGY ORDERAB LES Performing Organization Address [facility] Co de Phone Number [facility] [place] [address] * C4 Complement (10/04/2021 10:56 AM EDT) Complement C4 25 10 - 40 mg/dL [facility] Blood 10/04/2021 10:5 6 AM EDT 10/04/2021 11:06 AM EDT Narrative Resulting Agency Comment Spec In Lab Negrita D Glenn DO CHEMISTRY ORDERABL ES [facility] [place] [address] * C3 Complement (10/04/2021 10:56 AM EDT) Complement C3 160 90 - 180 mg/dL [facility] Blood 10/04/2021 10:5 6 AM EDT 10/04/2021 11:06 AM EDT Narrative Resulting Agency Comment Spec In Lab Negrita Elizabeth DO CHEMISTRY ORDERABL ES Performing Organization Address City/[facility]/ZIP Co de Phone Number [facility] [place] [address] * (ABNORMAL) Comprehensive metabolic panel (non-fasting) (10/04/2021 10:56 AM EDT) Pathologist [facility] Glucose 103 65 - 199 mg/dL [facility] Comment:Diabetes: >=200 mg/d L plus symptoms Blood Urea Nitrogen 11 8 - 18 mg/dL [facility] Creatinine 0.69(L) 0.70 - 1.20 mg/dL [facility] Sodium 140 135 - 145 mmol/L [facility] Potassium 4.2 3.5 - 5.0 mmol/L [facility] Comment: Please note: ??Patients with WBC >100,000 may have falsely elevated Potassium levels. ??For accurate Potassium quantification in these patients send serum separator tube (gold top) for subsequent determinations. ??Contact the Clinical Chemistry Laboratory if there are any questions. Chloride 102 98 - 107 mmol/L [facility] Carbon Dioxide 26 22 - 31 mmol/L [facility] Anion Gap 12 5 - 15 mmol/L [facility] Calcium 9.1 8.5 - 10.5 mg/dL [facility] Protein, Total 7.4 6.1 - 8.0 g/dL [facility] Albumin 4.4 3.2 - 5.2 g/dL [facility] Aspartate Aminotransferase 10 0 - 30 unit/L [facility] Alanine Aminotransferase 16 0 - 30 unit/L [facility] Alkaline Phosphatase 118(H) 35 - 105 unit/L [facility] Bilirubin, Total 0.2 0.2 - 1.3 mg/dL [facility] Est Glomerular Filtration Rate 107 >=60 mL/min/1. 73 m?? [facility] Comment: This patient? s estimated glomerular filtration rate (eGFR) is between 107 mL/min/1.73 m2 (patients with less muscle mass) and 124 mL/min/1.73 m2 (patients with more muscle mass) [...] and symptoms in addition to eGFR. Blood 10/04/2021 10:5 6 AM EDT 10/04/2021 11:06 AM EDT Narrative Resulting Agency Comment Spec In Lab Negrita Elizabeth DO CHEMISTRY ORDERABL ES Performing Organization Address City/State/[facility] Co de Phone Number [facility] [place] [address] documented in this encounter Visit Diagnoses Diagnosis Lupus Systemic lupus erythematosus documented in this encounter Care Teams Chiropractic Physician Relationship Specialty Start Date End Date Rebecca Lewis DO [address] [place] [address] PCP - General Family Medicine 06/02/21 documented as of this encounter
--- OUTSIDE RECORDS SUMMARY | 2024-01-30 16:00 | XMS_ITS | Encounter Summary ---
Author Organization [facility] Address [facility] [place] [address] Care Team Providers Care Family Therapist Name Role Phone Rebecca Lewis Primary Care Provider +1- [phone] Reason for Visit * Reason Onset Date Comments Medication Refill 04/16/2020 Encounter Details Date Type Department Care Team (Late st Contact Info) Description 04/16/[address] [facility] [address] [place] [address] Corinna Le MD [facility] [address] [place] [address] Social History Tobacco Use Types Packs/Day Years [...] encounter Miscellaneous Notes * Telephone Encounter - Iesha Steiner LPN - 04/16/2020 7:47 AM EDT Insurance denied econazole cream, reviewed by new order pended for ketoconazole cream for patient. Detailed message left for patient. documented in this encounter Plan of Treatment Upcoming Encounters Date Type Department Care Team (Late st Contact Info) Description 02/13/2024 3:30 PM EDT Office [place] [address] Candace Vance MD [facility] [place] [place] [address] documented as of this encounter Visit Diagnoses Not on filedocumented in this encounter Care Teams Family Therapist Relationship Specialty Start Date End Date Rebecca Lewis DO [address] [place] [address] PCP - General Family Medicine 01/18/18 07/06/20 documented as of this encounter
--- OUTSIDE RECORDS SUMMARY | 2024-01-30 16:01 | XMS_ITS | Encounter Summary ---
Author Organization [facility] [place] [address] Care Team Providers Care Steam Train Driver Name Role Phone Rebecca Lewis Primary Care Provider +1- [phone] Reason for Visit * Reason Onset Date Comments Medication Refill 10/08/2018 Encounter Details Date Type Department Care Team (Late st Contact Info) Description 10/08/2018 [place] [phone] Cyndie Osei MD [facility] [place] [address] Social History Tobacco Use Types Packs/Day Years [...] 3:30 PM EDT Office [place] [phone] Candace Vance MD [facility] [place] [address] documented as of this encounter Visit Diagnoses Not on filedocumented in this encounter Care Teams Steam Train Driver Relationship Specialty Start Date End Date Rebecca Lewis DO [address] [place] [address] PCP - General Family Medicine 01/18/18 07/06/20 documented as of this encounter
--- OUTSIDE RECORDS SUMMARY | 2024-01-30 16:01 | XMS_ITS | Encounter Summary ---
Author Organization [facility] Address [facility] [place] [address] Care Team Providers Care Animal Skinner Name Role Phone OctaviaRebecca navarro Dillon DURAN Primary Care Provider +1- [phone] Encounter Details Date Type Department Care Team (Latest Contact Info) Description 08/01/2018 8:05 AM EST - 08/01/2018 11:59 PM [facility] Hospital [place] [address] Claire Gordillo MD [facility] [address] [place] [address] Left axillary pain Discharge Disposition: Home Social History Tobacco Use [...] on file documented as of this encounter Medications at Time of Discharge Medication Sig Dispensed Refills Start Date End Date EPINEPHrine 0.3 mg/0.3 mL Auto-Injector Inject into the muscle. 01/15/2018 escitalopram (LEXAPRO) 10 mg Tablet Take 10 mg by mouth daily. 10/25/2017 fluticasone (FLONASE) 50 mcg/actuation [place], Suspension Daily 08/21/2015 ondansetron (ZOFRAN) 4 mg [...] 10 mg by mouth daily as needed. hydroxychloroquine (PLAQUENIL) 200 mg Tablet Take by mouth daily. 10/08/2018 norethindrone (AYGESTIN) 5 mg Tablet 1 tab by mouth every 6 hours for 2 days then 1 tab every 8 hours for 2 days then 1 tab every 12 hours for 2 days then daily thereafter. 90 tablet 1 05/23/2018 05/12/2020 norethindrone (MICRONOR) 0.35 mg TabletIndications:Abnor mal uterine bleeding Take 1 tablet by mouth daily. 84 tablet 3 04/11/2018 05/12/2020 diclofenac (VOLTAREN) 75 mg Tablet, Delayed Release (E.C.) Take 1 tablet by mouth 2 times daily. 60 tablet 5 02/27/2018 11/08/2018 cholecalciferol, Vitamin D3, 2,000 unit Capsule Daily 01/21/2015 05/12/2020 pregabalin (LYRICA) 150 mg Capsule Daily 01/21/2015 10/04/2021 cevimeline (EVOXAC) 30 mg Capsule Take one capsule by mouth three times a day as needed. 90 capsule 5 10/16/2017 09/04/2018 traZODone (DESYREL) 50 mg Tablet TAKE ONE TABLET BY MOUTH AT BEDTIME NEEDED 3 04/06/2016 05/12/2020 documented as of this encounter Plan of Treatment Upcoming Encounters Date Type Department Care Team (Late st Contact Info) Description 02/13/2024 3:30 PM EDT Office Visit Rheumatology at [facility] [place] [address] Candace Vance MD [facility] [place] [address] documented as of this encounter Procedures Procedure Name Priority Date/Time Associated Diagnosis Comments MAMMO US AXILLA LEFT Routine 08/01/2018 8:44 AM EST Left axillary pain documented in this encounter Results * Mammo US Axilla Left (08/01/2018 8:44 AM EST) Anatomical Region Laterality Modality Breast Left Mammography Impressions 08/01/2018 9:07 AM EST No [...] report, please contact the number below. ? Electronically signed by: Faith Fisher [facility] ([phone]), at 08/01/2018 9:07 AM Narrative 08/01/2018 9:07 AM EST EXAMINATION: MAMMO US AXILLA LEFT, MAMMO DIAGNOSTIC CAD AND ELSIE BILATERAL CLINICAL HISTORY: Patient with pain in [...] length. Claire Gordillo MD IMG MAMMO ORDERABLES documented in this encounter Visit Diagnoses Diagnosis Left axillary pain Pain in limb documented in this encounter Care Teams Animal Skinner Relationship Specialty Start Date End Date Rebecca Lewis DO [address] [place] [address] PCP - General Family Medicine 01/18/18 07/06/20 documented as of this encounter
--- OUTSIDE RECORDS SUMMARY | 2024-01-30 16:01 | XMS_ITS | Encounter Summary ---
Author Organization [facility] [place] [address] Care Team Providers Care Benzene Still Utility Operator Name Role Phone DebbieRebecca Dillon DURAN Primary Care Provider +1- [phone] Encounter Details Date Type Department Care Team (Late st Contact Info) Description 01/19/2018 Telephone Obstetrics [place] [address] Shakira Otoole APRN [facility] [address] OBSTETRICS [place] [address] Social History Tobacco Use Types Packs/Day Years [...] encounter Miscellaneous Notes * Telephone Encounter - Shakira Otoole APRN - 01/19/2018 3:40 PM EDT Called Dilia with normal labs from today's visit. Will see her as scheduled on Monday for her SHG. SHAKIRA OTOOLE APRN 01/19/2018 documented in this encounter Plan of Treatment Upcoming Encounters Date Type Department Care Team (Late st Contact Info) Description 02/13/2024 3:30 PM EDT Office [place] [address] Candace Vance MD [facility] [place] [address] documented as of this encounter Visit Diagnoses Not on filedocumented in this encounter Care Teams Benzene Still Utility Operator Relationship Specialty Start Date End Date Rebecca Lewis DO [address] [place] [address] PCP - General Family Medicine 01/18/18 07/06/20 documented as of this encounter
--- OUTSIDE RECORDS SUMMARY | 2024-01-30 16:01 | XMS_ITS | Encounter Summary ---
Author Organization [facility] [place] [address] Care Team Providers Care Esthetic Dermatologist Name Role Phone Unavailable Primary Care Provider Unavailabl e Reason for Visit * Reason Onset Date Comments Medication Refill 01/10/2017 Encounter Details Date Type Department Care Team (Late st Contact Info) Description 01/10/2017 [place] [address] Kary Thomas MA Social History Tobacco Use Types Packs/Day Years Used Date Smoking Tobacco: Never Smokeless Tobacco: Never Sex and Gender Information Value Date Recorded Sex Assigned at Not on file Gender Identity Not on file Sexual Orientation Not on file documented as of this encounter Plan of Treatment Upcoming Encounters Date Type Department Care Team (Late st Contact Info) Description 02/13/2024 3:30 PM EDT Office [place] [address] Candace Vance MD [facility] [place] [address] documented as of this encounter Visit Diagnoses Not on filedocumented in this encounter
--- OUTSIDE RECORDS SUMMARY | 2024-01-30 16:01 | XMS_ITS | Encounter Summary ---
Author Organization [facility] [place] [address] Care Team Providers Care Telephone Mechanic Name Role Phone Unavailable Primary Care Provider Unavailabl e Reason for Visit * Reason Comments Medication Refill Encounter Details Date Type Department Care Team (Late st Contact Info) Description 05/29/2016 Ref[place] [address] Eulogio Tavares MD [facility] [place] [address] Social History Tobacco Use Types Packs/Day Years Used Date Smoking Tobacco: Never Sex and Gender Information Value Date Recorded Sex Assigned at Not on file Gender Identity Not on file Sexual Orientation Not on file documented as of this encounter Plan of Treatment Upcoming Encounters Date Type Department Care Team (Late st Contact Info) Description 02/13/2024 3:30 PM EDT Office [place] [address] Candace Vance MD [facility] [place] [address] documented as of this encounter Visit Diagnoses Not on filedocumented in this encounter
--- OUTSIDE RECORDS SUMMARY | 2024-01-30 16:01 | XMS_ITS | Encounter Summary ---
Author Organization [facility] Address [facility] [address] Care Team Providers Care Natural Resources Technician Name Role Phone OctaviaRebecca navarro Dillon DURAN Primary Care Provider +1- [phone] Encounter Details Date Type Department Care Team (Latest Contact Info) Description 01/23/2018 2:44 PM EDT - 01/23/2018 11:59 PM EDT Hospital Encounter [place] [phone] Shakira Otoole, [facility] OBSTETRICS [place] [address] Prolonged menstruation; Menorrhagia with regular cycle Discharge Disposition: Home Social History Tobacco Use [...] mouth daily. 10/25/2017 fluticasone (FLONASE) 50 mcg/actuation Christine, Suspension Daily 08/21/2015 ondansetron (ZOFRAN) 4 mg [...] 10 mg by mouth daily as needed. cholecalciferol, Vitamin D3, 2,000 unit Capsule Daily 01/21/2015 05/12/2020 pregabalin (LYRICA) 150 mg Capsule Daily 01/21/2015 10/04/2021 norethindrone (AYGESTIN) 5 mg Tablet Take 1 tab by mouth every 4-6 hours until bleeding stops, then 3x day for 1 week, then 2x day for 1 week, then daily until U/S. 90 tablet 1 01/19/2018 04/11/2018 cevimeline (EVOXAC) 30 mg Capsule Take one capsule by mouth three times a day as needed. 90 capsule 5 10/16/2017 09/04/2018 diclofenac (VOLTAREN) 75 mg Tablet, Delayed Release (E.C.) TAKE ONE TABLET BY MOUTH TWICE A DAY 60 tablet 5 09/21/2016 02/27/2018 traZODone (DESYREL) 50 mg Tablet TAKE ONE TABLET BY MOUTH AT BEDTIME NEEDED 3 04/06/2016 05/12/2020 documented as of this encounter Plan of Treatment Upcoming Encounters Date Type Department Care Team (Late st Contact Info) Description 02/13/2024 3:30 PM EDT Office [place] [address] Candace Vance MD [facility] [place] [place] [address] documented as of this encounter Procedures Procedure Name Priority Date/Time Associated Diagnosis Comments US SONOHYSTEROGRAM Routine 01/23/2018 3: 52 PM EDT Prolonged menstruation Menorrhagia with regular cycle documented in this encounter Results * US Sonohystogram (01/23/2018 3:52 PM EDT) Anatomical Region Laterality Modality Ultrasound 01/23/2018 3:04 PM EDT Impressions 01/23/2018 4:38 PM EDT ??Hysterosonogram performed with saline infused via the uterine cervix. The endometrium is diffusely thickened at approximately 12 mm with nodular contour but no definite polyps were seen.] Biopsy is performed by the department of oncology's detailed separately ?Faina Vick MD Electronically Signed Final Report ?? 01/23/2018 04:37 pm Narrative 01/23/2018 4:38 PM EDT Gynecological Report ? (Signed Final 01/23/2018 04:37 pm) PATIENT INFO: ID #: ? [id number] ?: ??[birth year] (38 yrs) Name: ? DILIA MARTINEZ ? Visit Date: 01/23/2018 03:04 pm PERFORMED BY: Performed By: ? Krystin Chaidez RDMS Attending: ?Nicanor BOYCE, Faina Reese Referred By: ?SHAKIRA OTOOLE Location: ? [facility] SERVICE(S) PROVIDED: ??US - Sonohysterogram ??- [id number] ?[id number] ??U3D - ??3D rendering with interpretation - [id number] ? [id number] INDICATIONS: ??please perform SHG and endometrial biopsy ??if needed.; History of: Abnormal bleeding TECHNIQUE/SCAN QUALITY: Technique: ?Transducer ID#: [id number] -------- HISTORY: -------- Age: ?? 38 LMP: ?? 01/04/18 ?Day Of Cycle: ?? 20 Menses: ?Menorrhagia Hormone Treatment: ? None, per patient ------- UTERUS: ------- Uterus: ? Visualized Position: ?? Anteverted ENDOMETRIUM: Endometrium: ?Thickened and irregular Thickness(mm): ?11.6 Comment: ? 3D rendering with interpretation was performed to ?evaluate the endometrium Procedure Note Faina Vick MD - 01/23/2018 Gynecological Report (Signed Final 01/23/2018 04:37 pm) PATIENT INFO: ID #: [id number] : [birth year] (38 yrs) Name: DILIA MARTINEZ Visit Date: 01/23/2018 03:04 pm PERFORMED BY: Performed By: Krystin Chaidez RDMS Attending: Faina Vick MD Referred By: SHAKIRA OTOOLE Location: [facility] SERVICE(S) PROVIDED: [facility] - Sonohysterogram - [id number] U3D - 3D rendering with interpretation - [id number] INDICATIONS: please perform SHG and endometrial biopsy if needed.; History of: Abnormal bleeding TECHNIQUE/SCAN QUALITY: Technique: Transducer ID#: [id number] -------- HISTORY: -------- Age: 38 LMP: 01/04/18 Day Of Cycle: 20 Menses: Menorrhagia Hormone Treatment: None, per patient ------- UTERUS: ------- Uterus: Visualized Position: Anteverted ENDOMETRIUM: Endometrium: Thickened and irregular Thickness(mm): 11.6 Comment: 3D rendering with interpretation was performed to evaluate the endometrium IMPRESSION Hysterosonogram performed with saline infused via the uterine cervix. The endometrium is diffusely thickened at approximately 12 mm with nodular contour but no definite polyps were seen.] Biopsy is performed by the department of oncology's detailed separately Faina Vick MD Electronically Signed Final Report 01/23/2018 04:37 pm Shakira Otoole [employer] IMG US PELVI C ORDERABLES documented in this encounter Visit Diagnoses Diagnosis Prolonged menstruation Excessive or frequent menstruation Menorrhagia with regular cycle Excessive or frequent menstruation documented in this encounter Care Teams Natural Resources Technician Relationship Specialty Start Date End Date Rebecca Lewis DO [address] [place] [address] PCP - General Family Medicine 01/18/18 07/06/20 documented as of this encounter
--- OUTSIDE RECORDS SUMMARY | 2024-01-30 16:01 | XMS_ITS | Encounter Summary ---
Author Organization [facility] [place] [address] Care Team Providers Care Line Patroller Name Role Phone Rebecca Lewis Primary Care Provider +1- [phone] Reason for Visit * Reason Onset Date Comments Other 07/25/2018 Encounter Details Date Type Department Care Team (Late st Contact Info) Description 07/25/2018 [place] [phone] Edgar Henriquez, RN Other Social History Tobacco Use Types Packs/Day Years [...] Miscellaneous Notes * Telephone Encounter - Edgar Henriquez RN - 07/25/2018 10:48 AM EST Melissa from Mammography calls, patient scheduled for next Monday. States mammography u/s axilla, order for right. Melissa asks if this supposed to be for left, provides code of [id number] for order change. documented in this encounter Plan of Treatment Upcoming Encounters Date Type Department Care Team (Late st Contact Info) Description 02/13/2024 3:30 PM EDT Office [place] [address] Candace Vance MD [facility] [place] [address] documented as of this encounter Visit Diagnoses Not on filedocumented in this encounter Care Teams Line Patroller Relationship Specialty Start Date End Date Rebecca Lewis DO [address] [place] [address] PCP - General Family Medicine 01/18/18 07/06/20 documented as of this encounter
--- OUTSIDE RECORDS SUMMARY | 2024-01-30 16:01 | XMS_ITS | Encounter Summary ---
Author Organization [facility] [place] [address] Care Team Providers Care Senior Solutions Workflow Consultant Name Role Phone Unavailable Primary Care Provider Unavailabl e Encounter Details Date Type Department Care Team (Latest Contact Info) Description 07/14/2016 8:15 AM EST Laboratory [place] [address] Sjogren's syndrome; Sjogren's disease Social History Tobacco Use Types Packs/Day Years [...] 3:30 PM EDT Office [place] [address] Candace Vance MD [facility] [place] [address] documented as of this encounter Procedures Procedure Name Priority Date/Time Associated Diagnosis Comments HEMOGRAM Routine 07/14/2016 8:17 AM EST Sjogren's disease DIFFERENTIAL, AUTOMATED Routine 07/14/2016 8:17 AM EST Sjogren's disease SEDIMENTATION RATE Routine 07/14/2016 8: 17 AM EST Sjogren's syndrome CBC (WITH DIFF) Routine 07/14/2016 8:17 AM EST Sjogren's disease PROTEIN ELECTROPHORESIS, SERUM Routine 07/14/2016 8:17 AM EST Sjogren's disease documented in this encounter Results * Differential, Automated (07/14/2016 8:17 AM EST) Neutrophil % 55.2 % [facility] Neutrophil Absolute 4.81 1.70 - 6.10 x10(3)/[facility] Lymph % 33.5 % [facility] Lymphocytes Abs 2.9 0.9 - 3.2 x10(3)/[facility] Monocyte % 6.5 % [facility] Monocyte Abs 0.6 0.3 - 0.9 x10(3)/[facility] Eos % 3.6 % [facility] Eosinophils Abs 0.3 0.0 - 0.4 x10(3)/[facility] Basophil % 0.9 % [facility] Baso Absolute 0.1 0.0 - 0.1 x10(3)/[facility] Immature Gran % 0.30 % [facility] Comment: Immature granulocytes(IG's)percentage and absolute count will include metamyelocytes, myelocytes, and promyelocytes. Blood smears from CBCs yielding IG's will be scanned manually for concordance. If this scan disagrees with the automated IG or if promyelocytes are noted, a manual differential will be performed. Immature Gran Absolute 0.03 0.00 - 0.04 x10(3)/[facility] LAB[facility] Blood specimen (specimen) 07/14/2016 8:17 AM EST 07/14/2016 8:28 AM EST Narrative Resulting Agency Comment Spec In Lab Ena Alvarez DO HEMATOLOGY ORDER TASNEEM [facility] [place] [address] * (ABNORMAL) Hemogram (07/14/2016 8:17 AM EST) White Blood Cell 8.7 4.0 - 9.5 x10(3)/ L [facility] Red Blood Cell 4.82 4.00 - 5.21 x10(6)/ L [facility] Hemoglobin 13.3 11.7 - 15.5 gm/dL [facility] Hematocrit 40.8 35.7 - 45.8 % [facility] Mean Cell Volume 84.6 82.6 - 94.4 fL [facility] Mean Cell Hemoglobin 27.6 27.1 - 32.0 pg [facility] Mean Cell Hemoglobin Concentration 32.6 31.7 - 35.0 gm/dL [facility] Platelet 368(H) 145 - 357 x10(3)/[facility] LABORATORY RDW Standard Deviation 42.5 37.0 - 46.0 [facility] RDW coefficient of variation 13.8 11.5 - 14.1 % [facility] Mean Platelet Volume 9.2 7.6 - 12.9 fL [facility] NRBC% auto 0.0 % [facility] NRBC Absolute 0.000 0.000 - 0.000 x10(3)/[facility] Blood specimen (specimen) 07/14/2016 8:17 AM EST 07/14/2016 8:28 AM EST Narrative Resulting Agency Comment Spec In Lab Ena Alvarez DO HEMATOLOGY ORDER TASNEEM [facility] [place] [address] * Protein Electrophoresis, serum (07/14/2016 8:17 AM EST) Total Prot Electrophoresis 7.2 6.1 - 8.0 gm/dL [facility] Albumin Electrophoresis 4.31 3.60 - 6.00 gm/dL [facility] Alpha 1 Globulin 0.19 0.10 - 0.30 gm/dL [facility] Alpha 2 Globulin 0.86 0.40 - 0.90 gm/dL [facility] Beta Globulin 0.89 0.50 - 1.00 gm/dL [facility] Gamma Globulin 0.94 0.50 - 1.30 gm/dL [facility] M1 Band None Detected [facility] Blood specimen (specimen) 07/14/2016 8:17 AM EST 07/14/2016 8:28 AM EST Narrative Resulting Agency Comment Spec In Lab Ena Alvarez DO CHEMISTRY ORDERA BLES Performing Organization Address [facility] Co de Phone Number [facility] [place] [address] * Sedimentation rate (07/14/2016 8:17 AM EST) Sedimentation Rate Automated 14 0 - 20 mm/hr [facility] Blood specimen (specimen) 07/14/2016 8:17 AM EST 07/14/2016 8:28 AM EST Narrative Resulting Agency Comment Spec In Lab Claire Gordillo MD HEMATOLOGY ORDERABLE S Performing Organization Address City/[facility] Co de Phone Number [facility] [place] [address] documented in this encounter Visit Diagnoses Diagnosis Sjogren's syndrome Sicca syndrome Sjogren's disease Sicca syndrome documented in this encounter
--- OUTSIDE RECORDS SUMMARY | 2024-01-30 16:01 | XMS_ITS | Encounter Summary ---
Author Organization [facility] [place] [address] Care Team Providers Care Forging Press Setter Up Name Role Phone Rebecca Lewis Primary Care Provider +1- [phone] Reason for Visit * Reason Comments Follow-up contraception consul t Encounter Details Date Type Department Care Team (Late st Contact Info) Description 04/11/2018 8:00 AM EDT Office Visit Obstetrics [place] [phone] Faith Deutsch MD [facility] OBSTETR[place] [address] Abnormal uterine bleeding Social History Tobacco Use Types Packs/Day Years [...] Sign Reading Time Taken Comments Blood Pressure 128/84 04/11/2018 8:27 AM EDT Pulse 88 04/11/2018 8:27 AM EDT Temperature 36.6 ??C (97.8 ??F) 04/11/2018 8:27 AM ED T Respiratory Rate 16 04/11/2018 8:27 AM EDT Oxygen Saturation 97% 04/11/2018 8:27 AM EDT Inhaled Oxygen Concentration - - Weight 128.5 kg (283 lb 3.2 oz) 04/11/2018 8:27 AM EDT Height 177.8 cm (5' 10) 04/11/2018 8:27 AM EDT Body Mass Index 40.63 04/11/2018 8:27 AM EDT documented in this encounter Progress Notes * Faith Deutsch MD - 04/11/2018 8:00 AM EDT Obgyn Clinic Visit: Established Patient Chief Complaint Patient presents with ??? Follow-up contraception consult Patient Active Problem List Diagnosis ??? Hypertension Patient reports while on Amira in past. Avoid ESTROGEN containing SAMMIE's ??? Body mass index (BMI) of 39.0 to 39.9 in adult ??? Migraine without status migrainosus, not intractable ??? Insomnia ??? Obstructive sleep apnea syndrome ??? Anxiety ??? Fibromyalgia ??? Gastroesophageal reflux disease ??? Sjogren's syndrome ??? Systemic lupus erythematosus Subjective: Ms. Dilia Martinez is a 38 y.o. premenopausal woman presenting for follow up AUB s/p sonohysterogram and biopsy for this issue. Biopsy returned negative for hyperplasia or malignancy. SHG revealed diffusely thickened endometrium with no intracavitary defects. See report below for details. Dilia reports things have not been good with her periods Had 60 day period, started mid-January and stopped yesterday Aygestin did not do anything to stop it, specifically she states her bleeding went from heavy to light while on it but never stopped and after 12 hours without medication, she begain gushing. When asked to clarify if she took the taper as prescribed, 5 mg every 6 hours for 2 days, followed by every 8 hours for 2-3 days, etc. She states she did not. It seems she took it every 6 hours for a shortperiod of time then went to every 12 hours. Is not currently taking any thing. With heavy, irregular bleeding has had significant cramping, clotting (nickel sized), and flooding with gushing. Took Amira in the past and that worked well for her but stopped due to elevated BP's. Not currently on HTN medications. Tried Mirena IUD in the past and did not feel right all the time in general - feels it was related to the hormones. Had it for a total of ~3.5 years (2011- 2015). When on Mirena, menses were more tolerable, lasted 7-8 days but were light. Mid-20's had migraine headaches, only lasted for 6 months, has never had to be on medications otherthan Advil Not currently sexually active Abd surgeries: CCY Body mass index is 40.63 kg/m??. Would like to avoid hysterectomy at this time. Medical, surgical, familiy, social histories reviewed Medications and allergies reviewed with pt. Review of Systems: Endorses hot flashes and night sweats which are new Otherwise negative except per HPI OB History Para Term AB Living 0 0 0 0 0 0 SAB TAB Ectopic Multiple Live Births 0 0 0 0 0 Objective: BP 128/84 Pulse 88 Temp 36.6 ??C (97.8 ??F) (Temporal) Resp 16 Ht 177.8 cm (5' 10) Wt 128.5 kg (283 lb 3.2 oz) LMP 02/04/2018 (Approximate) SpO2 97% BMI 40.63 kg/m?? Body mass index is 40.63 kg/m??. Constitutional: Pleasant and conversant, appears well, presents alone Counseling dominated visit only Labs: Lab Results Component Value Date TSH 1.20 01/19/2018 Lab Results Component Value Date WBC 9.7 (H) 01/19/2018 HGB 13.2 01/19/2018 HCT 40.4 01/19/2018 MCV 83.5 01/19/2018 PLATELET 357 01/19/2018 UPT today in Clinic: Not performed Imaging: Gynecological Report (Signed Final 01/23/2018 04:37 pm) PATIENT INFO: ID #: [id number] : [birth year] (38 yrs) Name: DILIA MARTINEZ Visit Date: 01/23/2018 03:04 pm PERFORMED BY: Performed By: Krystin Chaidez RDMS Attending: Faina Vick MD Referred By: SHANIKA OTOOLE Location: [place] SERVICE(S) PROVIDED: [facility] - Sonohysterogram - [id number] U3D - 3D rendering with interpretation - [id number] INDICATIONS: please perform SHG and endometrial biopsy [...] Electronically Signed Final Report 01/23/2018 04:37 pm Assessment/Plan: Counseling dominated visit. Greater than 15 minutes of this 25 minute visit were spent in [id number] counseling regarding the etiologies of and management options for abnormal uterine bleeding. Reviewed average age of menopause is 51 yo but any time after 40 yo could be normal. Unclear etiology of AUB. Reviewed differential including menopausal transition, adenomyosis, oligo-ovulatory cycles due to stressors or weight change. Has had relatively recent CBC and TSH. Reviewed option of FSH testing and could also consider free and total testosterone. At this point, could hold off on labs but do recommend some sort of non-estrogen containing hormonal management for endometrial protection. Reviewed options of cyclic Aygestin, another trial of levonorgestrel secreting IUD, or progesterone only pills. Had previously reviewed that Dilia is not a great candidate for an endometrial ablation given her elevated BMI. She would like to avoid hysterectomy at this time and I support that decision given we have not yet optimized attempt at medical management. Did review that certainly some adenomyosis is refractory to hormonal management (reviewed TVUS images from prior to SHG and no obvious radiologic findings c/w adenomyosis - specifically, normal sized uterus at 7 cm, homogenous appearing myometrium, and no myometrial cysts). At this time, Dilia would like to trial POP's. Reviewed recommendation to take at the same time daily (within a 2 hour window) and to not skip any pills as there are no placebo pills. She may consider another trial of the Mirena IUD if the pills do not work out for her. Recommend 2-3 month follow up for interval evaluation. Of note, Dilia does have Aygestin 5 mg tabs on hand at home from her previous prescription to use if she has an episode of flooding (especially if traveling for work). I wrote down a taper for her to follow - 1 tab by mouth every 6 hours for 2 days, then 1 tab every 8 hours for 2 days, then 1 tab every 12 hours for 2 days, then daily thereafter. 1. Abnormal uterine bleeding norethindrone (MICRONOR) 0.35 mg Tablet Faith Deutsch MD documented in this encounter Plan of Treatment Upcoming Encounters Date Type Department Care Team (Late st Contact Info) Description 02/13/2024 3:30 PM EDT Office [place] [address] Candace Vance MD [facility] [place] [address] documented as of this encounter Visit Diagnoses Diagnosis Abnormal uterine bleeding Unspecified disorder of menstruation and other abnormal bleeding from female genital tract documented in this encounter Care Teams Forging Press Setter Up Relationship Specialty Start Date End Date Rebecca Lewis DO [address] [place] [address] PCP - General Family Medicine 01/18/18 07/06/20 documented as of this encounter
--- OUTSIDE RECORDS SUMMARY | 2024-01-30 16:01 | XMS_ITS | Encounter Summary ---
Author Organization [facility] [place] [address] Care Team Providers Care Blower Room Attendant Name Role Phone Rebecca Lewis Primary Care Provider +1- [phone] Encounter Details Date Type Department Care Team (Late st Contact Info) Description 01/19/2018 Orders Only Obstetrics [place] [phone] Gayle Antunez MD [facility] DR OBSTETRICS & [place] [address] Abnormal uterine bleeding Social History Tobacco Use [...] 3:30 PM EDT Office [place] [address] Candace Vance MD [facility] [address] documented as of this encounter Results * US Transvaginal Non OB (01/19/2018 10:17 AM EDT) Anatomical Region Laterality Modality Ultrasound 01/19/2018 10:0 0 AM EDT Impressions 01/19/2018 11:33 AM EDT ??No prior studies available for comparison. 1. ??Anteverted uterus normal in contour. Myometrium is homogeneous. 2. ??The endometrium is mildly heterogeneous possibly due to blood products in the endometrial cavity. Endometrium measures 9.7 mm in double wall thickness concordant with LMP and mild distention of the endometrial cavity with hypoechoic blood products. Doppler evaluation demonstrates vascularity within the endometrium and in this clinical setting, findings concerning for polyp or other mucosal abnormality. Consider SHG for further evaluation. 3. ??Both ovaries appear normal in size and morphology. Please note left ovary is not seen transvaginally and therefore transabdominal evaluation is performed. I have personally reviewed the image(s) and the residents interpretation and agree with the findings, Caren Diaz at 01/19/2018 11:26 AM ? Caren Del Rosario MD Electronically Signed Final Report ?? 01/19/2018 11:33 am Narrative 01/19/2018 11:33 AM EDT Gynecological Report ?(Signed Final 01/19/2018 11:33 am) PATIENT INFO: ID #: ? [id number] ?: ??[birth year] (38 yrs) Name: ? DILIA MARTINEZ ? Visit Date: 01/19/2018 10:00 am PERFORMED BY: Performed By: ? Zohaib ERVIN, ??Mónica Attending: ?Sveta BOYCE, Caren Vizcaino Resident: ? Lurdes BOYCE, Abdelrahman Vizcaino Referred By: ?MICHELLE MARROQUIN Location: ? [place] SERVICE(S) PROVIDED: ??UTV - Transvaginal - [id number] ?[id number] ??UPELIM - Pelvis Limited - [id number] ? [id number] INDICATIONS: ??vaginal bleeding, two weeks; History of: ??Abnormal bleeding TECHNIQUE/SCAN QUALITY: Technique: ?Transducer ID#:[id number] COMPARISON: No prior studies for comparison. -------- HISTORY: -------- Age: ?? 38 ------- UTERUS: ------- Uterus: ? Visualized Position: ?? Anteverted Size (cm) ?L: ??7.8 ? W: ?? 4.46 ? H: ??3.93 ENDOMETRIUM: Endometrium: ?Normal appearance Thickness(mm): ?9.73 RIGHT OVARY: Status: ?? Visualized Size (cm) ?L: ??3.75 ?W: ?? 1.89 ? H: ??2.15 Vol (ml): ?8.0 Morphology: ?Normal appearance LEFT OVARY: Status: ?? Visualized Size (cm) ?L: ??3.94 ?W: ?? 3.23 ? H: ??2.23 Vol (ml): ?14.9 Morphology: ?Normal appearance Comment: ? Ovary was not seen vaginally, transabdominal ?ultrasound was performed Procedure Note Caren Solomon MD - 01/19/2018 Gynecological Report (Signed Final 01/19/2018 11:33 am) PATIENT INFO: ID #: [id number] : [birth year] (38 yrs) Name: DILIA MARTINEZ Visit Date: 01/19/2018 10:00 am PERFORMED BY: Performed By: Mónica Penny RDMS Attending: Caren Diaz MD Resident: Abdelrahman Chatman MD Referred By: MICHELLE MARROQUIN Location: [place] SERVICE(S) PROVIDED: UTV - Transvaginal - [id number] UPELIM - Pelvis Limited - [id number] INDICATIONS: vaginal bleeding, two weeks; History of: Abnormal bleeding TECHNIQUE/SCAN QUALITY: Technique: Transducer ID#:[id number] COMPARISON: No prior studies for comparison. -------- HISTORY: -------- Age: 38 ------- UTERUS: ------- Uterus: Visualized Position: Anteverted Size (cm) L: 7.8 W: 4.46 H: 3.93 ENDOMETRIUM: Endometrium: Normal appearance Thickness(mm): 9.73 RIGHT OVARY: Status: Visualized Size (cm) L: 3.75 W: 1.89 H: 2.15 Vol (ml): 8.0 Morphology: Normal appearance LEFT OVARY: Status: Visualized Size (cm) L: 3.94 W: 3.23 H: 2.23 Vol (ml): 14.9 Morphology: Normal appearance Comment: Ovary was not seen vaginally, transabdominal ultrasound was performed IMPRESSION No prior studies available for comparison. 1. Anteverted uterus normal in contour. Myometrium is homogeneous. 2. The endometrium is mildly heterogeneous possibly due to blood products in the endometrial cavity. Endometrium measures 9.7 mm in double wall thickness concordant with LMP and mild distention of the endometrial cavity with hypoechoic blood products. Doppler evaluation demonstrates vascularity within the endometrium and in this clinical setting, findings concerning for polyp or other mucosal abnormality. Consider SHG for further evaluation. 3. Both ovaries appear normal in size and morphology. Please note left ovary is not seen transvaginally and therefore transabdominal evaluation is performed. I have personally reviewed the image(s) and the residents interpretation and agree with the findings, Caren Diaz at 01/19/2018 11:26 AM Caren Del Rosario MD Electronically Signed Final Report 01/19/2018 11:33 am Michelle Marroquin MD IMG US PELVIC ORDERA BLES documented in this encounter Visit Diagnoses Diagnosis Abnormal uterine bleeding Unspecified disorder of menstruation and other abnormal bleeding from female genital tract Abnormal uterine bleeding Unspecified disorder of menstruation and other abnormal bleeding from female genital tract documented in this encounter Care Teams Blower Room Attendant Relationship Specialty Start Date End Date Rebecca Lewis DO [address] [place] [address] PCP - General Family Medicine 01/18/18 07/06/20 documented as of this encounter
--- OUTSIDE RECORDS SUMMARY | 2024-01-30 16:01 | XMS_ITS | Encounter Summary ---
Author Organization [facility] [place] [address] Care Team Providers Care Fan Runner Name Role Phone OctaviakeeganashliRebecca weinberg Dillon DURAN Primary Care Provider +1- [phone] Encounter Details Date Type Department Care Team (Late st Contact Info) Description 07/27/2018 Telephone [place] [address] Cyndie Osei MD [facility] [place] [address] Social History Tobacco Use Types Packs/Day Years [...] * Telephone Encounter - Cyndie Osei - 07/27/2018 12:05 PM EST Called patient and left a message that call was made to discuss lab results and to call back us back to the clinic when she gets the message. Lab results C3, C4, LDH, SPEP, UPEP- WNL CMP Alk phos -118, otherwise WNL. ESR-23 CRP- 12.5 CBC- WBC- 12.0, Plt-464 , Hb-12.7 UA with large blood. RBC > 182 In urine. Patient had reported some increased frequency with urination. Occasional pain in the right flank area, and wondering if she has a kidney stone.- There is some blood urine , ? Infection- She should see her primary care doctor DAVID to follow up on this. Cyndie Osei MD ?? documented in this encounter Plan of Treatment Upcoming Encounters Date Type Department Care Team (Late st Contact Info) Description 02/13/2024 3:30 PM EDT Office Visit [place] [address] Candace Vance MD [facility] [place] [address] documented as of this encounter Visit Diagnoses Not on filedocumented in this encounter Care Teams Fan Runner Relationship Specialty Start Date End Date Rebecca Lewis DO [address] [place] [address] PCP - General Family Medicine 01/18/18 07/06/20 documented as of this encounter
--- OUTSIDE RECORDS SUMMARY | 2024-01-30 16:01 | XMS_ITS | Encounter Summary ---
Author Organization [facility] [place] [address] Care Team Providers Care Night Manager Name Role Phone Rebecca Lewis DO Primary Care Provider +1- [phone] Reason for Visit * Reason Onset Date Comments Follow-up 10/21/2019 Encounter Details Date Type Department Care Team (Late st Contact Info) Description 10/21/2019 [place] [phone] Osvaldo Asencio RN Follow-up Social History Tobacco Use Types Packs/Day Years [...] Telephone Encounter - Osvaldo Asencio RN - 10/23/2019 1:14 PM EDT Cyndie Osei MD sent to Osvaldo Asencio RN Caller: Unspecified (2 days ago, 12:32 PM) ?? Called patients PCP Dr. Lewis ( Contact # for PCP is [phone]) Per PCP, Patient has been having back pain and concerned if this Lupus flare. Initial w/u in the ER, UA showed blood in urine but no protein, did not show UTI (she had received two doses of Antibiotics by then), and per report Renal CT did not show Renal stones. Ongoing symptoms. Recent labs- mild leucocytosis and Thrombocytosis. CMP WNL. ?MSK issue, unclear if this from Lupus. Patient has missed prior appointments with us in the past year, Will request follow up visit next week. Requested patients PCP to order Lupus labs- CRP, ESR, C3, C4, Ds DNA, UA, Urine Prot: Cr ratio. Cyndie Osei MD Rheumatology fellow * Telephone Encounter - Osvaldo Asencio RN - 10/21/2019 3:45 PM EDT Call received from PCP advising that she has been treating Dilia for a UTI with Cipro and IVF's. Reports slight improvement. Reports Dilia is having back pain and is wondering if she could discuss if this could be a flare of her Lupus. Reports labs were faxed to office. RTC to PCP in regards to Dilia, LM to RTC to nurse. Contact # is [phone]. PCP calls back, RTC and spoke with Dr. Lewis, she reports that Dilia stopped the Cipro as the ERdid not find anything. Reports Dilia has good and bad days, reports that she felt better last evening but states she has days where she has back pain and feels totally exhausted. PCP is wondering if Dilia needs to be evaluated for a possible Lupus Flare. Reports labs showed some dehydration. Wbc 11.9. Dr. Lewis would like to speak with Rheumatology provider or have provider reach out to Dilia forfollow up. Contact # for PCP is [phone]. documented in this encounter Plan of Treatment Upcoming Encounters Date Type Department Care Team (Late st Contact Info) Description 02/13/2024 3:30 PM EDT Office [place] [address] Candace Vance MD [facility] [place] [address] documented as of this encounter Visit Diagnoses Not on filedocumented in this encounter Care Teams Night Manager Relationship Specialty Start Date End Date Rebecca Lewis DO [address] [place] [address] PCP - General Family Medicine 01/18/18 07/06/20 documented as of this encounter
--- OUTSIDE RECORDS SUMMARY | 2024-01-30 16:01 | XMS_ITS | Encounter Summary ---
Author Organization [facility] [place] [address] Care Team Providers Care Escalator Constructor Name Role Phone Rebecca Lewis Primary Care Provider +1- [phone] Encounter Details Date Type Department Care Team (Late st Contact Info) Description 07/25/2018 Orders Only [place] [phone] Cyndie Osei MD [facility] [place] [address] Left axillary pain Social History Tobacco Use Types Packs/Day [...] PM EDT Office Visit [place] [phone] Candace Vance MD [facility] [place] [address] documented as of this encounter Results * Mammo US Axilla [...] below. ? Electronically signed by: Faith Fisher [facility] ([phone]), at 08/01/2018 9:07 AM Narrative 08/01/2018 9:07 [...] Diagnosis Left axillary pain Pain in limb Left axillary pain Pain in limb documented in this encounter Care Teams Escalator Constructor Relationship Specialty Start Date End Date Rebecca Lewis DO [address] [place] [address] PCP - General Family Medicine 01/18/18 07/06/20 documented as of this encounter
--- OUTSIDE RECORDS SUMMARY | 2024-01-30 16:01 | XMS_ITS | Encounter Summary ---
Author Organization [facility] [place] [address] Care Team Providers Care Electronic Publications Specialist Name Role Phone Unavailable Primary Care Provider Unavailabl e Reason for Visit * Reason Onset Date Comments Medication Problem 09/18/2017 The Pharmacy called regarding the recent Sig on Dilia's Lyrica Rx. Is she taking the medication once daily, or twice daily? Encounter Details Date Type Department Care Team (Late st Contact Info) Description 09/18/2017 Telephone [place] [phone] Kary Thomas MA Medication Problem (The Pharmacy called regarding the recent Sig on Dilia's Lyrica Rx. Is she taking the medication once daily, or twice daily? ) Social History Tobacco Use Types Packs/Day Years Used Date Smoking Tobacco: Never Smokeless Tobacco: Never Sex and Gender Information Value Date Recorded Sex Assigned at Not on file Gender Identity Not on file Sexual Orientation Not on file documented as of this encounter Miscellaneous Notes * Telephone Encounter - Kary Thomas MA - 09/18/2017 4:37 PM EDT The Pharmacy called regarding the recent Sig on Dilia's Lyrica Rx. Is she taking the medication once daily, or twice daily? documented in this encounter Plan of Treatment Upcoming Encounters Date Type Department Care Team (Late st Contact Info) Description 02/13/2024 3:30 PM EDT Office [place] [address] Candace Vance MD [facility] [place] [place] [address] documented as of this encounter Visit Diagnoses Not on filedocumented in this encounter
--- OUTSIDE RECORDS SUMMARY | 2024-01-30 16:01 | XMS_ITS | Encounter Summary ---
Author Organization [facility] [place] [address] Care Team Providers Care Duct Maker Name Role Phone Rebecca Lewis DO Primary Care Provider +1- [phone] Reason for Visit * Reason Onset Date Comments Medication Refill 01/10/2017 Encounter Details Date Type Department Care Team (Late st Contact Info) Description 01/10/2017 Refill [place] [address] Kary Thomas MA Social History Tobacco Use [...] 3:30 PM EDT Office [place] [address] Candace Vance MD [facility] [place] [address] documented as of this encounter Visit Diagnoses Not on filedocumented in this encounter Care Teams Duct Maker Relationship Specialty Start Date End Date Rebecca Lewis DO [address] [place] [id number] PCP - General Family Medicine 06/02/21 documented as of this encounter
--- OUTSIDE RECORDS SUMMARY | 2024-01-30 16:01 | XMS_ITS | Encounter Summary ---
Author Organization [facility] Address [facility] [place] [address] Care Team Providers Care Wood Hacker Name Role Phone OctaviaRebecca navarro Primary Care Provider [phone]- [phone] Encounter Details Date Type Department Care Team (Late st Contact Info) Description 07/24/2018 2:30 PM EST Office [place] [address] Cyndie Osei MD [facility] [place] [address] Sjogren's syndrome, with unspecified organ involvement; Other forms of systemic lupus erythematosus, unspecified organ involvement status; Pain in axilla, left Social History Tobacco Use Types Packs/Day Years [...] Sign Reading Time Taken Comments Blood Pressure 145/99 07/24/2018 2:21 PM EST Pulse 93 07/24/2018 2:21 PM EST Temperature 37.2 ??C (99 ??F) 07/24/2018 2:21 PM EST Respiratory Rate - - Oxygen Saturation 99% 07/24/2018 2:21 PM EST Inhaled Oxygen Concentration - - Weight 128.4 kg (283 lb) 07/24/2018 2:21 PM EST Height 177.8 cm (5' 10) 07/24/2018 2:21 PM EST Body Mass Index 40.61 07/24/2018 2:21 PM EST documented in this encounter Progress Notes * Cyndie Osei - 07/24/2018 2:30 PM EST Rheumatology follow up visit Rheum history: #Sjogren's - diagnosed 2011 at [place] w/ Sicca, joint pain, peripheral neuropathy - TYRONE 1:640 speckled, negative Ro and La - Well controlled on plaquenil, lyrica, diclofenac and evoxac Interval: Ms. Martinez is a 35 y/o woman with PMHx well controlled HTN, depression and anxiety who was diagnosed with Sjogren's in 2011. She is here for routine follow up of her Sjogren's. Patient reports being weaned off of hydroxychloroquine when seen at the last in Rheumatology visit in August 2017, given very well controlled symptoms and mild GI side effects that she experienced with hydroxychloroquine. Patient reports doing relatively well off of hydroxychloroquine for many months, when she developedpain in bilateral MCPs with swelling in early May. This was accompanied by joint stiffness that lasted for about 2 hours. She used [id number] diclofenac gel that helped with pain control. Pain has since resolved but continues to have intermittent stiffness and mild swelling in the MCPs. She complains of worsening fatigue in the past 2 months. She was diagnosed with obstructive sleep apnea and has been using CPAP consistently. Reports feeling well rested when she wakes up. Reports days where fatigue is worse. She has to travel for work. She has been having heavy menstrual bleeding since January and has been followed by gynecology for the same. She is currently on progesterone onlypill. She was seen by her primary care doctor for above symptoms, labs performed which showed elevated inflammatory markers. She was resumed on hydroxychloroquine and was given a prescription of prn Zofran, due to side effects from hydroxychloroquine. It has been 3 weeks she has resumed the medication and reports some improvement in the above-mentioned symptoms. She denies any dry mouth or dry eyes today. Has been using Evoxac that is helping with keeping her mouth moist. Also uses Biotene mouthwash and once daily eyedrops. Denies any recent oral ulcers, denies worsening dentition. Denies any parotid gland swelling. Denies eye infections or eye ulcers. Shedenies fevers or chills. Does report having drenching sweats almost every night. She was diagnosed with bronchitis late May and went through a course of antibiotics. Around same time noticed pain in the left axilla. Denies any swelling or redness in that area. shaves her underarms but denies any trauma. Denies fevers and chills. Also with some increased frequency with urination. Occasional pain in the right flank area, and wondering if she has a kidney stone. Reports symptoms of fibromyalgia well-controlled on Lyrica 150 mg/day. Review of systems as detailed above. PMHx: hypertension, depression and anxiety. Meds: Current Outpatient Medications on File Prior to Visit Medication Sig Dispense Refill ??? hydroxychloroquine (PLAQUENIL) 200 mg Tablet Take by mouth daily. ??? norethindrone (AYGESTIN) 5 mg Tablet 1 tab by mouth every 6 hours for 2 days then 1 tab every 8hours for 2 days then 1 tab every 12 hours for 2 days then daily thereafter. 90 tablet 1 ??? norethindrone (MICRONOR) 0.35 mg Tablet Take 1 tablet by mouth daily. 84 tablet 3 ??? diclofenac (VOLTAREN) 75 mg Tablet, Delayed Release (E.C.) Take 1 tablet by mouth 2 times daily. 60 tablet 5 ??? escitalopram (LEXAPRO) 10 mg Tablet Daily ??? fluticasone (FLONASE) 50 mcg/actuation [place], Suspension Daily ??? ondansetron (ZOFRAN) 4 mg Tablet Every 6 hours, as needed ??? pantoprazole (PROTONIX) 40 mg Tablet, Delayed Release (E.C.) Twice a day ??? cholecalciferol, Vitamin D3, 2,000 unit Capsule Daily ??? pregabalin (LYRICA) 150 mg Capsule Daily ??? cevimeline (EVOXAC) 30 mg Capsule Take one capsule by mouth three times a day as needed. 90 capsule 5 ??? buPROPion (WELLBUTRIN XL) 150 mg Tablet [...] daily as needed. No current facility-administered medications on file prior to visit. Allergies: gets hives with amoxicillin, TD shot gave her a seizure Family hx: Father had DMii and of [place] at 72. Mother: asthma and osteoarthritis No rheum conditions in family otherwise. Brother has Crohn's disease. Social hx: No smoking, drinks occasionally at special events. Denies IVDU. Physical Exam: BP (!) 145/99 Pulse 93 Temp 37.2 ??C (99 ??F) (Oral) Ht 177.8 cm (5' 10) Wt128.4 kg (283 lb) SpO2 99% BMI 40.61 kg/m?? Gen: AAOx3 NAD HEENT: PERRLA, EOMI, no cervical or supraclavicular LAD. Left axilla- Tenderness in left ralf medial aspect of axilla appreciated, ? Swelling Pulm: CTAB Abd: Benign, BS + Extremities:normal MSK exam Creatinine 0.74, alk phos 123, bilirubin total 0.2, total protein 7.2, albumin is 3.5, AST 10, ALT 19, TSH 0.97, C-reactive protein 2.32 mg/dL reference range 0.0-0.3, Assessment Dilia Agnes Martinez is a 38 y.o. female here for follow up of Sjogren's on evoxac, biotene and eye drops. Hydroxychloroquine was stopped at last visit in August 2017, given well controlled symptoms and mild GI side effects that she experienced with hydroxychloroquine. Patient reports stable sicca symptoms today. She reports developing pain in bilateral MCPs and joint stiffness, 8 weeks ago that sounds inflammatory in nature. She was resumed on hydroxychloroquine by PCP, It has been 3 weeks she has resumed the medication and reports some improvement in the joint symptoms and fatigue. Discussed with patient that Medication will take ~ 12 weeks to notice completeeffect. Can use zofran prn for GI nausea. Continue regular eye examination. Patient c/o night sweats, weight stable. C/O new pain in the left axilla, and with tenderness in the anteromedial wall. Unclear if this is LN/ Breast tissue/ mass. Will obtain LDH, SPEP, UPEP, Left axillary US to further evaluate. Also with some increased frequency with urination. Occasional pain in the right flank area, and wondering if she has a kidney stone. Will obtain baseline UA and forward results to PCP for further follow up. PLAN # Sjogren's disease # Lupus - Check CBC, CMP, ESR, CRP, C3, C4, LDH, SPEP, UPEP, UA with microscopy, dsDNA - Continue Hydroxychloroquine, and yearly eye check ups - Diclofenac prn for pain # Left axillary pain - Left axillary US # Fibromyalgia- stable - Continue Lyrica Patient seen and discussed with Dr. Gordillo. MD Cyndie Rogers MD 07/24/2018 * Claire Gordillo MD - 07/24/2018 2:30 PM EST I saw Ms. Martinez with Dr. Osei and I agree with the details of the visit outlined in her note. documented in this encounter Plan of Treatment Upcoming Encounters Date Type Department Care Team (Late st Contact Info) Description 02/13/2024 3:30 PM EDT Office [place] [address] Candace Vance MD [facility] [place] [address] documented as of this encounter Procedures Procedure Name Priority Date/Time Associated Diagnosis Comments URINALYSIS MICROSCOPIC EXAM Routine 07/24/2018 4:03 PM EST IMMUNOFIXATION, RANDOM URINE Routine 07/24/2018 4:03 PM EST PROTEIN ELECTROPHORESIS, URINE, RANDOM Routine 07/24/2018 4:03 PM EST Sjogren's syndrome, with unspecified organ involvement Other forms of systemic lupus erythematosus, unspecified organ involvement status URINALYSIS WITH REFLEX CULTURE Routine 07/24/2018 4:03 PM EST Sjogren's syndrome, with unspecified organ involvement Other forms of systemic lupus erythematosus, unspecified organ involvement status URINE CULTURE Routine 07/24/2018 4:03 PM EST CRP, ACUTE INFLAMMATION Routine 07/24/2018 3:59 PM EST Sjogren's syndrome, with unspecified organ involvement Other forms of systemic lupus erythematosus, unspecified organ involvement status DNA ANTIBODY (DOUBLE-STRANDED) Routine 07/24/2018 3:59 PM EST Sjogren's syndrome, with unspecified organ involvement Other forms of systemic lupus erythematosus, unspecified organ involvement status HEMOGRAM Routine 07/24/2018 3:59 PM EST Sjogren's syndrome, with unspecified organ involvement Other forms of systemic lupus erythematosus, unspecified organ involvement status DIFFERENTIAL, AUTOMATED Routine 07/24/2018 3:59 PM EST Sjogren's syndrome, with unspecified organ involvement Other forms of systemic lupus erythematosus, unspecified organ involvement status SEDIMENTATION RATE Routine 07/24/2018 3: 59 PM EST Sjogren's syndrome, with unspecified organ involvement Other forms of systemic lupus erythematosus, unspecified organ involvement status CBC (WITH DIFF) Routine 07/24/2018 3:59 PM EST Sjogren's syndrome, with unspecified organ involvement Other forms of systemic lupus erythematosus, unspecified organ involvement status C3 COMPLEMENT Routine 07/24/2018 3:59 PM EST Sjogren's syndrome, with unspecified organ involvement Other forms of systemic lupus erythematosus, unspecified organ involvement status C4 COMPLEMENT Routine 07/24/2018 3:59 PM EST Sjogren's syndrome, with unspecified organ involvement Other forms of systemic lupus erythematosus, unspecified organ involvement status PROTEIN ELECTROPHORESIS, SERUM Routine 07/24/2018 3:59 PM EST Sjogren's syndrome, with unspecified organ involvement Other forms of systemic lupus erythematosus, unspecified organ involvement status LACTATE DEHYDROGENASE Routine 07/24/2018 3:59 PM EST Sjogren's syndrome, with unspecified organ involvement Other forms of systemic lupus erythematosus, unspecified organ involvement status COMPREHENSIVE METABOLIC PANEL Routine 07/24/2018 3:59 PM EST Sjogren's syndrome, with unspecified organ involvement Other forms of systemic lupus erythematosus, unspecified organ involvement status documented in this encounter Results * Mammo Diagnostic CAD and Yaniv Bilateral [...] 2.3 cm in length. Claire Gordillo MD [facility] MAMMO ORDERABLES * Immunofixation, Random Urine (07/24/2018 4:03 PM EST) U JEREMI Random See Note [facility] Comment: No monoclonal immunoglobulins or free light chains detected in this patient's urine sample. Urine specimen (specimen) Urine / Unknown 07/24/2018 4:03 PM EST 07/24/2018 4:12 PM EST Narrative Resulting Agency Comment Spec In Lab Cyndie Osei MD URINE ORDERABLES Performing Organization Address City/State/[facility] Co de Phone Number [facility] [place] [address] * (ABNORMAL) Urine culture (07/24/2018 4:03 PM EST) Pathologist [facility] Urine Culture 50,000-99,000 cfu/ml mixed mucosal saeed Note: Culture shows multiple bacterial species suggesting mucosal contamination. If symptoms continue to indicate urinary tract infection, submit a new specimen. (A) [facility] Urine specimen (specimen) 07/24/2018 4:03 PM EST 07/24/2018 7:42 PM EST Narrative Resulting Agency Comment Spec In Lab Cyndie Osei MD MICROBIOLOGY - GENERAL ORDERABLES Performing Organization Address [facility] Co de Phone Number [facility] [place] [address] * (ABNORMAL) Urinalysis Microscopic Exam (07/24/2018 4:03 PM EST) Pathologist [facility] RBC, Urine >182(H) 0 - 4 /HPF [facility] WBC, Urine 13(H) 0 - 5 /HPF [facility] Bacteria, Urine Rare(A) None /HPF [facility] Squamous Epithelial Cells Raw Data, Urine 3 <=4 /HPF [facility] Urine specimen (specimen) 07/24/2018 4:03 PM EST 07/24/2018 4:11 PM EST Narrative Resulting Agency Comment Spec In Lab Cyndie Osei MD URINE ORDERABLE S Performing Organization Address [facility] Co de Phone Number [facility] [place] [address] * (ABNORMAL) Urinalysis with reflex Culture (07/24/2018 4:03 PM EST) Pathologist [facility] Glucose, Urine Dipstick Negative Negative mg/dL [facility] Protein, Urine Dipstick Negative Negative mg/dL [facility] Bilirubin, Urine Dipstick Negative Negative mg/dL [facility] Comment: Clinical correlation required for positive Urine Bilirubin results as false positive may occur with some drugs and drug related products. If a false positive is suspected a serum total bilirubin should be considered if clinically indicated. Urobilinogen, Urine Dipstick Normal Normal mg/dL [facility] pH, Urn (dipstick) 5.0 5.0 - 8.0 [facility] Blood, Urine Dipstick Large(A) Negative mg/dL [facility] Ketone, Urine Dipstick Negative Negative mg/dL [facility] Nitrite, Urine Dipstick Negative Negative [facility] Leukocytes, Urine Dipstick Negative Negative [facility] Appearance, Urine Dipstick Hazy(A) Clear [facility] Specific Victor Urine Automated 1.015 1.002 - 1.030 [facility] Color, Urine Dipstick Yellow Yellow [facility] Reflex to Culture Yes [facility] Urine specimen (specimen) 07/24/2018 4:03 PM EST 07/24/2018 4:11 PM EST Narrative Resulting Agency Comment Spec In Lab Claire Gordillo MD URINE ORDERABLES Performing Organization Address City/State/[facility] Co de Phone Number [facility] [place] [address] * Protein Electrophoresis, urine, random (07/24/2018 4:03 PM EST) Protein, Urine 11 0 - 12 mg/dL [facility] U Albumin 33 % total [facility] Globulin, Urine 67 % total [facility] M1 Band, Urine Comments Below [facility] UPEP Comments See Note [facility] Comment: The urine protein electrophoresis (UPEP) shows a band that is a possible paraprotein. Immunofixation (JEREMI) will be performed on this sample to verify that it is a monoclonal immunoglobulin. Urine specimen (specimen) 07/24/2018 4:03 PM EST 07/24/2018 4:12 PM EST Narrative Resulting Agency Comment Spec In Lab Claire Gordillo MD URINE ORDERABLES [facility] [place] [address] * (ABNORMAL) Differential, Automated (07/24/2018 3:59 PM EST) Neutrophil % 65.6 % [facility] Neutrophil Absolute 7.86(H) 1.70 - 6.10 x10(3)/ L [facility] Lymph % 24.8 % [facility] Lymphocytes Abs 3.0 0.9 - 3.2 x10(3)/[facility] Monocyte % 5.4 % [facility] Monocyte Abs 0.6 0.3 - 0.9 x10(3)/ L [facility] Eos % 3.2 % [facility] Eosinophils Abs 0.4 0.0 - 0.4 x10(3)/[facility] Basophil % 0.8 % [facility] Baso Absolute 0.1 0.0 - 0.1 x10(3)/ L [facility] Immature Gran % 0.20 % [facility] Comment: Immature granulocytes(IG's)percentage and absolute count will include metamyelocytes, myelocytes, and promyelocytes. Blood smears from CBCs yielding IG's will be scanned manually for concordance. If this scan disagrees with the automated IG or if promyelocytes are noted, a manual differential will be performed. Immature Gran Absolute 0.03 0.00 - 0.04 x10(3)/mc L [facility] Blood specimen (specimen) 07/24/2018 3:59 PM EST 07/24/2018 4:06 PM EST Narrative Resulting Agency Comment Spec In Lab Cyndie Osei MD HEMATOLOGY ORDThor YANG [facility] [place] [address] * (ABNORMAL) Hemogram (07/24/2018 3:59 PM EST) White Blood Cell 12.0(H) 4.0 - 9.5 x10(3)/mc L [facility] Red Blood Cell 4.95 4.00 - 5.21 x10(6)/mc L [facility] Hemoglobin 12.7 11.7 - 15.5 gm/dL [facility] Hematocrit 41.2 35.7 - 45.8 % [facility] Mean Cell Volume 83.2 82.6 - 94.4 fL [facility] Mean Cell Hemoglobin 25.7(L) 27.1 - 32.0 pg [facility] Mean Cell Hemoglobin Concentration 30.8(L) 31.7 - 35.0 gm/dL [facility] Platelet 464(H) 145 - 357 x10(3)/mc L [facility] RDW Standard Deviation 43.4 37.0 - 46.0 fL [facility] RDW coefficient of variation 14.4(H) 11.5 - 14.1 % [facility] Mean Platelet Volume 9.1 7.6 - 12.9 fL [facility] NRBC% auto 0.0 % [facility] NRBC Absolute 0.000 0.000 - 0.000 x10(3)/mc L [facility] Blood specimen (specimen) 07/24/2018 3:59 PM EST 07/24/2018 4:06 PM EST Narrative Resulting Agency Comment Spec In Lab Cyndie Osei MD HEMATOLOGY ORDThor YANG [facility] [place] [address] * DNA Antibody (Double-Stranded) (07/24/2018 3:59 PM EST) DNA Ab (DS) Neg Neg [facility] Blood specimen (specimen) 07/24/2018 3:59 PM EST 07/25/2018 7:27 AM EST Narrative Resulting Agency Comment Spec In Lab Claire Gordillo MD LAB SEND OUT ORDERAB LES Performing Organization Address [facility]/ZIP Co de Phone Number [facility] [place] [address] * C4 Complement (07/24/2018 3:59 PM EST) Complement C4 27 10 - 40 mg/dL [facility] Blood specimen (specimen) 07/24/2018 3:59 PM EST 07/24/2018 4:06 PM EST Narrative Resulting Agency Comment Spec In Lab Claire Gordillo MD CHEMISTRY ORDERABLES Performing Organization Address [facility] Co de Phone Number [facility] [place] [address] * (ABNORMAL) C3 Complement (07/24/2018 3:59 PM EST) Complement C3 193(H) 90 - 180 mg/dL [facility] Blood specimen (specimen) 07/24/2018 3:59 PM EST 07/24/2018 4:06 PM EST Narrative Resulting Agency Comment Spec In Lab Claire Gordillo MD CHEMISTRY ORDERABLES Performing Organization Address [facility] Co de Phone Number [facility] [place] [address] * Lactate Dehydrogenase (07/24/2018 3:59 PM EST) Lactate Dehydrogenase 191 110 - 220 unit/L [facility] Blood specimen (specimen) 07/24/2018 3:59 PM EST 07/24/2018 4:06 PM EST Narrative Resulting Agency Comment Spec In Lab Claire Gordillo MD CHEMISTRY ORDERABLES Performing Organization Address [facility] Co de Phone Number [facility] [place] [address] * Protein Electrophoresis, serum (07/24/2018 3:59 PM EST) Total Prot Electrophoresis 7.4 6.1 - 8.0 gm/dL [facility] Albumin Electrophoresis 4.42 3.60 - 6.00 gm/dL [facility] Alpha 1 Globulin 0.21 0.10 - 0.30 gm/dL [facility] Alpha 2 Globulin 0.90 0.40 - 0.90 gm/dL [facility] Beta Globulin 0.94 0.50 - 1.00 gm/dL [facility] Gamma Globulin 0.93 0.50 - 1.30 gm/dL [facility] M1 Band None Detected None Detected [facility] Blood specimen (specimen) 07/24/2018 3:59 PM EST 07/24/2018 4:06 PM EST Narrative Resulting Agency Comment Spec In Lab Claire Gordillo MD CHEMISTRY ORDERABLES Performing Organization Address [facility] Co de Phone Number [facility] [place] [address] * (ABNORMAL) CRP, acute inflammation (07/24/2018 3:59 PM EST) C-Reactive Protein 12.5(H) <=4.9 mg/L [facility] Blood specimen (specimen) 07/24/2018 3:59 PM EST 07/24/2018 4:06 PM EST Narrative Resulting Agency Comment Spec In Lab Claire Gordillo MD CHEMISTRY ORDERABLES Performing Organization Address [facility] Co de Phone Number [facility] [place] [address] * (ABNORMAL) Sedimentation rate (07/24/2018 3:59 PM EST) Sedimentation Rate Automated 23(H) 0 - 20 mm/hr [facility] Blood specimen (specimen) 07/24/2018 3:59 PM EST 07/24/2018 4:06 PM EST Narrative Resulting Agency Comment Spec In Lab Claire Gordillo MD HEMATOLOGY ORDERABLE S [facility] [place] [address] * (ABNORMAL) Comprehensive metabolic panel (non-fasting) (07/24/2018 3:59 PM EST) Glucose 105 65 - 199 mg/dL [facility] Comment:Diabetes: >=200 mg/d L plus symptoms Blood Urea Nitrogen 11 8 - 18 mg/dL [facility] Creatinine 0.80 0.70 - 1.20 mg/dL [facility] Sodium 138 135 - 145 mmol/L [facility] Potassium 4.4 3.5 - 5.0 mmol/L [facility] Comment: Please note: ??Patients with WBC >100,000 may have falsely elevated Potassium levels. ??For accurate Potassium quantification in these patients send serum separator tube (gold top) for subsequent determinations. ??Contact the Clinical Chemistry Laboratory if there are any questions. Chloride 98 98 - 107 mmol/L [facility] Carbon Dioxide 29 22 - 31 mmol/L [facility] Anion Gap 11 5 - 15 mmol/L [facility] Calcium 9.4 8.5 - 10.5 mg/dL [facility] Protein, Total 7.8 6.1 - 8.0 gm/dL [facility] Albumin 4.1 3.2 - 5.2 gm/dL [facility] Aspartate Aminotransferase 10 0 - 30 unit/L [facility] Alanine Aminotransferase 10 0 - 30 unit/L [facility] Alkaline Phosphatase 118(H) 40 - 104 unit/L [facility] Bilirubin, Total <0.2(L) 0.2 - 1.3 mg/dL [facility] Est Glomerular Filtration Rate 92 >=60 mL/min/1. 73 m?? [facility] Comment: The eGFR was calculated using the CKD-EPI equation. As with all creatinine based estimates of kidney function, eGFR values calculated with the CKD-EPI equation are not accurate in patients with acute kidney failure, extremes of body mass or the acutely ill. [email or web address] [email or web address] eGFR 107 >=60 mL/min/1. 73 m?? [facility] Comment: The eGFR was calculated using the CKD-EPI equation. As with all creatinine based estimates of kidney function, eGFR values calculated with the CKD-EPI equation are not accurate in patients with acute kidney failure, extremes of body mass or the acutely ill. [email or web address]/[facility]nkf Blood specimen (specimen) 07/24/2018 3:59 PM EST 07/24/2018 4:06 PM EST Narrative Resulting Agency Comment Spec In Lab Claire Gordillo MD CHEMISTRY ORDERABLES Performing Organization Address City/State/[facility] Co de Phone Number [facility] [address] documented in this encounter Visit Diagnoses Diagnosis Sjogren's syndrome, with unspecified organ involvement Other forms of systemic lupus erythematosus, unspecified organ involvement status Pain in axilla, left Pain in axilla, left documented in this encounter Care Teams Wood Hacker Relationship Specialty Start Date End Date Rebecca Lewis DO [address] [place] [address] PCP - General Family Medicine 01/18/18 07/06/20 documented as of this encounter
--- OUTSIDE RECORDS SUMMARY | 2024-01-30 16:01 | XMS_ITS | Encounter Summary ---
[facility] Organization [facility] Address [facility] [place] [address] Care Team Providers Care Hotel Front Office Manager Name Role Phone OctaviakeeganashliRebecca weinberg Dillon DURAN Primary Care Provider +1- [phone] Encounter Details Date Type Department Care Team (Latest Contact Info) Description 01/19/2018 9:49 AM EDT - 01/19/2018 11:59 PM EDT Hospital Encounter [place] [phone] Michelle Marroquin MD [facility] [address] OBST[place] [address] Abnormal uterine bleeding Discharge Disposition: Home Social History Tobacco Use [...] mouth daily. 10/25/2017 fluticasone (FLONASE) 50 mcg/actuation [place], Suspension Daily 08/21/2015 ondansetron (ZOFRAN) 4 mg [...] 3:30 PM EDT Office [place] [address] Candace Vance MD [facility] [place] [place] [address] documented as of this encounter Procedures Procedure Name Priority Date/Time Associated Diagnosis Comments US TRANSVAGINAL NON OB Routine 01/19/2018 10:17 AM EDT Abnormal uterine bleeding documented in this encounter Results * US Transvaginal Non [...] 11:33 am) PATIENT INFO: ID #: ? [id number] ?: ??[birth year] (38 yrs) Name: ? DILIA MARTINEZ ? Visit Date: 01/19/2018 10:00 am PERFORMED BY: Performed By: ? Zohaib ERVIN, ??Mónica Attending: ?Sveta BOYCE, Caren Vizcaino Resident: ? Lurdes BOYCE, Abdelrahman Vizcaino Referred By: ?MICHELLE MARROQUIN Location: ? [place] SERVICE(S) PROVIDED: ??UTV - Transvaginal - [id number] ?[id number] ??UPELIM - Pelvis Limited - [id number] ? [id number] INDICATIONS: ??vaginal bleeding, two weeks; History of: [...] 01/19/2018 11:33 am) PATIENT INFO: ID #: [id number] : [birth year] (38 yrs) Name: DILIA MARTINEZ Visit Date: 01/19/2018 10:00 am PERFORMED BY: Performed By: Mónica Penny RDMS Attending: Caren Diaz MD Resident: Abdelrahman Chatman MD Referred By: MICHELLE MARROQUIN Location: [place] SERVICE(S) PROVIDED: UTV - Transvaginal - [id number] UPELIM - Pelvis Limited - [id number] INDICATIONS: vaginal bleeding, two weeks; History of: [...] tract documented in this encounter Care Teams Hotel Front Office Manager Relationship Specialty Start Date End Date Rebecca Lewis DO [address] [place] [address] PCP - General Family Medicine 01/18/18 07/06/20 documented as of this encounter
--- OUTSIDE RECORDS SUMMARY | 2024-01-30 16:01 | XMS_ITS | Encounter Summary ---
Author Organization [facility] [place] [address] Care Team Providers Care Behavioral Health Rn Name Role Phone Unavailable Primary Care Provider Unavailabl e Encounter Details Date Type Department Care Team (Late st Contact Info) Description 06/29/2016 3:45 PM EST Office [place] [address] Eulogio Tavares MD [facility] [address] Sjogren's disease Social History Tobacco Use Types Packs/Day Years Used Date Smoking Tobacco: Never Smokeless Tobacco: Never Sex and Gender Information Value Date Recorded Sex Assigned at Not on file Gender Identity Not on file Sexual Orientation Not on file documented as of this encounter Last Filed Vital Signs Vital Sign Reading Time Taken Comments Blood Pressure 139/83 06/29/2016 3:26 PM EST Pulse 78 06/29/2016 3:26 PM EST Temperature 37 ??C (98.6 ??F) 06/29/2016 3:26 PM EST Respiratory Rate 18 06/29/2016 3:26 PM EST Oxygen Saturation 100% 06/29/2016 3:26 PM EST Inhaled Oxygen Concentration - - Weight 120.2 kg (265 lb) 06/29/2016 3:26 PM EST Height 177.8 cm (5' 10) 06/29/2016 3:26 PM EST Body Mass Index 38.02 06/29/2016 3:26 PM EST documented in this encounter Progress Notes * Eulogio Tavares MD - 06/29/2016 3:45 PM EST Rheumatology follow up visit Rheum history: #Sjogren's - diagnosed 2011 at [place] w/ Sicca, joint pain, peripheral neuropathy - TYRONE 1:640 speckled, negative Ro and La - Well controlled on plaquenil, lyrica, diclofenac and evoxac Interval: Ms. Martinez is a 35 y/o woman with PMHx well controlled HTN, depression and anxiety who was diagnosed with Sjogren's in 2011. She is here for routine follow up of her Sjogren's. Feeling well, more salivary production. Occasional aches in hands still, but using diclofenac less.Would like to reduce the dose of plaquenil for fear of deposition. She remains on plaquenil, lyrica, diclofenac and evoxac. She also uses once daily eye drops and biotene mouth wash. She has no complaints of chills, parotitis or other gland enlargement. ROS: As above in HPI, otherwise denies CP, palpitations, SOB, endorses some constipation but deniesabdominal pain, denies urinary symptoms, endorses some hair loss. PMHx: hypertension, depression and anxiety. Meds: Current Outpatient Prescriptions on File Prior to Visit Medication Sig Dispense Refill ??? diclofenac (VOLTAREN) 75 mg Tablet, Delayed Release (E.C.) TAKE ONE TABLET BY MOUTH TWICE A DAY(Patient taking differently: daily) 60 tablet 3 ??? pregabalin (LYRICA) 150 mg Capsule Take 1 capsule by mouth daily. 30 capsule 3 ??? cevimeline (EVOXAC) 30 mg Capsule Take 30 mg by mouth 2 times daily. ??? clonazePAM (KLONOPIN) 0.5 mg Tablet, Rapid Dissolve Take 0.25 mg by mouth 2 times daily as needed. 0.5 mg AM, 0.25mg PM ??? PROAIR HFA 90 mcg/actuation HFA Aerosol Inhaler as needed. ??? buPROPion (WELLBUTRIN XL) 300 mg Tablet Sustained Release 24 hr 150 mg daily. ??? pantoprazole (PROTONIX) 40 mg Tablet, Delayed Release (E.C.) Take 40 mg by mouth 2 times daily. ??? PARoxetine (PAXIL) 30 mg tablet Take 30 mg by mouth every morning. ??? loratadine (CLARITIN) 10 mg tablet Take 10 mg by mouth daily as needed. ??? Cholecalciferol, Vitamin D3, (VITAMIN D-3) 1,000 unit Chew Take by mouth. No current facility-administered medications on file prior to visit. Allergies: gets hives with amoxicillin, TD shot gave her a seizure Family hx: Father had DMii and of ND at 72. Mother: asthma and osteoarthritis No rheum conditions in family otherwise. Brother has Crohn's disease. Social hx: Recently moved here, works 2 days/week doing [employer] for [employer]. Lives with boyfriend. No smoking, drinks occasionally at special events. Denies IVDU. Physical Exam: BP 139/83 Pulse 78 Temp 37 ??C (98.6 ??F) Resp 18 Ht 177.8 cm (5' 10) Wt (!) 120.2 kg (265 lb) SpO2 100% BMI 38.02 kg/m2 Gen: Young woman in NAD HEENT: PERRLA, EOMI, no cervical or supraclavicular LAD, no thyromegaly. Pulm: CTAB Abd: Benign Extremities: R shoulder: FROM with overhead motion, no pain. L hip: No pain, no tenderness, FROM with extension, flexion, external rotation or abduction Hands and feet: No erythema, no edema, FROM with extension and flexion at MCPs and PIPs, no tenderness. Last 3 wbc, hgb, hct plt Recent Labs 09/10/15 1349 WBC 10.4* HGB 13.5 HCT 41.3 PLATELET 369 A/P: This is a 35 y/o woman here for follow up of Sjogren's. She is well controlled on current regimen, so we will continue lyrica, voltaren and evoxac. The plaquenil however, we will try to taper down toonce daily to reduce her risk of optic depositions. She is continuing with yearly ophthalmologic follow-up. We will do lymphoma monitoring on her today including SPEP, CBC, which on last check were normal. Her hip pain and shoulder pain are improved with yoga, and are likely mechanical in nature. She maybenefit from more steroid injections in the future. Decrease plaquenil to once daily Eulogio Tavares MD 06/29/2016 * Ena Alvarez DO - 06/29/2016 3:45 PM EST I was the attending physician supervising the resident in the above care. For the purposes of billing, the resident provided the care. documented in this encounter Plan of Treatment Upcoming Encounters Date Type Department Care Team (Late st Contact Info) Description 02/13/2024 3:30 PM EDT Office [place] [phone] Candace Vance MD [facility] [place] [address] documented as of this encounter Results * Protein Electrophoresis, serum (07/14/2016 8:17 AM EST) Total Prot Electrophoresis 7.2 6.1 - 8.0 gm/dL [facility] Albumin Electrophoresis 4.31 3.60 - 6.00 gm/dL [facility] Alpha 1 Globulin 0.19 0.10 - 0.30 gm/dL [facility] Alpha 2 Globulin 0.86 0.40 - 0.90 gm/dL [facility] Beta Globulin 0.89 0.50 - 1.00 gm/dL [facility] Gamma Globulin 0.94 0.50 - 1.30 gm/dL [facility] M1 Band None Detected [facility] Blood specimen (specimen) 07/14/2016 8:17 AM EST 07/14/2016 8:28 AM EST Narrative Resulting Agency Comment Spec In Lab Ena Alvarez DO [place] [address] documented in this encounter Visit Diagnoses Diagnosis Sjogren's disease Sicca syndrome documented in this encounter
--- OUTSIDE RECORDS SUMMARY | 2024-01-30 16:01 | XMS_ITS | Encounter Summary ---
Author Organization [facility] Address [facility] [place] [address] Care Team Providers Care Upstairs Maid Name Role Phone OctavaikeeganashliRebecca weinberg Dillon DURAN Primary Care Provider +1- [phone] Encounter Details Date Type Department Care Team (Latest Contact Info) Description 08/01/2018 8:04 AM EST Hospital En[place] [address] Claire Gordillo MD [facility] [place] [address] Pain in axilla, left Discharge Disposition: Home Social History Tobacco Use [...] mouth daily. 10/25/2017 fluticasone (FLONASE) 50 mcg/actuation [place], Suspension Daily 08/21/2015 ondansetron (ZOFRAN) 4 mg [...] 3:30 PM EDT Office Visit Rheumatology at [facility] [place] [address] Candace Vance MD [facility] [place] [address] documented as of this encounter Procedures Procedure Name Priority Date/Time Associated Diagnosis Comments MAMMO DIAGNOSTIC CAD AND YANIV BILATERAL Routine 08/01/2018 8:28 AM EST Pain in axilla, left documented in this encounter Results * Mammo [...] below. ? Electronically signed by: Faith Fisher [facility] ([phone]), at 08/01/2018 9:07 AM Narrative 08/01/2018 9:07 [...] documented in this encounter Visit Diagnoses Diagnosis Pain in axilla, left documented in this encounter Care Teams Upstairs Maid Relationship Specialty Start Date End Date Rebecca Lewis DO [address] [place] [address] PCP - General Family Medicine 01/18/18 07/06/20 documented as of this encounter
--- OUTSIDE RECORDS SUMMARY | 2024-01-30 16:01 | XMS_ITS | Encounter Summary ---
Author Organization [facility] [place] [address] Care Team Providers Care Mail Manager Name Role Phone Unavailable Primary Care Provider Unavailabl e Reason for Visit * Reason Onset Date Comments Medication Refill 10/16/2017 Encounter Details Date Type Department Care Team (Late st Contact Info) Description 10/16/2017 [place] [address] Eulogio Tavares MD [facility] [place] [address] Social History Tobacco Use Types Packs/Day Years [...] 3:30 PM EDT Office [place] [phone] Candace Vance MD [facility] [place] [address] documented as of this encounter Visit Diagnoses Not on filedocumented in this encounter
--- OUTSIDE RECORDS SUMMARY | 2024-01-30 16:01 | XMS_ITS | Encounter Summary ---
Author Organization [facility] [place] [address] Care Team Providers Care Furnace Helper Name Role Phone Rebecca Lewis Primary Care Provider +1- [phone] Reason for Visit * Reason Onset Date Comments Medication Refill 09/04/2018 Encounter Details Date Type Department Care Team (Late st Contact Info) Description 09/04/2018 [place] [address] Cyndie Osei MD [facility] [place] [address] Social History Tobacco Use Types Packs/Day Years [...] 3:30 PM EDT Office [place] [phone] Candace Vance MD [facility] [place] [address] documented as of this encounter Visit Diagnoses Not on filedocumented in this encounter Care Teams Furnace Helper Relationship Specialty Start Date End Date Rebecca Lewis DO [address] [place] [address] PCP - General Family Medicine 01/18/18 07/06/20 documented as of this encounter
--- OUTSIDE RECORDS SUMMARY | 2024-01-30 16:01 | XMS_ITS | Encounter Summary ---
Author Organization [facility] [place] [address] Care Team Providers Care Braille Operator Name Role Phone Rebecca Lewis DO Primary Care Provider +1- [phone] Encounter Details Date Type Department Care Team (Late st Contact Info) Description 05/23/2018 Orders Only Obstetrics [place] [address] Kirti Gamino Social History Tobacco Use Types Packs/Day Years [...] 3:30 PM EDT Office [place] [address] Candace Vance MD [facility] [place] [address] documented as of this encounter Visit Diagnoses Not on filedocumented in this encounter Care Teams Braille Operator Relationship Specialty Start Date End Date Rebecca Lewis DO [address] [place] [address] PCP - General Family Medicine 01/18/18 07/06/20 documented as of this encounter
--- OUTSIDE RECORDS SUMMARY | 2024-01-30 16:01 | XMS_ITS | Encounter Summary ---
Author Organization [facility] [place] [address] Care Team Providers Care Fishing Vessel Operator Name Role Phone Unavailable Primary Care Provider Unavailabl e Reason for Visit * Reason Comments Medication Refill Encounter Details Date Type Department Care Team (Late st Contact Info) Description 06/29/2016 Ref[place] [address] Eulogio Tavares MD [facility] [place] [address] Social History Tobacco Use Types Packs/Day Years [...] 3:30 PM EDT Office [place] [address] Candace Vance MD [facility] [place] [address] documented as of this encounter Visit Diagnoses Not on filedocumented in this encounter
--- OUTSIDE RECORDS SUMMARY | 2024-01-30 16:01 | XMS_ITS | Encounter Summary ---
Author Organization [facility] [place] [address] Care Team Providers Care Client Insights Consultant Name Role Phone Unavailable Primary Care Provider Unavailabl e Reason for Visit * Reason Onset Date Comments Medication Refill 05/05/2016 Encounter Details Date Type Department Care Team (Late st Contact Info) Description 05/05/2016 [place] [address] Michelle Quijano LPN Sjogren's syndrome Social History Tobacco Use Types Packs/Day Years Used Date Smoking Tobacco: Never Sex and Gender Information Value Date Recorded Sex Assigned at Not on file Gender Identity Not on file Sexual Orientation Not on file documented as of this encounter Plan of Treatment Upcoming Encounters Date Type Department Care Team (Late st Contact Info) Description 02/13/2024 3:30 PM EDT Office [place] [address] Candace Vance MD [facility] [place] [address] documented as of this encounter Visit Diagnoses Diagnosis Sjogren's syndrome Sicca syndrome documented in this encounter
--- OUTSIDE RECORDS SUMMARY | 2024-01-30 16:01 | XMS_ITS | Encounter Summary ---
Author Organization [facility] [place] [address] Care Team Providers Care Cooker Sulfite Name Role Phone Rebecca Lewis Primary Care Provider +1- [phone] Encounter Details Date Type Department Care Team (Late st Contact Info) Description 07/27/2018 [place] [phone] Edgar Henriquez, RN Social History Tobacco Use Types Packs/Day Years [...] * Telephone Encounter - Cyndie Osei - 08/10/2018 3:53 PM EST Also patient informed of the Ultrasound and Mammogram report No mammographic or directed ultrasound evidence of malignancy with physiologic lymph node identified in the left axilla at area of tenderness. Patient advised to follow up with primary care doctor regarding the same. Reports forwarded to PCP. Cyndie Osei MD ?? * Telephone Encounter - Edgar Henriquez RN - 07/27/2018 3:35 PM EST Patient returns calls to clinic. Reviewed labs. ua with blood, flank pain, question infection. Patient advised to discuss with PCP, expressed understanding. Patient advised PCP office may contact clinic if has any questions. Patient does ask about lupus labs, will update provider. documented in this encounter Plan of Treatment Upcoming Encounters Date Type Department Care Team (Late st Contact Info) Description 02/13/2024 3:30 PM EDT Office [place] [address] Candace Vance MD [facility] [place] [address] documented as of this encounter Visit Diagnoses Not on filedocumented in this encounter Care Teams Cooker Sulfite Relationship Specialty Start Date End Date Rebecca Lewis DO [address] [place] [address] PCP - General Family Medicine 01/18/18 07/06/20 documented as of this encounter
--- OUTSIDE RECORDS SUMMARY | 2024-01-30 16:01 | XMS_ITS | Encounter Summary ---
Author Organization [facility] [place] [address] Care Team Providers Care Copy And Print Associate Name Role Phone Unavailable Primary Care Provider Unavailabl e Encounter Details Date Type Department Care Team (Late st Contact Info) Description 09/19/2017 Orders Only Rheumatology at [place] [phone] Eulogio Tavares MD [facility] GENER[facility] INTER[place] [address] Social History Tobacco Use Types Packs/Day Years [...] 3:30 PM EDT Office [place] [address] Candace Vance MD [facility] [place] [address] documented as of this encounter Visit Diagnoses Not on filedocumented in this encounter
--- OUTSIDE RECORDS SUMMARY | 2024-01-30 16:01 | XMS_ITS | Encounter Summary ---
Author Organization [facility] [place] [address] Care Team Providers Care Vac Press Operator Name Role Phone OctaviaRebecca navarro Primary Care Provider +1- [phone] Reason for Visit * Reason Comments Medication Refill Encounter Details Date Type Department Care Team (Late st Contact Info) Description 11/08/2018 [place] [address] Jarret Bradford MD [facility] [place] [address] Social History Tobacco Use Types Packs/Day Years [...] 3:30 PM EDT Office [place] [address] Candace Vance MD [facility] [place] [address] documented as of this encounter Visit Diagnoses Not on filedocumented in this encounter Care Teams Vac Press Operator Relationship Specialty Start Date End Date Rebecca Lewis DO [address] [place] [address] PCP - General Family Medicine 01/18/18 07/06/20 documented as of this encounter
--- OUTSIDE RECORDS SUMMARY | 2024-01-30 16:01 | XMS_ITS | Encounter Summary ---
Author Organization [facility] [place] [address] Care Team Providers Care [facility] Name Role Phone Rebecca Lewis DO Primary Care Provider +1- [phone] Encounter Details Date Type Department Care Team (Late Contact Info) Description 07/13/2018 Telephone [place] [address] Yolanda Alvarado Social History Tobacco Use Types Packs/Day Years [...] encounter Miscellaneous Notes * Telephone Encounter - Yolanda Alvarado - 07/13/2018 1:[address] Fernandez called from [facility] in regards to Dilia Carrolluch, who is having a Lupus flair. Questioning what medication should she be put on. She can be reached at [phone]. documented in this encounter Plan of Treatment Upcoming Encounters Date Type Department Care Team (Late st Contact Info) Description 02/13/2024 3:30 PM EDT Office [place] [address] Candace Vance MD [facility] [place] [address] documented as of this encounter Visit Diagnoses Not on filedocumented in this encounter Care Teams [facility] Relationship Specialty Start Date End Date Rebecca Lewis DO [address] [place] [address] PCP - General Family Medicine 01/18/18 07/06/20 documented as of this encounter
--- OUTSIDE RECORDS SUMMARY | 2024-01-30 16:01 | XMS_ITS | Encounter Summary ---
Author Organization [facility] [place] [address] Care Team Providers Care Endoscopy Tech Name Role Phone Rebecca Lewis Primary Care Provider +1- [phone] Reason for Visit * Reason Comments Follow-up SHG, AUB Encounter Details Date Type Department Care Team (Latest Contact Info) Description 01/23/2018 3:15 PM EDT Procedure visit Obstetrics [place] [address] Faith Deutsch MD [facility] DR OBSTETRICS [place] [address] Abnormal uterine bleeding (Primary Dx) Social History Tobacco Use Types Packs/Day Years [...] as of this encounter Progress Notes * Faith Deutsch MD - 01/23/2018 3:15 PM EDT Obgyn Procedure Note: Sonohysterogram Chief Complaint Patient presents with ??? Follow-up SHG, AUB Patient Active Problem List Diagnosis Date Noted ??? Hypertension 01/23/2018 ??? Body mass index (BMI) of 39.0 to 39.9 in adult 04/13/2016 ??? Migraine without status migrainosus, not intractable 04/13/2016 ??? Insomnia 09/18/2015 ??? Obstructive sleep apnea syndrome 04/30/2015 ??? Anxiety 03/30/2015 ??? Fibromyalgia 03/30/2015 ??? Gastroesophageal reflux disease 03/30/2015 ??? Sjogren's syndrome 03/30/2015 ??? Systemic lupus erythematosus 03/30/2015 HPI: Ms. Dilia Martinez is a 38 y.o. premenopausal woman presenting in referral from Shakira Jenkins APRN for sonohysterogram for AUB. Reports recent heavy bleeding, passing clots. Had Mirenain past but feels her body did not tolerate it. Has been on SAMMIE's in past but taken off for elevated BP's. Medical history reviewed. Medications and allergies reviewed. Objective: LMP 01/04/2018 Gen: NAD, conversant, presents alone External genital without lesions, vaginal epithelium pink and moist, cervix without lesions Procedure Note: Sonohysterogram The patient was brought to the procedure room and her name, date of , and medical record number were confirmed with her by a member of the staff performing the procedure. The procedure to be performed was confirmed with the patient. UPT was performed and found to be negative. Transvaginal ultrasound was performed. Verbal consent was obtained for the SIS. The patient was placed in a modified dorso-lithotomy position. A speculum placed without difficulty and the cervix was visualized. Her cervix was prepped withsterile Betadine. A 5mm H/S catheter placed without difficulty under direct visualization. Under transvaginal ultrasound guidance, saline was injected into the uterine cavity and the uterine cavity was thoroughly inspected in a three dimensional fashion with the ultrasound. Image documentation was obtained. The patient tolerated the procedure well. EMBx:The speculum was reintroduced into the vagina and the cervix reprepped with Betadine and the anterior lip grasped with a single toothed tenaculum after the pipelle would not pass intitially. An endo biopsy pipelle was introduced into the cavity and a sample collected. Adequate hemostasis was subsequently achieved with silver nitrate. The speculum was removed. The patient tolerated the procedu res well. Lab Results Component Value Date WBC 9.7 (H) 01/19/2018 RBC 4.84 01/19/2018 HGB 13.2 01/19/2018 HCT 40.4 01/19/2018 MCV 83.5 01/19/2018 MCH 27.3 01/19/2018 MCHC 32.7 01/19/2018 PLATELET 357 01/19/2018 RDWCV 13.2 01/19/2018 Lab Results Component Value Date TSH 1.20 01/19/2018 Assessment/Plan: Diffusely thickened endometrium without obvious intracavitary defects. Will await final TVUS US read. Reviewed recommendation to consider a progesterone only method to control bleeding such as trying the Mirena IUD again or POP's. Given elevated BMI of 37 would recommend progesterone options over proceeding directly to endometrial ablation. Will await biopsy results. We appreciate this referral and will continue to follow Dilia Martinez along with you. Please feel free to contact us with any questions or concerns. 1. Abnormal uterine bleeding 2. Essential hypertension Faith Deutsch MD [facility] Department of Obstetrics and Gynecology [phone] documented in this encounter Plan of Treatment Upcoming Encounters Date Type Department Care Team (Late st Contact Info) Description 02/13/2024 3:30 PM EDT Office [place] [address] Candace Vance MD [facility] [place] [address] documented as of this encounter Procedures Procedure Name Priority Date/Time Associated Diagnosis Comments SPECIMEN TO PATHOLOGY Routine 01/23/2018 3:45 PM EDT Abnormal uterine bleeding SURGICAL PATHOLOGY REPORT Routine 01/23/2018 3:35 PM EDT documented in this encounter Results * Specimen to Pathology (01/23/2018 3:45 PM EDT) AP Specimen 01/23/2018 3:45 PM EDT 01/23/2018 4:37 PM EDT [facility] - 01/23/2018 4:37 PM EDT Specimen requisition ordered. ??Separate Pathology report to follow Resulting Agency Comment Spec In Lab Faith Deutsch MD PATHOLOGY/CYTOLOGY O HOMAR Performing Organization Address [facility] Co de Phone Number [facility] [place] [address] * Surgical Pathology Report (01/23/2018 3:35 PM EDT) Final Diagnosis [id number] ? Location: 3S The signing pathologist has (i) examined the relevant preparation(s) for the specimen(s) and (ii) rendered or confirmed the diagnosis(es). . ?Surgical Pathology DIAGNOSIS Endometrial biopsy: ?? 1. Fragments of benign disordered proliferative endometrium intermixed ?with blood clot. ?? 2. No evidence of hyperplasia or endometritis. Electronically signed by: ??Arcelia BOYCE, Barbra Mcpherson Verified: ??01/26/2018 ?Pathologist Performed at: ??-[facility] Dept. of Pathology, [place], [place] CLINICAL INFORMATION Specimen Submitted: A - Endometrium Clinical History and Diagnosis: AUB, thickened endometrium SPECIMEN PROCESSING A - Labeled/Fixative: Patient demographics, formalin. Quantity/Size: Fragments, aggregating 2.9 x 1.5 x 0.7 cm. Tissue Description: Cooley-pink soft tissue mucus and blood clot. Sections/Processi ng: Totally submitted. (T3) ??pps 01/26/2018 9:08 AM EDT [facility] ENDOMETRIAL STRUCTURE / Unknown 01/23/2018 3:35 PM EDT 01/23/2018 3:35 PM EDT Faith Deutsch MD PATHOLOGY/CYTOLOGY O HOMAR Performing Organization Address [facility] Co de Phone [place] [address] documented in this encounter Visit Diagnoses Diagnosis Abnormal uterine bleeding- Primary Unspecified disorder of menstruation and other abnormal bleeding from female genital tract documented in this encounter Care Teams Endoscopy Tech Relationship Specialty Start Date End Date Rebecca Lewis DO [address] [place] [address] PCP - General Family Medicine 01/18/18 07/06/20 documented as of this encounter
--- OUTSIDE RECORDS SUMMARY | 2024-01-30 16:01 | XMS_ITS | Encounter Summary ---
Author Organization [facility] [place] [address] Care Team Providers Care Coverstitch Machine Operator Name Role Phone Rebecca Lewis Primary Care Provider +1- [phone] Reason for Visit * Reason Comments Medication Refill Encounter Details Date Type Department Care Team (Late st Contact Info) Description 05/31/2019 [place] [address] [facility] [place] [address] Social History Tobacco Use Types Packs/Day Years [...] * Telephone Encounter - Cyndie Osei - 06/03/2019 10:52 AM EST Please schedule follow up appointment with me in the next 4-6 weeks. Cyndie Bergeron documented in this encounter Plan of Treatment Upcoming Encounters Date Type Department Care Team (Late st Contact Info) Description 02/13/2024 3:30 PM EDT Office [place] [address] [facility] [place] [address] documented as of this encounter Visit Diagnoses Not on filedocumented in this encounter Care Teams Coverstitch Machine Operator Relationship Specialty Start Date End Date Rebecca Lewis DO [address] [place] [address] PCP - General Family Medicine 01/18/18 07/06/20 documented as of this encounter
--- OUTSIDE RECORDS SUMMARY | 2024-01-30 16:01 | XMS_ITS | Encounter Summary ---
Author Organization [facility] [place] [address] Care Team Providers Care Porter Marina Name Role Phone Rebecca Lewis DO Primary Care Provider +1- [phone] Reason for Visit * Reason Comments Follow-up Encounter Details Date Type Department Care Team (Late st Contact Info) Description 01/19/2018 12:40 PM EDT Office Visit Obstetrics [place] [address] Shakira Otoole APRN [facility] OBSTETRICS [place] [address] Menorrhagia with regular cycle (Primary Dx); Prolonged menstruation Social History Tobacco Use Types Packs/Day Years [...] Sign Reading Time Taken Comments Blood Pressure 125/85 01/19/2018 12:40 PM EDT Pulse 89 01/19/2018 12:40 PM EDT Temperature 37.1 ??C (98.7 ??F) 01/19/2018 1 2:40 PM EDT Respiratory Rate - - Oxygen Saturation 98% 01/19/2018 12: 40 PM EDT Inhaled Oxygen Concentration - - Weight 125.9 kg (277 lb 9.6 oz) 018 12:40 PM EDT Height - - Body Mass Index 39.83 09/13/2017 10:29 AM EDT documented in this encounter Progress Notes * Shakira Otoloe, QUALITY SUPERVISOR - 01/19/2018 12:40 PM EDT CC: ED follow-up for heavy menstrual bleeding Subjective: Dilia Martinez is a 38 y.o. female who is here today with concerns over heavy menstrual bleeding. Dilia started her menses at age 11. She reports a regular 28- 30 day cycle since that time. Her menses last for 4 days and the flow requires her to change a tampon a few times a day. In December, Dilia's menses was a week or so late. She started bleeding on January 04 and the flow was normal. By Monday the , the flow had continued and started to increase. On Monday she awoke in the middle of the night and needed to change her clothes as she'd soaked through them. On Monday night she had the same issue (both nights she'd worn a pad to bed). Since that time she's been changing a pad about twice an hour, when it starts to feel wet. On Monday she started noticing long, stringy blood clots, which have since become thicker and more half-dollar sized. (yesterday) Dilia had pelvic cramping that started around 12:30pm. She reports a high threshold for pain, but after the pain increased from a 3/10 to a 6-7/10 she went to the ED. test was negative and all labs were normal in the ED. Today she presents for follow-up. She reports the pain as a 10/10 and she cannot sit up straight. She describes a pressure that intermittently comes and goes with a shooting pain that intensifies on her central-left side of her abdomen. Her vaginal bleeding continues and Dilia reports starting to feel fatigued. Dilia did have a pelvic U/S done around [id number] at [facility] and reports all the findings were normal. She cannot recall why they did the imaging in the first place. Dilia has been with her partner (male) for the past 12 years. She's not currently on contraception and reports no sex within the last 3 months. Patient Active Problem List Diagnosis Date Noted ??? Body mass index (BMI) of 39.0 to 39.9 in adult 04/13/2016 ??? Migraine without status migrainosus, not intractable 04/13/2016 ??? Insomnia 09/18/2015 ??? Obstructive sleep apnea syndrome 04/30/2015 ??? Anxiety 03/30/2015 ??? Fibromyalgia 03/30/2015 ??? Gastroesophageal reflux disease 03/30/2015 ??? Sjogren's syndrome 03/30/2015 ??? Systemic lupus erythematosus 03/30/2015 Past Medical History: Diagnosis Date ??? Sjogren's syndrome 03/30/2015 Past Surgical History: Procedure Laterality Date ??? GALLBLADDER SURGERY 2011 ??? WISDOM TOOTH EXTRACTION 06/25/1996 Outpatient Prescriptions Marked as Taking for the 01/19/18 encounter (Office Visit) with Shakira Otoole APRN Medication Sig Dispense Refill ??? escitalopram (LEXAPRO) 10 mg Tablet Daily ??? fluticasone (FLONASE) 50 mcg/actuation [place], Suspension Daily ??? pantoprazole (PROTONIX) 40 mg Tablet, Delayed Release (E.C.) Twice a day ??? cholecalciferol, Vitamin D3, 2,000 unit Capsule Daily ??? pregabalin (LYRICA) 150 mg Capsule Daily ??? [DISCONTINUED] sulfamethoxazole-trimethoprim (BACTRIM DS) 800-160 mg Tablet Twice a day ??? cevimeline (EVOXAC) 30 mg Capsule Take one capsule by mouth three times a day as needed. 90 capsule 5 ??? buPROPion (WELLBUTRIN XL) 150 mg Tablet Extended Release 24 hr Take 150 mg by mouth every morning. ??? diclofenac (VOLTAREN) 75 mg Tablet, Delayed Release (E.C.) TAKE ONE TABLET BY MOUTH TWICE A DAY60 tablet 5 ??? traZODone (DESYREL) 50 mg Tablet TAKE ONE TABLET BY MOUTH AT BEDTIME NEEDED 3 ??? PROAIR HFA 90 mcg/actuation HFA Aerosol Inhaler as needed. ??? PARoxetine (PAXIL) 30 mg tablet Take 30 mg by mouth every morning. ??? loratadine (CLARITIN) 10 mg tablet Take 10 mg by mouth daily as needed. ??? [DISCONTINUED] Cholecalciferol, Vitamin D3, (VITAMIN D-3) 1,000 unit Chew Take by mouth daily. Allergies Allergen Reactions ??? Amoxicillin ??? Gluten ??? Lactose-Reduced Food ??? Pertussin Am [Rvbqaxnysahupuj-Px-Qgjxupjtmkn] ROS: See HPI, all others negative. Objective: BP 125/85 Pulse 89 Temp 37.1 ??C (98.7 ??F) Wt 125.9 kg (277 lb 9.6 oz) LMP 01/04/2018 SpO2 98% BMI 39.83 kg/m2 General: Appears healthy and well nourished. No apparent distress. Pelvic Exam: Urethra: No lesions. Normal opening. Vulva: No lesions. Trimmed pubic hair. Vagina: [place], moist, rugated. There's a small amount of menstrual bleeding in the vagina with small0.5cm sized clots. Wiped with Q-tip and no active bleeding form the cervical os is noted. Cervix: No CMT. Posterior, pink and smooth. No abnormal discharge. Uterus: Difficult to palpate with body habitus and patient guarding due to pressure. Adnexa: No masses or tenderness bilaterally. Ovaries non-palpable. U/S Reviewed: No prior studies available for comparison. 1. [...] transvaginally and therefore transabdominal evaluation is performed. Results for orders placed or performed in visit on 01/19/18 Hemogram Result Value Ref Range WBC 9.7 (H) 4.0 - 9.5 x10(3)/mcL RBC 4.84 4.00 - 5.21 x10(6)/mcL Hemoglobin 13.2 11.7 - 15.5 gm/dL Hematocrit 40.4 35.7 - 45.8 % MCV 83.5 82.6 - 94.4 fL MCH 27.3 27.1 - 32.0 pg MCHC 32.7 31.7 - 35.0 gm/dL Platelets 357 145 - 357 x10(3)/mcL RDWSD 40.2 37.0 - 46.0 fL RDWCV 13.2 11.5 - 14.1 % MPV 8.9 7.6 - 12.9 fL nRBC % Auto 0.0 % nRBC Abs Auto 0.000 0.000 - 0.000 x10(3)/mcL TSH Result Value Ref Range TSH 1.20 0.27 - 4.20 mlU/ML Assessment/Plan: Prolonged menstrual bleeding. I discussed with Dilia that performing a SHG to better visualize the vascularity noted to be in the uterus on today's U/S was my recommendation. We discussed that if the MD felt it was needed, an endometrial biopsy might also be done at that time. Since H&H was improved from her ED visit and well within normal limits, I was not too concerned over her bleeding, howev er, I did start Dilia on an aygestin taper to help stop her flow. She will take 5mg every 4-6 hours until bleeding stops, then TID for the next week until SHG scheduled. TSH was normal and we discussedother possible causes of her bleeding to be hormonal or structural. We will await SHG, which is scheduled for early next week. Dilia is in agreement with this plan. SHAKIRA OTOOLE APRN 01/19/2018 documented in this encounter Plan of Treatment Upcoming Encounters Date Type Department Care Team (Late st Contact Info) Description 02/13/2024 3:30 PM EDT Office [place] [phone] Candace Vance MD [facility] [place] [address] documented as of this encounter Procedures Procedure Name Priority Date/Time Associated Diagnosis Comments HEMOGRAM Routine 01/19/2018 1:28 PM EDT Prolonged menstruation Menorrhagia with regular cycle TSH Routine 01/19/2018 1:28 PM EDT Prolonged menstruation Menorrhagia with regular [...] 04:37 pm) PATIENT INFO: ID #: ? [id number] ?: ??[birth year] (38 yrs) Name: ? DILIA MARTINEZ ? Visit Date: 01/23/2018 03:04 pm PERFORMED BY: Performed By: ? Krystin Chaidez RDMS Attending: ?Nicanor BOYCE, Faina Reese Referred By: ?SHAKIRA OTOOLE Location: ? [place] SERVICE(S) PROVIDED: ??US - Sonohysterogram ??- [id number] ?[id number] ??U3D - ??3D rendering with interpretation - [id number] ? [id number] INDICATIONS: ??please perform SHG and endometrial biopsy [...] 01/23/2018 04:37 pm) PATIENT INFO: ID #: [id number] : [birth year] (38 yrs) Name: DILIA MARTINEZ Visit Date: 01/23/2018 03:04 pm PERFORMED BY: Performed By: Krystin Chaidez RDMS Attending: Faina Vick MD Referred By: SHAKIRA OTOOLE Location: [place] SERVICE(S) PROVIDED: [facility] - Sonohysterogram - [id number] U3D - 3D rendering with interpretation - [id number] INDICATIONS: please perform SHG and endometrial biopsy [...] Signed Final Report 01/23/2018 04:37 pm Shakira Kelley Alice TOBINN IMG US PELVI C ORDERABLES * TSH (01/19/2018 1:28 PM EDT) Pathologist [facility] Thyroid Stimulating Hormone 1.20 0.27 - 4.20 mlU/ML [facility] Blood specimen (specimen) 01/19/2018 1:28 PM EDT 01/19/2018 1:31 PM EDT Narrative Resulting Agency Comment Spec In Lab Shakira Otoole APRN CHEMISTRY OR DERABLES Performing Organization Address City/State/[facility] Co de Phone Number [facility] [place] [address] * (ABNORMAL) Hemogram (01/19/2018 1:28 PM EDT) Pathologist [facility] White Blood Cell 9.7(H) 4.0 - 9.5 x10(3)/mc L [facility] Red Blood Cell 4.84 4.00 - 5.21 x10(6)/mc L [facility] Hemoglobin 13.2 11.7 - 15.5 gm/dL [facility] Hematocrit 40.4 35.7 - 45.8 % [facility] Mean Cell Volume 83.5 82.6 - 94.4 [facility] Mean Cell Hemoglobin 27.3 27.1 - 32.0 pg [facility] Mean Cell Hemoglobin Concentration 32.7 31.7 - 35.0 gm/dL [facility] Platelet 357 145 - 357 x10(3)/mc L [facility] RDW Standard Deviation 40.2 37.0 - 46.0 [facility] RDW coefficient of variation 13.2 11.5 - 14.1 % [facility] Mean Platelet Volume 8.9 7.6 - 12.9 [facility] NRBC% auto 0.0 % [facility] NRBC Absolute 0.000 0.000 - 0.000 x10(3)/mc L [facility] Blood specimen (specimen) 01/19/2018 1:28 PM EDT 01/19/2018 1:31 PM EDT Narrative Resulting Agency Comment Spec In Lab Shakira Otoole QUALITY SUPERVISOR HEMATOLOGY O RDERABLES [facility] [place] [address] documented in this encounter Visit Diagnoses Diagnosis Menorrhagia with regular cycle- Primary Excessive or frequent menstruation Prolonged menstruation Excessive or frequent menstruation Prolonged menstruation Excessive or frequent menstruation Menorrhagia with regular cycle Excessive or frequent menstruation documented in this encounter Care Teams Porter Marina Relationship Specialty Start Date End Date Rebecca Lewis DO [address] [place] [address] PCP - General Family Medicine 01/18/18 07/06/20 documented as of this encounter
--- OUTSIDE RECORDS SUMMARY | 2024-01-30 16:01 | XMS_ITS | Encounter Summary ---
Author Organization [facility] [place] [address] Care Team Providers Care Classer Name Role Phone Rebecca Lewis Primary Care Provider +1- [phone] Reason for Visit * Reason Onset Date Comments Results 01/26/2018 Encounter Details Date Type Department Care Team (Late st Contact Info) Description 01/26/2018 Telephone Obstetrics [place] [phone] Kirti Gamino Results Social History Tobacco Use Types Packs/Day Years [...] encounter Miscellaneous Notes * Telephone Encounter - Kirti Gamino RN - 01/29/2018 9:40 AM EDT Addendum: spoke with patient, patient aware of results and recommendations. Sent to scheduling to set up follow up appointment and to discuss management options. Will call clinic with further questions or concerns. * Telephone Encounter - Kirti Gamino RN - 01/29/2018 8:58 AM EDT Addendum: attempted to call patient related to biopsy results per request of MD Deutsch. No answer, left message for patient to call clinic back. * Telephone Encounter - Kirti Gamino RN - 01/26/2018 2:42 PM EDT TELEPHONE NOTE Caller: Kirti Gamino RN Reason for call: results Assessment: per MD Deutsch let her know that her endometrial biopsy result was benign. She can schedule a clinic appointment with one of us to talk about progesterone only management options or another trial of the IUD. Plan/Instructions: attempted to call patient per request of MD Deutsch related to results of biopsy. No answer, left message for patient to call clinic back. documented in this encounter Plan of Treatment Upcoming Encounters Date Type Department Care Team (Late st Contact Info) Description 02/13/2024 3:30 PM EDT Office [place] [address] Candace Vance MD [facility] [place] [address] documented as of this encounter Visit Diagnoses Not on filedocumented in this encounter Care Teams Classer Relationship Specialty Start Date End Date Rebecca Lewis DO [address] [place] [id number] PCP - General Family Medicine 01/18/18 07/06/20 documented as of this encounter
--- OUTSIDE RECORDS SUMMARY | 2024-01-30 16:01 | XMS_ITS | Encounter Summary ---
Author Organization [facility] [place] [address] Care Team Providers Care Sourcing Internship Name Role Phone Unavailable Primary Care Provider Unavailabl e Reason for Visit * Reason Onset Date Comments Medication Refill 09/08/2017 Encounter Details Date Type Department Care Team (Late st Contact Info) Description 09/08/2017 [place] [address] Kary Thomas MA Social History Tobacco Use [...] 3:30 PM EDT [place] [address] Candace Vance MD [facility] [address] documented as of this encounter Visit Diagnoses Not on filedocumented in this encounter
--- OUTSIDE RECORDS SUMMARY | 2024-01-30 16:01 | XMS_ITS | Encounter Summary ---
Author Organization [facility] [place] [address] Care Team Providers Care Shank Scourer Name Role Phone Rebecca Lewis DO Primary Care Provider +1- [phone] Reason for Visit * Reason Onset Date Comments Medication Refill 05/15/2017 Encounter Details Date Type Department Care Team (Late st Contact Info) Description 05/15/2017 Refill [place] [address] Kary Thomas MA Social History Tobacco Use [...] 3:30 PM EDT Office [place] [address] Candace Vance MD [facility] [place] [address] documented as of this encounter Visit Diagnoses Not on filedocumented in this encounter Care Teams Shank Scourer Relationship Specialty Start Date End Date Rebecca Lewis DO [address] [place] [id number] PCP - General Family Medicine 06/02/21 documented as of this encounter
--- OUTSIDE RECORDS SUMMARY | 2024-01-30 16:01 | XMS_ITS | Encounter Summary ---
Author Organization [facility] [place] [address] Care Team Providers Care Dry Wall Sprayer Name Role Phone Rebecca Lewis Primary Care Provider [phone]- [phone] Reason for Visit * Reason Comments Vaginal Bleeding Encounter Details Date Type Department Care Team (Late st Contact Info) Description 01/18/2018 3:39 PM EDT - 01/18/2018 7:48 PM EDT [place] [address] Marilu Galarza MD [facility] [place] [address] Vaginal bleeding Discharge Disposition: Home Social History Tobacco [...] Sign Reading Time Taken Comments Blood Pressure 141/90 01/18/2018 7:47 PM EDT Pulse 79 01/18/2018 7:47 PM EDT Temperature 36.7 ??C (98.1 ??F) 01/18/2018 7:47 PM ED T Respiratory Rate 16 01/18/2018 7:47 PM EDT Oxygen Saturation 98% 01/18/2018 7:47 PM EDT Inhaled Oxygen Concentration - - Weight 120.2 kg (265 lb) 01/18/2018 1:46 PM EDT Height - - Body Mass Index 38.02 09/13/2017 10:29 AM EDT documented in this encounter Discharge Instructions * Discharge Instructions* Rey Blackmon - 01/18/2018 7:16 PM EDT Images from the original note were not included. You were seen in the emergency department for vaginal bleeding. You have been scheduled for a follow-up ultrasound to evaluate the cause of the bleeding. Please return to emergency department if you experience any other new or concerning symptoms such as fainting or passing out, new weakness, chestpain, shortness of breath. You will be scheduled for an ultrasound tomorrow morning at 7:30 AM. Please arrive at 7:15 for registration and prep. The ultrasound location will be in the mall in the hospital directly across from the [facility]. Additionally, you will be followed up in [facility] tomorrow after the ultrasound. You will be contacted after the ultrasound to set up this appointment. Abnormal Uterine Bleeding: Care Instructions Your Care Instructions Abnormal uterine bleeding (AUB) is irregular bleeding from the uterus that is longer or heavier than usual or does not occur at your regular time. Sometimes it is caused by changes in hormone levels.It can also be caused by growths in the uterus, such as fibroids or polyps. Sometimes a cause cannot be found. You may have heavy bleeding when you are not expecting your period. Your doctor may suggest a test, if you think you are . Follow-up care is a tucker part of your treatment and safety. Be sure to make and go to all appointments, and call your doctor if you are having problems. It's also a good idea to know your test resultsand keep a list of the medicines you take. How can you care for yourself at home? ?? Be safe with medicines. Take pain medicines exactly as directed. ? If the doctor gave you a prescription medicine for pain, take it as prescribed. ? If you are not taking a prescription pain medicine, ask your doctor if you can take an lgiz-izw-eywisal medicine. ?? You may be low in iron because of blood loss. Eat a balanced diet that is high in iron and vitamin C. Foods rich in iron include red meat, shellfish, eggs, beans, and leafy green vegetables. Talk to your doctor about whether you need to take iron pills or a multivitamin. When should you call for help? Call 911 anytime you think you may need emergency care. For example, call if: ? You passed out (lost consciousness). ??Call your doctor now or seek immediate medical care if: ? You have new or worse belly or pelvic pain. ? You have severe vaginal bleeding. ? You feel dizzy or lightheaded, or you feel like you may faint. ??Watch closely for changes in your health, and be sure to contact your doctor if: ? You think you may be . ? Your bleeding gets worse. ? You do not get better as expected. Where can you learn more? Visit our [employer] information library at [email or web address]. You can also view health information on [employer], your personal patient account. Log in or sign uptoday. Enter I327 in the search box to learn more about Abnormal Uterine Bleeding: Care Instructions. Current as of: March 31, 2017 Content Version: 11.7 ?? [id number] [employer] Care instructions adapted under license by [facility]. If you have questions about a medical condition or this instruction, always ask your healthcare professional. [employer] disclaims any warranty or liability for your use of this information. documented in this encounter Medications at Time of Discharge Medication Sig Dispensed Refills Start Date End Date EPINEPHrine 0.3 mg/0.3 mL Auto-Injector Inject into the muscle. 01/15/2018 escitalopram (LEXAPRO) 10 mg Tablet Take 10 mg by mouth daily. 10/25/2017 fluticasone (FLONASE) 50 mcg/actuation [place], Suspension Daily 08/21/2015 ondansetron (ZOFRAN) 4 mg [...] D3, 2,000 unit Capsule Daily 01/21/2015 05/12/2020 sulfamethoxazole-trimet hoprim (BACTRIM DS) 800-160 mg Tablet Twice a day 08/31/2016 01/19/2018 pregabalin (LYRICA) 150 mg Capsule Daily 01/21/2015 [...] MOUTH AT BEDTIME NEEDED 3 04/06/2016 05/12/2020 Cholecalciferol, Vitamin D3, (VITAMIN D-3) 1,000 unit Chew Take by mouth daily. 01/19/2018 documented as of this encounter ED Notes * Rey Blackmon - 01/18/2018 4:16 PM EDT Dilia Martinez is an 38 y.o. female who presents to the ED with: Chief Complaint Patient presents with ??? Vaginal Bleeding HPI Dilia Martinez is a 38 y.o. female with a PMH significant for systemic lupus, Sjogren's syndrome, who presents to the Emergency Department with 2 weeks of vaginal bleeding. Patient states that her periods have always been very regular, occurring every 28 days and lasting for 5-7 days. She states that over the past 2 weeks she has continued to have significant vaginal bleeding, and has started to pass clots. This bleeding has began to increase over the last several days and today, prior to presentation, she experienced bilateral lower quadrant pelvic cramping. She has not taken anything to make the pain better but in the past ibuprofen has improved her menstrual cramps. She states that the pain is sometimes worse with movement. She has not experienced any lightheadedness, dizziness, syncopal events, falls and denies any associated weakness with the continued bleeding. She has not had anychest pain or shortness of breath. She denies any fevers or chills, nausea or vomiting, radiation of this pain, pain with urination, flank pain, hematuria, melena, bright red blood per rectum, or other significant abdominal pain. Patient has never been , and is competent at this time that she is not . She denies any swelling in her groin bilaterally, changes in bowel habits, diarrhea, constipation. Review of Systems: Review of Systems Constitutional: Negative for fever. HENT: Negative for rhinorrhea. Eyes: Negative for pain. Respiratory: Negative for shortness of breath. Cardiovascular: Negative for chest pain. Gastrointestinal: Negative for abdominal pain. Endocrine: Negative for polyuria. Genitourinary: Positive for pelvic pain and vaginal bleeding. Negative for frequency. Musculoskeletal: Negative for back pain. Skin: Negative for rash. Neurological: Negative for headaches. Psychiatric/Behavioral: Negative for confusion. Patient Vitals for the past 8 hrs: BP Temp Temp src Pulse Resp SpO2 Weight 01/18/18 1346 (!) 158/95 36.7 ??C (98.1 ??F) Oral 87 16 97 % 120.2 kg (265 lb) I have reviewed the vital signs, which demonstrates patient is mildly hypertensive, afebrile, saturating well on room air, hemodynamically stable. Physical Exam: Physical Exam Constitutional: She is oriented to person, place, and time. She appears well- developed and well-nourished. No distress. HENT: Head: Normocephalic and atraumatic. Mouth/Throat: Oropharynx is clear and moist. Eyes: Conjunctivae are normal. Right eye exhibits no discharge. Left eye exhibits no discharge. No scleral icterus. Neck: Normal range of motion. Cardiovascular: Normal rate, regular rhythm and normal heart sounds. Exam reveals no gallop and no friction rub. No murmur heard. Pulmonary/Chest: Effort normal and breath sounds normal. No respiratory distress. She has no wheezes. She has no rales. Abdominal: Soft. Bowel sounds are normal. She exhibits no distension. Mild tenderness in bilateral lower quadrants, no rebound, no guarding. Genitourinary: No vaginal discharge found. Genitourinary Comments: Mucosa normal. Always open, small clots protruding, scant bleeding noted. No significant blood in vaginal vault, approximately 1 scope passed and volume. Bilateral pelvic painbimanual exam, mildly worse on left. Anteverted uterus, no significant abnormalities, enlargement noted. Musculoskeletal: She exhibits no edema or deformity. Neurological: She is alert and oriented to person, place, and time. Skin: Skin is warm and dry. She is not diaphoretic. Psychiatric: She has a normal mood and affect. Nursing note and vitals reviewed. ED Course: - Patient was evaluated and discussed with Dr. Galarza. - Medications, allergies and past medical history reviewed ED Course Rey Blackmon's Documentation Value Comment Time Beta hCG Quant: <1 Negative for . 01/19 1752 INR: 1.0 WNL 01/19 1752 PTT: 30 WNL 01/19 1752 Sodium: 140 Electrolytes WNL 01/19 1752 WBC: (!) 10.1 Minimal leukocytosis. 01/18 1829 Hemoglobin: 13.0 WNL. Reassuring against anemia. 01/18 1829 - Medications and fluid administered: Assessment and Plan: MDM: 38 y.o. female who presents for 2 weeks of vaginal bleeding. The patient is hemodynamic stablein the emergency department and physical examination was grossly reassuring against active copious bleeding. Patient's hemoglobin was reassuring at 13.0 and she denied any symptoms of lightheadedness, dizziness, shortness of breath, chest pain associated with acute blood loss. Given a reassuring physical examination and stable hemodynamic markers the case was discussed with gynecology to set the patient up with close follow-up. She was deemed safe for discharge and it was arranged for her to have a pelvic ultrasound for evaluation of the uterus and the endometrium the following morning at thefirst available opportunity, scheduled for 7:30 AM. Patient was advised of this and made arrangements to make this appointment. Arrangements were also made to have her follow-up with gynecology in clinic directly after the ultrasound for further evaluation, possibly including endometrial biopsy. Again, the patient was made aware of these arrangements and tested to being able to make that appointment. Return precautions were verbally discussed with the patient. The patient expressed understanding that they could come back to the ED at any time and agreed to the follow-up plan. Plan: - Discharge home -Return early tomorrow morning for pelvic ultrasound and follow-up with gynecology clinic. - Follow up with PCP - Return precautions were discussed with the pt Rey Blackmon MD Resident 01/20/18 1239 Associated attestation - Marilu Galarza MD - 01/22/2018 11:42 AM EDT ED ATTENDING ATTESTATION NOTE The patient was seen in conjunction with Dr. Blackmon, the resident physician. I have independentlyperformed the tucker portions of the history and physical exam. I have reviewed the nursing notes, vital signs, and all diagnostic studies personally including labs. I have discussed the details of the case with the resident and agree with the assessment and plan as described in the resident note above unless noted otherwise below. documented in this encounter Miscellaneous Notes * ED Triage - Bhumika Keyes RN - 01/18/2018 1:49 PM EDT Patient presents to ED for c/o vaginal bleeding and clots. She states that bleeding started 2 weeksago, but is gradually worsening. She also reports increasing abdominal cramping. She reports using more than 1 pad hour for the last few days. Patient arrives to ED alert and oriented x 4. Respirations equal and unlabored. Skin PWD. documented in this encounter Plan of Treatment Upcoming Encounters Date Type Department Care Team (Late st Contact Info) Description 02/13/2024 3:30 PM EDT Office [place] [address] Candace Vance MD [facility] [place] [address] documented as of this encounter Procedures Procedure Name Priority Date/Time Associated Diagnosis Comments POCT URINE STAT 01/18/2018 5:58 PM EDT HEMOGRAM STAT 01/18/2018 4:40 PM EDT DIFFERENTIAL, AUTOMATED STAT 01/18/2018 4:40 PM EDT GOLD TUBE HOLD STAT 01/18/2018 4:40 PM EDT APTT STAT 01/18/2018 4:40 PM EDT PROTHROMBIN TIME STAT 01/18/2018 4:40 PM EDT CBC (WITH DIFF) STAT 01/18/2018 4:40 PM EDT BETA HCG, QUANTITATIVE STAT 01/18/2018 4:40 PM EDT BASIC METABOLIC PANEL STAT 01/18/2018 4:40 PM EDT documented in this encounter Results * POCT urine (01/18/2018 5:58 PM EDT) [facility] POC Urine HCG Negative Negative - Negative POC Control Internal Controls Acceptable 01/18/2018 5:58 PM EDT Marilu Galarza MD POINT OF CARE TEST ORDERABLES * Gold Tube HOLD (01/18/2018 4:40 PM EDT) [facility] Gold Hold Sample in lab. [facility] Blood specimen (specimen) Venous Draw / Unknown 01/18/2018 4:40 PM EDT 01/18/2018 5:18 PM EDT Rey Blackmon MD CHEMISTRY ORDERABLES [facility] [place] [address] * (ABNORMAL) Differential, Automated (01/18/2018 4:40 PM EDT) [facility] Neutrophil % 55.3 % [facility] Neutrophil Absolute 5.60 1.70 - 6.10 x10(3)/mc L [facility] Lymph % 31.3 % [facility] Lymphocytes Abs 3.2 0.9 - 3.2 x10(3)/ L [facility] Monocyte % 7.3 % [facility] Monocyte Abs 0.7 0.3 - 0.9 x10(3)/ L [facility] Eos % 4.9 % [facility] Eosinophils Abs 0.5(H) 0.0 - 0.4 x10(3)/[facility] Basophil % 0.9 % [facility] Baso Absolute 0.1 0.0 - 0.1 x10(3)/[facility] Immature Gran % 0.30 % [facility] Comment: Immature granulocytes(IG's)percentage and absolute count will include metamyelocytes, myelocytes, and promyelocytes. Blood smears from CBCs yielding IG's will be scanned manually for concordance. If this scan disagrees with the automated IG or if promyelocytes are noted, a manual differential will be performed. Immature Gran Absolute 0.03 0.00 - 0.04 x10(3)/ L [facility] Blood specimen (specimen) 01/18/2018 4:40 PM EDT 01/18/2018 5:12 PM EDT Narrative Resulting Agency Comment Spec In Lab Rey Blackmon MD HEMATOLOGY ORDERABLE S [facility] [place] [address] * (ABNORMAL) Hemogram (01/18/2018 4:40 PM EDT) White Blood Cell 10.1(H) 4.0 - 9.5 x10(3)/[facility] Red Blood Cell 4.86 4.00 - 5.21 x10(6)/ L [facility] Hemoglobin 13.0 11.7 - 15.5 gm/dL [facility] Hematocrit 40.6 35.7 - 45.8 % [facility] Mean Cell Volume 83.5 82.6 - 94.4 fL [facility] Mean Cell Hemoglobin 26.7(L) 27.1 - 32.0 pg [facility] Mean Cell Hemoglobin Concentration 32.0 31.7 - 35.0 gm/dL [facility] Platelet 361(H) 145 - 357 x10(3)/mc L [facility] RDW Standard Deviation 39.9 37.0 - 46.0 fL [facility] RDW coefficient of variation 13.2 11.5 - 14.1 % [facility] Mean Platelet Volume 8.9 7.6 - 12.9 fL [facility] NRBC% auto 0.0 % [facility] NRBC Absolute 0.000 0.000 - 0.000 x10(3)/mc L [facility] Blood specimen (specimen) 01/18/2018 4:40 PM EDT 01/18/2018 5:12 PM EDT Narrative Resulting Agency Comment Spec In Lab Rey Blackmon MD HEMATOLOGY ORDERABLE S [facility] [place] [address] * Beta HCG, quantitative (01/18/2018 4:40 PM EDT) Beta Human Chorionic Gonadotropin, Quantitative <1 mlU/ML [facility] Comment: REFERENCE RANGES NON- FEMALE: ??Less than 5 mIU/mL POSTMENOPAUSAL FEMALE: ??Less than 8 mIU/mL ? -- FEMALES -- Weeks of ? HCG range ??(mIU/mL) ? 3 weeks ? 5.8 - 71.2 ? 4 weeks ? 9.5 - 750 ? 5 weeks ? 217 - 7,138 ? 6 weeks ? 158 - 31,795 ? 7 weeks ? 3,697 - 163,563 ? 8 weeks ? 32,065 - 149,571 ? 9 weeks ? 63,803 - 151,410 ?10 weeks ? 46,509 - 186,977 ?12 weeks ? 27,832 - 210,612 ?14 weeks ? 13,950 - 62,530 ?15 weeks ? 12,039 - 70,971 ?16 weeks ? 9,040 - 56,451 ?17 weeks ? 8,175 - 53,868 ?18 weeks ? 8,099 - 99,176 Blood specimen (specimen) 01/18/2018 4:40 PM EDT 01/18/2018 5:12 PM EDT Narrative Resulting Agency Comment Spec In Lab Marilu Galarza MD CHEMISTRY ORDERABLE S Performing Organization Address [facility] Co de Phone Number [facility] [place] [address] * APTT (01/18/2018 4:40 PM EDT) Partial Thromboplastin Time 30 25 - 37 sec [facility] Comment: The PTT is NOT appropriate for heparin monitoring. Use the Anti-Xa level for heparin monitoring (HEP UFH) or LMWH monitoring (HEP LMW). A PTT less than 37 seconds generally indicates adequate hemostasis. Blood specimen (specimen) 01/18/2018 4:40 PM EDT 01/18/2018 5:12 PM EDT Narrative Resulting Agency Comment Spec In Lab Marilu Galarza MD HEMATOLOGY ORDERABL ES Performing Organization Address [facility] Co de Phone Number [facility] [place] [address] * Prothrombin Time (01/18/2018 4:40 PM EDT) Prothrombin Time 10.5 9.4 - 12.5 sec [facility] International Normalization Ratio 1.0 [facility] Comment: An INR <2.0 indicates adequate procoagulant activity for hemostasis in most patients without underlying bleeding disorders, though the INR may not adequately reflect hemostatic capacity in patients with liver disease and synthetic impairment. The recommended target INR range for therapeutic anticoagulation is 2.0 ? 3.0 for most applications, though lower and higher ranges may be appropriate depending on clinical circumstances. Blood specimen (specimen) 01/18/2018 4:40 PM EDT 01/18/2018 5:12 PM EDT Narrative Resulting Agency Comment Spec In Lab Marilu Galarza MD HEMATOLOGY ORDERABL ES [facility] [place] [address] * (ABNORMAL) Basic Metabolic Panel (non-fasting) (01/18/2018 4:40 PM EDT) Glucose 93 65 - 199 mg/dL [facility] Comment:Diabetes: >=200 mg/d L plus symptoms Blood Urea Nitrogen 11 8 - 18 mg/dL [facility] Creatinine 0.50(L) 0.70 - 1.20 mg/dL [facility] Sodium 140 135 - 145 mmol/L [facility] Potassium 4.2 3.5 - 5.0 mmol/L [facility] Comment: Please note: ??Patients with WBC >100,000 may have falsely elevated Potassium levels. ??For accurate Potassium quantification in these patients send serum separator tube (gold top) for subsequent determinations. ??Contact the Clinical Chemistry Laboratory if there are any questions. Chloride 99 98 - 107 mmol/L [facility] Carbon Dioxide 29 22 - 31 mmol/L [facility] Anion Gap 12 5 - 15 mmol/L [facility] Calcium 9.5 8.5 - 10.5 mg/dL [facility] Est Glomerular Filtration Rate 121 >=60 mL/min/1. 73 m?? [facility] Comment: The eGFR was calculated using the CKD-EPI equation. As with all creatinine based estimates of kidney function, eGFR values calculated with the CKD-EPI equation are not accurate in patients with acute kidney failure, extremes of body mass or the acutely ill. http://[email or web address] http://[employer].com/DHMCnkf eGFR 140 >=60 mL/min/1. 73 m?? [facility] Comment: The eGFR was calculated using the CKD-EPI equation. As with all creatinine based estimates of kidney function, eGFR values calculated with the CKD-EPI equation are not accurate in patients with acute kidney failure, extremes of body mass or the acutely ill. http://[email or web address] http://[employer].com/DHMCnkf Blood specimen (specimen) 01/18/2018 4:40 PM EDT 01/18/2018 5:12 PM EDT Narrative Resulting Agency Comment Spec In Lab Marilu Galarza MD CHEMISTRY ORDERABLE S [facility] [place] [address] documented in this encounter Visit Diagnoses Diagnosis Vaginal bleeding Other specified noninflammatory disorder of vagina documented in this encounter Active and Recently Administered Medications Times are shown in EDT. Scheduled Medication Order 01/16/2018 01/17/2018 01/18/2018 ibuprofen (ADVIL;MOTRIN) tablet 800 mg 800 mg, Oral, ONCE, 1 dose, On Susan 01/18/18 at 1753, Administer orally with milk or food to minimize GI irritation , STAT 1753 (Not Given - Pr ovider: Madison Hilliard RN - Reason: See comment - Comment: Pt ttok her own) documented in this encounter Care Teams Dry Wall Sprayer Relationship Specialty Start Date End Date Rebceca Lewis DO [address] [place] [address] PCP - General Family Medicine 01/18/18 07/06/20 documented as of this encounter
--- OUTSIDE RECORDS SUMMARY | 2024-01-30 16:01 | XMS_ITS | Encounter Summary ---
Author Organization [facility] [place] [address] Care Team Providers Care Clinical Information Systems Director Name Role Phone Unavailable Primary Care Provider Unavailabl e Encounter Details Date Type Department Care Team (Late st Contact Info) Description 09/13/2017 10:30 AM EDT Office [place] [address] Eulogio Tavares MD [facility] [place] [address] Sjogren's syndrome, with unspecified organ involvement Social History Tobacco Use Types Packs/Day Years Used Date Smoking Tobacco: Never Smokeless Tobacco: Never Sex and Gender Information Value Date Recorded Sex Assigned at Not on file Gender Identity Not on file Sexual Orientation Not on file documented as of this encounter Last Filed Vital Signs Vital Sign Reading Time Taken Comments Blood Pressure 126/74 09/13/2017 10:29 AM EDT Pulse 100 09/13/2017 10:29 AM EDT Temperature 36.9 ??C (98.4 ??F) 09/13/2017 10:29 AM E DT Respiratory Rate - - Oxygen Saturation 98% 09/13/2017 10:29 AM EDT Inhaled Oxygen Concentration - - Weight 119.3 kg (263 lb) 09/13/2017 10:29 AM EDT Height 177.8 cm (5' 10) 09/13/2017 10:29 AM EDT Body Mass Index 37.74 09/13/2017 10:29 AM EDT documented in this encounter Progress Notes * Eulogio Tavares MD - 09/13/2017 10:30 AM EDT Rheumatology follow up visit Rheum history: #Sjogren's - diagnosed 2011 at [place] w/ Sicca, joint pain, peripheral neuropathy - TYRONE 1:640 speckled, negative Ro and La - Well controlled on plaquenil, lyrica, diclofenac and evoxac Interval: Ms. Martinez is a 35 y/o woman with PMHx well controlled HTN, depression and anxiety who was diagnosed with Sjogren's in 2011. She is here for routine follow up of her Sjogren's. Feeling well, now with continued salivary production. Occasional aches in hands still, but using diclofenac only once daily. Stopped plaquenil on her own as she was developing dyspepsia She remains on lyrica, diclofenac and evoxac. She also uses once daily eye drops and biotene mouth wash. She has no complaints of chills, parotitis or other gland enlargement. PMHx: hypertension, depression and anxiety. Meds: Current Outpatient Prescriptions on File Prior to Visit Medication Sig Dispense Refill ??? pregabalin (LYRICA) 150 mg Capsule Take 1 capsule by mouth daily. 30 capsule 3 ??? [DISCONTINUED] hydroxychloroquine (PLAQUENIL) 200 mg Tablet TAKE ONE TABLET ONCE DAILY. 30 tablet 5 ??? cevimeline (EVOXAC) 30 mg Capsule TAKE ONE CAPSULE BY MOUTH THREE TIMES A DAY NEEDED 90 capsule 5 ??? diclofenac (VOLTAREN) 75 mg Tablet, Delayed Release (E.C.) TAKE ONE TABLET BY MOUTH TWICE A DAY(Patient taking differently: TAKE ONE TABLET BY MOUTH daily) 60 tablet 5 ??? traZODone (DESYREL) 50 mg Tablet TAKE ONE TABLET BY MOUTH AT BEDTIME NEEDED 3 ??? [DISCONTINUED] cevimeline (EVOXAC) 30 mg Capsule Take 30 mg by mouth 2 times daily. ??? PROAIR HFA 90 mcg/actuation HFA Aerosol Inhaler as needed. ??? [DISCONTINUED] pantoprazole (PROTONIX) 40 mg Tablet, Delayed Release (E.C.) Take 40 mg by mouth2 times daily. ??? PARoxetine (PAXIL) 30 mg tablet Take 30 mg by mouth every morning. ??? loratadine (CLARITIN) 10 mg tablet Take 10 mg by mouth daily as needed. ??? Cholecalciferol, Vitamin D3, (VITAMIN D-3) 1,000 unit Chew Take by mouth daily. ??? [DISCONTINUED] clonazePAM (KLONOPIN) 0.5 mg Tablet, Rapid Dissolve Take 0.25 mg by mouth 2 times daily as needed. 0.5 mg AM, 0.25mg PM ??? [DISCONTINUED] buPROPion (WELLBUTRIN XL) 300 mg Tablet Sustained Release 24 hr 150 mg daily. No current facility-administered medications on file prior to visit. Allergies: gets hives with amoxicillin, TD shot gave her a seizure Family hx: Father had DMii and of [place] at 72. Mother: asthma and osteoarthritis No rheum conditions in family otherwise. Brother has Crohn's disease. 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 Lives with boyfriend. No smoking, drinks occasionally at special events. Denies IVDU. Physical Exam: Ht 177.8 cm (5' 10) Gen: AAOx3 NAD HEENT: PERRLA, EOMI, no cervical or supraclavicular LAD, no thyromegaly. Pulm: CTAB Abd: Benign Extremities:normal MSK exam A/P: This is a 35 y/o woman here for follow up of Sjogren's. She is well controlled on current regimen, so we will continue lyrica, voltaren and evoxac. She stopped plaquenil and has not had any change inher symptoms, so we will continue off of plaquenil. We will do lymphoma monitoring on her today CBC, which on last check were normal. Her hip pain and shoulder pain are improved with yoga, and are likely mechanical in nature. She maybenefit from more steroid injections in the future. Cont lyrica, diclofenac for pain. Eulogio Tavares MD 09/13/2017 * Claire Gordillo MD - 09/13/2017 10:[address] Tavares provided the care for this patient. I have reviewed his note. documented in this encounter Plan of Treatment Upcoming Encounters Date Type Department Care Team (Late st Contact Info) Description 02/13/2024 3:30 PM EDT Office Visit Rheumatology at [facility] [place] [address] Candace Vance MD [facility] [place] [address] documented as of this encounter Procedures Procedure Name Priority Date/Time Associated Diagnosis Comments HEMOGRAM Routine 09/13/2017 11:06 AM EDT Sjogren's syndrome, with unspecified organ involvement DIFFERENTIAL, AUTOMATED Routine 09/13/2017 11:06 AM EDT Sjogren's syndrome, with unspecified organ involvement CBC (WITH DIFF) Routine 09/13/2017 11:06 AM EDT Sjogren's syndrome, with unspecified organ involvement COMPREHENSIVE METABOLIC PANEL Routine 09/13/2017 11:06 AM EDT Sjogren's syndrome, with unspecified organ involvement documented in this encounter Results * Differential, Automated (09/13/2017 11:06 AM EDT) Neutrophil % 58.8 % [facility] Neutrophil Absolute 4.85 1.70 - 6.10 x10(3)/[facility] Lymph % 30.0 % [facility] Lymphocytes Abs 2.5 0.9 - 3.2 x10(3)/[facility] Monocyte % 6.7 % [facility] Monocyte Abs 0.6 0.3 - 0.9 x10(3)/[facility] Eos % 3.6 % [facility] Eosinophils Abs 0.3 0.0 - 0.4 x10(3)/[facility] Basophil % 0.7 % [facility] Baso Absolute 0.1 0.0 - 0.1 x10(3)/[facility] Immature Gran % 0.20 % [facility] Comment: Immature granulocytes(IG's)percentage and absolute count will include metamyelocytes, myelocytes, and promyelocytes. Blood smears from CBCs yielding IG's will be scanned manually for concordance. If this scan disagrees with the automated IG or if promyelocytes are noted, a manual differential will be performed. Immature Gran Absolute 0.02 0.00 - 0.04 x10(3)/[facility] Blood specimen (specimen) 09/13/2017 11:06 AM EDT 09/13/2017 11:12 AM EDT Narrative Resulting Agency Comment Spec In Lab Eulogio Tavares MD HEMATOLOGY ORDERABLE S [facility] [address] * (ABNORMAL) Hemogram (09/13/2017 11:06 AM EDT) White Blood Cell 8.3 4.0 - 9.5 x10(3)/[facility] Red Blood Cell 5.13 4.00 - 5.21 x10(6)/mc L [facility] Hemoglobin 13.4 11.7 - 15.5 gm/dL [facility] Hematocrit 43.1 35.7 - 45.8 % [facility] Mean Cell Volume 84.0 82.6 - 94.4 fL [facility] Mean Cell Hemoglobin 26.1(L) 27.1 - 32.0 pg [facility] Mean Cell Hemoglobin Concentration 31.1(L) 31.7 - 35.0 gm/dL [facility] Platelet 383(H) 145 - 357 x10(3)/ L [facility] RDW Standard Deviation 42.7 37.0 - 46.0 fL [facility] RDW coefficient of variation 13.8 11.5 - 14.1 % [facility] Mean Platelet Volume 8.7 7.6 - 12.9 fL [facility] NRBC% auto 0.0 % [facility] NRBC Absolute 0.000 0.000 - 0.000 x10(3)/mc L [facility] Blood specimen (specimen) 09/13/2017 11:06 AM EDT 09/13/2017 11:12 AM EDT Narrative Resulting Agency Comment Spec In Lab Eulogio Tavares MD HEMATOLOGY ORDERABLE S [facility] [place] [address] * (ABNORMAL) Comprehensive metabolic panel (non-fasting) (09/13/2017 11:06 AM EDT) Glucose 83 65 - 199 mg/dL [facility] Comment:Diabetes: >=200 mg/d L plus symptoms Blood Urea Nitrogen 13 8 - 18 mg/dL [facility] Creatinine 0.74 0.70 - 1.20 mg/dL [facility] Sodium 142 135 - 145 mmol/L [facility] Potassium 4.3 3.5 - 5.0 mmol/L [facility] Comment: Please note: ??Patients with WBC >100,000 may have falsely elevated Potassium levels. ??For accurate Potassium quantification in these patients send serum separator tube (gold top) for subsequent determinations. ??Contact the Clinical Chemistry Laboratory if there are any questions. Chloride 100 98 - 107 mmol/L [facility] Carbon Dioxide 28 22 - 31 mmol/L [facility] Anion Gap 14 5 - 15 mmol/L [facility] Calcium 9.3 8.5 - 10.5 mg/dL [facility] Protein, Total 7.3 6.1 - 8.0 gm/dL [facility] Albumin 4.5 3.2 - 5.2 gm/dL [facility] Aspartate Aminotransferase 14 0 - 30 unit/L [facility] Alanine Aminotransferase 16 0 - 30 unit/L [facility] Alkaline Phosphatase 107(H) 40 - 104 unit/L [facility] Bilirubin, Total <0.2(L) 0.2 - 1.3 mg/dL [facility] Est Glomerular Filtration Rate >60 >=60 [facility] Comment: The reported eGFR should be multiplied by 1.2 for patients. The MDRD is not an appropriate measure of renal function for patients with body mass extremes or in patients with acute kidney failure. http://[employer]/DHnkdep http://[employer]/DHMCnkf Blood specimen (specimen) 09/13/2017 11:06 AM EDT 09/13/2017 11:12 AM EDT Narrative Resulting Agency Comment Spec In Lab Claire Gordillo MD CHEMISTRY ORDERABLES [facility] [place] [address] documented in this encounter Visit Diagnoses Diagnosis Sjogren's syndrome, with unspecified organ involvement documented in this encounter
--- OUTSIDE RECORDS SUMMARY | 2024-01-30 16:01 | XMS_ITS | Encounter Summary ---
Author Organization [facility] [place] [address] Care Team Providers Care Vegetable Sorter Name Role Phone Unavailable Primary Care Provider Unavailabl e Reason for Visit * Reason Onset Date Comments Medication Refill 02/03/2016 Encounter Details Date Type Department Care Team (Late st Contact Info) Description 02/03/2016 [place] [address] Michelle Quijano LPN Sjogren's syndrome Social History [...] 3:30 PM EDT Office [place] [address] Candace Vance MD [facility] [place] [address] documented as of this encounter Visit Diagnoses Diagnosis Sjogren's syndrome Sicca syndrome documented in this encounter
--- OUTSIDE RECORDS SUMMARY | 2024-01-30 16:01 | XMS_ITS | Encounter Summary ---
Author Organization [facility] [place] [address] Care Team Providers Care Home Care Specialist Name Role Phone Rebecca Lewis Primary Care Provider [phone] Reason for Visit * Reason Onset Date Comments Medication Refill 02/27/2018 Encounter Details Date Type Department Care Team (Late st Contact Info) Description 02/27/2018 [place] [phone] Jarret Bradford MD [facility] [place] [address] Social History Tobacco Use Types Packs/Day Years [...] 3:30 PM EDT Office [place] [phone] Candace Vance MD [facility] [place] [address] documented as of this encounter Visit Diagnoses Not on filedocumented in this encounter Care Teams Home Care Specialist Relationship Specialty Start Date End Date Rebecca Lewis DO [address] [place] [address] PCP - General Family Medicine 01/18/18 07/06/20 documented as of this encounter
--- OUTSIDE RECORDS SUMMARY | 2024-01-30 16:01 | XMS_ITS | Encounter Summary ---
Author Organization [facility] [place] [address] Care Team Providers Care Property Management Accountant Name Role Phone Unavailable Primary Care Provider Unavailabl e Reason for Visit * Reason Comments Medication Refill Encounter Details Date Type Department Care Team (Late st Contact Info) Description 09/21/2016 [place] [address] Eulogio Tavares MD [facility] GENER[facility] [place] [address] Social History Tobacco Use Types Packs/Day Years [...] 3:30 PM EDT Office [place] [address] Candace Vance MD [facility] [place] [address] documented as of this encounter Visit Diagnoses Not on filedocumented in this encounter
--- OUTSIDE RECORDS SUMMARY | 2024-01-30 16:01 | XMS_ITS | Encounter Summary ---
Author Organization [facility] [place] [address] Care Team Providers Care Placement Assistant Name Role Phone Unavailable Primary Care Provider Unavailabl e Reason for Visit * Reason Onset Date Comments Medication Refill 09/13/2016 Encounter Details Date Type Department Care Team (Late st Contact Info) Description 09/13/2016 [place] [phone] Michelle Quijano LPN Sjogren's syndrome Social History Tobacco Use Types Packs/Day Years Used Date Smoking Tobacco: Never Smokeless Tobacco: Never Sex and Gender Information Value Date Recorded Sex Assigned at Not on file Gender Identity Not on file Sexual Orientation Not on file documented as of this encounter Miscellaneous Notes * Telephone Encounter - Michelle Quijano LPN - 09/13/2016 11:25 AM EDT Pt leaving on a trip needs a lyrica refill. I will send a note to Dr Tavares. documented in this encounter Plan of Treatment Upcoming Encounters Date Type Department Care Team (Late st Contact Info) Description 02/13/2024 3:30 PM EDT Office [place] [phone] Candace Vance MD [facility] [address] [place], [place] [id number] documented as of this encounter Visit Diagnoses Diagnosis Sjogren's syndrome Sicca syndrome documented in this encounter
--- OUTSIDE RECORDS SUMMARY | 2024-01-30 16:02 | XMS_ITS | Encounter Summary ---
Author Organization [facility] [place] [address] Care Team Providers Care Career Placement Specialist Name Role Phone Unavailable Primary Care Provider Unavailabl e Reason for Visit * Reason Onset Date Comments Medication Refill 01/28/2016 Encounter Details Date Type Department Care Team (Late st Contact Info) Description 01/28/2016 [place] [address] Michelle Quijano LPN Social History Tobacco Use Types Packs/Day Years Used Date Smoking Tobacco: Never Sex and Gender Information Value Date Recorded Sex Assigned at Not on file Gender Identity Not on file Sexual Orientation Not on file documented as of this encounter Plan of Treatment Upcoming Encounters Date Type Department Care Team (Late st Contact Info) Description 02/13/2024 3:30 PM EDT [place] [address] Candace Vance MD [facility] [place] [address] documented as of this encounter Visit Diagnoses Not on filedocumented in this encounter
--- OUTSIDE RECORDS SUMMARY | 2024-01-30 16:02 | XMS_ITS | Encounter Summary ---
Author Organization [facility] [place] [address] Care Team Providers Care Musical Instrument Supervisor Name Role Phone None Primary Care Provider Unavailabl e Reason for Visit * Reason Onset Date Comments Other 09/28/2015 Lyrica Encounter Details Date Type Department Care Team (Late st Contact Info) Description 09/28/2015 Telephone [place] [phone] Lisa Sebastian RN Other (Lyrica) Social History Tobacco Use Types Packs/Day Years Used Date Smoking Tobacco: Never Sex and Gender Information Value Date Recorded Sex Assigned at Not on file Gender Identity Not on file Sexual Orientation Not on file documented as of this encounter Miscellaneous Notes * Telephone Encounter - Lisa Sebastian RN - 09/28/2015 3:36 PM EDT Received message from [employer] that Dilia needs rx for Lyrica. Called in Lyrica rx to [facility], but only gave 5 refills as that is maximum allowed. documented in this encounter Plan of Treatment Upcoming Encounters Date Type Department Care Team (Late st Contact Info) Description 02/13/2024 3:30 PM EDT Office [place] [phone] Candace Vance MD [facility] [place] [address] documented as of this encounter Visit Diagnoses Not on filedocumented in this encounter Care Teams Musical Instrument Supervisor Relationship Specialty Start Date End Date None None PCP - General 03/09/15 10/27/15 documented as of this encounter
--- OUTSIDE RECORDS SUMMARY | 2024-01-30 16:02 | XMS_ITS | Encounter Summary ---
Author Organization Formerly [facility] [place] [facility] [place] [address] Care Team Providers Care White Lead Grinder Name Role Phone None Primary Care Provider Unavailabl e Reason for Referral * Consultation (Routine) - Declined by Patient Specialty Diagnoses / Procedures Referred By Lay jose Referred To Contact Otolaryngology Jay Piper MD [facility] [place] [address] [facility] [address] [place] [phone] Referral ID Status Reason Start Date Expiration Date Visits Requested Visits Authorized [id number] Declined by Patient Consult, Test & Treat 10/25/2015 10/24/2016 1 1 Reason for Visit * Reason Comments Ear Problem Encounter Details Date Type Department Care Team (Late st Contact Info) Description 10/25/2015 2:18 PM EDT - 10/25/2015 4:17 PM [place]T [place] [phone] Harvinder Arceo MD [facility] [place] [address] Ear pain, right; Throat pain Discharge Disposition: Home Social History Tobacco Use Types Packs/Day Years Used Date Smoking Tobacco: Never Sex and Gender Information Value Date Recorded Sex Assigned at Not on file Gender Identity Not on file Sexual Orientation Not on file documented as of this encounter Last Filed Vital Signs Vital Sign Reading Time Taken Comments Blood Pressure 119/86 10/25/2015 4:00 PM EDT Pulse 90 10/25/2015 4:00 PM EDT Temperature 36.6 ??C (97.9 ??F) 10/25/2015 4:00 PM ED T Respiratory Rate 16 10/25/2015 4:00 PM EDT Oxygen Saturation 97% 10/25/2015 4:00 PM EDT Inhaled Oxygen Concentration - - Weight 113.4 kg (250 lb) 10/25/2015 2:17 PM EDT Height 177.8 cm (5' 10) 10/25/2015 2:17 PM EDT Body Mass Index 35.87 10/25/2015 2:17 PM EDT documented in this encounter Discharge Instructions * Discharge Instructions* Jay Piper - 10/25/2015 4:10 PM EDT You may have an infection in the ear and should take the antibiotic drops as prescribed. You may also have a cholesteatoma. You will need further evaluation for this by an ENT. You have been referredto ENT, they will contact you for an appointment. Return to the ED with worsening ear pain, headache, fever, difficulty with your vision or if you have further concerns. * Attachments The following attachments cannot be sent through Care Everywhere. * CHOLESTEATOMA (TURKISH) documented in this encounter Medications at Time of Discharge Medication Sig Dispensed Refills Start Date End Date fluticasone (FLONASE) 50 mcg/actuation [place], Suspension Daily 08/21/2015 pantoprazole (PROTONIX) 40 mg Tablet, Delayed Release (E.C.) Take 40 mg by mouth daily. 03/30/2015 PROAIR HFA 90 mcg/actuation HFA Aerosol Inhaler as needed. 10/03/2014 PARoxetine (PAXIL) 30 mg tablet Take 30 mg by mouth nightly. loratadine (CLARITIN) 10 mg tablet Take 10 mg by mouth daily as needed. cholecalciferol, Vitamin D3, 2,000 unit Capsule Daily 01/21/2015 05/12/2020 pregabalin (LYRICA) 150 mg Capsule Daily 01/21/2015 10/04/2021 Ciprofloxacin 0.2 % [place] [facility] 0.5 mg in ear(s) every 12 hours for 7 days. 1 each 0 10/25/2015 11/01/2015 cevimeline (EVOXAC) 30 mg Capsule Take 30 mg by mouth 2 times daily. 09/13/2017 levofloxacin (LEVAQUIN) 750 mg Tablet Take 750 mg by mouth daily. Reported on 06/29/2016 06/29/2016 levonorgestrel (MIRENA) 20 mcg/24 hr (5 years) IUD 1 each by Intrauterine route once. Reported on 06/29/2016 06/29/2016 clonazePAM (KLONOPIN) 0.5 mg Tablet, Rapid Dissolve Take 0.25 mg by mouth 2 times daily as needed. 0.5 mg AM, 0.25mg PM 09/13/2017 diclofenac (VOLTAREN) 75 mg Tablet, Delayed Release (E.C.) Take 1 tablet by mouth 2 times daily for 30 days. 60 tablet 3 09/10/2015 01/24/2016 hydroxychloroquine (PLAQUENIL) 200 mg Tablet Take 1 tablet by mouth 2 times daily. 60 tablet 6 09/10/2015 12/29/2015 pregabalin (LYRICA) 150 mg CapsuleIndications:Sj ogren's syndrome Take 1 capsule by mouth daily. 30 capsule 11 09/10/2015 12/29/2015 cevimeline (EVOXAC) 30 mg Capsule Take 1 capsule by mouth 3 times daily as needed for up to 30 days. 90 capsule 3 09/10/2015 01/24/2016 buPROPion (WELLBUTRIN XL) 300 mg Tablet Sustained Release 24 hr 150 mg daily. 01/09/2015 09/13/2017 PARoxetine (PAXIL) 40 mg Tablet daily. Reported on 06/29/2016 12/31/2014 06/29/2016 BYSTOLIC 5 mg Tablet daily. Reported on 06/29/2016 8 02/08/2015 06/29/2016 pantoprazole (PROTONIX) 40 mg Tablet, Delayed Release (E.C.) Take 40 mg by mouth 2 times daily. 09/13/2017 Cholecalciferol, Vitamin D3, (VITAMIN D-3) 1,000 unit Chew Take by mouth daily. 01/19/2018 documented as of this encounter ED Notes * Harvinder Arceo MD - 10/25/2015 3:36 PM EDT The patient was seen in conjunction with the resident physician. I have independently performed thekey portions of the history and physical exam. I have discussed the details of the case with the resident and agree with the assessment and plan as described in the resident note above unless noted ot herwise below. 35 y.o. female, presenting with right ear pain and throat pain. Was given script of levaquin, stillcontinuing. Throat pain improved. R ear with erythema, + fluid in external canal, with possible cholesteatoma in 4-6 o'clock position. Question TM perforation? Will prescribe cipro drops, recommend ENT followup. Harvinder Arceo MD 10/27/15 0842 * Jay Piper - 10/25/2015 2:54 PM EDT Dilia Martinez is an 35 y.o. female who presents to the ED with: Chief Complaint Patient presents with ??? Ear Problem I saw this patient 10/25/2015 at 2:54 PM HPI Dilia Martinez is a 35 y.o. female who presents to the Emergency Department with right ear pain. Patient has had symptoms since this past Monday. Reports that she initially had sore throat difficulty swallowing and subjective fevers. Was evaluated at [facility] on . She was diagnosed with epiglottitis and a possible right ear infection. She was started on Levaquin. That she has 1 or 2 more doses of this and has been taking the medication as prescribed. Has a history of lupus and takes Plaquenil. Has had improvement in the throat symptoms since , however reports she's had progressive pain in the right ear. Is now having pain in the jaw as well. Pain in theright lower teeth. Satting some trouble chewing as a result of this. No difficulty swallowing. Has not had similar symptoms in the past. No previous history of problems with either ear. Reports hearing loss in the right ear since symptoms have worsened. No trauma to the ear. Review of Systems: Review of Systems Constitutional: Negative for fever. HENT: Positive for ear pain, hearing loss, sore throat and tinnitus. Negative for trouble swallowing and voice change. Respiratory: Negative for shortness of breath. Cardiovascular: Negative for chest pain. Gastrointestinal: Negative for nausea and vomiting. Musculoskeletal: Negative for neck stiffness. Skin: Negative for rash. Neurological: Negative for headaches. Patient Vitals for the past 24 hrs: BP Temp Temp src Pulse Resp SpO2 Height Weight 10/25/15 1417 130/76 mmHg 36.8 ??C (98.2 ??F) Oral 93 16 98 % 177.8 cm (5' 10) (!) 113.399 kg (250lb) Physical Exam: Physical Exam Constitutional: She is oriented to person, place, and time. She appears well- developed and well-nourished. No distress. HENT: Head: Normocephalic and atraumatic. Left TM clear. Right TM with collection at inferior portion, possible TM perforation. Canal withoutdebris. No pain or abnormalities noted at either external ear. No pain at mastoids. Eyes: Conjunctivae and EOM are normal. Pupils are equal, round, and reactive to light. Neck: Normal range of motion. No tracheal deviation present. Pulmonary/Chest: Effort normal. No respiratory distress. Lymphadenopathy: She has no cervical adenopathy. Neurological: She is alert and oriented to person, place, and time. Skin: Skin is warm and dry. Nursing note and vitals reviewed. ED Course: - Patient was evaluated and discussed with Dr. Arceo - Medications, allergies and past medical history reviewed Assessment and Plan: Assessment: 35 y.o. female with several days of increasing right ear pain, now with hearing loss and tinnitus. I do see a small collection against the tympanic membrane on the right, possible that this represents something such as a cholesteatoma. May also have had episode of otitis with TM perforation. We'll treat with an abiotic drops. Patient nontoxic appearing at this time without signs of systemic infection. Have arranged for ENT follow-up patient advised to return any worsening symptoms. Plan: Discharge cipro otic x7 days ENT f/u I discussed return precautions with the patient, including chest pain, abdominal pain, fevers, shortness of breath, nausea/vomiting, headache, vision changes, worsening ear pain or other concerns. The patient expressed understanding that she could come back to the ED at any time and agreed to the follow-up plan. Jay Piper MD Resident 10/25/15 3914 documented in this encounter Miscellaneous Notes * ED Triage - Samantha Monterroso RN - 10/25/2015 2:18 PM EDT Right ear pain: Pt seen at [facility]SH 4 days ago for right ear pain and sore throat. Pt states she was told she has a dislocated ear drum right side. Levaquin PO given, sore throat is improved. Pt states that she was instructed to come to [facility] with worsening pain. Right ear pain 03/05, and states her mouth and teeth also hurt now on the right side. documented in this encounter Plan of Treatment Upcoming Encounters Date Type Department Care Team (Late st Contact Info) Description 02/13/2024 3:30 PM EDT [place] [address] Candcae Vance MD [facility] [place] [address] Scheduled Referrals Name Type Priority Associated Diagnoses Orde r Schedule Referral to ENT Outpatient Referral Routine Ordered: 10/25/2015 documented as of this encounter Visit Diagnoses Diagnosis Ear pain, right Throat pain documented in this encounter Care Teams White Lead Grinder Relationship Specialty Start Date End Date None None PCP - General 03/09/15 10/27/15 documented as of this encounter
--- OUTSIDE RECORDS SUMMARY | 2024-01-30 16:02 | XMS_ITS | Encounter Summary ---
Author Organization [facility] Address [facility] [place] [address] Care Team Providers Care Regional Extension Service Specialist Name Role Phone None Primary Care Provider Unavailabl e Reason for Referral * Consultation (Routine) - Closed Specialty Diagnoses / Procedures Referred By Contjuan ramon t Referred To Contact Ophthalmology Diagnoses Sjogren's syndrome Eulogio Tavares MD [facility] [place] [address] Referral ID Status Reason Start Date Expiration Date V isits Requested Visits Authorized [id number] Closed Consult & Test 03/09/2015 09/05/2015 3 3 Encounter Details Date Type Department Care Team (Late st Contact Info) Description 03/09/2015 12:45 PM EDT Office Visit Rheumatology at [place] [phone] Eulogio Tavares MD [facility] [place] [address] Sjogren's syndrome Discharge Disposition: Home Social History Tobacco Use Types Packs/Day Years Used Date Smoking Tobacco: Never Sex and Gender Information Value Date Recorded Sex Assigned at Not on file Gender Identity Not on file Sexual Orientation Not on file documented as of this encounter Last Filed Vital Signs Vital Sign Reading Time Taken Comments Blood Pressure 136/80 03/09/2015 12:52 PM EDT Pulse 72 03/09/2015 12:52 PM EDT Temperature 36.6 ??C (97.9 ??F) 03/09/2015 12:52 PM E DT Respiratory Rate - - Oxygen Saturation 99% 03/09/2015 12:52 PM EDT Inhaled Oxygen Concentration - - Weight - - Height 177.8 cm (5' 10) 03/09/2015 12:52 PM EDT Body Mass Index - - documented in this encounter Progress Notes * Hiro Barahona MD - 03/10/2015 11:27 AM EDT I have examined and interviewed the patient and agree with the assessment and plan of the fellow Hiro Barahona M.D. * RicciYamile - 03/09/2015 1:10 PM EDT Outpatient Rheumatology Initial Visit HPI: Ms. Martinez is a 35 y/o woman with PMHx well controlled HTN, depression and anxiety who was diagnosed with Sjogren's in 2011 with a constellation of symptoms including dry eyes, dry mouth, joint pain and stiffness and peripheral neuropathy. She was found to have a positive TYRONE with 1:640 titer,speckled pattern. All other rheumatological titers were negative. She has since been well controlled on plaquenil, lyrica, diclofenac and evoxac. She recently moved back to [place] after leaving a stressful job in [place] and presents to [facility] care. Her symptoms are as follows: Started with pins and needles sensation, much improved with lyrica. Had R shoulder and L hip pain, both improved with yoga and steroid injections. R shoulder is completely asymptomatic at this time. L hip pain is elicited with lying on it. She endorses pain and stiffness in her MCPs that is made better with activity in the AM. She endorses dry eyes and dry mouth and parotitis x1 several years ago, now well controlled on the above medications and biotene. She also describes a sensation like a swollen gland midline just superior to her sternal notch. Worse at night, right before she goes to bed. She denies dysphagia, odynophagia, food getting stuck, GERD symptoms or a cough. She also endorsescold sweats since 2011, a weight gain of 75 lbs. A migratory non pruritic non painful rash on her trunk that has since resolved. She also endorses occasional fatigue. She has been well controlled on her current regimen and worsened pain that prevents her from performing ADLs only once or twice per month. ROS: As above in HPI, otherwise denies CP, palpitations, SOB, endorses some constipation but deniesabdominal pain, denies urinary symptoms, endorses some hair loss. PMHx: hypertension, depression and anxiety. Meds: Your Medications This list is accurate as of: 03/09/15 2:55 PM. Always use your most recent med list. Dose Details buPROPion 300 mg Tablet sr Commonly known as: WELLBUTRIN XL daily. Refills: 0 BYSTOLIC 5 mg Tab daily. Generic drug: Nebivolol Refills: 8 cevimeline 30 mg Cap Commonly known as: EVOXAC 3 times daily as needed. Refills: 0 diclofenac 75 mg Tbec Commonly known as: VOLTAREN 2 times daily. Refills: 0 hydroxychloroquine 200 mg Tab Commonly known as: PLAQUENIL 2 times daily. Refills: 0 loratadine 10 mg Tab Commonly known as: CLARITIN Take 10 mg by mouth daily. 10 mg Refills: 0 pantoprazole 40 mg Tbec Commonly known as: PROTONIX Take 40 mg by mouth 2 times daily. 40 mg Refills: 0 * PARoxetine 30 mg Tab Commonly known as: PAXIL Take 30 mg by mouth every morning. 30 mg Refills: 0 * PARoxetine 40 mg Tab Commonly known as: PAXIL daily. Refills: 0 pregabalin 150 mg Cap Commonly known as: LYRICA Take 1 capsule by mouth daily. 150 mg Quantity: 30 capsule Refills: 11 PROAIR HFA 90 mcg/actuation Hfaa as needed. Generic drug: albuterol Refills: 0 Vitamin D-3 1,000 unit Chew Take by mouth. Generic drug: Cholecalciferol (Vitamin D3) Refills: 0 * Notice: This list has 2 medication(s) that are the same as other medications prescribed for you. Read the directions carefully, and ask your doctor or other care provider to review them with you. Allergies: gets hives with amoxicillin, TD shot gave her a seizure Family hx: Father had DMii and of CA at 72. Mother: asthma and osteoarthritis No rheum conditions in family otherwise. Brother has Crohn's disease. 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 Lives with boyfriend. No smoking, drinks occasionally at special events. Denies IVDU. Physical Exam: BP 136/80 mmHg Pulse 72 Temp(Src) 36.6 ??C (97.9 ??F) (Oral) Ht 177.8 cm (5' 10) SpO2 99% Gen: Young woman in NAD HEENT: PERRLA, EOMI, no cervical or supraclavicular LAD, no thyromegaly. MMM CV: RRR Pulm: CTAB Abd: Benign Extremities: R shoulder: FROM with overhead motion, no pain. L hip: No pain, no tenderness, FROM with extension, flexion, external rotation or abduction Hands and feet: No erythema, no edema, FROM with extension and flexion at MCPs and PIPs, no tenderness. A/P: This is a 35 y/o woman with previously diagnosed Sjogren's disease who presents to establish care. She is well controlled on current regimen, so will continue plaquenil, lyrica, voltaren and evoxac. She will need yearly ophthalmologic follow-up. Her hip pain and shoulder pain are likely mechanical in nature, possibly osteoarthritis. She may benefit from more steroid injections in the future. The globus sensation in her throat is likely benign, but will maintain low threshold for imaging if she has lymphadenopathy in the future. * Eulogio Tavares MD - 03/09/2015 12:45 PM EDT Rheumatology Outpatient Consultation Note Reason for Consult: The patient is seen at the request of Dr. Kahn (General) for evaluation and treatment of History of Present Illness: Dilia Martinez is a 35 y.o. female who presents today to establish care for Sjogren's syndrome/early lupus. She was diagnosed after developing symptoms of numbness in her hands and feet in 2011, subsequently with dry eyes, mouth and arthritis in the hands and feet. Serology is reviewed below. She was treated with plaquenil, lyrica and diclofenac with very good results. Her full history is available in Dr Wynne's note which I reviewed and agree with. Currently, she feels well, has minimal morning stiffness, flares with joint pain once or twice a month Impression: Dilia Martinez is a 35 y.o. female who presents today to establish care for Sjogren's/early lupus overlap. Her symptoms are well controlled on her current regimen of plaquenil, lyrica and salivary secretagogues, she also uses prn diclofenac with good results when she has flares of joint pain. She does not currently need any lab work or imagine, we will refill her medications and scan her old medical records into the chart. We discussed possibly tapering her plaquenil in the future if her symptoms continue to be quiescent. She has an medical educator that she may see, however we will put in a referral for routine monitoring of plaquenil therapy to ensure that she has follow up. Recommendations: Medications: -continue plaquenil 200 bid, lyrica 150 daily, and secretagogues Referrals: - ophthalmology for plaquneil monitoring Discussion and guidance: - possibly tapering plaquenil if her symptoms remain well controlled Follow-up - 6 months or PRN CC: None (General) Case seen and discussed with Dr Brooklyn TAVARES MD 03/10/2015 documented in this encounter Plan of Treatment Upcoming Encounters Date Type Department Care Team (Late st Contact Info) Description 02/13/2024 3:30 PM EDT Office [place] [address] Candace Vance MD [facility] [place] [address] Scheduled Referrals Name Type Priority Associated Diagnoses Order Schedule Referral to Ophthalmology Outpatient Referral Routine Sjogren's syndrome Ordered: 03/09/2015 documented as of this encounter Visit Diagnoses Diagnosis Sjogren's syndrome Sicca syndrome documented in this encounter Care Teams Regional Extension Service Specialist Relationship Specialty Start Date End Date None None PCP - General 03/09/15 10/27/15 documented as of this encounter
--- OUTSIDE RECORDS SUMMARY | 2024-01-30 16:02 | XMS_ITS | Encounter Summary ---
Author Organization [facility] [place] [address] Care Team Providers Care Mold Checker Name Role Phone Unavailable Primary Care Provider Unavailabl e Reason for Visit * Reason Comments Medication Refill Encounter Details Date Type Department Care Team (Late st Contact Info) Description 01/24/2016 [place] [address] Eulogio Tavares MD [facility] [place] [address] Social History Tobacco Use Types Packs/Day Years Used Date Smoking Tobacco: Never Sex and Gender Information Value Date Recorded Sex Assigned at Not on file Gender Identity Not on file Sexual Orientation Not on file documented as of this encounter Plan of Treatment Upcoming Encounters Date Type Department Care Team (Late st Contact Info) Description 02/13/2024 3:30 PM EDT Office [place] [address] Candace Vance MD [facility] [place] [address] documented as of this encounter Visit Diagnoses Not on filedocumented in this encounter
--- OUTSIDE RECORDS SUMMARY | 2024-01-30 16:02 | XMS_ITS | Encounter Summary ---
Author Organization [facility] [place] [address] Care Team Providers Care Chief Power Dispatcher Name Role Phone Rebecca Lewis DO Primary Care Provider [phone] Reason for Visit * Reason Comments Medication Refill Encounter Details Date Type Department Care Team (Late st Contact Info) Description 12/24/2015 Refill [place] [address] Eulogio Tavares MD [facility] [place] [address] Social History Tobacco Use Types Packs/Day Years [...] PM EDT Office [place] [phone] Candace Vance MD [facility] [place] [address] documented as of this encounter Visit Diagnoses Not on filedocumented in this encounter Care Teams Chief Power Dispatcher Relationship Specialty Start Date End Date Rebecca Lewis DO [address] [place] [address] PCP - General Family Medicine 06/02/21 documented as of this encounter
--- OUTSIDE RECORDS SUMMARY | 2024-01-30 16:02 | XMS_ITS | Encounter Summary ---
Author Organization [facility] [place] [address] Care Team Providers Care Operating Room Tech Name Role Phone None Primary Care Provider Unavailabl e Reason for Visit * Reason Onset Date Comments Medication Refill 05/01/2015 Encounter Details Date Type Department Care Team (Late st Contact Info) Description 05/01/2015 [place] [address] Osvaldo Asencio, CE Social History Tobacco Use Types Packs/Day Years Used Date Smoking Tobacco: Never Sex and Gender Information Value Date Recorded Sex Assigned at Not on file Gender Identity Not on file Sexual Orientation Not on file documented as of this encounter Plan of Treatment Upcoming Encounters Date Type Department Care Team (Late st Contact Info) Description 02/13/2024 3:30 PM EDT Office [place] [address] Candace Vance MD [facility] [place] [address] documented as of this encounter Visit Diagnoses Not on filedocumented in this encounter Care Teams Operating Room Tech Relationship Specialty Start Date End Date None None PCP - General 03/09/15 10/27/15 documented as of this encounter
--- OUTSIDE RECORDS SUMMARY | 2024-01-30 16:02 | XMS_ITS | Encounter Summary ---
Author Organization [facility] [place] [address] Care Team Providers Care Ob Scrub Tech Name Role Phone Unknown Primary Care Provider Unavailabl e Reason for Visit * Reason Comments Shoulder Pain Encounter Details Date Type Department Care Team (Late st Contact Info) Description 08/18/2011 9:18 AM EST - 08/18/2011 10:12 AM EST Emergency [place] [address] Kofi Veloz PA [address] [place] [address] EMERGENCY DEPT, [facility] [place] [address] Right shoulder strain Discharge Disposition: Home Social History Tobacco Use Types Packs/Day Years Used Date Smoking Tobacco: Never Sex and Gender Information Value Date Recorded Sex Assigned at Not on file Gender Identity Not on file Sexual Orientation Not on file documented as of this encounter Last Filed Vital Signs Vital Sign Reading Time Taken Comments Blood Pressure 130/88 08/18/2011 9:34 AM EST Pulse 84 08/18/2011 9:34 AM EST Temperature 36.7 ??C (98.1 ??F) 08/18/2011 9:34 AM ES T Respiratory Rate 16 08/18/2011 9:34 AM EST Oxygen Saturation 98% 08/18/2011 9:34 AM EST Inhaled Oxygen Concentration - - Weight 86.2 kg (190 lb) 08/18/2011 9:34 AM EST Height - - Body Mass Index - - documented in this encounter Discharge Instructions * Discharge Instructions* Kofi Veloz PA - 08/18/2011 10:07 AM EST Ice as needed for the next 2-3 days Ibuprofen 600 mg every 6 hours as needed Vicodin as prescribed Sling for comfort for the next 4-5 days Pendulum exercises 5-6 times per day to keep your shoulder joint loose Re-evaluate if worse * Attachments The following attachments cannot be sent through Care Everywhere. * SHOULDER SPRAIN: AFTER YOUR VISIT ([place]) documented in this encounter Medications at Time of Discharge Medication Sig Dispensed Refills Start Date End Date PARoxetine (PAXIL) 30 mg tablet Take 30 mg by mouth nightly. loratadine (CLARITIN) 10 mg tablet Take 10 mg by mouth daily as needed. ALPRAZolam (XANAX) 0.5 mg tablet Take 0.5 mg by mouth 3 times daily as needed. 03/09/2015 omeprazole (PRILOSEC) 20 mg capsule Take 40 mg by mouth 2 times daily. 03/09/2015 Cholecalciferol, Vitamin D3, (VITAMIN D-3) 1,000 unit Chew Take by mouth daily. 01/19/2018 hydroCODone-acetaminoph en (VICODIN) 5-500 mg per tablet Take 1-2 tablets by mouth nightly as needed for Pain for 10 doses. 10 tablet 0 08/18/2011 03/09/2015 documented as of this encounter ED Notes * Fady De La Cruz RN - 08/18/2011 10:02 AM EST Sling applied to right arm. * Kofi Veloz PA - 08/18/2011 9:59 AM EST Images from the original note were not included. Chief Complaint Patient presents with ??? Shoulder Pain Patient is a 31 y.o. female presenting with shoulder pain. The history is provided by the patient. Shoulder Pain This is a new problem. The current episode started yesterday. The problem has not changed since onset. Pertinent negatives include no chest pain, no abdominal pain, no headaches and no shortness of breath. Exacerbated by: lifting or using the arm. Relieved by: better is she keeps it still. Treatments tried: ibuprofen. The treatment provided mild relief. Patient injured her arm when she was reaching in an overhead compartment on the plane and felt a pull int he front of her shoulder. Has had pain using it ever since. Sleep was difficult last night. No numbness or tingling. No elbow or wrist pain. No neck or back pain. Did not fall onto the shoulder. Right handed. No previous injuries to the shoulder Allergies Allergen Reactions ??? Amoxicillin ??? Gluten ??? Lactose-free Food ??? Pertussin Am (Ymvcvvuyvytwbwn-[id number]) Review of Systems Constitutional: Negative for fever. HENT: Negative for sore throat, trouble swallowing, neck pain and neck stiffness. Respiratory: Negative for shortness of breath. Cardiovascular: Negative for chest pain. Gastrointestinal: Negative for nausea, vomiting and abdominal pain. Genitourinary: Negative for dysuria and urgency. Musculoskeletal: Negative for back pain and gait problem. Skin: Negative for rash. Neurological: Negative for headaches. Physical Exam Constitutional: She is oriented to person, place, and time. She appears well- developed and well-nourished. HENT: Head: Normocephalic and atraumatic. Neck: Normal range of motion. No spinous process tenderness and no muscular tenderness present. Musculoskeletal: Right shoulder: She exhibits decreased range of motion and tenderness. She exhibits no bony tenderness, no swelling, no effusion, no crepitus, no deformity, no laceration, normal pulse and normal strength. Arms: Patient has FROM in the elbow with good strength isolating the biceps tendon. Patient has tenderness over the rotator cuff and I am able to take her through good range of motion with minimal discomfort. No bony tenderness. No signs of inpingement. Neurological: She is alert and oriented to person, place, and time. She has normal reflexes. Skin: Skin is warm and dry. Psychiatric: She has a normal mood and affect. Her behavior is normal. Procedures MDM ED Course: Patient put in a sling and will treat conservatively for the next few days. She will return to [place] and follow up with her PCP or Orthopaedist for possible rotator cuff tear. Precaution reviewed and follow up discussed. Pain medication for nighttime and Motrin as needed during the day as well as ice and sling with exercises ERICA Medellin 08/18/11 1005 documented in this encounter Miscellaneous Notes * Discharge Summary - Provider, Scanning - 08/19/2011 9:17 AM EST * Miscellaneous - Provider, Scanning - 08/18/2011 1:24 PM EST * ED Triage - Fady De La Cruz RN - 08/18/2011 9:36 AM EST Pt comes in with right shoulder pain. Pain started after lifting her suitcase to overhead rack on aplane. Pt is awake, alert and oriented x 3. Skin color is pink warm and dry. Plan position of comfort. Pt to room 10 from triage. documented in this encounter Plan of Treatment Upcoming Encounters Date Type Department Care Team (Late st Contact Info) Description 02/13/2024 3:30 PM EDT Office [place] [address] Candace Vance MD [facility] [address] documented as of this encounter Visit Diagnoses Diagnosis Right shoulder strain Sprain and strain of unspecified site of shoulder and upper arm documented in this encounter Care Teams Ob Scrub Tech Relationship Specialty Start Date End Date Unknown None PCP - General 08/18/11 03/08/15 documented as of this encounter
--- OUTSIDE RECORDS SUMMARY | 2024-01-30 16:02 | XMS_ITS | Encounter Summary ---
Author Organization [facility] [place] [address] Care Team Providers Care Divorce Mediator Name Role Phone Unavailable Primary Care Provider Unavailabl e Reason for Visit * Reason Comments Medication Refill Encounter Details Date Type Department Care Team (Late st Contact Info) Description 12/29/2015 [place] [address] Eulogio Tavares MD [facility] [place] [address] Sjogren's syndrome Social History Tobacco Use Types [...] 3:30 PM EDT [place] [address] Candace Vance MD [facility] [place] [address] documented as of this encounter Visit Diagnoses Diagnosis Sjogren's syndrome Sicca syndrome documented in this encounter
--- OUTSIDE RECORDS SUMMARY | 2024-01-30 16:02 | XMS_ITS | Encounter Summary ---
Author Organization [facility] [place] [address] Care Team Providers Care Institutional Nutrition Consultant Name Role Phone None Primary Care Provider Unavailabl e Encounter Details Date Type Department Care Team (Late st Contact Info) Description 09/10/2015 1:00 PM EDT Office [place] [address] Eulogio Tavares MD [facility] GENER[facility] [place] [address] Sjogren's syndrome Social History Tobacco Use Types Packs/Day Years Used Date Smoking Tobacco: Never Sex and Gender Information Value Date Recorded Sex Assigned at Not on file Gender Identity Not on file Sexual Orientation Not on file documented as of this encounter Last Filed Vital Signs Vital Sign Reading Time Taken Comments Blood Pressure 130/82 09/10/2015 12:57 PM EDT Pulse 91 09/10/2015 12:57 PM EDT Temperature - - Respiratory Rate - - Oxygen Saturation 97% 09/10/2015 12:57 PM EDT Inhaled Oxygen Concentration - - Weight 121.6 kg (268 lb) 09/10/2015 12:57 PM EDT Height 177.8 cm (5' 10) 09/10/2015 12:57 PM EDT Body Mass Index 38.45 09/10/2015 12:57 PM EDT documented in this encounter Progress Notes * Claire Gordillo MD - 09/11/2015 5:26 PM EDT I saw Ms. Martinez with Dr. Tavares and I agree with the details outlined in his note. * Eulogio Tavares MD - 09/10/2015 1:18 PM EDT Rheumatology follow up visit Rheum history: #Sjogren's - diagnosed 2011 at [place] w/ Sicca, joint pain, peripheral neuropathy - TYRONE 1:640 speckled, negative Ro and La - Well controlled on plaquenil, lyrica, diclofenac and evoxac Interval: Ms. Martinez is a 35 y/o woman with PMHx well controlled HTN, depression and anxiety who was diagnosed with Sjogren's in 2011. She is here for routine follow up of her Sjogren's. She remains well controlled on plaquenil, lyrica, diclofenac and evoxac. She also uses once daily eye drops and biotene mouth wash. She has no complaints of chills, parotitis or other gland enlargement. ROS: As above in HPI, otherwise denies CP, palpitations, SOB, endorses some constipation but deniesabdominal pain, denies urinary symptoms, endorses some hair loss. PMHx: hypertension, depression and anxiety. Meds: Your Medications These changes are accurate as of: 09/10/15 1:18 PM. If you have any questions, ask your nurse or doctor. Continued medications, unchanged Dose Details buPROPion 300 mg Tablet sr Commonly known as: WELLBUTRIN XL 150 mg daily. 150 mg Refills: 0 BYSTOLIC 5 mg Tab daily. Generic drug: nebivolol Refills: 8 cevimeline 30 mg Cap Commonly known as: EVOXAC 3 times daily as needed. Refills: 0 clonazePAM 0.5 mg Tbdl Commonly known as: KlonoPIN Take 0.5 mg by mouth 2 times daily as needed. 0.5 mg Refills: 0 diclofenac 75 mg Tbec Commonly known as: VOLTAREN 2 times daily. Refills: 0 hydroxychloroquine 200 mg Tab Commonly known as: PLAQUENIL Take 1 tablet by mouth 2 times daily. 200 mg Quantity: 60 tablet Refills: 6 loratadine 10 mg Tab Commonly known as: [...] Family hx: Father had DMii and of [place] at 72. Mother: asthma and osteoarthritis No rheum conditions in family otherwise. Brother has Crohn's disease. 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 Lives with boyfriend. No smoking, drinks occasionally at special events. Denies IVDU. Physical Exam: BP 130/82 mmHg Pulse 91 Ht 177.8 cm (5' 10) Wt 121.564 kg (268 lb) BMI 38.45 kg/m2 SpO2 97% Gen: Young woman in NAD HEENT: PERRLA, [...] continue plaquenil, lyrica, voltaren and evoxac. She is continuing with yearly ophthalmologic follow-up. We will do lymphoma monitoring on her today including SPEP, CBC and UA. Her hip pain and shoulder pain are improved with yoga, and are likely mechanical in nature. She maybenefit from more steroid injections in the future. She previously complained of globus sensation, but this seems to have resolved. Case seen and discussed with Dr Rand TAVARES MD 09/10/2015 documented in this encounter Plan of Treatment Upcoming Encounters Date Type Department Care Team (Late st Contact Info) Description 02/13/2024 3:30 PM EDT Office Visit Rheumatology at [facility] [place] [address] Candace Vance MD [facility] [place] [address] documented as of this encounter Procedures Procedure Name Priority Date/Time Associated Diagnosis Comments URINALYSIS WITH REFLEX CULTURE Routine 09/10/2015 2:09 PM EDT Sjogren's syndrome URINE CULTURE Routine 09/10/2015 2:09 PM EDT EXTRACTABLE NUCLEAR ANTIGEN (JANKI) AB Routine 09/10/2015 1:49 PM EDT Sjogren's syndrome HEMOGRAM Routine 09/10/2015 1:49 PM EDT Sjogren's syndrome DIFFERENTIAL, AUTOMATED Routine 09/10/2015 1:49 PM EDT Sjogren's syndrome CBC (WITH DIFF) Routine 09/10/2015 1:49 PM EDT Sjogren's syndrome PROTEIN ELECTROPHORESIS, SERUM Routine 09/10/2015 1:49 PM EDT Sjogren's syndrome documented in this encounter Results * (ABNORMAL) Urine culture (09/10/2015 2:09 PM EDT) Urine Culture 50,000-99,000 cfu/ml mixed mucosal saeed Note: Multiple bacterial morphotypes present. Suggest appropriate recollection with timely delivery to the laboratory, if clinically significant. (A) [facility] Urine specimen (specimen) 09/10/2015 2:09 PM EDT 09/10/2015 3:56 PM EDT Narrative Resulting Agency Comment Spec In Lab Claire Gordillo MD MICROBIOLOGY - GENER AL ORDERABLES [facility] [place] [address] * (ABNORMAL) Urinalysis with reflex Culture (09/10/2015 2:09 PM EDT) Glucose, Urine Dipstick Negative Negative mg/dL [facility] Protein, Urine Dipstick 30(A) Negative mg/dL [facility] Bilirubin, Urine Dipstick Negative Negative mg/dL [facility] Comment: Clinical correlation required for positive Urine Bilirubin results as false positive may occur with some drugs and drug related products. If a false positive is suspected a serum total bilirubin should be considered if clinically indicated. Urobilinogen, Urine Dipstick Normal Normal mg/dL [facility] pH, Urn (dipstick) 5.0 5.0 - 8.0 [facility] Blood, Urine Dipstick Negative Negative mg/dL [facility] Ketone, Urine Dipstick Negative Negative mg/dL [facility] Nitrite, Urine Dipstick Negative Negative [facility] Leukocytes, Urine Dipstick Large(A) Negative [facility] Appearance, Urine Dipstick Cloudy(A) Clear [facility] Specific Reseda Urine Automated 1.016 1.002 - 1.030 [facility] Color, Urine Dipstick Yellow Yellow [facility] RBC, Urine Not Present 0 - 4 [facility] WBC, Urine 83(H) 0 - 5 /HPF [facility] Bacteria, Urine Moderate(A) None /HPF [facility] Squamous Epithelial Cells, Urine 18(H) <=4 /HPF [facility] Transitional Epithelial Cells, Urine 1 <=1 /HPF [facility] Calcium Oxalate Crystal, Urine Few(A) None /HPF [facility] Amorphous Crystals, Urine Rare(A) None /HPF [facility] Reflex to Culture Yes [facility] Urine specimen (specimen) 09/10/2015 2:09 PM EDT 09/10/2015 2:19 PM EDT Narrative Resulting Agency Comment Spec In Lab Claire Gordillo MD URINE ORDERABLES [facility] [address] * (ABNORMAL) Differential, Automated (09/10/2015 1:49 PM EDT) Neutrophil % 66.2 % [facility] Neutrophil Absolute 6.87(H) 1.50 - 6.30 x10(3)/mc L [facility] Lymph % 25.3 % [facility] Lymphocytes Abs 2.6 1.0 - 3.6 x10(3)/mc L [facility] Monocyte % 5.9 % [facility] Monocyte Abs 0.6 0.2 - 1.0 x10(3)/mc L [facility] Eos % 2.1 % [facility] Eosinophils Abs 0.2 0.0 - 0.5 x10(3)/mc L [facility] Basophil % 0.4 % [facility] Baso Absolute 0.0 0.0 - 0.2 x10(3)/mc L [facility] Immature Gran % 0.10 % [facility] Comment: Immature granulocytes(IG's)percentage and absolute count will include metamyelocytes, myelocytes, and promyelocytes. Blood smears from CBCs yielding IG's will be scanned manually for concordance. If this scan disagrees with the automated IG or if promyelocytes are noted, a manual differential will be performed. Immature Gran Absolute 0.01 0.00 - 0.05 x10(3)/mc L [facility] Blood specimen (specimen) 09/10/2015 1:49 PM EDT 09/10/2015 2:10 PM EDT Narrative Resulting Agency Comment Spec In Lab Claire Gordillo MD HEMATOLOGY ORDERABLE S [facility] [address] * (ABNORMAL) Hemogram (09/10/2015 1:49 PM EDT) White Blood Cell 10.4(H) 4.0 - 10.0 x10(3)/[facility] Red Blood Cell 4.96 3.93 - 5.22 x10(6)/mc L [facility] Hemoglobin 13.5 11.2 - 15.7 gm/dL [facility] Hematocrit 41.3 34.0 - 45.0 % [facility] Mean Cell Volume 83.3 79.0 - 94.0 fL [facility] Mean Cell Hemoglobin 27.2 26.6 - 32.2 pg [facility] Mean Cell Hemoglobin Concentration 32.7 32.0 - 36.5 gm/dL [facility] Platelet 369 145 - 370 x10(3)/mc L [facility] RDW Standard Deviation 42.8 35.0 - 46.0 fL [facility] RDW coefficient of variation 14.1 10.9 - 14.4 % [facility] Mean Platelet Volume 9.7 9.0 - 12.0 fL [facility] Blood specimen (specimen) 09/10/2015 1:49 PM EDT 09/10/2015 2:10 PM EDT Narrative Resulting Agency Comment Spec In Lab Claire Gordillo MD HEMATOLOGY ORDERABLE S [facility] [place] [address] * Extractable Nuclear Antigen (JANKI) Ab (09/10/2015 1:49 PM EDT) JANKI Ab Test ?Result ?Flag ??Unit ??RefValue Ab to Extractable Nuclear Ag Eval,S ??SS-A/Ro Ab, IgG, S ?<0.2 ?U -- REFERENCE VALUE -- <1.0 (Negative) ??SS-B/La Ab, IgG, S ?<0.2 ?U -- REFERENCE VALUE -- <1.0 (Negative) ??Sm Ab, IgG, S ? <0.2 ?U -- REFERENCE VALUE -- <1.0 (Negative) ??AREA FIELD PERSON Ab, IgG, S ?<0.2 ?U -- REFERENCE VALUE -- <1.0 (Negative) ??Scl 70 Ab, IgG, S ? <0.2 ?U -- REFERENCE VALUE -- <1.0 (Negative) ??Zo 1 Ab, IgG, S ? <0.2 ?U -- REFERENCE VALUE -- <1.0 (Negative) Test Performed by: [facility] [address], [place] [address] Gate Keeper: Amy Juares, Ph.D. [facility] Blood specimen (specimen) 09/10/2015 1:49 PM EDT 09/10/2015 3:00 PM EDT Narrative Resulting Agency Comment Spec In Lab Claire Gordillo MD LAB SEND OUT ORDERAB LES Performing Organization Address [facility]/ZIP Co de Phone Number [facility] [place] [address] * Protein Electrophoresis, serum (09/10/2015 1:49 PM EDT) Total Prot Electrophoresis 7.2 6.1 - 8.0 gm/dL [facility] Albumin Electrophoresis 4.41 3.60 - 6.00 gm/dL [facility] Alpha 1 Globulin 0.21 0.10 - 0.30 gm/dL [facility] Alpha 2 Globulin 0.84 0.40 - 0.90 gm/dL [facility] Beta Globulin 0.89 0.50 - 1.00 gm/dL [facility] Gamma Globulin 0.86 0.50 - 1.30 gm/dL [facility] M1 Band None Detected [facility] Blood specimen (specimen) 09/10/2015 1:49 PM EDT 09/10/2015 2:10 PM EDT Narrative Resulting Agency Comment Spec In Lab Claire Gordillo MD CHEMISTRY ORDERABLES Performing Organization Address [facility] Co de Phone Number [facility] [address] documented in this encounter Visit Diagnoses Diagnosis Sjogren's syndrome Sicca syndrome documented in this encounter Care Teams Institutional Nutrition Consultant Relationship Specialty Start Date End Date None None PCP - General 03/09/15 10/27/15 documented as of this encounter
== END ==
PROVIDERS: PCP Student in an Organized Health Care Education/Training Program; Visit Provider Family Medicine
DX: M84.371A Stress fracture, right ankle, initial encounter for fracture (principal)
CPT/HCPCS: 73610

== ENCOUNTER 2024-01-31 02:40 | Outpatient (CLI) | payer BC, SELFPAY ==
[2024-01-31 08:28] LABS: HGB 14.2 g/dL (11.2-15.7)
[2024-01-31 10:09] LABS: Calculated LDL 140 mg/dL (<100); Cholesterol 219 mg/dL (<200); HDL Cholesterol 56 mg/dL (40-60); Triglyceride 119 mg/dL (<150); Vitamin D 25 Total 31.9 ng/mL (30-100)
== END 2024-01-31 02:41 | disposition home or self-care (01) ==
PROVIDERS: PCP Student in an Organized Health Care Education/Training Program; Visit Provider Student in an Organized Health Care Education/Training Program
DX: Z13.220 Encounter for screening for lipoid disorders (principal); Z86.2 Personal history of diseases of the blood and blood-forming organs and certain disorders involving the immune mechanism; R53.83 Other fatigue; K90.9 Intestinal malabsorption, unspecified
CPT/HCPCS: 36415; 80061; 82306; 85018

== ENCOUNTER 2024-04-24 13:18 | Outpatient (REF) | payer BC, SELFPAY ==
--- NOTE | 2024-04-24 13:15 | PAPFT_PTH ---
PATIENT: Dilia Martinez LOC: [facility] U#:[id number] AGE/SX: 44/F ROOM: RE04/24/[address]: Flora Hudson : 1980 BED: DIS: 04/24/2024 SPEC #: [id number] RECD: 04/24/24 17:48 STATUS: ASYA RESon #: [id number] VONNIE: 04/24/24 13:[address]: Flora Hudson DEPT: [facility] Cytology RECD BY: Amy Arambula ENTERED: 04/24/24 17:48 SP TYPE: PAPFT DONTAHR DR: Rebecca Lewis DO Tissues: 1 - CX/ENDOCX FOR PAP SMEARS Procedures: PAP THIN PREP/UVM Screening HPV DNA PROBE Comments: [id number] (HPV 16 & 18/45)
== END 2024-04-24 13:19 | disposition home or self-care (01) ==
LOC: LBN 13:18
PROVIDERS: PCP Student in an Organized Health Care Education/Training Program; Visit Provider Obstetrics & Gynecology Gynecology
DX: Z12.4 Encounter for screening for malignant neoplasm of cervix (principal)
CPT/HCPCS: 88142; 87624

== ENCOUNTER 2024-04-26 00:48 | Outpatient (CLI) | payer BC, SELFPAY ==
--- NOTE | 2024-04-26 07:48 | DI.MAMMO_ITS ---
Exam(s) MAMMO SCREENING EXAM: MAMMO SCREENING CLINICAL HISTORY: screening TECHNIQUE: Bilateral full field digital CC and MLO mammographic images were obtained with 3D tomosyn thesis and utilizing computer aided detection (CAD). COMPARISON: Available for comparison. FINDINGS: Masses/Architectural Distortion: None seen. Microcalcifications: No suspicious pleomorphic-type are seen. Skin Thickening/Nipple Retraction: None. IMPRESSION: 1. No significant interval change with no specific features of malignancy noted. 2. Unless there is more urgent need, screening mammography is recommended, as per [employer] [employer] guidelines. BI-RADS Category 1 - Negative Breast Density - Category B - Scattered areas of fibroglandular density Breast density category C or D implies that the patient has dense breast tissue. Dense breast tissue is very common and is not abnormal but dense breast tissue can make it harder to find cancer on a ma mmogram. Also, dense breast tissue may increase their breast cancer risk. This information about the result of the mammogram report was provided to the patient to raise their awareness. Use this report when you speak with the patient about their risks for breast cancer, which includes their family hist ory. At that time, you may recommend for more screening tests (Ultrasound or MRI) as they might be us eful based on their risk. A negative radiographic report should not delay biopsy if a dominant or clinically suspicious mass is present. Up to ten percent of cancers are not identified on mammography. A negative report may reinforce clinical impression. Adenosis and dense breasts may obscure an underlying neoplasm. False positive reports average 6 to 10%. Patient will receive a letter notifying them of these results.
== END 2024-04-26 01:08 ==
LOC: DI 00:49
PROVIDERS: PCP Student in an Organized Health Care Education/Training Program; Visit Provider Obstetrics & Gynecology Gynecology
DX: Z12.31 Encounter for screening mammogram for malignant neoplasm of breast (principal)
CPT/HCPCS: 77063; 77067

== ENCOUNTER 2025-01-10 09:28 | Outpatient (REF) | payer BC, SELFPAY | END 2025-01-10 09:29 | disposition home or self-care (01) | LOC: LBN 09:28 | PROVIDERS: PCP Family Medicine; Visit Provider Obstetrics & Gynecology | DX: K29.50 Unspecified chronic gastritis without bleeding (principal) | CPT/HCPCS: 88305 ==

== ENCOUNTER 2025-03-06 13:15 | Emergency (ER) | payer BC, SELFPAY ==
[2025-03-06] VITALS (39 sets, daily range): BP systolic 112–138; BP diastolic 74–97; PULSE 66–87; RESP 8–21; TEMP 37.5; O2SAT 93–98
--- NOTE | 2025-03-06 13:15 | RT.EKG_ITS ---
APPROVED REPORT Exam: Resting ECG Reason for Exam: Chest Pain Patient Location: E HR:85 bpm ECG Measurements Heart Rate 85 AXIS WV 152 P 53 QRSd 107 QRS 62 QT 376 T -7 QTc 448 Conclusion Sinus rhythm...normal P axis, V-rate 60- 99 Probable inferior infarct, age indeterminate...Q>35mS, T neg, II III aVF No STEMI
--- NOTE | 2025-03-06 13:15 | DI.RAD_ITS ---
Exam(s) XR PORTABLE CHEST AP EXAM: XR PORTABLE CHEST AP CLINICAL HISTORY: Chest pain TECHNIQUE: 2D digital imaging was performed. COMPARISON: No exams were available for comparison FINDINGS: LUNGS: Clear. No pleural abnormality seen. HEART: Normal size. AORTA: Normal diameter. BONES: Unremarkable for age. Soft tissues: Unremarkable. IMPRESSION: No acute findings. DATA REPOSITORY: RADIATION DOSE DELIVERED:
--- NOTE | 2025-03-06 13:30 | W.ED.GENAD ---
Discharge Plan Disposition Patient Disposition: Home Discharge Details Clinical Impression: Atypical chest pain, Myofascial neck pain Primary Care Provider: Harvinder Whalen ED Provider: Kahlil Montoya Home Meds and New Rx's Prescriptions: Continued (DME) glucometer See Rx Instructions .Route .MEDSUPPLY Qty: 1 0RF Rx Instructions: As directed (DME) lancets Misc See Rx Instructions .ROUTE .MEDSUPPLY Qty: 200 3RF Rx Instructions: As directed to check blood glucose twice daily. On insulin. Dispense covered brand. (DME) Blood Glucose Test Strip See Rx Instructions .ROUTE .MEDSUPPLY Qty: 100 3RF Rx Instructions: As directed to check blood glucose daily. No insulin. Dispense covered brand. Saccharomyces boulardii [Daily Probiotic (S. boulardii)] 250 mg capsule 250 mg PO BID milk thistle 150 mg capsule 150 mg PO DAILY Rx Instructions: give with meal/snack zpyaklwp-mxnz-ctkwc-oreg-capry 100 mg-150 mg- 50 mg-150 mg capsule 1 cap PO DAILY gallbladder enzymes 1 cap PO DAILY berberine chloride 500 mg capsule 200 mg PO DAILY adrenal cortex (porcine) 80 mg tablet 50 mg PO DAILY Patient Comments: Supplement Collagen 20 g PO DAILY creatine 5 g PO DAILY MaculaPF 10-20-13-4 mg capsule 1 cap PO DAILY Restasis MultiDose 0.05 % drops 1 drp ophthalmic (eye) Q12H epinephrine 0.3 mg/0.3 mL auto-injector 0.3 mg IM ONCE PRN (Reason: anaphylaxis) Qty: 2 1RF Rx Instructions: Inject once, repeat x1 if needed. escitalopram oxalate 10 mg tablet 10 mg PO DAILY Qty: 90 3RF Rx Instructions: continue bupropion HCl [Wellbutrin XL] 150 mg tablet extended release 24 hr 150 mg PO DAILY Qty: 90 3RF fluticasone propionate 50 mcg/actuation spray,suspension 2 spray ZACHERY DAILY PRN (Reason: nasal congestion) Qty: 16 0RF Rx Instructions: administer into each nostril cbd oil 10 mg liquid 10 mg PO DAILY Patient Comments: 02.09.23 [facility] [place] Diclofenac, added the CBD 1 dropper full (10mg) daily evening.HE loratadine [Claritin] 10 MG tablet 10 mg PO DAILY multivitamin [Daily Multi-Vitamin] 1 EACH tablet 1 ea PO DAILY (DME) Space Chamber Plus 1 EACH spacer 1 ea Miscellaneous PRN Qty: 1 Rx Instructions: To be used with inhaler. cevimeline 30 mg capsule 1 cap PO TID Patient Comments: Saliva stimulant Rx Instructions: 04/05/21 [facility] [place] cholecalciferol (vitamin D3) [Vitamin D3] 50 mcg (2,000 unit) capsule 2,000 unit PO DAILY Qty: 90 1RF hydroxychloroquine [Plaquenil] 200 mg tablet 200 mg PO BID Qty: 30 0RF Rx Instructions: 04/05/21 [facility] [place] amlodipine 5 mg tablet 5 mg PO BID Qty: 180 3RF Rx Instructions: Continue BID. Monitor BP. pantoprazole 40 mg tablet,delayed release (DR/EC) 40 mg PO DAILY Qty: 90 3RF Rx Instructions: Daily use pregabalin 75 mg capsule 75 mg PO DAILY Patient Comments: [facility] [place].HE paroxetine HCl 40 mg tablet 40 mg PO DAILY Qty: 90 3RF albuterol sulfate [ProAir HFA] 90 mcg/actuation HFA aerosol inhaler 2 puff Inhalation Q4-6H PRN Qty: 2 1RF Rx Instructions: DISPENSE ALBUTEROL BRAND COVERED BY INSURANCE Discharge Instructions Instructions: Neck Pain Exercises Additional Instructions: Please follow-up with your primary care provider regarding your visit to the emergency department today, specifically be sure to discuss if stress test would be appropriate as an outpatient. Be sure to discuss results of all test performed here today to include radiology, and laboratory testing as well as results for any pending cultures. Should your symptoms worsen, or if you develop new concerning symptoms, please return immediately emergency department for further evaluation. Discharge Data Discharge Date/Time-TO BE ENTERED AT DEPARTURE: 03/06/25 17:33 HPI General Date/Time Provider Initiated Documentation: 03/06/25 13:17. HPI Narrative: MDM/Narrative: Initial Assessment: 42-year-old female with chest pain radiating to neck and arm, worsening over days. No dizziness or shortness of breath. Family history of heart disease. Differential Diagnosis: - Myocardial infarction: EKG normal, no signs of heart attack. troponin x 2. - PTX/PNA: Obtain chest x-ray -PE: PERC negative, making this unlikely - Myofascial pain syndrome: Neck pain consistent with myofascial pain. Trigger point injection planned. ED Course: - EKG normal. - Blood tests conducted. - Chest x-ray performed. - Trigger point injection administered. On reassessment, following trigger point injection patient notes significant improvement of her neck pain. Results shared with and discussed the patient is agreeable to plan for discharge to follow-up with her primary care provider. Clinical Impression: - Myofascial pain syndrome - Hypertension - Atypical chest pain Disposition: - Discharge: Home - Follow-Up: Discuss stress test with PCP. This document was created with assistance from [employer] The patient consented to its use. HPI: The patient is a 42-year-old female with a medical history significant for hypertension and systemic lupus erythematosus, presenting with thoracic pain. The patient reports persistent thoracic pain for several days, which has been progressively worsening. The pain is described as pressure-like and radiates to the neck and arm. It is constant and does not vary with physical activities or changes in position. She also notes increased fatigue but denies experiencing dizziness or dyspnea. The onset of symptoms occurred on the night of 02/28/2025, with intermittent relief over the weekend, but the pain has been unrelenting since 03/05/2025. The discomfort extends to the collarbone, neck, upper arm, and axillary region. There is a family history of cardiovascular disease on the paternal side. The patient denies engaging in strenuous activities, experiencing trauma, or any association of symptoms with eating or exertion. This morning, she felt too weak to ascend stairs, prompting her to seek medical attention. She denies any leg edema or pain. The patient has no history of smoking, thromboembolic events, malignancy, hormone therapy, or oral contraceptive use. She has not undergone any cardiac stress tests and reports no recent illness. She is currently experiencing pain. The patient is on amlodipine for hypertension and medication for lupus. PAST SURGICAL HISTORY: The patient underwent varicose vein occlusion on the right side in May 2023. ROS: Negative besides as mentioned above Exam: Vital signs: Reviewed. General Appearance: Alert and oriented. No acute distress. HEENT: NCAT, EOMI, not icteric. External ears normal. No rhinorrhea. Moist mucous membranes. Neck: Tenderness upon palpation left sternocleidomastoid and left trap no midline tenderness to palpation. Respiratory: No Respiratory distress. No tachypnea. Cardiovascular: RRR, no edema. Gastrointestinal: Soft, nondistended, No rebound tenderness. Back: No midline tenderness to palpation or palpable step-offs of the C/T/L spine. Musculoskeletal: Tenderness in left trapezius muscle. Skin: Warm and dry, no rash. Neurological: Normal Gait, Grossly intact. Psychiatric: Appropriate for situation. Rhythm: NSR Rate: Luana: Normal axis Intervals: Normal intervals Other findings: No acute ST segment or T wave changes to suggest acute ischemia. Procedure: PROCEDURE: Trigger Point Injection. ANESTHESIA: 4 ml of 1% Lidocine with epinephrine was injected subcutaneously into left trapezius and left SCM areas of palpable spasm. COMPLICATIONS: None. DESCRIPTION OF PROCEDURE: The procedure risks, hazards and alternatives were discussed with the patient and a proper consent was obtained. The area over the myofascial spasm was prepped with alcohol utilizing sterile technique. After isolating it between two palpating fingertips a 30-gauge needle was placed in the center of the myofascial spasms and a negative aspiration was performed. Then 2 cc of 1% Lidocaine w/ Epi was injected into each trigger point. The patient tolerated the procedure well without any apparent difficulties or complications. Labs: Laboratory Tests Range/Units 03/06/25 03/06/25 13:29 16:25 WBC (4.4-10.8) 10^3/uL 9.35 RBC (3.93-5.22) 10^6/uL 5.07 Hgb (11.2-15.7) g/dL 13.2 Hct (36.0-46.0) % 41.2 MCV (80-95) fL 81 MCH (27.0-33.0) pg 26.0 L MCHC (32.0-36.0) % 32.0 RDW (11.7-14.6) % 13.8 Plt Count (130-400) 10^3/uL 373 MPV (8.0-11.0) fL 9.2 Immature Gran % % 0.2 Neutrophils % % 68.4 Lymphocytes % % 19.6 Monocytes % % 6.6 Eosinophils % % 4.5 Basophils % % 0.7 Nucleated RBC % (0.0-0.3) % 0.0 Absolute Neutrophils (1.2-6.7) 10^3/uL 6.39 Absolute Lymphocytes (1.2-3.4) 10^3/uL 1.83 Absolute Monocytes (0.1-0.8) 10^3/uL 0.62 Absolute Eosinophils (0.0-0.7) 10^3/uL 0.42 Absolute Basophils (0.0-0.2) 10^3/uL 0.07 Sodium (136-145) mmol/L 141 Potassium (3.5-5.1) mmol/L 3.7 Chloride (98-107) mmol/L 104 Carbon Dioxide (21.0-32.0) mmol/L 30.0 Anion Gap (3-11) mmol/L 7.0 BUN (7-18) mg/dL 8 Creatinine (0.55-1.02) mg/dL 0.6 Est GFR (CKD-EPI 2020) (mL/min/1.73m2) 111.34 Glucose (74-106) mg/dL 103 Calcium (8.5-10.1) mg/dL 8.7 Magnesium (1.8-2.4) mg/dL 1.8 Total Bilirubin (0.2-1.0) mg/dL 0.2 AST (15-37) U/L 10 L ALT (14-59) U/L 24 Alkaline Phosphatase (46-116) U/L 100 Troponin I (<or=51) ng/L 4 5 Total Protein (6.4-8.2) g/dL 6.8 Albumin (3.4-5.0) g/dL 3.3 L Radiology: Exam(s) XR PORTABLE CHEST AP EXAM: XR PORTABLE CHEST AP CLINICAL HISTORY: Chest pain TECHNIQUE: 2D digital imaging was performed. COMPARISON: No exams were available for comparison FINDINGS: LUNGS: Clear. No pleural abnormality seen. HEART: Normal size. AORTA: Normal diameter. BONES: Unremarkable for age. Soft tissues: Unremarkable. IMPRESSION: No acute findings. DATA REPOSITORY: RADIATION DOSE DELIVERED: Related Data Home Medications ?Medication ?Instructions ?Recorded ?Confirmed loratadine 10 mg tablet (Claritin) 10 mg PO DAILY 10/26/15 03/06/25 multivitamin (Daily Multi-Vitamin 1 ea PO DAILY 02/25/16 03/06/25 tablet) inhalational spacing device (Space ##1 09/26/16 03/06/25 Chamber Plus) blood sugar diagnostic (Blood #100 ea 09/28/20 03/06/25 Glucose Test strips) glucometer #1 ea 09/28/20 03/06/25 lancets #200 ea 09/28/20 03/06/25 cevimeline 30 mg capsule 1 cap PO TID 04/06/21 03/06/25 Saccharomyces boulardii 250 mg 250 mg PO BID 09/21/21 03/06/25 capsule (Daily Probiotic (S. boulardii)) gallbladder enzymes 1 cap PO DAILY 09/21/21 03/06/25 milk thistle 150 mg capsule 150 mg PO DAILY 09/21/21 03/06/25 turmeric 100 mg-shanna 150 1 cap PO DAILY 09/21/21 03/06/25 mg-olive 50 mg-oreg 150 mg-capryl capsule cholecalciferol (vitamin D3) 50 2,000 unit PO DAILY #90 caps 01/11/22 01/27/25 mcg (2,000 unit) capsule (Vitamin D3) fluticasone propionate 50 2 spray intranasal DAILY PRN nasal 03/05/22 03/06/25 mcg/actuation nasal congestion #16 grams spray,suspension hydroxychloroquine 200 mg tablet 200 mg PO BID #30 tabs 05/16/22 01/27/25 (Plaquenil) cbd oil 10 mg PO DAILY 02/09/23 03/06/25 Collagen 20 g PO DAILY 11/03/23 03/06/25 adrenal cortex (porcine) 80 mg 50 mg PO DAILY 11/03/23 03/06/25 tablet berberine chloride 500 mg capsule 200 mg PO DAILY 11/03/23 03/06/25 choline 10 mg-lutein 20 1 cap PO DAILY 11/03/23 03/06/25 mg-zeaxanthin 13 mg-astaxanthin 4 mg capsule (MaculaPF) creatine 5 g PO DAILY 11/03/23 03/06/25 amlodipine 5 mg tablet 5 mg PO BID #180 tabs 04/17/24 03/06/25 pantoprazole 40 mg tablet,delayed 40 mg PO DAILY #90 tab-caps 08/02/24 03/06/25 release pregabalin 75 mg capsule 75 mg PO DAILY 11/07/24 03/06/25 paroxetine HCl 40 mg tablet 40 mg PO DAILY #90 tabs 11/26/24 03/06/25 bupropion HCl 150 mg 24 hr tablet, 150 mg PO DAILY #90 tab-caps 12/05/24 03/06/25 extended release (Wellbutrin XL) cyclosporine 0.05 % eye drops 1 drp ophthalmic (eye) Q12H 12/05/24 03/06/25 (Restasis MultiDose) epinephrine 0.3 mg/0.3 mL 0.3 mg (0.3 mL) IM ONCE PRN 12/05/24 03/06/25 injection, auto-injector anaphylaxis #2 ea escitalopram oxalate 10 mg tablet 10 mg PO DAILY #90 tab-caps 12/05/24 03/06/25 albuterol sulfate 90 mcg/actuation 2 puff inhalation Q4-6H PRN #2 01/31/25 03/06/25 aerosol inhaler (ProAir HFA) inhalations Previous Rx's ?Medication ?Instructions ?Recorded blood sugar diagnostic (Blood #100 ea 09/28/20 Glucose Test strips) glucometer #1 ea 09/28/20 lancets #200 ea 09/28/20 cholecalciferol (vitamin D3) 50 2,000 unit PO DAILY #90 caps 01/11/22 mcg (2,000 unit) capsule (Vitamin D3) fluticasone propionate 50 2 spray intranasal DAILY PRN nasal 03/05/22 mcg/actuation nasal congestion #16 grams spray,suspension hydroxychloroquine 200 mg tablet 200 mg PO BID #30 tabs 05/16/22 (Plaquenil) amlodipine 5 mg tablet 5 mg PO BID #180 tabs 04/17/24 pantoprazole 40 mg tablet,delayed 40 mg PO DAILY #90 tab-caps 08/02/24 release paroxetine HCl 40 mg tablet 40 mg PO DAILY #90 tabs 11/26/24 bupropion HCl 150 mg 24 hr tablet, 150 mg PO DAILY #90 tab-caps 12/05/24 extended release (Wellbutrin XL) epinephrine 0.3 mg/0.3 mL 0.3 mg (0.3 mL) IM ONCE PRN 12/05/24 injection, auto-injector anaphylaxis #2 ea escitalopram oxalate 10 mg tablet 10 mg PO DAILY #90 tab-caps 12/05/24 albuterol sulfate 90 mcg/actuation 2 puff inhalation Q4-6H PRN #2 01/31/25 aerosol inhaler (ProAir HFA) inhalations Allergies Allergy/AdvReac Type Severity Reaction Status Date / Time latex Allergy Severe other Verified 03/06/25 13:24 aspirin Allergy Mild other Verified 03/06/25 13:24 amoxicillin Allergy Hives Verified 03/06/25 13:24 bee venom protein (honey bee) Allergy Anaphylaxis Verified 03/06/25 13:24 pertussis vaccine,adsorbed Allergy seizure at Verified 03/06/25 13:24 2yrs walnut Allergy other Verified 03/06/25 13:24 General Stated Complaint: Chest Pain LIU: 3 Course Vital Signs Vital signs: Vital Signs Temperature 37.5 C 03/06/25 13:23 Pulse 87 03/06/25 13:23 Respiratory Rate 16 03/06/25 13:23 Blood Pressure 138/78 03/06/25 13:23 Pulse Oximetry 98 03/06/25 13:23 Temperature 37.5 C 03/06/25 13:23 Pulse 87 03/06/25 13:23 Respiratory Rate 16 03/06/25 13:23 Blood Pressure 138/78 03/06/25 13:23 Pulse Oximetry 98 03/06/25 13:23 Pain Level 6 03/06/25 13:23 PFSH All Active Problems (Updated 03/06/25 @ 14:50 by Kahlil Montoya MD) Myofascial neck pain (Acute) Atypical chest pain (Acute) Drusen (degenerative) of macula, left eye (Acute ~06/14/24) [place] [facility] [place].Plan to observe for now, DDX: 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 Hypovitaminosis D (Acute) Trial weekly high-dose, 03/2021 .. re-check ~ Jun 2021 [ ] (Hx since 2014) Asthma (Chronic) Hx exacerbations, cornelius w/ travel; possible early COVID (before testing).. Hx heavy international travel. Sinusitis (Chronic) Seasonal Anxiety and depression (Chronic 03/30/15) Uses calming apps, yoga. Need aer activity. Travels. In comparison to past work life, however, she is doin much better (no HTN, Rheum meds) Dicussed poss of BB for anticipatory anx. 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 Lactose intolerance (Chronic 03/30/15) Hyperlipidemia, unspecified (Chronic 04/22/15) Labs 03/2015 -- 10-year ASCVD risk 2.93% -- not candidate for meds at this time Gluten intolerance (Chronic 03/30/15) Essential hypertension (Chronic 03/30/15) Elevated BPs noted; ED visit 03/08/20; Fam Hx CAD, CVA. (LSM controlled when initially here in [place] and between jobs). Monitoring @ home. ACEi not tolerated (flank pn!); CCB BID. ik, 03/18/20. Medical History COVID (~03/18/22) Hematuria HPV test positive 2017. Nl Pap/+ HPV. No repeat pap/HPV till 01/2021. Hypoglycemia Serious symptoms with low blood sugars! SWEATING & ANXIETY. Left renal stone Right flank pain Intermittent, acute on chronic pain; Worse when dehydrated. No acute findings on 03/18 US (LFT side findings, but NOT assoc w/ pain). Family history of cardiac arrest Fa @ 70; Hx stents @ 55. Uncle of [place] @ 38. Respiratory illness Resp illness, asthma exacerbation x 2+ weeks since home from [place]. Possible COVID19 exposure 2' travel, but did not feel testing needed as completely isolating and I agreed until 10/17/19 ED recommendation for possible Pyelo. Abnormal uterine bleeding (AUB) (01/22/18) Episode of menorrhagia. [place] [facility] [place] 01/23/18 sjordjens syndrome lupus gerd Abnormal uterine bleeding (AUB) 12/2017. Heavy flow, [place] [facility] Anxiety and depression BMI 39.0-39.9,adult Migraine Fibromyalgia Nodule of esophagus Found on 2009 EGD -- negative/benign biopsy -- no f/u EGD recommended Surgical History Status post endovenous radiofrequency ablation (RFA) of saphenous vein (~06/09/23) Decker tooth extraction Cholecystectomy (06/12/12) Family History Mother Essential hypertension Spinal stenosis Asthma Father , [place], stroke at age 73. Prostate cancer Diabetes Essential hypertension Heart disease Stroke Brother No problems noted. Brother No problems noted. Grandmother , Colon CA at age 60. 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 Stopped working during Covid. Do you feel safe at home: Yes Do you feel safe in your relationship?: Yes Additional Social history: has hx of major depression. Improved with ECT. History History 0 Para Hx # Term Pregnancies Multiple births Hx # Pregnancies Ectopic pregnancies AB induced Hx Number of Living Children AB spontaneous
[2025-03-06 13:41] LABS: Abs Immature Grans 0.02 10^3/uL (0.0-0.06); HCT 41.2 % (36.0-46.0); HGB 13.2 g/dL (11.2-15.7); Immature Grans % 0.2 %; MCH 26.0 pg (27.0-33.0); MCHC 32.0 % (32.0-36.0); MCV 81 fL (80-95); MPV 9.2 fL (8.0-11.0); Platelet Count 373 10^3/uL (130-400); RBC 5.07 10^6/uL (3.93-5.22); RDW 13.8 % (11.7-14.6); RDW-SD 39.8 fL; WBC 9.35 10^3/uL (4.4-10.8)
[2025-03-06 14:05] LABS: ALT 24 U/L (14-59); AST 10 U/L (15-37); Albumin 3.3 g/dL (3.4-5.0); Alkaline Phosphatase 100 U/L (46-116); Anion Gap 7.0 mmol/L (3-11); BUN 8 mg/dL (7-18); Bilirubin, Total 0.2 mg/dL (0.2-1.0); CO2 30.0 mmol/L (21.0-32.0); Calcium 8.7 mg/dL (8.5-10.1); Chloride 104 mmol/L (98-107); Estimated GFR 111.34 (mL/min/1.73m2); Glucose 103 mg/dL (74-106); Magnesium 1.8 mg/dL (1.8-2.4); Potassium 3.7 mmol/L (3.5-5.1); Sodium 141 mmol/L (136-145); Total Protein 6.8 g/dL (6.4-8.2); Troponin I 4 ng/L (<or=51)
[2025-03-06 17:11] LABS: Troponin I 5 ng/L (<or=51)
[2025-03-06] MEDS: Ketorolac 15 MG/ML VIAL IVP (17:29)
--- NOTE | 2025-03-09 09:19 | NUR.NOTE ---
Access chart to reconcile EKG orders with EKG's in [facility]. Duplicate order cancelled. Nursing Note:
== END 2025-03-06 17:33 | disposition home or self-care (01) ==
PROVIDERS: Emergency Provider General Practice; PCP Family Medicine
DX: R07.89 Other chest pain (principal); M54.2 Cervicalgia; I10 Essential (primary) hypertension
CPT/HCPCS: 99284 ×2; 36415; 96374; 80053; 93005; 71045; 83735; 84484; 85025; 93010; J1885

== ENCOUNTER 2025-04-07 12:52 | Outpatient (CLI) | payer BC, SELFPAY ==
[2025-04-07 14:06] LABS: Calculated LDL 102 mg/dL (<100); Cholesterol 193 mg/dL (<200); HDL Cholesterol 52 mg/dL (>or=50); Triglyceride 196 mg/dL (<150)
== END 2025-04-07 12:53 | disposition home or self-care (01) ==
LOC: LBO 12:53
PROVIDERS: PCP Family Medicine; Visit Provider Emergency Medicine
DX: R07.89 Other chest pain (principal); M54.2 Cervicalgia
CPT/HCPCS: 36415; 80061; 83695